=== PATIENT | female | born 1980 | race Caucasian/White ===

== ENCOUNTER 2019-07-25 23:40 | Emergency (ER) | payer MEDICAID ==
[~2019-07-25] VITALS: Ht 152.4 cm; Wt 59.9 kg
[~2019-07-25 23:40] MED LIST: AC500T PO; ACDPT; ALB0.5V; ALBU17AE3; ALBU8.5H2 IH; ALPR0.5T22; ALPR1T; ALPR1T PO; ALPR1TAB PO; AMATIZA; AMOX500C2 PO; AMT50T; ANTI15DR4 RIGHT EAR; BUDE6HFA; CODE-54 PO; CYCL-97 PO; Claritin; DICY20TA57 PO; DOXE10CA PO; DOXE25CA2 PO; DXM4T; ERYT-99; ESTR0.5T3 PO; ESTRACE; Estradiol; HYDR-2856 PO; HYDR-34 PO; HYDR-3714 PO; HYDR1TAB PO; IBP800T PO; IBUP800T26 PO; LITH150C PO; LORA0.5T34 PO; LTH150C PO; NAPR-243 PO; NITR100C3 PO; PARO20TA57; PRD50T PO; PRM25T PO; QTP25T; RISP1TAB19 PO; TRAM50TA2 PO; TRM50T PO; VILA40TA PO; Valium; ZOLP10TA5 PO; [UNRECOGNIZED DRUG - OTHER]
[2019-07-26] MEDS ORDERED: FAMOTIDINE 20MG/2ML IV (PEPCID) IVP ONE (01:00)
[2019-07-26] MEDS ORDERED: ONDANSETRON 4 MG/2 ML (SDV) Z0FRAN IVP ONE (01:00)
[2019-07-26 01:07] LABS: BASOPHILS # (AUTO) 0.1 10^3/uL (0.0-0.1); BASOPHILS % (AUTO) 1 % (0-10); EOSINOPHILS # (AUTO) 0.2 10^3/uL (0.0-0.3); EOSINOPHILS % (AUTO) 3 % (0-10); HEMATOCRIT 40 % (35-52); HEMOGLOBIN 13.5 G/DL (11.5-16.0); LYMPHOCYTES # (AUTO) 1.8 X 10^3 (1.0-4.0); LYMPHOCYTES % (AUTO) 30 % (12-44); MEAN CORPUSCULAR HEMOGLOBIN 31 PG (25-34); MEAN CORPUSCULAR HGB CONC 34 G/DL (32-36); MEAN CORPUSCULAR VOLUME 92 FL (80-99); MEAN PLATELET VOLUME 11.9 FL (7.4-10.4); MONOCYTES # (AUTO) 0.7 X 10^3 (0.0-1.0); MONOCYTES % (AUTO) 11 % (0-12); NEUTROPHILS # (AUTO) 3.3 X 10^3 (1.8-7.8); NEUTROPHILS % (AUTO) 55 % (42-75); PLATELET COUNT 171 10^3/uL (130-400); WHITE BLOOD COUNT 5.9 10^3/uL (4.3-11.0)
[2019-07-26 01:10] LABS: BILIRUBIN,URINE NEGATIVE (NEGATIVE); CLARITY,URINE SLIGHTLY CLOUDY; COLOR,URINE YELLOW; GLUCOSE, URINE (UA) NEGATIVE (NEGATIVE); KETONES,URINE NEGATIVE (NEGATIVE); LEUKOCYTE ESTERASE ,URINE NEGATIVE (NEGATIVE); NITRITE,URINE NEGATIVE (NEGATIVE); PH,URINE 6 (5-9); PROTEIN,URINE NEGATIVE (NEGATIVE); UROBILINOGEN,URINE NORMAL (NORMAL)
[2019-07-26 01:18] LABS: BACTERIA,URINE FEW /HPF; WBC,URINE RARE /HPF
[2019-07-26 01:24] LABS: ALANINE AMINOTRANSFERASE 334 U/L (0-55); ALBUMIN 4.1 GM/DL (3.2-4.5); ALKALINE PHOSPHATASE 146 U/L (40-136); BILIRUBIN,TOTAL 0.5 MG/DL (0.1-1.0); BUN/CREATININE RATIO 12; CARBON DIOXIDE 23 MMOL/L (21-32); CHLORIDE 107 MMOL/L (98-107); CREATININE SERUM 0.82 MG/DL (0.60-1.30); GFR ESTIMATED > 60; GLUCOSE 81 MG/DL (70-105); LIPASE 24 U/L (8-78); MAGNESIUM 1.5 MG/DL (1.6-2.4); POTASSIUM 3.6 MMOL/L (3.6-5.0); SODIUM 142 MMOL/L (135-145); TOTAL PROTEIN 6.6 GM/DL (6.4-8.2)
[2019-07-26] MEDS ORDERED: FAMO-119 PO (03:00)
[2019-07-26] MEDS ORDERED: ONDA4TAB11 PO (03:00)
[2019-07-26] MEDS ORDERED: ANTACID SUSP 30 ML UDC (MYLANTA) PO ONE (03:00)
[2019-07-26] MEDS ORDERED: PROMETHAZINE INJ 25 MG/ML (PHENERGAN) AMP IVP ONE (03:00)
[2019-07-26] MEDS ORDERED: LIDOCAINE 2% VISCOUS 15 ML UDC PO ONE (03:00)
--- NOTE | 2019-07-26 03:00 | ED Abdominal Pain ---
General Chief Complaint: Abdominal/GI Problems Stated Complaint: CP,VOMITING Nursing Triage Note: C/O ONGOING ABDOMINAL PAIN FOR 2 MONTHS HAS HAD COMITINF VERBALIZES COFFEE GOUND EMISIS WITHNORMAL STOOL PATTERN Sepsis Screen: No Definite Risk Source of Information: Patient Exam Limitations: No Limitations History of Present Illness Date Seen by Provider: Jul 26, 2019 Time Seen by Provider: 00:46 Initial Comments This 38-year-old woman presents to the emergency room with complaints of epigastric pain that radiates up through the left chest. She has been feeling agitated. Pain started around 11:00 yesterday. She has had associated vomiting. Pain has been present intermittently throughout the day. She has felt dizzy at times and has been bumping into julien. She feels a pressure in the lower abdomen with urination. She is nauseated at present as well. She was recently referred to Dr. Roberto for evaluation of these symptoms. She did not go due to other life circumstances. She reports an episode of "coffee-ground" emesis today. She had some diarrhea previously but that seemed to have resolved. She complains of chest discomfort with inspiration of smoke. The abdominal discomfort has been present off and on for a couple of months. She also reports some foot drop related to her neurologic issues contributed to her stability. She denies any drug or alcohol use. Allergies and Home Medications Allergies Coded Allergies: No Known Drug Allergies (Unverified , 03/20/12) Home Medications Albuterol 8.5 Gm Hfa.aer.ad, 8.5 GM IH Q6H, (Reported) 2 PUFFS Amoxicillin 500 Mg Capsule, 2 EACH PO TID Prescribed by: ANJU SANTA on 08/17/14 005 Codeine Phos/Acetaminophen 1 Tab Tablet, 2 TAB PO Q6H PRN for PAIN, (Reported) Estradiol 0.5 Mg Tablet, 0.5 MG PO DAILY, (Reported) Famotidine 20 Mg Tablet, 20 MG PO BID Prescribed by: BRANDEN LACY on 07/26/19 0300 Ibuprofen 800 Mg Tablet, 800 MG PO q8h PRN for PAIN Prescribed by: ANJU SANTA on 08/17/14 005 Lorazepam 0.5 Mg Tablet, 1 MG PO TID, (Reported) Ondansetron 4 Mg Tab.rapdis, 4 MG PO Q4H PRN for NAUSEA/VOMITING Prescribed by: BRANDEN LACY on 07/26/19 0300 Zolpidem Tartrate 10 Mg Tablet, 10 MG PO HS, (Reported) Patient Home Medication List Home Medication List Reviewed: Yes Review of Systems Review of Systems Constitutional: see HPI EENTM: No Symptoms Reported Respiratory: No Symptoms Reported Cardiovascular: No Symptoms Reported Gastrointestinal: See HPI Genitourinary: No Symptoms Reported Musculoskeletal: no symptoms reported Skin: no symptoms reported Psychiatric/Neurological: See HPI Endocrine: No Symptoms Reported Hematologic/Lymphatic: No Symptoms Reported Past Ztqokya-Ujodly-Ymbjag Hx Past Med/Social Hx: Reviewed and Corrections made Patient Social History Alcohol Use: Occasionally Uses Recreational Drug Use: No Smoking Status: Current Everyday Smoker Type Used: Cigarettes 2nd Hand Smoke Exposure: No Recent Foreign Travel: No Contact w/Someone Who Travel: No Recent Infectious Disease Expo: No Recent Hopitalizations: No Physical Abuse: No Sexual Abuse: No Mistreated: No Fear: No Immunizations Up To Date Date of Influenza Vaccine: Sep 07, 2012 Past Medical History Surgeries: Yes (MULTIPLE D&C'S, LEFT CARPAL TUNNEL AND LEFT ULNAR NERVE TRANSPOSITION, BSO) Appendectomy, Gallbladder, Hysterectomy Respiratory: Yes Asthma Cardiac: Yes (TACHYCARDIA) Neurological: Yes (Carpel tunnel syndrome bilaterally, neuropathy and neurodysplasia of LUE) Seizure Disorder : No Reproductive Disorders: Yes (OVARIAN CYSTS, HYSTERECTOMY FOR CERVICAL DYSPLASIA) 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 oz. 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, no motor/sensory deficits, alert, normal mood/affect, oriented x 3 Skin: normal color, warm/dry Progress/Results/Core Measures Results/Orders Lab Results Laboratory Tests Test 07/26/19 00:55 07/26/19 01:05 Range/Units White Blood Count 5.9 4.3-11.0 10^3/uL Red Blood Count 4.36 4.35-5.85 10^6/uL Hemoglobin 13.5 11.5-16.0 G/DL Hematocrit 40 35-52 % Mean Corpuscular Volume 92 80-99 FL Mean Corpuscular Hemoglobin 31 25-34 PG Mean Corpuscular Hemoglobin Concent 34 32-36 G/DL Red Cell Distribution Width 14.0 10.0-14.5 % Platelet Count 171 130-400 10^3/uL Mean Platelet Volume 11.9 H 7.4-10.4 FL Neutrophils (%) (Auto) 55 42-75 % Lymphocytes (%) (Auto) 30 12-44 % Monocytes (%) (Auto) 11 0-12 % Eosinophils (%) (Auto) 3 0-10 % Basophils (%) (Auto) 1 0-10 % Neutrophils # (Auto) 3.3 1.8-7.8 X 10^3 Lymphocytes # (Auto) 1.8 1.0-4.0 X 10^3 Monocytes # (Auto) 0.7 0.0-1.0 X 10^3 Eosinophils # (Auto) 0.2 0.0-0.3 10^3/uL Basophils # (Auto) 0.1 0.0-0.1 10^3/uL Prothrombin Time 13.0 12.2-14.7 SEC INR Comment 0.9 0.8-1.4 Sodium Level 142 135-145 MMOL/L Potassium Level 3.6 3.6-5.0 MMOL/L Chloride Level 107 98-107 MMOL/L Carbon Dioxide Level 23 21-32 MMOL/L Anion Gap 12 5-14 MMOL/L Blood Urea Nitrogen 10 7-18 MG/DL Creatinine 0.82 0.60-1.30 MG/DL Estimat Glomerular Filtration Rate > 60 BUN/Creatinine Ratio 12 Glucose Level 81 70-105 MG/DL Calcium Level 9.0 8.5-10.1 MG/DL Corrected Calcium 8.9 8.5-10.1 MG/DL Magnesium Level 1.5 L 1.6-2.4 MG/DL Total Bilirubin 0.5 0.1-1.0 MG/DL Aspartate Amino Transf (AST/SGOT) 428 H 5-34 U/L Alanine Aminotransferase (ALT/SGPT) 334 H 0-55 U/L Alkaline Phosphatase 146 H 40-136 U/L Troponin I < 0.028 <0.028 NG/ML Total Protein 6.6 6.4-8.2 GM/DL Albumin 4.1 3.2-4.5 GM/DL Lipase 24 8-78 U/L Urine Color YELLOW Urine Clarity SLIGHTLY CLOUDY Urine pH 6 5-9 Urine Specific Tiller 1.010 L 1.016-1.022 Urine Protein NEGATIVE NEGATIVE Urine Glucose (UA) NEGATIVE NEGATIVE Urine Ketones NEGATIVE NEGATIVE Urine Nitrite NEGATIVE NEGATIVE Urine Bilirubin NEGATIVE NEGATIVE Urine Urobilinogen NORMAL NORMAL MG/DL Urine Leukocyte Esterase NEGATIVE NEGATIVE Urine RBC (Auto) NEGATIVE NEGATIVE Urine RBC NONE /HPF Urine WBC RARE /HPF Urine Squamous Epithelial Cells 5-10 /HPF Urine Crystals NONE /LPF Urine Bacteria FEW H /HPF Urine Casts NONE /LPF Urine Mucus NEGATIVE /LPF Urine Culture Indicated YES My Orders Orders - BRANDEN KRAFT MD Cbc With Automated Diff (07/26/19 00:59) Comprehensive Metabolic Panel (07/26/19 00:59) Lipase (07/26/19 00:59) Magnesium (07/26/19 00:59) Troponin I (07/26/19 00:59) Ua Culture If Indicated (07/26/19 00:59) Ed Iv/Invasive Line Start (07/26/19 00:59) Ekg Tracing (07/26/19 00:59) Chest 1 View, Ap/Pa Only (07/26/19 00:59) Famotidine Injection (Pepcid Injection) (07/26/19 01:00) Ondansetron Injection (Zofran Injectio (07/26/19 01:00) Urine Culture (07/26/19 01:05) Promethazine Injection (Phenergan Injec (07/26/19 03:00) Lidocaine 2% Viscous 15 Ml (Xylocaine Vi (07/26/19 03:00) Antacid Suspension (Mylanta Suspension (07/26/19 03:00) Hepatitis Panel Acute (07/26/19 02:51) Protime With Inr (07/26/19 02:51) Medications Given in ED Current Medications Medications Dose Ordered Sig/Rafael Route Start Time Stop Time Status Last Admin Dose Admin Al Hydrox/Mg Hydrox/Simethicone 30 ml ONCE ONCE PO 07/26/19 03:00 07/26/19 03:01 DC 07/26/19 03:19 30 ML Famotidine 20 mg ONCE ONCE IVP 07/26/19 01:00 07/26/19 01:02 DC 07/26/19 01:18 20 MG Lidocaine HCl 15 ml ONCE ONCE PO 07/26/19 03:00 07/26/19 03:01 DC 07/26/19 03:19 15 ML Ondansetron HCl 8 mg ONCE ONCE IVP 07/26/19 01:00 07/26/19 01:02 DC 07/26/19 01:18 8 MG Promethazine HCl 12.5 mg ONCE ONCE IVP 07/26/19 03:00 07/26/19 03:01 DC 07/26/19 03:19 12.5 MG Vital Signs/I&O 07/25/19 07/26/19 23:52 03:28 Temp 98.2 Pulse 87 70 Resp 18 22 B/P (MAP) 122/93 (103) 106/77 (87) Pulse Ox 99 96 Blood Pressure Mean: 103 Progress Progress Note : Progress Note Patient was found to have elevated transaminases. Workup was otherwise unremarkable. Transaminases are elevated enough that there is concern about acute hepatitis. Patient reports being tested for hepatitis in the past. However, she did receive a tattoo on her right forearm by a nonlicensed artist since last being screened for hepatitis. Patient was initially treated with Pepcid and Zofran. Phenergan and GI cocktail was added later. Patient was encouraged to return for repeat blood work on Tuesday. She was encouraged to follow closely with her primary care team on Tuesday. Initial ECG Impression Date: Jul 26, 2019 Initial ECG Impression Time: 01:08 Initial ECG Rate: 73 Initial ECG Rhythm: Normal Sinus Initial ECG Intervals: Normal Initial ECG Impression: Normal Comment Normal sinus rhythm with no ST elevation or depression. No abnormal intervals or axis deviation. Diagnostic Imaging Diagonstic Imaging: Xray Plain Films/CT/US/NM/MRI: chest Comments Chest x-ray viewed by me. Report not yet available. No acute abnormalities appreciated. Departure Impression Primary Impression: Acute hepatitis Additional Impressions: Upper abdominal pain Nausea and vomiting Qualified Codes: R11.2 - Nausea with vomiting, unspecified Disposition: HOME, SELF-CARE Condition: Improved Departure-Patient Inst. Decision time for Depature: 02:56 Referrals: JOHANNE HERNANDES MD (PCP/Family) Primary Care Physician Patient Instructions: Acute Abdomen (Belly Pain), Adult (DC), Liver Function Test Add. Discharge Instructions: Your liver markers suggest acute hepatitis. Labs to evaluate for viral he patitis were collected in the ER. The should be available for review by early next week. Please follow-up with your primary care provider in the clinic next week. Start with a clear liquid diet and gradually advance your diet with small quantities of bland food as tolerated. Avoid food or drink that irritates your stomach. Do not drink alcohol. Avoid Tylenol. You may use Zofran (ondansetron) as prescribed for nausea and vomiting. Use Pepcid as prescribed for stomach irritation. Return to emergency room if you have worsening symptoms. Obtain lab work again on Tuesday to monitor the progression of your liver markers. All discharge instructions reviewed with patient and/or family. Voiced understanding. Scripts Famotidine (Pepcid) 20 Mg Tablet 20 MG PO BID, #60 TAB Prov: BRANDEN KRAFT MD 07/26/19 Ondansetron (Ondansetron Odt) 4 Mg Tab.rapdis 4 MG PO Q4H PRN for NAUSEA/VOMITING, #10 TAB Prov: BRANDEN KRAFT MD 07/26/19 Copy Copies To 1: JOHANNE HERNANDES MD, JOSHUA T MD Jul 26, 2019 03:00
[2019-07-26 03:07] LABS: INR 0.9 (0.8-1.4)
[2019-07-26 03:28] VITALS: BP 106/77
--- NOTE | 2019-07-26 07:30 | Diagnostic Imaging Report ---
Patient History: Chest pain. Technique: Single frontal view of the chest Comparison: 02/15/2013 FINDINGS: The lung volumes are normal. No focal consolidation is seen. No large pleural effusion or pneumothorax is seen. The cardiomediastinal silhouette is normal in size and contour. No acute osseous abnormality is seen. IMPRESSION: No acute pulmonary abnormality seen. Dictated by: Dictated on workstation # [id number]
[2019-07-27 07:54] LABS: HEPATITIS C ANTIBODY C Non-Reactive (Non-Reactive)
== END 2019-07-26 03:28 | disposition home or self-care (01) ==
LOC: ER 23:40 → EDUNIT# 23:40 → ER 07-26 03:28
DX: B17.9 Acute viral hepatitis, unspecified (principal); J45.909 Unspecified asthma, uncomplicated; G40.909 Epilepsy, unspecified, not intractable, without status epilepticus; F41.9 Anxiety disorder, unspecified; F31.9 Bipolar disorder, unspecified; G62.9 Polyneuropathy, unspecified; F17.210 Nicotine dependence, cigarettes, uncomplicated; Z90.49 Acquired absence of other specified parts of digestive tract; Z90.710 Acquired absence of both cervix and uterus; Z79.52 Long term (current) use of systemic steroids; Z90.722 Acquired absence of ovaries, bilateral; Z85.41 Personal history of malignant neoplasm of cervix uteri; Z91.5 Personal history of self-harm
CPT/HCPCS: 36415; 71045; 80053; 80074; 81000; 83690; 83735; 84484; 85025; 85610; 87088; 93005

== ENCOUNTER → 2019-07-27 | Outpatient (CLI) | payer MEDICAID ==
[~2019-07-27] MED LIST changes: +FAMO-119 PO; +ONDA4TAB11 PO
[2019-07-27 13:50] LABS: BASOPHILS # (AUTO) 0.1 10^3/uL (0.0-0.1); BASOPHILS % (AUTO) 2 % (0-10); EOSINOPHILS # (AUTO) 0.1 10^3/uL (0.0-0.3); EOSINOPHILS % (AUTO) 2 % (0-10); HEMATOCRIT 43 % (35-52); HEMOGLOBIN 14.3 G/DL (11.5-16.0); LYMPHOCYTES # (AUTO) 2.4 X 10^3 (1.0-4.0); LYMPHOCYTES % (AUTO) 42 % (12-44); MEAN CORPUSCULAR HEMOGLOBIN 31 PG (25-34); MEAN CORPUSCULAR HGB CONC 33 G/DL (32-36); MEAN CORPUSCULAR VOLUME 94 FL (80-99); MEAN PLATELET VOLUME 11.8 FL (7.4-10.4); MONOCYTES # (AUTO) 0.6 X 10^3 (0.0-1.0); MONOCYTES % (AUTO) 11 % (0-12); NEUTROPHILS # (AUTO) 2.5 X 10^3 (1.8-7.8); NEUTROPHILS % (AUTO) 44 % (42-75); PLATELET COUNT 183 10^3/uL (130-400); RED CELL DISTRIBUTION WIDTH 14.2 % (10.0-14.5); WHITE BLOOD COUNT 5.7 10^3/uL (4.3-11.0)
[2019-07-27 14:15] LABS: INR 0.9 (0.8-1.4); PROTHROMBIN TIME PATIENT 12.7 SEC (12.2-14.7)
[2019-07-27 14:19] LABS: ALANINE AMINOTRANSFERASE 174 U/L (0-55); ALBUMIN 4.6 GM/DL (3.2-4.5); ALKALINE PHOSPHATASE 127 U/L (40-136); BILIRUBIN,TOTAL 0.5 MG/DL (0.1-1.0); BUN/CREATININE RATIO 10; CALCIUM 9.9 MG/DL (8.5-10.1); CARBON DIOXIDE 24 MMOL/L (21-32); CHLORIDE 105 MMOL/L (98-107); CREATININE SERUM 1.07 MG/DL (0.60-1.30); GFR ESTIMATED 57; GLUCOSE 95 MG/DL (70-105); POTASSIUM 4.5 MMOL/L (3.6-5.0); SODIUM 141 MMOL/L (135-145); TOTAL PROTEIN 7.3 GM/DL (6.4-8.2)
== END ==
LOC: LAB 13:37
PROVIDERS: ATTEND Family Medicine
DX: B17.9 Acute viral hepatitis, unspecified (principal)
CPT/HCPCS: 36415; 80053; 85025; 85610

== ENCOUNTER 2019-12-15 16:39 | Emergency (ER) | payer MEDICAID ==
--- NOTE | 2019-12-15 16:39 | NUR ---
PATIENT HAS HX OF SEIZURE DISORDER ARRIVES TO ROOM 6 TO SEE HER SON WHO IS A PATIENT HERE. PATIENT BEGINS HAVING A SEIZURE AND FAMILY REQUEST SHE BE SEEN. THIS RN IN ROOM FOR SEIZURE ACTIVITY. THIS RN WAITS UNTIL PATIENT RECOVERS FROM SHAKING "SEIZURE ACTIVITY" TO VERIFY SHE DOES WANT TO BE SEEN BECAUSE SHE IS YELLING "I HAVE THESE ALL THE TIME, I DONT NEED TO BE SEEN" FAMILY IS ARGUING WITH PATIENT SO THIS RN STEPS IN AND ASKS PATIENT SPECIFICALLY IF SHE WANTS TO BE SEEN OR NOT. AT THIS TIME PATIENT STOPS YELLING AND AGREES TO BE SEEN.
[2019-12-15] MEDS ORDERED: LORazepam INJ 2 MG/ML (ATIVAN) VIAL ONE (16:43)
[2019-12-15] MEDS ORDERED: LORazepam INJ 2 MG/ML (ATIVAN) VIAL IVP PRN (17:00)
[2019-12-15 17:07] LABS: BASOPHILS # (AUTO) 0.1 10^3/uL (0.0-0.1); BASOPHILS % (AUTO) 1 % (0-10); EOSINOPHILS # (AUTO) 0.1 10^3/uL (0.0-0.3); EOSINOPHILS % (AUTO) 1 % (0-10); HEMATOCRIT 43 % (35-52); HEMOGLOBIN 14.4 G/DL (11.5-16.0); LYMPHOCYTES # (AUTO) 3.3 X 10^3 (1.0-4.0); LYMPHOCYTES % (AUTO) 48 % (12-44); MEAN CORPUSCULAR HEMOGLOBIN 32 PG (25-34); MEAN CORPUSCULAR HGB CONC 34 G/DL (32-36); MEAN CORPUSCULAR VOLUME 94 FL (80-99); MEAN PLATELET VOLUME 11.8 FL (7.4-10.4); MONOCYTES # (AUTO) 0.7 X 10^3 (0.0-1.0); MONOCYTES % (AUTO) 10 % (0-12); NEUTROPHILS # (AUTO) 2.8 X 10^3 (1.8-7.8); NEUTROPHILS % (AUTO) 40 % (42-75); PLATELET COUNT 237 10^3/uL (130-400); RED CELL DISTRIBUTION WIDTH 13.8 % (10.0-14.5)
--- NOTE | 2019-12-15 17:08 | ED General ---
General Chief Complaint: Neurological Problems Stated Complaint: SEIZURE Source of Information: Patient Exam Limitations: No Limitations History of Present Illness Date Seen by Provider: Dec 15, 2019 Time Seen by Provider: 16:50 Initial Comments Patient came to the emergency room to visit her son who is a minor in [facility], upon entering his room she fell onto the bed and began convulsing. She reports a long-standing history of seizures and all of the stress is worsening them. Timing/Duration: 1-2 Days Severity: Moderate Allergies and Home Medications Allergies Coded Allergies: No Known Drug Allergies (Unverified , 03/20/12) Home Medications Albuterol 8.5 Gm Hfa.aer.ad, 8.5 GM IH Q6H, (Reported) 2 PUFFS Amoxicillin 500 Mg Capsule, 2 EACH PO TID Prescribed by: ANJU SANTA on 08/17/14 005 Codeine Phos/Acetaminophen 1 Tab Tablet, 2 TAB PO Q6H PRN for PAIN, (Reported) Estradiol 0.5 Mg Tablet, 0.5 MG PO DAILY, (Reported) Famotidine 20 Mg Tablet, 20 MG PO BID Prescribed by: BRANDEN LACY on 07/26/19 030 Ibuprofen 800 Mg Tablet, 800 MG PO q8h PRN for PAIN Prescribed by: ANJU SANTA on 08/17/1453 Lorazepam 0.5 Mg Tablet, 1 MG PO TID, (Reported) Ondansetron 4 Mg Tab.rapdis, 4 MG PO Q4H PRN for NAUSEA/VOMITING Prescribed by: BRANDEN LACY on 07/26/19 0300 Zolpidem Tartrate 10 Mg Tablet, 10 MG PO HS, (Reported) Patient Home Medication List Home Medication List Reviewed: Yes Review of Systems Review of Systems Constitutional: see HPI, malaise, weakness EENTM: see HPI Respiratory: no symptoms reported Cardiovascular: no symptoms reported Genitourinary: no symptoms reported Musculoskeletal: no symptoms reported Skin: no symptoms reported Psychiatric/Neurological: No Symptoms Reported Hematologic/Lymphatic: No Symptoms Reported Immunological/Allergic: no symptoms reported Past Ivpxmtj-Mzowsf-Kelazk Hx Patient Social History Type Used: Cigarettes 2nd Hand Smoke Exposure: No Recent Hopitalizations: No Immunizations Up To Date Date of Influenza Vaccine: Sep 07, 2012 Past Medical History Surgeries: Yes (MULTIPLE D&C'S, LEFT CARPAL TUNNEL AND LEFT ULNAR NERVE TRANSPOSITION, BSO) Appendectomy, Gallbladder, Hysterectomy Respiratory: Yes Asthma Cardiac: Yes (TACHYCARDIA) Neurological: Yes (Carpel tunnel syndrome bilaterally, neuropathy and neurodysplasia of LUE) Seizure Disorder Reproductive Disorders: Yes (OVARIAN CYSTS, HYSTERECTOMY FOR CERVICAL DYSPLASIA) 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 oz. 59.945358hx; 31.10 BMI Method:Actual General Appearance: No Apparent Distress, WD/WN, Other (alert and oriented, several teeth in a poor state of health, tearful stating "I've failed as a mother") HEENT: PERRL/EOMI, TMs Normal Neck: Full Range of Motion, Normal Inspection Respiratory: Normal Breath Sounds, No Accessory Muscle Use, No Respiratory Distress Cardiovascular: Regular Rate, Rhythm, Normal Peripheral Pulses Gastrointestinal: Normal Bowel Sounds, Non Tender, Soft Extremity: Normal Capillary Refill, Normal Inspection Neurologic/Psychiatric: Alert, Oriented x3 Skin: Normal Color, Warm/Dry Progress/Results/Core Measures Suspected Sepsis SIRS Temperature: Pulse: Respiratory Rate: Laboratory Tests 12/15/19 16:44: White Blood Count 7.0 Blood Pressure / Mean: Laboratory Tests 12/15/19 16:44: Creatinine 0.99, Platelet Count 237, Total Bilirubin 0.3 Results/Orders Lab Results Laboratory Tests Test 12/15/19 16:44 Range/Units White Blood Count 7.0 4.3-11.0 10^3/uL Red Blood Count 4.54 4.35-5.85 10^6/uL Hemoglobin 14.4 11.5-16.0 G/DL Hematocrit 43 35-52 % Mean Corpuscular Volume 94 80-99 FL Mean Corpuscular Hemoglobin 32 25-34 PG Mean Corpuscular Hemoglobin Concent 34 32-36 G/DL Red Cell Distribution Width 13.8 10.0-14.5 % Platelet Count 237 130-400 10^3/uL Mean Platelet Volume 11.8 H 7.4-10.4 FL Neutrophils (%) (Auto) 40 L 42-75 % Lymphocytes (%) (Auto) 48 H 12-44 % Monocytes (%) (Auto) 10 0-12 % Eosinophils (%) (Auto) 1 0-10 % Basophils (%) (Auto) 1 0-10 % Neutrophils # (Auto) 2.8 1.8-7.8 X 10^3 Lymphocytes # (Auto) 3.3 1.0-4.0 X 10^3 Monocytes # (Auto) 0.7 0.0-1.0 X 10^3 Eosinophils # (Auto) 0.1 0.0-0.3 10^3/uL Basophils # (Auto) 0.1 0.0-0.1 10^3/uL Sodium Level 142 135-145 MMOL/L Potassium Level 3.7 3.6-5.0 MMOL/L Chloride Level 108 H 98-107 MMOL/L Carbon Dioxide Level 14 L 21-32 MMOL/L Anion Gap 20 H 5-14 MMOL/L Blood Urea Nitrogen 6 L 7-18 MG/DL Creatinine 0.99 0.60-1.30 MG/DL Estimat Glomerular Filtration Rate > 60 BUN/Creatinine Ratio 6 Glucose Level 102 70-105 MG/DL Calcium Level 9.4 8.5-10.1 MG/DL Corrected Calcium 9.1 8.5-10.1 MG/DL Total Bilirubin 0.3 0.1-1.0 MG/DL Aspartate Amino Transf (AST/SGOT) 39 H 5-34 U/L Alanine Aminotransferase (ALT/SGPT) 35 0-55 U/L Alkaline Phosphatase 103 40-136 U/L Total Protein 6.9 6.4-8.2 GM/DL Albumin 4.4 3.2-4.5 GM/DL Lipase 12 8-78 U/L My Orders Orders - YEMI BONILLA APRN Ua Culture If Indicated (12/15/19 16:47) Drug Screen Stat (Urine) (12/15/19 16:47) Cbc With Automated Diff (12/15/19 16:47) Comprehensive Metabolic Panel (12/15/19 16:47) Lipase (12/15/19 16:47) Ed Iv/Invasive Line Start (12/15/19 16:47) Lorazepam Injection (Ativan Injection) (12/15/19 17:00) Ns Iv 1000 Ml (Sodium Chloride 0.9%) (12/15/19 17:30) Ketorolac Injection (Toradol Injection) (12/15/19 17:30) Orphenadrine Injection (Norflex Injectio (12/15/19 17:30) Promethazine Injection (Phenergan Injec (12/15/19 17:45) Medications Given in ED Current Medications Medications Dose Ordered Sig/Rafael Route Start Time Stop Time Status Last Admin Dose Admin Lorazepam 1.5 mg ONCE PRN IVP 12/15/19 17:00 12/15/19 16:52 1.5 MG Vital Signs/I&O 12/15/19 16:39 Temp 36.8 Pulse 104 Resp 24 B/P (MAP) 115/85 (95) Pulse Ox 96 Capillary Refill : Departure Communication (Admissions) 1989-patient is belligerent, yelling at staff, yelling at her family in the room states she doesn't want to be here, I allowed her to sign out AGAINST MEDICAL ADVICE, she states "I don't have a ride explanation felipe". Asked her not yelling or rude to staff. Impression Primary Impression: Stress Additional Impression: Seizure-like activity Disposition: 01 HOME, SELF-CARE Condition: Stable Departure-Patient Inst. Decision time for Depature: 17:35 Referrals: SELF,JOHANNE SOTO (PCP/Family) Primary Care Physician Patient Instructions: Seizures, Stress Add. Discharge Instructions: . Return to ER for any concerns 2. Follow-up with your doctor next week 3. All discharge instructions reviewed with patient and/or family. Voiced understanding. YEMI BONILLA APRN Dec 15, 2019 17:08
--- NOTE | 2019-12-15 17:10 | NUR ---
CALLED TO ROOM BY FRIEND AND WITNESS PATIENT HAVINNG WHAT APPEARS TO BE A SEIZURE, PATIENT IS SECURE AND SAFE IN BED, SHAKING ACTIVITY LASTED 30 SECONDS. PATIENT SPEAKS TO THIS RN WHILE AT BEDSIDE WITH IN ONE MINUTE ACTIVITY CEASED. MONITORING MAINTAINED. CALL LIGHT IN REACH, FRIEND AT BEDSIDE.
[2019-12-15 17:15] LABS: ALANINE AMINOTRANSFERASE 35 U/L (0-55); ALBUMIN 4.4 GM/DL (3.2-4.5); ALKALINE PHOSPHATASE 103 U/L (40-136); BILIRUBIN,TOTAL 0.3 MG/DL (0.1-1.0); BUN/CREATININE RATIO 6; CALCIUM 9.4 MG/DL (8.5-10.1); CARBON DIOXIDE 14 MMOL/L (21-32); CHLORIDE 108 MMOL/L (98-107); CREATININE SERUM 0.99 MG/DL (0.60-1.30); GFR ESTIMATED > 60; GLUCOSE 102 MG/DL (70-105); LIPASE 12 U/L (8-78); POTASSIUM 3.7 MMOL/L (3.6-5.0); SODIUM 142 MMOL/L (135-145); TOTAL PROTEIN 6.9 GM/DL (6.4-8.2)
[2019-12-15] MEDS ORDERED: HOLD METFORMIN - RECEIVED CONTRAST 20 ML VIAL IV SCH (17:30)
[2019-12-15] MEDS ORDERED: KETOROLAC 30 MG/ML VIAL IVP ONE (17:30)
[2019-12-15] MEDS ORDERED: NS 100 ML (IVPB) BAG IV ONE (17:30)
[2019-12-15] MEDS ORDERED: CATHETER FLUSH 10 ML SYR IV PRN (17:30)
[2019-12-15] MEDS ORDERED: ORPHENADRINE 60 MG/2 ML (NORFLEX) AMP IV ONE (17:30)
[2019-12-15] MEDS ORDERED: IOHEXOL 350 MG/ML 100 ML (OMNIPAQUE 350) VIAL IV ONE (17:30)
[2019-12-15] MEDS ORDERED: NS IV 1000 ML 1,000 ML IV SCH (17:30)
--- NOTE | 2019-12-15 17:40 | NUR ---
PATIENT IS YELLING AT STAFF, YEMI IN ROOM TO ASK IF PATIENT WANTS TO LEAVE AMA OR STAY AND LET US TREAT HER WITH THE CONDITION SHE STOP BEING RUDE AND YELLING AT STAFF. PATIENT HAS SETTLED DOWN AND AGREES TO STAY AT THIS TIME. THIS RN IN ROOM TO ADMINISTER MEDICATIONS FOR PAIN NAUSEA AND IV FUIDS.
[2019-12-15] MEDS ORDERED: PROMETHAZINE INJ 25 MG/ML (PHENERGAN) AMP IVP ONE (17:45)
[2019-12-15 17:58] LABS: BILIRUBIN,URINE NEGATIVE (NEGATIVE); CLARITY,URINE CLEAR; COLOR,URINE YELLOW; GLUCOSE, URINE (UA) NEGATIVE (NEGATIVE); KETONES,URINE NEGATIVE (NEGATIVE); LEUKOCYTE ESTERASE ,URINE NEGATIVE (NEGATIVE); NITRITE,URINE NEGATIVE (NEGATIVE); PH,URINE 6.5 (5-9); PROTEIN,URINE NEGATIVE (NEGATIVE)
[2019-12-15 18:02] LABS: BACTERIA,URINE TRACE /HPF
[2019-12-15 18:08] LABS: AMPHETAMINE SCREEN, URINE NEGATIVE (NEGATIVE); BARBITURATE SCREEN URINE NEGATIVE (NEGATIVE); BENZODIAZEPINES SCREEN URINE POSITIVE (NEGATIVE); CANNABINOID SCREEN, URINE POSITIVE (NEGATIVE); COCAINE SCREEN URINE NEGATIVE (NEGATIVE); METHADONE STAT NEGATIVE (NEGATIVE); METHAMPHETAMINE SCREEN URINE S NEGATIVE (NEGATIVE); OPIATE SCREEN URINE NEGATIVE (NEGATIVE); OXYCODONE STAT NEGATIVE (NEGATIVE); PROPOXYPHENE STAT NEGATIVE (NEGATIVE); TRICYCLIC ANTIDEPRESSANTS SCRE NEGATIVE (NEGATIVE)
[2019-12-15 18:55] VITALS: BP 119/86
== END 2019-12-15 18:55 | disposition home or self-care (01) ==
LOC: EDUNIT# 16:39 → ER 16:39
DX: F43.9 Reaction to severe stress, unspecified (principal); G40.909 Epilepsy, unspecified, not intractable, without status epilepticus; J45.909 Unspecified asthma, uncomplicated; G62.9 Polyneuropathy, unspecified; F41.9 Anxiety disorder, unspecified; F31.9 Bipolar disorder, unspecified; Z79.52 Long term (current) use of systemic steroids; Z85.41 Personal history of malignant neoplasm of cervix uteri; Z90.49 Acquired absence of other specified parts of digestive tract; Z90.710 Acquired absence of both cervix and uterus; Z90.722 Acquired absence of ovaries, bilateral
CPT/HCPCS: 36415; 80053; 80306; 81000; 83690; 85025; 96374; 96375

== ENCOUNTER → 2020-04-17 | Outpatient (CLI) | payer MEDICAID ==
[~2020-04-17] MED LIST changes: +HOLD METFORMIN - RECEIVED CONTRAST 20 ML VIAL IV SCH; +IOHEXOL 350 MG/ML 100 ML (OMNIPAQUE 350) VIAL IV ONE; +NS 100 ML (IVPB) BAG IV ONE
--- NOTE | 2020-04-17 14:31 | Diagnostic Imaging Report ---
PROCEDURE: CT abdomen with contrast only. TECHNIQUE: Multiple contiguous axial images were obtained through the abdomen after the administration of intravenous contrast. Auto Exposure Controls were utilized during the CT exam to meet ALARA standards for radiation dose reduction. INDICATION: Abdominal pain and constipation. COMPARISON: Correlation is made with prior CT 02/12/2014. FINDINGS: Lung bases are clear. No discrete liver mass is detected. The gallbladder is surgically absent. No biliary ductal dilatation is seen. The pancreas and spleen are unremarkable. No adrenal mass is detected. Kidneys are unremarkable. Aorta is non-aneurysmal. The visualized abdominal small and large bowel loops are unremarkable. All of the bowel loops are not included in this study as the pelvis was not scanned. No free fluid or fluid collection is seen. No definite lymphadenopathy is detected. IMPRESSION: Unremarkable CT of the abdomen with contrast. Dictated by: Dictated on workstation # [id number]
== END ==
LOC: RAD 13:19
PROVIDERS: ATTEND Family Medicine
DX: K59.00 Constipation, unspecified (principal)
CPT/HCPCS: 74160

== ENCOUNTER → 2020-05-01 | Outpatient (CLI) | payer MEDICAID ==
[~2020-05-01] MED LIST changes: -HOLD METFORMIN - RECEIVED CONTRAST 20 ML VIAL IV SCH; -IOHEXOL 350 MG/ML 100 ML (OMNIPAQUE 350) VIAL IV ONE; -NS 100 ML (IVPB) BAG IV ONE
--- NOTE | 2020-05-01 18:30 | Diagnostic Imaging Report ---
PROCEDURE: MRI lumbar spine. TECHNIQUE: Multiplanar, multisequence MRI of the lumbar spine was performed without contrast. INDICATION: Low back pain. COMPARISON: Study interpreted in correlation with an abdominal CT that includes sagittal reconstructions of 04/17/2020. FINDINGS: Lumbar statures are stable and normal. The alignment is anatomic. The marrow signal intensity is normal. No bony destructive process, marrow replacement, or edema. The conus appeared normal and the nerves of the cauda equina revealed normal dispersal pattern. The L4-L5 disc reveals very slight circumferential generalized bulge but no focal herniation. The spinal canal, the neuroforamen, and the lateral recesses were all widely patent at each level. There is a small synovial facet joint cyst at the L4-L5 level on the left, this is oriented posteriorly into adjacent soft tissues and results in no stenosis. IMPRESSION: Very mild annular bulging of disc at L4-L5 with a small synovial facet cyst oriented outside of the spinal canal. No acute pathology. Normal alignment. No canal, foraminal, or recess stenosis. Dictated by: Dictated on workstation # [id number]
== END ==
LOC: RAD 14:35
PROVIDERS: ATTEND Family Medicine
DX: M51.26 Other intervertebral disc displacement, lumbar region (principal); M71.38 Other bursal cyst, other site
CPT/HCPCS: 72148

== ENCOUNTER → 2020-05-19 | Outpatient (CLI) | payer MEDICAID ==
--- NOTE | 2020-05-19 15:56 | Diagnostic Imaging Report ---
PROCEDURE: MR imaging cervical spine without contrast. TECHNIQUE: Multiplanar, multisequence MR imaging of the cervical spine was performed without contrast. INDICATION: Chronic neck pain. COMPARISON: No prior exam is available for comparison. FINDINGS: There is some straightening of the normal cervical lordosis. The vertebral body heights are well-maintained. The prevertebral soft tissues are within normal limits. Posterior fossa is unremarkable. Visualized portions of the spinal cord are normal signal intensity and morphology. At C2-C3, there is no spinal or neural foraminal encroachment. At C3-C4, there appears to be very mild right uncovertebral hypertrophy and mild right neural foraminal encroachment. At C4-C5, there is some broad-based annular bulging and mild bilateral uncovertebral joint hypertrophy. There is mild central spinal stenosis and mild bilateral neural foraminal encroachment. At C5-C6, there is broad-based annular bulging as well as a focal right paramedian disc protrusion. There is also at least moderate bilateral uncovertebral joint hypertrophy. There is [id number]-[id number] spinal stenosis with some definitive deformity of the right anterolateral cord. There is however no abnormal signal intensity within the cord. There is also at least moderate bilateral neural foraminal encroachment. At C6-C7, there is annular bulging and marked left uncovertebral joint hypertrophy. There is moderate spinal stenosis and rugjfbsi-by-bwufse left neural foraminal encroachment. At C7-T1, there is no spinal or neural foraminal encroachment. IMPRESSION: [id number] mid and lower cervical spondylosis as detailed above. Dictated by: Dictated on workstation # [id number]
--- NOTE | 2020-05-19 16:31 | Diagnostic Imaging Report ---
PROCEDURE: MR imaging of the brain without contrast. TECHNIQUE: Multiplanar, multisequence MR imaging of the brain was performed without contrast. INDICATION: Seizure disorder. COMPARISON: No prior examinations are available for comparison. FINDINGS: The ventricles and sulci are within normal limits. There is no hydrocephalus. There is no midline shift. There are no areas of diffusion restriction appreciated to suggest an acute CVA. There is no intracranial mass, hemorrhage, or extra-axial fluid collection. The temporal lobes are symmetric and without evidence of abnormal signal. There is no evidence of any neuronal migrational abnormalities. The frontal, ethmoid, sphenoid, and maxillary sinuses are clear. The mastoid air cells are clear. The globes and intraorbital structures are unremarkable. The central arterial and dural venous sinus flow voids are preserved. IMPRESSION: Unremarkable MRI brain. Dictated by: Dictated on workstation # [id number]
== END ==
LOC: RAD 14:25
PROVIDERS: ATTEND Family Medicine
DX: M47.892 Other spondylosis, cervical region (principal); G40.909 Epilepsy, unspecified, not intractable, without status epilepticus; W19.XXXA Unspecified fall, initial encounter
CPT/HCPCS: 70551; 72141

== ENCOUNTER 2020-07-13 11:27 | Emergency (ER) | payer MEDICAID ==
[~2020-07-13] VITALS: Ht 149.9 cm; Wt 66.4 kg
[2020-07-13] MEDS ORDERED: LACTATED RINGERS 1,000 ML IV ONE (11:39)
--- NOTE | 2020-07-13 11:48 | ED General ---
General Chief Complaint: General Problems/Pain Stated Complaint: NECK PAIN Source of Information: Patient Exam Limitations: No Limitations History of Present Illness Date Seen by Provider: Jul 13, 2020 Time Seen by Provider: 11:20 Initial Comments Patient presents ER by EMS from home with chief complaint that she was having some seizure-like activity. She has a known history of epilepsy and takes Valium 10 mg 3 times a day for many years for seizure control. She is also on gabapentin 800 mg 3 times a day. She follows with Dr. holt. Dr. Vargas did a spinal fusion on her cervical spine about 2 weeks ago. She has been using a fentanyl patch 12.5 g per hour as well as Percocet 10 mg every 6 hours. She took the fentanyl patch off today thing he might of been controlled being to her feeling poorly. She also noticed dysuria and malodorous urine. She says she ran out of her Valium 2 days ago and did not contact Dr. holt. She says her boyfriend has been giving her her medications and says she's not sure why she ran out early. Allergies and Home Medications Allergies Coded Allergies: No Known Drug Allergies (Unverified , 03/20/12) Home Medications Albuterol 8.5 Gm Hfa.aer.ad, 8.5 GM IH Q6H, (Reported) 2 PUFFS Amoxicillin 500 Mg Capsule, 2 EACH PO TID Prescribed by: ANJU SANTA on 08/17/14 0054 Codeine Phos/Acetaminophen 1 Tab Tablet, 2 TAB PO Q6H PRN for PAIN, (Reported) Diazepam 10 Mg Tablet, 10 MG PO TID Prescribed by: ANTHONY FARMER on 07/13/20 1154 Estradiol 0.5 Mg Tablet, 0.5 MG PO DAILY, (Reported) Famotidine 20 Mg Tablet, 20 MG PO BID Prescribed by: BRANDEN LACY on 07/26/19 0300 Ibuprofen 800 Mg Tablet, 800 MG PO q8h PRN for PAIN Prescribed by: ANJU SANTA on 08/17/14 0054 Lorazepam 0.5 Mg Tablet, 1 MG PO TID, (Reported) Ondansetron 4 Mg Tab.rapdis, 4 MG PO Q4H PRN for NAUSEA/VOMITING Prescribed by: BRANDEN LACY on 07/26/19 0300 Zolpidem Tartrate 10 Mg Tablet, 10 MG PO HS, (Reported) Patient Home Medication List Home Medication List Reviewed: Yes Review of Systems Review of Systems Constitutional: No chills, No diaphoresis, No fever, No malaise EENTM: No ear discharge, No ear pain Respiratory: No cough, No phlegm Cardiovascular: No chest pain, No Hx of Intervention, No palpitations Gastrointestinal: No abdominal pain, No constipation, No diarrhea Genitourinary: see HPI; No discharge; dysuria, hesitancy Musculoskeletal: see HPI, back pain, neck pain All Other Systems Reviewed Negative Unless Noted: Yes Past Embfbhe-Sgoumt-Weikaa Hx Patient Social History Alcohol Use: Denies Use Recreational Drug Use: Yes Drug of Choice: MARIJUANA Smoking Status: Current Everyday Smoker Type Used: Cigarettes 2nd Hand Smoke Exposure: No Recent Hopitalizations: No Immunizations Up To Date Date of Influenza Vaccine: Sep 07, 2012 Past Medical History Surgeries: Yes (MULTIPLE D&C'S, LEFT CARPAL TUNNEL AND LEFT ULNAR NERVE TRANSPOSITION, BSO) Appendectomy, Gallbladder, Hysterectomy Respiratory: Yes Asthma Cardiac: Yes (TACHYCARDIA) Neurological: Yes (Carpel tunnel syndrome bilaterally, neuropathy and neurodysplasia of LUE) Seizure Disorder Reproductive Disorders: Yes (OVARIAN CYSTS, HYSTERECTOMY FOR CERVICAL DYSPLASIA) [employer] History: Hysterectomy Genitourinary: No Gastrointestinal: No ("CHRONIC ABDOMINAL PAIN") Musculoskeletal: Yes (LEFT ARM "NERVE PROBLEM"--CHRONIC LEFT NECK/SHOULDER/ARM PAIN--FOLLOWED @) Endocrine: No HEENT: No Cancer: Yes Cervical Psychosocial: Yes (EXTENSIVE PSYCH ISSUES) Anxiety, Suicide Attempts, Bipolar, Depression Integumentary: No Blood Disorders: No Adverse Reaction/Blood Tranf: No Physical Exam Vital Signs Vital Signs - First Documented 07/13/20 11:30 Temp 36.9 Pulse 111 Resp 18 B/P (MAP) 122/73 (89) Pulse Ox 98 O2 Delivery Room Air Capillary Refill : Height, Weight, BMI Height: 5'0" Weight: 132lbs. oz. 59.880312fz; 31.10 BMI Method:Actual General Appearance: WD/WN, Mild Distress Eyes: Bilateral Eye Normal Inspection, Bilateral Eye PERRL, Bilateral Eye EOMI HEENT: PERRL/EOMI; No Pharynx Normal (dry oral mucosa without lesions), No Moist Mucous Membranes Neck: Full Range of Motion, Normal Inspection Respiratory: Lungs Clear, Normal Breath Sounds, No Accessory Muscle Use, No Respiratory Distress Cardiovascular: Regular Rate, Rhythm, No Edema, Normal Peripheral Pulses Gastrointestinal: Normal Bowel Sounds, Non Tender, Soft Extremity: Normal Capillary Refill, Normal Inspection Neurologic/Psychiatric: Alert, Oriented x3, No Motor/Sensory Deficits, Other (mildly anxious affect with mild tremor) Progress/Results/Core Measures Suspected Sepsis SIRS Temperature: Pulse: Respiratory Rate: Laboratory Tests 07/13/20 11:40: White Blood Count 5.4 Blood Pressure / Mean: Laboratory Tests 07/13/20 11:40: Creatinine 0.89, Platelet Count 248, Total Bilirubin 0.3 Results/Orders Lab Results Laboratory Tests Test 07/13/20 11:40 07/13/20 13:25 Range/Units White Blood Count 5.4 4.3-11.0 10^3/uL Red Blood Count 4.47 4.35-5.85 10^6/uL Hemoglobin 13.8 11.5-16.0 G/DL Hematocrit 41 35-52 % Mean Corpuscular Volume 92 80-99 FL Mean Corpuscular Hemoglobin 31 25-34 PG Mean Corpuscular Hemoglobin Concent 34 32-36 G/DL Red Cell Distribution Width 14.1 10.0-14.5 % Platelet Count 248 130-400 10^3/uL Mean Platelet Volume 11.4 H 7.4-10.4 FL Neutrophils (%) (Auto) 43 42-75 % Lymphocytes (%) (Auto) 40 12-44 % Monocytes (%) (Auto) 12 0-12 % Eosinophils (%) (Auto) 4 0-10 % Basophils (%) (Auto) 2 0-10 % Neutrophils # (Auto) 2.3 1.8-7.8 X 10^3 Lymphocytes # (Auto) 2.2 1.0-4.0 X 10^3 Monocytes # (Auto) 0.7 0.0-1.0 X 10^3 Eosinophils # (Auto) 0.2 0.0-0.3 10^3/uL Basophils # (Auto) 0.1 0.0-0.1 10^3/uL Sodium Level 138 135-145 MMOL/L Potassium Level 3.9 3.6-5.0 MMOL/L Chloride Level 104 98-107 MMOL/L Carbon Dioxide Level 22 21-32 MMOL/L Anion Gap 12 5-14 MMOL/L Blood Urea Nitrogen 10 7-18 MG/DL Creatinine 0.89 0.60-1.30 MG/DL Estimat Glomerular Filtration Rate > 60 BUN/Creatinine Ratio 11 Glucose Level 128 H 70-105 MG/DL Calcium Level 9.5 8.5-10.1 MG/DL Corrected Calcium 9.3 8.5-10.1 MG/DL Total Bilirubin 0.3 0.1-1.0 MG/DL Aspartate Amino Transf (AST/SGOT) 133 H 5-34 U/L Alanine Aminotransferase (ALT/SGPT) 195 H 0-55 U/L Alkaline Phosphatase 203 H 40-136 U/L Total Protein 7.2 6.4-8.2 GM/DL Albumin 4.2 3.2-4.5 GM/DL Urine Color YELLOW Urine Clarity CLEAR Urine pH 6.0 5-9 Urine Specific Krypton <=1.005 1.016-1.022 Urine Protein NEGATIVE NEGATIVE Urine Glucose (UA) NEGATIVE NEGATIVE Urine Ketones NEGATIVE NEGATIVE Urine Nitrite NEGATIVE NEGATIVE Urine Bilirubin NEGATIVE NEGATIVE Urine Urobilinogen 0.2 < = 1.0 MG/DL Urine Leukocyte Esterase NEGATIVE NEGATIVE Urine RBC (Auto) NEGATIVE NEGATIVE Urine RBC NONE /HPF Urine WBC NONE /HPF Urine Squamous Epithelial Cells 0-2 /HPF Urine Crystals NONE /LPF Urine Bacteria NEGATIVE /HPF Urine Casts NONE /LPF Urine Mucus NEGATIVE /LPF Urine Culture Indicated NO Urine Opiates Screen NEGATIVE NEGATIVE Urine Oxycodone Screen POSITIVE H NEGATIVE Urine Methadone Screen NEGATIVE NEGATIVE Urine Propoxyphene Screen NEGATIVE NEGATIVE Urine Barbiturates Screen NEGATIVE NEGATIVE Ur Tricyclic Antidepressants Screen NEGATIVE NEGATIVE Urine Phencyclidine Screen NEGATIVE NEGATIVE Urine Amphetamines Screen NEGATIVE NEGATIVE Urine Methamphetamines Screen NEGATIVE NEGATIVE Urine Benzodiazepines Screen POSITIVE H NEGATIVE Urine Cocaine Screen NEGATIVE NEGATIVE Urine Cannabinoids Screen NEGATIVE NEGATIVE My Orders Orders - ANTHONY FARMER Cbc With Automated Diff (07/13/20 11:39) Comprehensive Metabolic Panel (07/13/20 11:39) Ua Culture If Indicated (07/13/20 11:39) Drug Screen Stat (Urine) (07/13/20 11:39) Ed Iv/Invasive Line Start (07/13/20 11:39) Lactated Ringers (Lr 1000 Ml Iv Solution (07/13/20 11:39) Medications Given in ED Current Medications Medications Dose Ordered Sig/Rafael Route Start Time Stop Time Status Last Admin Dose Admin Lactated Ringer's 1,000 ml @ 0 mls/hr Q0M ONCE IV 07/13/20 11:39 07/13/20 11:41 DC 07/13/20 12:00 0 MLS/HR Vital Signs/I&O 07/13/20 11:30 Temp 36.9 Pulse 111 Resp 18 B/P (MAP) 122/73 (89) Pulse Ox 98 O2 Delivery Room Air Capillary Refill : Progress Note : Time: 11:45 Progress Note Review of K tracks shows that she received her last prescription of Valium 06/17 about 3 weeks ago. Suspect diversion versus taking more than what is prescribed. She is not having any seizure activity or postictal state for us or EMS. Plan to give her a liter fluids as she does clinically appear dry and check some labs including a urinalysis given her dysuria. Because of her seizure disorder and Valium dependence we would provide her with 3 or 4 days of Valium and instruct her to follow-up Tuesday morning, tomorrow with primary care. Departure Impression Primary Impression: Withdrawal from benzodiazepine Qualified Codes: F13.230 - Sedative, hypnotic or anxiolytic dependence with withdrawal, uncomplicated Disposition: 01 HOME, SELF-CARE Condition: Stable Departure-Patient Inst. Decision time for Depature: 12:59 Referrals: SELFJOHANNE MD (PCP/Family) Primary Care Physician Add. Discharge Instructions: Follow-up with your primary care doctor for Valium. All discharge instructions reviewed with patient and/or family. Voiced understanding. Scripts Diazepam (Valium) 10 Mg Tablet 10 MG PO TID for 4 Days, #12 TAB 0 Refills Prov: ANTHONY FARMER 07/13/20 ANTHONY FARMER Jul 13, 2020 11:47
[2020-07-13 11:53] LABS: BASOPHILS # (AUTO) 0.1 10^3/uL (0.0-0.1); BASOPHILS % (AUTO) 2 % (0-10); EOSINOPHILS # (AUTO) 0.2 10^3/uL (0.0-0.3); EOSINOPHILS % (AUTO) 4 % (0-10); HEMATOCRIT 41 % (35-52); HEMOGLOBIN 13.8 G/DL (11.5-16.0); LYMPHOCYTES # (AUTO) 2.2 X 10^3 (1.0-4.0); LYMPHOCYTES % (AUTO) 40 % (12-44); MEAN CORPUSCULAR HEMOGLOBIN 31 PG (25-34); MEAN CORPUSCULAR HGB CONC 34 G/DL (32-36); MEAN CORPUSCULAR VOLUME 92 FL (80-99); MEAN PLATELET VOLUME 11.4 FL (7.4-10.4); MONOCYTES # (AUTO) 0.7 X 10^3 (0.0-1.0); MONOCYTES % (AUTO) 12 % (0-12); NEUTROPHILS # (AUTO) 2.3 X 10^3 (1.8-7.8); NEUTROPHILS % (AUTO) 43 % (42-75); PLATELET COUNT 248 10^3/uL (130-400); RED CELL DISTRIBUTION WIDTH 14.1 % (10.0-14.5); WHITE BLOOD COUNT 5.4 10^3/uL (4.3-11.0)
[2020-07-13] MEDS ORDERED: DIAZ10TA PO (11:54)
[2020-07-13 11:57] LABS: ALBUMIN 4.2 GM/DL (3.2-4.5); CHLORIDE 104 MMOL/L (98-107); POTASSIUM 3.9 MMOL/L (3.6-5.0); SODIUM 138 MMOL/L (135-145)
[2020-07-13 11:59] LABS: CALCIUM 9.5 MG/DL (8.5-10.1)
[2020-07-13 12:00] LABS: GLUCOSE 128 MG/DL (70-105); TOTAL PROTEIN 7.2 GM/DL (6.4-8.2)
[2020-07-13 12:01] LABS: CARBON DIOXIDE 22 MMOL/L (21-32)
[2020-07-13 12:02] LABS: BILIRUBIN,TOTAL 0.3 MG/DL (0.1-1.0)
[2020-07-13 12:03] LABS: ALKALINE PHOSPHATASE 203 U/L (40-136); CREATININE SERUM 0.89 MG/DL (0.60-1.30); GFR ESTIMATED > 60
[2020-07-13 12:04] LABS: BUN/CREATININE RATIO 11
[2020-07-13 12:06] LABS: ALANINE AMINOTRANSFERASE 195 U/L (0-55)
--- NOTE | 2020-07-13 12:35 | NUR ---
Pt report given to DIXON Macdonald to assume pt care at this time.
--- NOTE | 2020-07-13 13:24 | NUR ---
Pt ambulates to restroom (stand by assist) with walker assist to obtain clean catch urine sample. Pt tolerates well.
[2020-07-13 13:30] LABS: BILIRUBIN,URINE NEGATIVE (NEGATIVE); CLARITY,URINE CLEAR; COLOR,URINE YELLOW; GLUCOSE, URINE (UA) NEGATIVE (NEGATIVE); KETONES,URINE NEGATIVE (NEGATIVE); LEUKOCYTE ESTERASE ,URINE NEGATIVE (NEGATIVE); NITRITE,URINE NEGATIVE (NEGATIVE); PROTEIN,URINE NEGATIVE (NEGATIVE)
[2020-07-13 13:36] LABS: BACTERIA,URINE NEGATIVE /HPF; SQUAMOUS EPITHELIAL CELL,UR 0-2 /HPF
[2020-07-13 13:43] LABS: AMPHETAMINE SCREEN, URINE NEGATIVE (NEGATIVE); BARBITURATE SCREEN URINE NEGATIVE (NEGATIVE); BENZODIAZEPINES SCREEN URINE POSITIVE (NEGATIVE); CANNABINOID SCREEN, URINE NEGATIVE (NEGATIVE); COCAINE SCREEN URINE NEGATIVE (NEGATIVE); METHADONE STAT NEGATIVE (NEGATIVE); METHAMPHETAMINE SCREEN URINE S NEGATIVE (NEGATIVE); OPIATE SCREEN URINE NEGATIVE (NEGATIVE); OXYCODONE STAT POSITIVE (NEGATIVE); PROPOXYPHENE STAT NEGATIVE (NEGATIVE); TRICYCLIC ANTIDEPRESSANTS SCRE NEGATIVE (NEGATIVE)
[2020-07-13 13:58] VITALS: BP 117/80
== END 2020-07-13 14:01 | disposition home or self-care (01) ==
LOC: EDUNIT# 11:27 → ER 11:28
DX: F13.239 Sedative, hypnotic or anxiolytic dependence with withdrawal, unspecified (principal); G40.909 Epilepsy, unspecified, not intractable, without status epilepticus; J45.909 Unspecified asthma, uncomplicated; F31.9 Bipolar disorder, unspecified; F41.9 Anxiety disorder, unspecified; F17.210 Nicotine dependence, cigarettes, uncomplicated; G89.29 Other chronic pain; M54.2 Cervicalgia; M25.512 Pain in left shoulder; M79.602 Pain in left arm; R10.9 Unspecified abdominal pain; Z85.41 Personal history of malignant neoplasm of cervix uteri; Z79.52 Long term (current) use of systemic steroids
CPT/HCPCS: 36415; 80053; 80306; 81000; 85025

== ENCOUNTER 2021-02-06 04:49 | Emergency (ER) | payer MEDICAID ==
[~2021-02-06] VITALS: Ht 149 cm; Wt 67.0 kg
[~2021-02-06 04:49] MED LIST changes: +DIAZ10TA PO
[2021-02-06] MEDS ORDERED: LACTATED RINGERS 1,000 ML IV ONE ×2 (04:50→05:00)
[2021-02-06] MEDS ORDERED: ONDANSETRON 4 MG/2 ML (SDV) Z0FRAN ONE (04:50)
[2021-02-06] MEDS ORDERED: SCOPOLAMINE 1.5 MG (TRANSDERM-SCOP) PATCH ONE (04:58)
[2021-02-06] MEDS ORDERED: ONDANSETRON 4 MG/2 ML (SDV) Z0FRAN IVP ONE (05:00)
--- NOTE | 2021-02-06 05:14 | ED GI ---
General Chief Complaint: Abdominal/GI Problems Stated Complaint: VOMITING,NAUSEA Source of Information: Patient (LIMITED HISTORIAN) (ROMEO HOLLEY DO) History of Present Illness Date Seen by Provider: Feb 06, 2021 Time Seen by Provider: 04:51 Initial Comments PT ARRIVES VIA EMS FROM HOME PT STATES SHE HAS BEEN SICK "FOR A COUPLE OF DAYS" THEN LATER STATES SHE HAS BEEN SICK SINCE Tuesday07/05/21 C/O NASAL CONGESTION AND RUNNY NOSE--STATES IT STARTED ON TUESDAY C/O NAUSEA AND VOMITING--CANNOT STATE WHEN IT BEGAN--"COUPLE OF DAYS AGO". UNABLE TO STATE HOW MANY TIMES SHE HAS VOMITED TODAY NO DIARRHEA. UNABLE TO STATE WHEN HER LAST BM WAS C/O SORE ABDOMINAL MUSCLES FROM VOMITING, BUT NOT ACTUAL ABDOMINAL PAIN HAS NOT VOIDED SINCE SOMETIME YESTERDAY HAS HAD SUBJECTIVE FEVER--DOES NOT NOW WHEN IT STARTED, AND HAS NOT CHECKED HER TEMP AT HOME NO LOSS OF TASTE OR SMELL NO COUGH NO SHORTNESS OF BREATH EMS GAVE ZOFRAN 4 MG PRIOR TO ARRIVAL PT STATES SHE HAS EPILEPSY AND TAKES DILANTIN STATES SHE HAS NEUROPATHY AND TAKES GABAPENTIN ALSO STATES SHE TAKES VALIUM STATES SHE HAS NOT BEEN ABLE TO KEEP ANY OF HER MEDICATIONS DOWN "FOR A COUPLE OF DAYS" NO REPORTED SEIZURES THIS WEEK PT ALSO HAS HISTORY OF "CHRONIC ABDOMINAL PAIN" --HAS HAD APPENDECTOMY, CHOLECYSTECTOMY, HYSTERECTOMY/BSO. USES MARIJUANA ON REGULAR BASIS PT WITH EXTENSIVE PSYCH ISSUES, AND HAS HAD BENZODIAZEPINE WITHDRAWL SYMPTOMS IN THE PAST NO KNOWN SICK CONTACTS PT LIVES ALONE AND DOES NOT WORK STATES SHE SAW DR. HERNANDES ON TUESDAY FOR ROUTINE EXAM. STATES SHE WAS NOT SICK AT THAT TIME. HAS NOT ATTEMPTED TO CONTACT HIM ALL WEEK REGARDING THESE CURRENT SYMPTOMS PCP: SANIA DEUTSCH (ROMEO HOLLEY DO) Allergies and Home Medications Allergies Coded Allergies: No Known Drug Allergies (Unverified , 03/20/12) Home Medications Albuterol 8.5 Gm Hfa.aer.ad, 8.5 GM IH Q6H, (Reported) 2 PUFFS Amoxicillin 500 Mg Capsule, 2 EACH PO TID Prescribed by: ANJU SANTA on 08/17/14 0054 Codeine Phos/Acetaminophen 1 Tab Tablet, 2 TAB PO Q6H PRN for PAIN, (Reported) Diazepam 10 Mg Tablet, 10 MG PO TID Prescribed by: ANTHONY FARMER on 07/13/20 1154 Estradiol 0.5 Mg Tablet, 0.5 MG PO DAILY, (Reported) Famotidine 20 Mg Tablet, 20 MG PO BID Prescribed by: BRANDEN LACY on 07/26/19 0300 Ibuprofen 800 Mg Tablet, 800 MG PO q8h PRN for PAIN Prescribed by: ANJU SANTA on 08/17/14 0054 Lorazepam 0.5 Mg Tablet, 1 MG PO TID, (Reported) Ondansetron 4 Mg Tab.rapdis, 4 MG PO Q4H PRN for NAUSEA/VOMITING Prescribed by: BRANDEN LACY on 07/26/19 0300 Ondansetron 4 Mg Tab.rapdis, 20 MG PO Q6H PRN for NAUSEA/VOMITING Prescribed by: CLEMENT IQBAL on 02/06/21 0712 Zolpidem Tartrate 10 Mg Tablet, 10 MG PO HS, (Reported) Patient Home Medication List Home Medication List Reviewed: Yes (CLEMENT IQBAL DO) Review of Systems Review of Systems Constitutional: see HPI, fever, malaise, weakness EENTM: See HPI, Nose Congestion Respiratory: Denies Cough, Denies Shortness of Air Cardiovascular: No Symptoms Reported Gastrointestinal: See HPI, Nausea, Poor Appetite, Poor Fluid Intake, Vomiting Genitourinary: See HPI Skin: no symptoms reported Endocrine: No Symptoms Reported (ROMEO HOLLEY DO) Past Scxehtu-Oeyhms-Dcqjle Hx Past Med/Social Hx: Reviewed and Corrections made (ROMEO HOLLEY DO) Patient Social History Drug of Choice: MARIJUANA Smoking Status: Current Everyday Smoker Type Used: Cigarettes, Electronic/Vapor 2nd Hand Smoke Exposure: No Recent Hopitalizations: No (C4-C7 Spinal fusion 06/25/20) Substance type: Methamphetamine, Opiates/Opioids, Misuse of prescript meds, Marijuana (ROMEO HOLLEY DO) Immunizations Up To Date Date of Influenza Vaccine: Sep 07, 2012 (ROMEO HOLLEY DO) Past Medical History Surgeries: Yes (MULTIPLE D&C'S, LEFT CARPAL TUNNEL AND LEFT ULNAR NERVE TRANSPOSITION, BSO,) Appendectomy, Gallbladder, Hysterectomy, Oophorectomy, Orthopedic Respiratory: Yes Asthma Cardiac: Yes (TACHYCARDIA) Neurological: Yes (Carpel tunnel syndrome bilat;neuropathy && neurodysplasia of LUE;PSUEDOSZ ?) Neuropathy, Seizure Disorder Reproductive Disorders: Yes (OVARIAN CYSTS, HYSTERECTOMY FOR CERVICAL DYSPLASIA) [place]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 Genitourinary: No Gastrointestinal: Yes ("CHRONIC ABDOMINAL PAIN" ) Musculoskeletal: Yes (LEFT ARM "NERVE PROBLEM"--CHRONIC LEFT NECK/SHOULDER/ARM PAIN--FOLLOWED @) Endocrine: No HEENT: No Cancer: Yes (CERVICAL DYSPLASIA) Cervical What Type of Treatment Did You: Surgical Intervention Psychosocial: Yes (EXTENSIVE PSYCH ISSUES; SUSPECTED PSEUDOSEIZURES) Anxiety, Suicide Attempts, Bipolar, Depression Integumentary: No Blood Disorders: No Adverse Reaction/Blood Tranf: No (ROMEO HOLLEY DO) Family Medical History SOCIAL HISTORY: -ETOH-OCCASIONAL USE -DRUGS--REGULAR MARIJUANA USE, OPIATE AND BENZODIAZEPINE USE, HAS TESTED + FOR METH ON MULTIPLE OCCASIONS -SMOKES CIGARETES PLUS VAPES PAST SURGICAL HISTORY: -APPENDECTOMY -CHOLECYSTECTOMY -HYSTERECTOMY/BILATERAL SALPINGO-OOPHORECTOMY -CERVICAL SPINE FUSION C4-C7 06/25/20 -LEFT ULNAR NERVE SURGERY/TRANSPOSITION -LEFT CARPAL TUNNEL SURGERY -MULTIPLE D&C'S -EGD/COLONOSCOPY (ROMEO HOLLEY DO) Physical Exam Vital Signs Vital Signs - First Documented 02/06/21 04:50 Temp 37.1 Pulse 82 Resp 20 B/P (MAP) 155/80 (105) Pulse Ox 98 O2 Delivery Room Air (CLEMENT IQBAL DO) Vital Signs Capillary Refill : (ROMEO HOLLEY DO) Height/Weight/BMI Height: 5'0" Weight: 132lbs. oz. 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 nml as tested, no motor/sensory deficits, alert, oriented x 3 Skin: normal color, warm/dry, tattoos/piercings (ROMEO HOLLEY DO) Focused Exam Lactate Level 02/06/21 04:55: Lactic Acid Level 2.82*H 02/06/21 06:30: Lactic Acid Level 1.31 (CLEMENT IQBAL DO) Lactic Acid Level Laboratory Tests Test 02/06/21 04:55 02/06/21 06:30 Lactic Acid Level 2.82 MMOL/L (0.50-2.00) *H 1.31 MMOL/L (0.50-2.00) (CLEMENT IQBAL DO) Progress/Results/Core Measures Results/Orders Lab Results Laboratory Tests Test 02/06/21 04:55 02/06/21 05:00 02/06/21 05:10 02/06/21 06:30 Range/Units White Blood Count 10.2 4.3-11.0 10^3/uL Red Blood Count 4.55 3.80-5.11 10^6/uL Hemoglobin 13.7 11.5-16.0 g/dL Hematocrit 40 35-52 % Mean Corpuscular Volume 87 80-99 fL Mean Corpuscular Hemoglobin 30 25-34 pg Mean Corpuscular Hemoglobin Concent 35 32-36 g/dL Red Cell Distribution Width 11.9 10.0-14.5 % Platelet Count 240 130-400 10^3/uL Mean Platelet Volume 12.8 H 9.0-12.2 fL Immature Granulocyte % (Auto) 1 % Neutrophils (%) (Auto) 80 H 42-75 % Lymphocytes (%) (Auto) 13 12-44 % Monocytes (%) (Auto) 7 0-12 % Eosinophils (%) (Auto) 0 0-10 % Basophils (%) (Auto) 0 0-10 % Neutrophils # (Auto) 8.1 H 1.8-7.8 10^3/uL Lymphocytes # (Auto) 1.3 1.0-4.0 10^3/uL Monocytes # (Auto) 0.7 0.0-1.0 10^3/uL Eosinophils # (Auto) 0.0 0.0-0.3 10^3/uL Basophils # (Auto) 0.0 0.0-0.1 10^3/uL Immature Granulocyte # (Auto) 0.1 0.0-0.1 10^3/uL Erythrocyte Sedimentation Rate 11 0-20 MM/HR Prothrombin Time 13.2 12.2-14.7 SEC INR Comment 1.0 0.8-1.4 Activated Partial Thromboplast Time 28 24-35 SEC D-Dimer <= 0.27 0.00-0.49 UG/ML Sodium Level 137 135-145 MMOL/L Potassium Level 3.0 L 3.6-5.0 MMOL/L Chloride Level 95 L 98-107 MMOL/L Carbon Dioxide Level 25 21-32 MMOL/L Anion Gap 17 H 5-14 MMOL/L Blood Urea Nitrogen 19 H 7-18 MG/DL Creatinine 1.15 0.60-1.30 MG/DL Estimat Glomerular Filtration Rate 52 BUN/Creatinine Ratio 17 Glucose Level 175 H 70-105 MG/DL Lactic Acid Level 2.82 *H 1.31 0.50-2.00 MMOL/L Calcium Level 9.5 8.5-10.1 MG/DL Corrected Calcium 8.5-10.1 MG/DL Magnesium Level 1.7 1.6-2.4 MG/DL Total Bilirubin 0.3 0.1-1.0 MG/DL Aspartate Amino Transf (AST/SGOT) 47 H 5-34 U/L Alanine Aminotransferase (ALT/SGPT) 103 H 0-55 U/L Alkaline Phosphatase 193 H 40-136 U/L Lactate Dehydrogenase 209 125-220 U/L C-Reactive Protein High Sensitivity 0.38 0.00-0.50 MG/DL Total Protein 7.6 6.4-8.2 GM/DL Albumin 4.6 H 3.2-4.5 GM/DL Amylase Level 147 H 25-125 U/L Lipase 16 8-78 U/L Procalcitonin 0.02 <0.10 NG/ML Serum Test, Qualitative NEGATIVE NEGATIVE Urine Opiates Screen POSITIVE H NEGATIVE Urine Oxycodone Screen NEGATIVE NEGATIVE Urine Methadone Screen NEGATIVE NEGATIVE Urine Propoxyphene Screen NEGATIVE NEGATIVE Urine Barbiturates Screen NEGATIVE NEGATIVE Phenytoin (Dilantin) Level <1.8 L 10.0-20.0 ug/mL Ur Tricyclic Antidepressants Screen NEGATIVE NEGATIVE Urine Phencyclidine Screen NEGATIVE NEGATIVE Urine Amphetamines Screen NEGATIVE NEGATIVE Urine Methamphetamines Screen NEGATIVE NEGATIVE Urine Benzodiazepines Screen POSITIVE H NEGATIVE Urine Cocaine Screen NEGATIVE NEGATIVE Urine Cannabinoids Screen POSITIVE H NEGATIVE Serum Alcohol < 10 <10 MG/DL Coronavirus (COVID-19)(PCR) Negative Negative Coronavirus 2019 (KATLYN) Negative Negative Urine Color YELLOW Urine Clarity SL CLOUDY Urine pH 6.0 5-[address] [place] 1.025 H 1.016-1.022 Urine Protein 1+ H NEGATIVE Urine Glucose (UA) NEGATIVE NEGATIVE Urine Ketones 3+ H NEGATIVE Urine Nitrite NEGATIVE NEGATIVE Urine Bilirubin 1+ H NEGATIVE Urine Urobilinogen 0.2 < = 1.0 MG/DL Urine Leukocyte Esterase NEGATIVE NEGATIVE Urine RBC (Auto) NEGATIVE NEGATIVE Urine RBC 0-2 /HPF Urine WBC 2-5 /HPF Urine Squamous Epithelial Cells 5-10 /HPF Urine Crystals PRESENT H /LPF Urine Amorphous Sediment LARGE JOEL URATES H /LPF Urine Bacteria LARGE H /HPF Urine Casts NONE /LPF Urine Mucus MODERATE H /LPF Urine Culture Indicated YES (CLEMENT IQBAL DO) Micro Results Microbiology 02/06/21 Blood Culture - Preliminary, Resulted No growth 02/06/21 Influenza Types A,B Antigen (JOE) - Final, Complete 02/06/21 Blood Culture - Preliminary, Resulted No growth (CLEMENT IQBAL DO) My Orders Orders - CLEMENT IQBAL DO Lactic Acid Analyzer (02/06/21 06:24) Promethazine Injection (Phenergan Injec (02/06/21 07:15) Famotidine Injection (Pepcid Injection) (02/06/21 07:15) (CLEMENT IQBAL DO) Medications Given in ED (CLEMENT IQBAL DO) Vital Signs/I&O 02/06/21 02/06/21 04:50 08:03 Temp 37.1 Pulse 82 89 Resp 20 18 B/P (MAP) 155/80 (105) 169/94 Pulse Ox 98 98 O2 Delivery Room Air Room Air (CLEMENT IQBAL DO) Progress Progress Note : Progress Note PLACED IN ISOLATION ROOM PPE WORN AT ALL TIMES COVID-19 TESTING PERFORMED GIVEN IV FLUIDS, ZOFRAN, PHENERGAN, SCOPOLAMINE PATCH (ROMEO HOLLEY DO) Progress Note : Time: 07:10 Progress Note Patient with a negative Covid test. Patient symptoms consistent with likely viral illness. She will be discharged with a prescription for Zofran. Her lactic acid improved significantly with IV fluids. Patient stable upon discharge (CLEMENT IQBAL DO) Initial ECG Impression Date: Feb 06, 2021 Initial ECG Impression Time: 05:26 Initial ECG Rate: 78 Initial ECG Rhythm: Normal Sinus (ROMEO HOLLEY DO) Departure Impression Primary Impression: Viral illness Disposition: 01 HOME, SELF-CARE Condition: Stable Departure-Patient Inst. Referrals: JOHANNE HERNANDES MD (PCP/Family) Primary Care Physician Patient Instructions: Viral Syndrome (DC) Add. Discharge Instructions: Drink plenty of fluids Follow-up with your primary care provider next week for continuation of care and recheck of today's symptoms All discharge instructions reviewed with patient and/or family. Voiced understanding. Scripts Ondansetron (Ondansetron Odt) 4 Mg Tab.rapdis 20 MG PO Q6H PRN for NAUSEA/VOMITING, #8 TAB 0 Refills Prov: CLEMENT IQBAL DO 02/06/21 ROMEO HOLLEY DO Feb 06, 2021 05:14 CLEMENT IQBAL DO Feb 06, 2021 07:12
[2021-02-06 05:27] LABS: BILIRUBIN,URINE 1+ (NEGATIVE); CLARITY,URINE SL CLOUDY; COLOR,URINE YELLOW; GLUCOSE, URINE (UA) NEGATIVE (NEGATIVE); KETONES,URINE 3+ (NEGATIVE); LEUKOCYTE ESTERASE ,URINE NEGATIVE (NEGATIVE); NITRITE,URINE NEGATIVE (NEGATIVE); PROTEIN,URINE 1+ (NEGATIVE)
[2021-02-06 05:32] LABS: BASOPHILS % (AUTO) 0 % (0-10); EOSINOPHILS % (AUTO) 0 % (0-10); HEMATOCRIT 40 % (35-52); HEMOGLOBIN 13.7 g/dL (11.5-16.0); LYMPHOCYTES # (AUTO) 1.3 10^3/uL (1.0-4.0); LYMPHOCYTES % (AUTO) 13 % (12-44); MEAN CORPUSCULAR HEMOGLOBIN 30 pg (25-34); MEAN CORPUSCULAR HGB CONC 35 g/dL (32-36); MEAN CORPUSCULAR VOLUME 87 fL (80-99); MEAN PLATELET VOLUME 12.8 fL (9.0-12.2); MONOCYTES # (AUTO) 0.7 10^3/uL (0.0-1.0); MONOCYTES % (AUTO) 7 % (0-12); NEUTROPHILS # (AUTO) 8.1 10^3/uL (1.8-7.8); NEUTROPHILS % (AUTO) 80 % (42-75); PLATELET COUNT 240 10^3/uL (130-400); WHITE BLOOD COUNT 10.2 10^3/uL (4.3-11.0)
[2021-02-06] MEDS ORDERED: PROMETHAZINE INJ 25 MG/ML (PHENERGAN) AMP ONE (05:34)
[2021-02-06 05:38] LABS: ALBUMIN 4.6 GM/DL (3.2-4.5); CHLORIDE 95 MMOL/L (98-107); SODIUM 137 MMOL/L (135-145)
[2021-02-06 05:40] LABS: AMYLASE 147 U/L (25-125); CALCIUM 9.5 MG/DL (8.5-10.1)
[2021-02-06 05:41] LABS: GLUCOSE 175 MG/DL (70-105); TOTAL PROTEIN 7.6 GM/DL (6.4-8.2)
[2021-02-06 05:42] LABS: BILIRUBIN,TOTAL 0.3 MG/DL (0.1-1.0); CARBON DIOXIDE 25 MMOL/L (21-32)
[2021-02-06 05:44] LABS: ALKALINE PHOSPHATASE 193 U/L (40-136); AMPHETAMINE SCREEN, URINE NEGATIVE (NEGATIVE); BARBITURATE SCREEN URINE NEGATIVE (NEGATIVE); BENZODIAZEPINES SCREEN URINE POSITIVE (NEGATIVE); CANNABINOID SCREEN, URINE POSITIVE (NEGATIVE); COCAINE SCREEN URINE NEGATIVE (NEGATIVE); METHADONE STAT NEGATIVE (NEGATIVE); METHAMPHETAMINE SCREEN URINE S NEGATIVE (NEGATIVE); OPIATE SCREEN URINE POSITIVE (NEGATIVE); OXYCODONE STAT NEGATIVE (NEGATIVE); PROPOXYPHENE STAT NEGATIVE (NEGATIVE); TRICYCLIC ANTIDEPRESSANTS SCRE NEGATIVE (NEGATIVE)
[2021-02-06 05:45] LABS: CREATININE SERUM 1.15 MG/DL (0.60-1.30); GFR ESTIMATED 52
[2021-02-06 05:46] LABS: BUN/CREATININE RATIO 17; FIBRIN DEGRADATION PRODUCTS <= 0.27 UG/ML (0.00-0.49); PARTIAL THROMBOPLASTIN TIME 28 SEC (24-35); PROTHROMBIN TIME PATIENT 13.2 SEC (12.2-14.7)
[2021-02-06 05:47] LABS: ALANINE AMINOTRANSFERASE 103 U/L (0-55); MAGNESIUM 1.7 MG/DL (1.6-2.4)
[2021-02-06 05:49] LABS: LIPASE 16 U/L (8-78)
[2021-02-06 05:51] LABS: RBC,URINE 0-2 /HPF
[2021-02-06 05:52] LABS: AMORPHOUS SEDIMENT,UR LARGE AMOR URATES /LPF; BACTERIA,URINE LARGE /HPF
[2021-02-06 06:41] LABS: ERYTHROCYTE SEDIMENTATION RATE 11 MM/HR (0-20)
--- NOTE | 2021-02-06 06:50 | Diagnostic Imaging Report ---
INDICATION: Fever COMPARISON: 07/26/2019 FINDINGS: Single view of the chest demonstrates clear lungs bilaterally. The heart is normal. There is no pneumothorax. The osseous structures are normal. IMPRESSION: Negative chest Dictated by: Dictated on workstation # [id number]
[2021-02-06] MEDS ORDERED: ONDA4TAB11 PO (07:12)
[2021-02-06] MEDS ORDERED: PROMETHAZINE INJ 25 MG/ML (PHENERGAN) AMP IVP STA (07:15)
[2021-02-06] MEDS ORDERED: FAMOTIDINE 20MG/2ML IV (PEPCID) IV STA (07:15)
[2021-02-06 08:03] VITALS: BP 169/94
== END 2021-02-06 08:03 | disposition home or self-care (01) ==
LOC: EDUNIT# 04:49 → ER 04:50
DX: B34.9 Viral infection, unspecified (principal); G40.909 Epilepsy, unspecified, not intractable, without status epilepticus; G62.9 Polyneuropathy, unspecified; F41.9 Anxiety disorder, unspecified; F31.9 Bipolar disorder, unspecified; J45.909 Unspecified asthma, uncomplicated; F17.210 Nicotine dependence, cigarettes, uncomplicated; F17.290 Nicotine dependence, other tobacco product, uncomplicated; Z85.41 Personal history of malignant neoplasm of cervix uteri; Z91.5 Personal history of self-harm; Z20.822 Contact with and (suspected) exposure to COVID-19; Z79.52 Long term (current) use of systemic steroids
CPT/HCPCS: 71045; 80053; 80185; 80306; 81000; 82150; 83605; 83615; 83690; 83735; 84145; 84703; 85025; 85379; 85610; 85652; 85730; 86141; 87040; 87088; 87804; 93005; 93041; 99284; G0480; U0002; 36415; 80320; 87635

== ENCOUNTER 2021-02-07 19:53 | Observation (INO) | payer MEDICAID ==
[~2021-02-07] VITALS: Ht 149 cm; Wt 75.1 kg
[2021-02-07] MEDS ORDERED: PROMETHAZINE INJ 25 MG/ML (PHENERGAN) AMP IVP ONE (20:15)
[2021-02-07] MEDS ORDERED: FAMOTIDINE 20MG/2ML IV (PEPCID) IVP ONE (20:15)
[2021-02-07 20:18] LABS: BASOPHILS # (AUTO) 0.1 10^3/uL (0.0-0.1); BASOPHILS % (AUTO) 1 % (0-10); EOSINOPHILS % (AUTO) 0 % (0-10); HEMATOCRIT 43 % (35-52); HEMOGLOBIN 14.4 g/dL (11.5-16.0); LYMPHOCYTES # (AUTO) 3.3 10^3/uL (1.0-4.0); LYMPHOCYTES % (AUTO) 38 % (12-44); MEAN CORPUSCULAR HEMOGLOBIN 30 pg (25-34); MEAN CORPUSCULAR HGB CONC 34 g/dL (32-36); MEAN CORPUSCULAR VOLUME 89 fL (80-99); MEAN PLATELET VOLUME 12.6 fL (9.0-12.2); MONOCYTES # (AUTO) 1.1 10^3/uL (0.0-1.0); MONOCYTES % (AUTO) 13 % (0-12); NEUTROPHILS # (AUTO) 4.2 10^3/uL (1.8-7.8); NEUTROPHILS % (AUTO) 48 % (42-75); PLATELET COUNT 240 10^3/uL (130-400); WHITE BLOOD COUNT 8.8 10^3/uL (4.3-11.0)
[2021-02-07 20:20] LABS: ALBUMIN 4.8 GM/DL (3.2-4.5); CHLORIDE 96 MMOL/L (98-107); POTASSIUM 2.6 MMOL/L (3.6-5.0); SODIUM 139 MMOL/L (135-145)
--- NOTE | 2021-02-07 20:20 | ED Abdominal Pain ---
General Chief Complaint: Abdominal/GI Problems Stated Complaint: NAUSEA;VOMITING Nursing Triage Note: brought in by [facility] for n/v Sepsis Screen: No Definite Risk Source of Information: Patient Exam Limitations: No Limitations (MANOLO ALEMAN,YASH STUDENT) History of Present Illness Date Seen by Provider: Feb 07, 2021 Time Seen by Provider: 20:06 Initial Comments Patient brought to ED via EMS from home with complaints of nausea and vomiting. She was seen yesterday (02/06) with similar complaints, treated with fluids, zofran phenergan, and scopolamine patch. Her symptoms were improved with fluids and medication. She was discharged to home with zofran. Patient states since discharge from ED yesterday the abdominal pain has worsened. Pain is located in LLQ and RLQ and radiates to bilateral flanks. 8/10 on pain scale. N/V not improved with zofran. Last void was this morning, she complains of decreased urine output. She admits to some chest pain that she relates to a muscle soreness from the continued vomiting. Negative flu and COVID yesterday. Denies sick contacts. She states she wears a fentatyl patch for pain control of bulging disc. She has not had patch on since initiation of symptoms. Timing/Duration: 2-3 Days Severity/Quality: Moderate Location: RLQ, LLQ Radiation: Flank Activities at Onset: None Associated Symptoms: Back Pain, Chest Pain; No Fever/Chills; Fatigue; No Headache; Nausea/Vomiting, Shortness of Air (MANOLO ALEMAN,MED STUDENT) Allergies and Home Medications Allergies Coded Allergies: No Known Drug Allergies (Unverified , 03/20/12) Home Medications Albuterol 8.5 Gm Hfa.aer.ad, 8.5 GM IH Q6H, (Reported) 2 PUFFS Amoxicillin 500 Mg Capsule, 2 EACH PO TID Prescribed by: ANJU SANTA on 08/17/14 0054 Codeine Phos/Acetaminophen 1 Tab Tablet, 2 TAB PO Q6H PRN for PAIN, (Reported) Diazepam 10 Mg Tablet, 10 MG PO TID Prescribed by: ANTHONY FARMER on 07/13/20 1154 Estradiol 0.5 Mg Tablet, 0.5 MG PO DAILY, (Reported) Famotidine 20 Mg Tablet, 20 MG PO BID Prescribed by: BRANDEN LACY on 07/26/19 0300 Ibuprofen 800 Mg Tablet, 800 MG PO q8h PRN for PAIN Prescribed by: ANJU SANTA on 08/17/14 0054 Lorazepam 0.5 Mg Tablet, 1 MG PO TID, (Reported) Ondansetron 4 Mg Tab.rapdis, 4 MG PO Q4H PRN for NAUSEA/VOMITING Prescribed by: BRANDEN LACY on 07/26/19 0300 Ondansetron 4 Mg Tab.rapdis, 20 MG PO Q6H PRN for NAUSEA/VOMITING Prescribed by: CLEMENT IQBAL on 02/06/21 0712 Zolpidem Tartrate 10 Mg Tablet, 10 MG PO HS, (Reported) Patient Home Medication List Home Medication List Reviewed: Yes (MANOLO ALEMAN MED STUDENT) Review of Systems Review of Systems Constitutional: No chills; dizziness; No fever; weakness EENTM: No Blurred Vision, No Double Vision Respiratory: Denies Cough; Shortness of Air Cardiovascular: Chest Pain (worse with palpation) Gastrointestinal: Denies Constipated, Denies Diarrhea; Nausea, Poor Appetite, Vomiting Genitourinary: Denies Burning, Denies Discharge, Denies Frequency, Denies Pain, Denies Urgency; Other (decreased output) Musculoskeletal: back pain (chronic, bulging disc) Psychiatric/Neurological: Denies Headache (MANOLO ALEMAN MED STUDENT) Past Zkizhjj-Pzoyjt-[place] Hx Patient Social History Alcohol Use: Denies Use Drug of Choice: CANNIBUS Smoking Status: Current Everyday Smoker Type Used: Cigarettes, Electronic/Vapor 2nd Hand Smoke Exposure: No Recent Infectious Disease Expo: No Recent Hopitalizations: No (MANOLO ALEMAN MED STUDENT) Immunizations Up To Date Tetanus Booster (TDap): Unknown Date of Influenza Vaccine: Sep 07, 2012 (MANOLO ALEMANSoma SYL) Seasonal Allergies Seasonal Allergies: No (MANOLO ALEMANSoma SYL) Past Medical History Surgeries: Yes (MULTIPLE D&C'S, LEFT CARPAL TUNNEL AND LEFT ULNAR NERVE SAMUELS SPOSITION, BSO,) Appendectomy, Gallbladder, Hysterectomy, Oophorectomy, Orthopedic Respiratory: Yes Asthma Cardiac: Yes (TACHYCARDIA) Neurological: Yes (Carpel tunnel syndrome bilat;neuropathy && neurodysplasia of LUE;PSUEDOSZ ?) Neuropathy, Seizure Disorder : No Reproductive Disorders: Yes (OVARIAN CYSTS, HYSTERECTOMY FOR CERVICAL DYSPLASIA) 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 Genitourinary: No Gastrointestinal: Yes ("CHRONIC ABDOMINAL PAIN" ) Musculoskeletal: Yes Chronic Back Pain Endocrine: No HEENT: No Cancer: Yes (CERVICAL DYSPLASIA) Cervical What Type of Treatment Did You: Surgical Intervention Psychosocial: Yes (EXTENSIVE PSYCH ISSUES; SUSPECTED PSEUDOSEIZURES) Anxiety, Suicide Attempts, Bipolar, Depression Integumentary: No Blood Disorders: No Adverse Reaction/Blood Tranf: No (MANOLO ALEMAN,YASH STUDENT) Family Medical History SOCIAL HISTORY: -ETOH-OCCASIONAL USE -DRUGS--REGULAR MARIJUANA USE, OPIATE AND BENZODIAZEPINE USE, HAS TESTED + FOR METH ON MULTIPLE OCCASIONS -SMOKES CIGARETES PLUS VAPES PAST SURGICAL HISTORY: -APPENDECTOMY -CHOLECYSTECTOMY -HYSTERECTOMY/BILATERAL SALPINGO-OOPHORECTOMY -CERVICAL SPINE FUSION C4-C7 06/25/20 -LEFT ULNAR NERVE SURGERY/TRANSPOSITION -LEFT CARPAL TUNNEL SURGERY -MULTIPLE D&C'S -EGD/COLONOSCOPY (MANOLO ALEMAN,YASH STUDENT) Physical Exam Vital Signs Vital Signs - First Documented 02/07/21 19:54 Temp 37.2 Pulse 77 Resp 17 B/P (MAP) 153/113 (126) Pulse Ox 98 O2 Delivery Room Air (BRANDEN KRAFT MD) Vital Signs Capillary Refill : Less Than 3 Seconds (MANOLO ALEMAN,YASH STUDENT) Height/Weight/BMI Height: 5'0" Weight: 132lbs. oz. [id number]; 30.00 BMI Method:Actual General Appearance: WD/WN, mild distress Neck: non-tender, full range of motion, supple Respiratory: lungs clear, normal breath sounds, no respiratory distress, no accessory muscle use, other (chest wall pain replicated with palpation) Cardiovascular: regular rate, rhythm, no murmur Peripheral Pulses: 2+ Radial Pulses (R), 2+ Radial Pulses (L) Gastrointestinal: normal bowel sounds, soft, no organomegaly; No guarding, No rebound; tenderness (mild generalized tenderness, moderate epigastric tenderness) Extremities: no pedal edema, no calf tenderness, other (trousseau sign on RUE) Back: CVA tenderness (L) Neurologic/Psychiatric: alert, normal mood/affect, oriented x 3 Skin: normal color, warm/dry (MANOLO ALEMAN,YASH STUDENT) Progress/Results/Core Measures Results/Orders Lab Results Laboratory Tests Test 02/07/21 20:00 02/07/21 20:43 Range/Units White Blood Count 8.8 4.3-11.0 10^3/uL Red Blood Count 4.80 3.80-5.11 10^6/uL Hemoglobin 14.4 11.5-16.0 g/dL Hematocrit 43 35-52 % Mean Corpuscular Volume 89 80-99 fL Mean Corpuscular Hemoglobin 30 25-34 pg Mean Corpuscular Hemoglobin Concent 34 32-36 g/dL Red Cell Distribution Width 12.3 10.0-14.5 % Platelet Count 240 130-400 10^3/uL Mean Platelet Volume 12.6 H 9.0-12.2 fL Immature Granulocyte % (Auto) 1 % Neutrophils (%) (Auto) 48 42-75 % Lymphocytes (%) (Auto) 38 12-44 % Monocytes (%) (Auto) 13 H 0-12 % Eosinophils (%) (Auto) 0 0-10 % Basophils (%) (Auto) 1 0-10 % Neutrophils # (Auto) 4.2 1.8-7.8 10^3/uL Lymphocytes # (Auto) 3.3 1.0-4.0 10^3/uL Monocytes # (Auto) 1.1 H 0.0-1.0 10^3/uL Eosinophils # (Auto) 0.0 0.0-0.3 10^3/uL Basophils # (Auto) 0.1 0.0-0.1 10^3/uL Immature Granulocyte # (Auto) 0.0 0.0-0.1 10^3/uL Sodium Level 139 135-145 MMOL/L Potassium Level 2.6 L 3.6-5.0 MMOL/L Chloride Level 96 L 98-107 MMOL/L Carbon Dioxide Level 28 21-32 MMOL/L Anion Gap 15 H 5-14 MMOL/L Blood Urea Nitrogen 8 7-18 MG/DL Creatinine 1.16 0.60-1.30 MG/DL Estimat Glomerular Filtration Rate 51 BUN/Creatinine Ratio 7 Glucose Level 109 H 70-105 MG/DL Calcium Level 9.6 8.5-10.1 MG/DL Corrected Calcium 8.5-10.1 MG/DL Magnesium Level 1.8 1.6-2.4 MG/DL Total Bilirubin 0.5 0.1-1.0 MG/DL Aspartate Amino Transf (AST/SGOT) 20 5-34 U/L Alanine Aminotransferase (ALT/SGPT) 54 0-55 U/L Alkaline Phosphatase 155 H 40-136 U/L C-Reactive Protein High Sensitivity 0.09 0.00-0.50 MG/DL Total Protein 7.9 6.4-8.2 GM/DL Albumin 4.8 H 3.2-4.5 GM/DL Lipase 19 8-78 U/L Urine Color YELLOW Urine Clarity OTHER Urine pH 6.5 5-9 Urine Specific [place] <=1.005 1.016-1.022 Urine Protein NEGATIVE NEGATIVE Urine Glucose (UA) NEGATIVE NEGATIVE Urine Ketones NEGATIVE NEGATIVE Urine Nitrite NEGATIVE NEGATIVE Urine Bilirubin NEGATIVE NEGATIVE Urine Urobilinogen 0.2 < = 1.0 MG/DL Urine Leukocyte Esterase NEGATIVE NEGATIVE Urine RBC (Auto) NEGATIVE NEGATIVE Urine RBC NONE /HPF Urine WBC 0-2 /HPF Urine Squamous Epithelial Cells 2-5 /HPF Urine Crystals NONE /LPF Urine Bacteria MODERATE H /HPF Urine Casts NONE /LPF Urine Mucus NEGATIVE /LPF Urine Culture Indicated YES (BRANDEN KRAFT MD) My Orders Orders - BRANDEN KRAFT MD Cbc With Automated Diff (02/07/21 20:12) Comprehensive Metabolic Panel (02/07/21 20:12) Hs C Reactive Protein (02/07/21 20:12) Lipase (02/07/21 20:12) Ua Culture If Indicated (02/07/21 20:12) Ed Iv/Invasive Line Start (02/07/21 20:12) Promethazine Injection (Phenergan Injec (02/07/21 20:15) Famotidine Injection (Pepcid Injection) (02/07/21 20:15) Potassium Cl 10meq/50ml Ivpb (Kcl 10 Meq (02/07/21 20:45) Ns Iv 1000 Ml (Sodium Chloride 0.9%) (02/07/21 20:45) Lorazepam Injection (Ativan Injection) (02/07/21 20:45) Fentanyl Injection (Sublimaze Injection (02/07/21 20:45) Phenytoin Injection (Dilantin Injection) (02/07/21 20:58) Urine Culture (02/07/21 20:43) Abdomen, Flat & Upright/Decub (02/07/21 21:04) Magnesium (02/07/21 21:08) (BRANDEN KRAFT MD) Medications Given in ED Current Medications Medications Dose Ordered Sig/Rafael Route Start Time Stop Time Status Last Admin Dose Admin Famotidine 20 mg ONCE ONCE IVP 02/07/21 20:15 02/07/21 20:16 DC 02/07/21 20:21 20 MG Fentanyl Citrate 50 mcg ONCE ONCE IVP 02/07/21 20:45 02/07/21 20:46 DC 02/07/21 20:57 50 MCG Lorazepam 1 mg ONCE ONCE IVP 02/07/21 20:45 02/07/21 20:46 DC 02/07/21 20:57 1 MG Potassium Chloride 50 ml @ 50 mls/hr ONCE ONCE IV 02/07/21 20:45 02/07/21 21:44 DC 02/07/21 20:57 50 MLS/HR Promethazine HCl 25 mg ONCE ONCE IVP 02/07/21 20:15 02/07/21 20:16 DC 02/07/21 20:21 25 MG (BRANDEN KRAFT MD) Vital Signs/I&O 02/07/21 19:54 Temp 37.2 Pulse 77 Resp 17 B/P (MAP) 153/113 (126) Pulse Ox 98 O2 Delivery Room Air 02/08/21 00:00 Intake Total 100 ml Balance 100 ml (BRANDEN KRAFT MD) Blood Pressure Mean: 126 Progress Progress Note : Progress Note Patient was seen and examined by me. She received IV fluids and Phenergan. She still had some retching even after Phenergan. She has not been able to take her seizure medications including Dilantin and Valium. Benzodiazepine withdrawal may be contributing to her symptoms. She was therefore given Ativan 1 mg IV. She also had removed her fentanyl patch when she started vomiting. She may be going through some degree of fentanyl withdrawal. For this reason fentanyl was also administered. She was found to have significant hypokalemia. Potassium replacement was started by IV route in the ER. KUB and upright x-ray was obtained and revealed no evidence of obstruction. Case was discussed with Dr. Alvarado who requested consultation with Dr. Reyes. (BRANDEN KRAFT MD) Diagnostic Imaging Diagonstic Imaging: Xray Plain Films/CT/US/NM/MRI: abdomen Comments Abdominal x-rays viewed by me and report reviewed. See report below: NAME: ALYSSA PHELPS [facility] REC#: [id number] PT STATUS: REG ER : 1980 PHYSICIAN: BRANDEN KRAFT MD ADMIT DATE: 02/07/21/ER Signed Date of Exam:02/07/21 ABDOMEN, FLAT & UPRIGHT/DECUB EXAMINATION: Abdominal radiographs, upright and supine views. DATE: February 07, 2021. CLINICAL INDICATION: 40-year-old female, abdominal pain. Nausea and vomiting. COMPARISON: CT abdomen April 17, 2020. Abdominal radiographs December 28, 2010. COMMENTS: There are right upper quadrant surgical clips. There is no identified free intraperitoneal air. There is no identified pneumatosis or portal venous gas. There are sutures in the right and left sides of the pelvis. There is a moderate volume stool in the right colon. There are gas-filled segments of predominantly large bowel which are not grossly distended. There is a right-sided pelvic calcification unchanged since 2010 most likely relating to a phlebolith. There is no identified abnormal radiodensity overlying the expected positions of the kidneys or ureters. IMPRESSION: . No identified acute abdominal radiographic abnormality. Dictated by: Dictated on workstation # [id number] Dict: 02/07/212127 Trans: 02/07/212136 CV [id number] Interpreted by: BAYRON CAMACHO MD Electronically signed by: BAYRON CAMACHO MD 02/07/212136 (BRANDEN KRAFT MD) Departure Communication (Admissions) Time/Spoke to Admitting Phy: 20:50 Dr. Alvarado Time/Spoke to Consulting Phy: 21:00 Dr. Reyes (BRANDEN KRAFT MD) Impression Primary Impression: Intractable nausea and vomiting Additional Impressions: Hypokalemia Upper abdominal pain Disposition: ADMITTED INPATIENT Condition: Improved Admissions Decision to Admit Reason: Admit from ER (General) Decision to Admit/Date: Feb 07, 2021 Time/Decision to Admit Time: 20:30 (BRANDEN KRAFT MD) Departure-Patient Inst. Referrals: JOHANNE HERNANDES MD (PCP/Family) Primary Care Physician Student attestation and attending note: This patient was interviewed and examined by me personally along with Manolo Aleman, MS 4. I have reviewed her documentation and agree with her history, physical, and assessments except where otherwise noted. Normal physical physical exam: General: Alert, oriented, mild distress HEENT: Normocephalic and atraumatic Heart: Regular rate and rhythm without murmur Lungs: Clear to auscultation bilaterally Abdomen: Soft, nondistended, normal bowel sounds, tenderness in the left upper quadrant and epigastrium Neuropsych: Alert, oriented, mood and affect appropriate Skin: Warm and dry without rashes (BRANDEN KRAFT MD) MANOLO ALEMAN,MED STUDENT Feb 07, 2021 20:20 BRANDEN KRAFT MD Feb 07, 2021 21:18
[2021-02-07 20:22] LABS: CALCIUM 9.6 MG/DL (8.5-10.1)
[2021-02-07 20:23] LABS: GLUCOSE 109 MG/DL (70-105); TOTAL PROTEIN 7.9 GM/DL (6.4-8.2)
[2021-02-07 20:24] LABS: BILIRUBIN,TOTAL 0.5 MG/DL (0.1-1.0); CARBON DIOXIDE 28 MMOL/L (21-32)
[2021-02-07 20:26] LABS: ALKALINE PHOSPHATASE 155 U/L (40-136); CREATININE SERUM 1.16 MG/DL (0.60-1.30); GFR ESTIMATED 51
[2021-02-07 20:27] LABS: BUN/CREATININE RATIO 7
[2021-02-07 20:29] LABS: ALANINE AMINOTRANSFERASE 54 U/L (0-55)
[2021-02-07 20:30] LABS: LIPASE 19 U/L (8-78)
[2021-02-07] MEDS ORDERED: fentaNYL INJ 100 MCG/2 ML AMP IVP ONE (20:45)
[2021-02-07] MEDS ORDERED: LORazepam INJ 2 MG/ML (ATIVAN) VIAL IVP ONE (20:45)
[2021-02-07] MEDS ORDERED: POTASSIUM CL 10MEQ/50ML IVPB 50 ML IV ONE (20:45)
[2021-02-07] MEDS ORDERED: NS IV 1000 ML 1,000 ML IV SCH (20:45)
[2021-02-07 20:48] LABS: BILIRUBIN,URINE NEGATIVE (NEGATIVE); CLARITY,URINE OTHER; COLOR,URINE YELLOW; GLUCOSE, URINE (UA) NEGATIVE (NEGATIVE); KETONES,URINE NEGATIVE (NEGATIVE); LEUKOCYTE ESTERASE ,URINE NEGATIVE (NEGATIVE); NITRITE,URINE NEGATIVE (NEGATIVE); PH,URINE 6.5 (5-9); PROTEIN,URINE NEGATIVE (NEGATIVE)
[2021-02-07] MEDS ORDERED: PHENYTOIN IV STA (20:58)
[2021-02-07] MEDS ORDERED: MICRON FILTER IV STA (20:58)
[2021-02-07 21:02] LABS: BACTERIA,URINE MODERATE /HPF; WBC,URINE 0-2 /HPF
[2021-02-07] MEDS ORDERED: PHENYTOIN 250 MG/5 ML INJ (DILANTIN) VIAL IV STA (21:20)
--- NOTE | 2021-02-07 21:33 | Diagnostic Imaging Report ---
EXAMINATION: Abdominal radiographs, upright and supine views. DATE: February 07, 2021. CLINICAL INDICATION: 40-year-old female, abdominal pain. Nausea and vomiting. COMPARISON: CT abdomen April 17, 2020. Abdominal radiographs December 28, 2010. COMMENTS: There are right upper quadrant surgical clips. There is no identified free intraperitoneal air. There is no identified pneumatosis or portal venous gas. There are sutures in the right and left sides of the pelvis. There is a moderate volume stool in the right colon. There are gas-filled segments of predominantly large bowel which are not grossly distended. There is a right-sided pelvic calcification unchanged since 2010 most likely relating to a phlebolith. There is no identified abnormal radiodensity overlying the expected positions of the kidneys or ureters. IMPRESSION: . No identified acute abdominal radiographic abnormality. Dictated by: Dictated on workstation # [id number]
[2021-02-07 22:34] VITALS: BP 133/75
[2021-02-07] MEDS: POTASSIUM CL 10MEQ/50ML IVPB 50 ML IV SCH (23:00)
[2021-02-07] MEDS: NS IV 1000 ML 1,000 ML IV SCH (23:00)
[2021-02-07] MEDS: ONDANSETRON 4 MG/2 ML (SDV) Z0FRAN IV PRN (23:08)
[2021-02-07] MEDS: LORazepam INJ 2 MG/ML (ATIVAN) VIAL IVP SCH (23:45)
[2021-02-08] VITALS (7 sets, daily range): BP systolic 128–173; BP diastolic 69–104
[2021-02-08] MEDS: POTASSIUM CL 10MEQ/50ML IVPB 50 ML IV SCH ×5 (00:17→05:40)
[2021-02-08] MEDS: LORazepam INJ 2 MG/ML (ATIVAN) VIAL IVP SCH ×5 (04:14→20:52)
[2021-02-08] MEDS: ONDANSETRON 4 MG/2 ML (SDV) Z0FRAN IV PRN ×3 (04:14→15:36)
[2021-02-08] MEDS: NS IV 1000 ML 1,000 ML IV SCH ×3 (05:40→18:53)
[2021-02-08 07:24] LABS: BASOPHILS # (AUTO) 0.1 10^3/uL (0.0-0.1); BASOPHILS % (AUTO) 1 % (0-10); EOSINOPHILS % (AUTO) 0 % (0-10); HEMATOCRIT 37 % (35-52); HEMOGLOBIN 12.2 g/dL (11.5-16.0); LYMPHOCYTES # (AUTO) 2.4 10^3/uL (1.0-4.0); LYMPHOCYTES % (AUTO) 29 % (12-44); MEAN CORPUSCULAR HEMOGLOBIN 30 pg (25-34); MEAN CORPUSCULAR HGB CONC 33 g/dL (32-36); MEAN CORPUSCULAR VOLUME 90 fL (80-99); MEAN PLATELET VOLUME 12.3 fL (9.0-12.2); MONOCYTES # (AUTO) 0.8 10^3/uL (0.0-1.0); MONOCYTES % (AUTO) 10 % (0-12); NEUTROPHILS # (AUTO) 4.8 10^3/uL (1.8-7.8); NEUTROPHILS % (AUTO) 59 % (42-75); PLATELET COUNT 182 10^3/uL (130-400); WHITE BLOOD COUNT 8.2 10^3/uL (4.3-11.0)
[2021-02-08 07:52] LABS: ALANINE AMINOTRANSFERASE 37 U/L (0-55); ALBUMIN 3.7 GM/DL (3.2-4.5); ALKALINE PHOSPHATASE 119 U/L (40-136); BILIRUBIN,TOTAL 0.4 MG/DL (0.1-1.0); BUN/CREATININE RATIO 5; CALCIUM 7.9 MG/DL (8.5-10.1); CARBON DIOXIDE 21 MMOL/L (21-32); CHLORIDE 108 MMOL/L (98-107); CREATININE SERUM 0.83 MG/DL (0.60-1.30); GFR ESTIMATED > 60; GLUCOSE 94 MG/DL (70-105); MAGNESIUM 1.7 MG/DL (1.6-2.4); POTASSIUM 3.7 MMOL/L (3.6-5.0); SODIUM 141 MMOL/L (135-145); TOTAL PROTEIN 6.1 GM/DL (6.4-8.2)
[2021-02-08] MEDS: NS IV SCH ×9 (08:40→20:52)
[2021-02-08] MEDS: MICRON FILTER IV SCH ×9 (08:40→20:52)
[2021-02-08] MEDS: PHENYTOIN IV SCH ×9 (08:40→20:52)
[2021-02-08] MEDS: FAMOTIDINE 20MG/2ML IV (PEPCID) IVP SCH ×2 (08:41→20:52)
[2021-02-08] MEDS ORDERED: MICRON FILTER IV SCH ×2 (09:00)
[2021-02-08] MEDS ORDERED: MICRON FILTER IV ONE (09:00)
[2021-02-08] MEDS ORDERED: PHENYTOIN 100 MG IV SCH ×2 (09:00)
[2021-02-08] MEDS ORDERED: PHENYTOIN IV ONE (09:00)
--- NOTE | 2021-02-08 09:37 | Consultation - Surgery ---
PAT SMITH MED STUDENT 02/08/21 0937: History of Present Illness History of Present Illness Patient Consulted On(susan/time) 02/08/21 09:30 Date Seen by Provider: Feb 08, 2021 Time Seen by Provider: 09:20 History of Present Illness Consult requested by medicine service for patient due to intractable nausea and vomiting. Patient states she developed a runny nose, dry itchy eyes and a non productive cough that started late Tuesday night. She developed intractable nausea, vomiting, and diffuse abdominal pain starting Tuesday, that caused her to "Fly out of bed" and vomit. She reports being seen 3-12 in the ED at [facility] where she received IV fluids and antiemetics and was sent home. She states that her symptoms have worsened with increased abdominal pain, back pain bilaterally, pains shooting down both legs to the levels of the knees, and 30-40 episodes of vomiting without blood since Tuesday. She states that she was sent home with zofran from the ED on the which did not help to relieve her symptoms at all. She has had a decreased appetite the last few days as well. Reports nothing seems to worsen her pain, she has not taken anything for the pain at home when questioned repeatedly. She denies blood in her vomit. States last BM was "some days ago". Also, is reporting chest wall pain under the left breast, she believes is related to the persistent vomiting. Also reporting fevers, chills, and some SOB. The abdominal pain she states radiated posteriorly around to both her flanks. She describes it as a sharp shooting pain. Allergies and Home Medications Allergies Coded Allergies: No Known Drug Allergies (Unverified , 03/20/12) Home Medications Albuterol 8.5 Gm Hfa.aer.ad, 8.5 GM IH Q6H, (Reported) 2 PUFFS Amoxicillin 500 Mg Capsule, 2 EACH PO TID Prescribed by: ANJU SANTA on 08/17/14 0054 Codeine Phos/Acetaminophen 1 Tab Tablet, 2 TAB PO Q6H PRN for PAIN, (Reported) Diazepam 10 Mg Tablet, 10 MG PO TID Prescribed by: ANTHONY FARMER on 07/13/20 1154 Estradiol 0.5 Mg Tablet, 0.5 MG PO DAILY, (Reported) Famotidine 20 Mg Tablet, 20 MG PO BID Prescribed by: BRANDEN LACY on 07/26/19 0300 Ibuprofen 800 Mg Tablet, 800 MG PO q8h PRN for PAIN Prescribed by: ANJU SANTA on 08/17/14 0054 Lorazepam 0.5 Mg Tablet, 1 MG PO TID, (Reported) Ondansetron 4 Mg Tab.rapdis, 4 MG PO Q4H PRN for NAUSEA/VOMITING Prescribed by: BRANDEN LACY on 07/26/19 0300 Ondansetron 4 Mg Tab.rapdis, 20 MG PO Q6H PRN for NAUSEA/VOMITING Prescribed by: CLEMENT IQBAL on 02/06/21 0712 Zolpidem Tartrate 10 Mg Tablet, 10 MG PO HS, (Reported) Past Pyqrjbs-Ruuggo-Dhxatd Hx Patient Social History Drug of Choice: CANNIBUS Smoking Status: Former Smoker Type Used: Cigarettes, Electronic/Vapor 2nd Hand Smoke Exposure: No Recent Hopitalizations: No Alcohol Use?: No Have you traveled recently?: No Immunizations Up To Date Tetanus Booster (TDap): Unknown Date of Influenza Vaccine: Sep 17, 2021 Seasonal Allergies Seasonal Allergies: No Surgeries History of Surgeries: Yes (MULTIPLE D&C'S, LEFT CARPAL TUNNEL AND LEFT ULNAR NERVE TRANSPOSITION, BSO,) Surgeries: Appendectomy, Gallbladder, Hysterectomy, Oophorectomy, Orthopedic Respiratory History of Respiratory Disorde: Yes Respiratory Disorders: Asthma Cardiovascular History of Cardiac Disorders: Yes (TACHYCARDIA) Neurological History of Neurological Disord: Yes (Carpel tunnel syndrome bilat;neuropathy && neurodysplasia of LUE;PSUEDOSZ ?) Neurological Disorders: Neuropathy, Seizure Disorder Reproductive System : No Hx Reproductive Disorders: Yes (OVARIAN CYSTS, HYSTERECTOMY FOR CERVICAL DYSPLASIA) 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 Genitourinary History of Genitourinary Disor: No Gastrointestinal History of Gastrointestinal Di: Yes ("CHRONIC ABDOMINAL PAIN" ) Musculoskeletal History of Musculoskeletal Dis: Yes Musculoskeletal Disorders: Chronic Back Pain Endocrine History of Endocrine Disorders: No HEENT History of HEENT Disorders: No Loss of Vision: Denies Hearing Impairment: Denies Cancer History of Cancer: Yes (CERVICAL DYSPLASIA) Cancer: Cervical Psychosocial History of Psychiatric Problem: Yes (EXTENSIVE PSYCH ISSUES; SUSPECTED PSEUDOSEIZURES) Behavioral Health Disorders: Anxiety, Suicide Attempts, Bipolar, Depression Integumentary History of Skin or Integumenta: No Blood Transfusions History of Blood Disorders: No Adverse Reaction to a Blood Tr: No Review of Systems-General Constitutional: chills, fever, malaise EENTM: No blurred vision, No double vision Respiratory: cough; No hemoptysis; short of breath; No stridor, No wheezing Cardiovascular: chest pain (left chest wall pain under left breast, non radiati ng); No edema, No palpitations, No syncope Gastrointestinal: see HPI, abdominal pain; No diarrhea, No hematemesis; loss of appetite; No melena; nausea, vomiting Genitourinary: no symptoms reported, decreased output; No dysuria, No frequency Musculoskeletal: back pain; No muscle stiffness, No muscle cramps Skin: no symptoms reported Psychiatric/Neurological: No Symptoms Reported; Denies Anxiety, Denies Depressed All Other Systems Reviewed Negative Unless Noted: Yes Physical Exam-General Problems Physical Exam Vital Signs Vital Signs - First Documented 02/07/21 19:54 Temp 37.2 Pulse 77 Resp 17 B/P (MAP) 153/113 (126) Pulse Ox 98 O2 Delivery Room Air Capillary Refill : Less Than 3 Seconds General Appearance: WD/WN, no apparent distress Eyes: Bilateral Eye PERRL, Bilateral Eye EOMI HEENT: PERRL/EOMI, pharynx normal Neck: non-tender, supple Respiratory: lungs clear, normal breath sounds, no accessory muscle use Cardiovascular: normal peripheral pulses, regular rate, rhythm, no murmur Peripheral Pulses: 2+ Dorsalis Pedis (R), 2+ Left Dors-Pedis (L), 2+ Radial Pulses (R), 2+ Radial Pulses (L) Gastrointestinal: normal bowel sounds, soft, tenderness (epigastric mostly) Rectal: deferred Back: normal inspection, no vertebral tenderness Extremities: normal range of motion, non-tender, no pedal edema, no calf tenderness, normal capillary refill Neurologic/Psychiatric: pattern puncher II-XII nml as tested, alert, oriented x 3 Skin: normal color, warm/dry Lymphatic: no adenopathy Data Review Labs Laboratory Tests 02/07/21 20:00: White Blood Count 8.8, Red Blood Count 4.80, Hemoglobin 14.4, Hematocrit 43, Mean Corpuscular Volume 89, Mean Corpuscular Hemoglobin 30, Mean Corpuscular Hemoglobin Concent 34, Red Cell Distribution Width 12.3, Platelet Count 240, Mean Platelet Volume 12.6H, Immature Granulocyte % (Auto) 1, Neutrophils (%) (Auto) 48, Lymphocytes (%) (Auto) 38, Monocytes (%) (Auto) 13H, Eosinophils (%) (Auto) 0, Basophils (%) (Auto) 1, Neutrophils # (Auto) 4.2, Lymphocytes # (Auto) 3.3, Monocytes # (Auto) 1.1H, Eosinophils # (Auto) 0.0, Basophils # (Auto) 0.1, Immature Granulocyte # (Auto) 0.0, Sodium Level 139, Potassium Level 2.6L, Chloride Level 96L, Carbon Dioxide Level 28, Anion Gap 15H, Blood Urea Nitrogen 8, Creatinine 1.16, Estimat Glomerular Filtration Rate 51, BUN/Creatinine Ratio 7, Glucose Level 109H, Calcium Level 9.6, Corrected Calcium , Magnesium Level 1.8, Total Bilirubin 0.5, Aspartate Amino Transf (AST/SGOT) 20, Alanine Aminotransferase (ALT/SGPT) 54, Alkaline Phosphatase 155H, C-Reactive Protein High Sensitivity 0.09, Total Protein 7.9, Albumin 4.8H, Lipase 19 02/07/21 20:43: Urine Color YELLOW, Urine Clarity OTHER, Urine pH 6.5, Urine Specific [place] <=1.005, Urine Protein NEGATIVE, Urine Glucose (UA) NEGATIVE, Urine Ketones NEGATIVE, Urine Nitrite NEGATIVE, Urine Bilirubin NEGATIVE, Urine Urobilinogen 0.2, Urine Leukocyte Esterase NEGATIVE, Urine RBC (Auto) NEGATIVE, Urine RBC NONE, Urine WBC 0-2, Urine Squamous Epithelial Cells 2-5, Urine Crystals NONE, Urine Bacteria MODERATEH, Urine Casts NONE, Urine Mucus NEGATIVE, Urine Culture Indicated YES 02/08/21 07:10: White Blood Count 8.2, Red Blood Count 4.10, Hemoglobin 12.2, Hematocrit 37, Mean Corpuscular Volume 90, Mean Corpuscular Hemoglobin 30, Mean Corpuscular Hemoglobin Concent 33, Red Cell Distribution Width 12.2, Platelet Count 182, Mean Platelet Volume 12.3H, Immature Granulocyte % (Auto) 1, Neutrophils (%) (Auto) 59, Lymphocytes (%) (Auto) 29, Monocytes (%) (Auto) 10, Eosinophils (%) (Auto) 0, Basophils (%) (Auto) 1, Neutrophils # (Auto) 4.8, Lymphocytes # (Auto) 2.4, Monocytes # (Auto) 0.8, Eosinophils # (Auto) 0.0, Basophils # (Auto) 0.1, Immature Granulocyte # (Auto) 0.1, Sodium Level 141, Potassium Level 3.7, Chloride Level 108H, Carbon Dioxide Level 21, Anion Gap 12, Blood Urea Nitrogen 4L, Creatinine 0.83, Estimat Glomerular Filtration Rate > 60, BUN/Creatinine Ratio 5, Glucose Level 94, Calcium Level 7.9L, Corrected Calcium 8.1L, Magnesium Level 1.7, Total Bilirubin 0.4, Aspartate Amino Transf (AST/SGOT) 17, Alanine Aminotransferase (ALT/SGPT) 37, Alkaline Phosphatase 119, Total Protein 6.1L, Albumin 3.7 Radiology [place], [place] NAME: ALYSSA PHELPS [facility] REC#: [id number] PT STATUS: REG ER : 1980 PHYSICIAN: BRANDEN KRAFT MD ADMIT DATE: 02/07/21/ER Signed Date of Exam:02/07/21 ABDOMEN, FLAT & UPRIGHT/DECUB EXAMINATION: Abdominal radiographs, upright and supine views. DATE: February 07, 2021. CLINICAL INDICATION: 40-year-old female, abdominal pain. Nausea and vomiting. COMPARISON: CT abdomen April 17, 2020. Abdominal radiographs December 28, 2010. COMMENTS: There are right upper quadrant surgical clips. There is no identified free intraperitoneal air. There is no identified pneumatosis or portal venous gas. There are sutures in the right and left sides of the pelvis. There is a moderate volume stool in the right colon. There are gas-filled segments of predominantly large bowel which are not grossly distended. There is a right-sided pelvic calcification unchanged since 2010 most likely relating to a phlebolith. There is no identified abnormal radiodensity overlying the expected positions of the kidneys or ureters. IMPRESSION: . No identified acute abdominal radiographic abnormality. Dictated by: Dictated on workstation # [id number] Dict: 02/07/212127 Trans: 02/07/212136 [facility] [id number] Interpreted by: BAYRON CAMACHO MD Electronically signed by: BAYRON CAMACHO MD 03/13/21 2137 Assessment/Plan Assessment/Plan Admission Diagonsis Intractable nausea and Vomiting LUQ abdominal pain Hypokalemia Seizure disorder Chronic back pain History of Anxiety/Depression History of Methamphetamine use Continue Zofran and phenergan PRN nausea/vomiting Continue NS @ 150ml/hr Continue pain meds PRN for abdominal pain/chronic back pain Abdominal x ray with no identified acute intrabdominal radiograpahic findings Continue conservative management SEGURADEBORAH DO 02/08/21 1704: History of Present Illness History of Present Illness History of Present Illness Consult requested by Dr. Alvarado for nausea and vomiting. Patient is a 40-year-old female who states that last Tuesday she began having nonproductive cough runny nose dry itchy eyes. And then Tuesday began having significant nausea and vomiting. After the nausea and vomiting started she began having left upper quadrant abdominal pain. Multiple episodes of emesis she states about 30-40 since Tuesday. Her symptoms continue to increase as she is having more left upper quadrant abdominal pain. She states that the pain would radiate up to her left arm and down her left leg. Sharp burning stabbing type pain in the left upper quadrant. Nothing really seems to worsen her pain and nothing really seems to make it better. She was found to be hypokalemic without any elevation of white blood cell count. She was seen in the emergency department on 02/06/2021. Due to worsening of her symptoms she return to the emergency department for reevaluation. Patient denies any fever sweats chills shortness of breath or chest pain. Allergies and Home Medications Allergies Coded Allergies: No Known Drug Allergies (Unverified , 03/20/12) Home Medications Albuterol 8.5 Gm Hfa.aer.ad, 8.5 GM IH Q6H, (Reported) 2 PUFFS Amoxicillin 500 Mg Capsule, 2 EACH PO TID Prescribed by: ANJU SANTA on 08/17/14 0054 Codeine Phos/Acetaminophen 1 Tab Tablet, 2 TAB PO Q6H PRN for PAIN, (Reported) Diazepam 10 Mg Tablet, 10 MG PO TID Prescribed by: ANTHONY FARMER on 07/13/20 1154 Estradiol 0.5 Mg Tablet, 0.5 MG PO DAILY, (Reported) Famotidine 20 Mg Tablet, 20 MG PO BID Prescribed by: BRANDEN LACY on 07/26/19 0300 Ibuprofen 800 Mg Tablet, 800 MG PO q8h PRN for PAIN Prescribed by: ANJU SANTA on 08/17/14 0054 Lorazepam 0.5 Mg Tablet, 1 MG PO TID, (Reported) Ondansetron 4 Mg Tab.rapdis, 4 MG PO Q4H PRN for NAUSEA/VOMITING Prescribed by: BRANDEN LACY on 07/26/19 0300 Ondansetron 4 Mg Tab.rapdis, 20 MG PO Q6H PRN for NAUSEA/VOMITING Prescribed by: CLEMENT IQBAL on 02/06/21 0712 Zolpidem Tartrate 10 Mg Tablet, 10 MG PO HS, (Reported) Patient Home Medication List Home Medication List Reviewed: Yes Past Vgybqwe-Gxwmlw-Tztosy Hx Reviewed Nursing Assessment Reviewed/Agree w Nursing PMH: Yes Family Medical History Significant Family History: No Pertinent Family Hx Review of Systems-General Constitutional: chills; No fever; malaise Respiratory: cough; No hemoptysis, No short of breath, No stridor, No wheezing Cardiovascular: chest pain (left chest wall pain under left breast, non radiating) Gastrointestinal: abdominal pain (LUQ); No diarrhea, No hematemesis; loss of appetite; No melena; nausea, vomiting Genitourinary: No decreased output, No dysuria, No frequency Musculoskeletal: back pain; No muscle stiffness, No muscle cramps Skin: No change in color, No change in hair/nails Psychiatric/Neurological: Denies Anxiety, Denies Depressed All Other Systems Reviewed Negative Unless Noted: Yes (Negative excepted noted.) Physical Exam-General Problems Physical Exam General Appearance: WD/WN, no apparent distress HEENT: PERRL/EOMI Neck: non-tender, supple Respiratory: chest non-tender, no respiratory distress, no accessory muscle use Cardiovascular: regular rate, rhythm, no JVD Gastrointestinal: tenderness (Left upper quadrant, no guarding or rebounding) Rectal: deferred Back: normal inspection, no CVA tenderness, no vertebral tenderness Extremities: normal range of motion, non-tender, no pedal edema, no calf tenderness Neurologic/Psychiatric: pattern puncher II-XII nml as tested, alert, oriented x 3 Skin: normal color, warm/dry Lymphatic: no adenopathy Assessment/Plan Assessment/Plan Admission Diagonsis Intractable nausea and Vomiting LUQ abdominal pain Hypokalemia Seizure disorder Chronic back pain History of Anxiety/Depression History of Methamphetamine use Continue Zofran and phenergan PRN nausea/vomiting Continue NS @ 150ml/hr Follow potassium and replace as needed. Continue pain meds PRN for abdominal pain/chronic back pain Abdominal x ray with no identified acute intrabdominal radiograpahic findings Continue conservative management Feel abdominal pain in the left upper quadrant may be related to muscle strain or tear due to vomiting Assessment/Plan Intractable nausea and Vomiting LUQ abdominal pain Hypokalemia Seizure disorder Chronic back pain History of Anxiety/Depression History of Methamphetamine use Continue Zofran and phenergan PRN nausea/vomiting Continue NS @ 150ml/hr Follow potassium and replace as needed. Continue pain meds PRN for abdominal pain/chronic back pain Abdominal x ray with no identified acute intrabdominal radiograpahic findings Continue conservative management Feel abdominal pain in the left upper quadrant may be related to muscle strain or tear due to vomiting Supervisory-Addendum Brief Verification & Attestation Participated in pt care: history, MDM, physical Personally performed: exam, history, MDM, supervision of care Care discussed with: Medical Student Procedures: n/a Results interpretation: Verified all documentation Verification and Attestation of Medical Student E/M Service A medical student performed and documented this service in my presence. I reviewed and verified all information documented by the medical student and made modifications to such information, when appropriate. I personally performed the physical exam and medical decision making. Deborah Segura, Feb 08, 2021,17:07 PAT SMITH MED STUDENT Feb 08, 2021 09:37 DEBORAH SEGURA DO Feb 08, 2021 17:04
[2021-02-08] MEDS: fentaNYL INJ 100 MCG/2 ML AMP IV PRN ×3 (09:44→21:49)
[2021-02-08] MEDS: PROMETHAZINE INJ 25 MG/ML (PHENERGAN) AMP IVP PRN (10:33)
--- NOTE | 2021-02-08 11:50 | History & Physical-Hospitalist ---
History of Present Illness HPI/Chief Complaint CC: Vomiting HPI: This is a 40yoWF clinic patient of [facility] who has chronic pain maintained on Fentanyl patch and seizure d/o on Valium TID scheduled who presents to the ER with vomiting. Abdominal pain prompted Dr Reyes consult. Labs reviewed. Patient will be maintained on supportive care. Source: patient Exam Limitations: no limitations Date Seen 02/08/21 Time Seen by a Provider: 11:40 Attending Physician Minal Parker DO PCP Self,Osei SOTO Referring Physician Date of Admission Feb 07, 2021 at 21:10 Home Medications & Allergies Home Medications Reviewed patient Home Medication Reconciliation performed by pharmacy medication reconciliations ct scan technician and/or nursing. Patients Allergies have been reviewed. Allergies Allergies Coded Allergies No Known Drug Allergies (Unverified03/20/12) Past Skxdtki-Sbppfp-Orutax Hx Past Med/Social Hx: Reviewed Nursing Past Med/Soc Hx, Reviewed and Corrections made Patient Social History Marrital Status: single Employed/Student: unemployed Alcohol Use: Denies Use Recreational Drug Use: Yes Drug of Choice: CANNIBUS Smoking Status: Former Smoker Type Used: Cigarettes, Electronic/Vapor 2nd Hand Smoke Exposure: No Recent Foreign Travel: No Contact w/other who traveled: No Recent Hopitalizations: No Recent Infectious Disease Expo: No Immunizations Up To Date Tetanus Booster (TDap): Unknown Date of Influenza Vaccine: Sep 17, 2021 Seasonal Allergies Seasonal Allergies: No Past Medical History Surgeries: Appendectomy, Gallbladder, Hysterectomy, Oophorectomy, Orthopedic Neurological: Neuropathy, Seizure Disorder : No Reproductive: Yes (OVARIAN CYSTS, HYSTERECTOMY FOR CERVICAL DYSPLASIA) Hysterectomy Musculoskeletal: Chronic Back Pain Loss of Vision: Denies Hearing Impairment: Denies Cancer: Cervical What Type of Treatment Did You: Surgical Intervention Psychosocial: Anxiety, Suicide Attempts, Bipolar, Depression History of Blood Disorders: No Adverse Reaction to Blood Camacho: No Family History SOCIAL HISTORY: -ETOH-OCCASIONAL USE -DRUGS--REGULAR MARIJUANA USE, OPIATE AND BENZODIAZEPINE USE, HAS TESTED + FOR METH ON MULTIPLE OCCASIONS -SMOKES CIGARETES PLUS VAPES PAST SURGICAL HISTORY: -APPENDECTOMY -CHOLECYSTECTOMY -HYSTERECTOMY/BILATERAL SALPINGO-OOPHORECTOMY -CERVICAL SPINE FUSION C4-C7 06/25/20 -LEFT ULNAR NERVE SURGERY/TRANSPOSITION -LEFT CARPAL TUNNEL SURGERY -MULTIPLE D&C'S -EGD/COLONOSCOPY Review of Systems Constitutional: see HPI, malaise, weakness Physical Exam Physical Exam Vital Signs Vital Signs - First Documented 02/07/21 19:54 Temp 37.2 Pulse 77 Resp 17 B/P (MAP) 153/113 (126) Pulse Ox 98 O2 Delivery Room Air Capillary Refill : Less Than 3 Seconds Height, Weight, BMI Height: 5'0" Weight: 132lbs. oz. 59.485849xg; 33.82 BMI Method:Actual General Appearance: No Apparent Distress, Chronically ill Eyes: Right Eye Normal Inspection, Right Eye PERRL HEENT: PERRL/EOMI, Normal ENT Inspection, Pharynx Normal, Moist Mucous Membranes Neck: Full Range of Motion, Normal Inspection, Non Tender Respiratory: Chest Non Tender, Lungs Clear, Normal Breath Sounds, No Accessory Muscle Use, No Respiratory Distress Cardiovascular: Regular Rate, Rhythm, No Edema, No Gallop, No JVD, No Murmur, Normal Peripheral Pulses Gastrointestinal: Normal Bowel Sounds, No Organomegaly, No Pulsatile Mass, Non Tender, Soft Back: Normal Inspection, No CVA Tenderness, No Vertebral Tenderness Extremity: Normal Capillary Refill, Normal Inspection, Normal Range of Motion, Non Tender, No Calf Tenderness, No Pedal Edema Neurologic/Psychiatric: Alert, Oriented x3, No Motor/Sensory Deficits, Normal Mood/Affect Skin: Normal Color, Warm/Dry Lymphatic: No Adenopathy Results Results/Procedures Labs Laboratory Tests 02/07/21 20:00 02/08/21 07:10 Patient resulted labs reviewed. Assessment/Plan Admission Diagnosis Assessment: Vomiting Abdominal pain Seizure d/o Chronic pain Plan: Monitor closely IVF Admission Status: Observation Diagnosis/Problems Diagnosis/Problems (1) Intractable nausea and vomiting Status: Acute (2) Upper abdominal pain Status: Acute (3) Hypokalemia Status: Acute MINAL PARKER DO Feb 08, 2021 11:50
[2021-02-09] VITALS (8 sets, daily range): BP systolic 122–178; BP diastolic 79–105
[2021-02-09] MEDS: LORazepam INJ 2 MG/ML (ATIVAN) VIAL IVP SCH ×7 (00:31→23:29)
[2021-02-09] MEDS: ONDANSETRON 4 MG/2 ML (SDV) Z0FRAN IV PRN ×4 (00:31→21:02)
[2021-02-09] MEDS: NS IV 1000 ML 1,000 ML IV SCH ×4 (01:03→21:49)
[2021-02-09] MEDS: PROMETHAZINE INJ 25 MG/ML (PHENERGAN) AMP IVP PRN ×3 (01:53→23:29)
[2021-02-09] MEDS: fentaNYL INJ 100 MCG/2 ML AMP IV PRN ×4 (04:56→19:34)
[2021-02-09 06:43] LABS: BASOPHILS # (AUTO) 0.1 10^3/uL (0.0-0.1); BASOPHILS % (AUTO) 1 % (0-10); EOSINOPHILS # (AUTO) 0.1 10^3/uL (0.0-0.3); EOSINOPHILS % (AUTO) 1 % (0-10); HEMATOCRIT 36 % (35-52); HEMOGLOBIN 12.1 g/dL (11.5-16.0); LYMPHOCYTES # (AUTO) 4.2 10^3/uL (1.0-4.0); LYMPHOCYTES % (AUTO) 45 % (12-44); MEAN CORPUSCULAR HEMOGLOBIN 30 pg (25-34); MEAN CORPUSCULAR HGB CONC 34 g/dL (32-36); MEAN CORPUSCULAR VOLUME 90 fL (80-99); MONOCYTES # (AUTO) 0.9 10^3/uL (0.0-1.0); MONOCYTES % (AUTO) 9 % (0-12); NEUTROPHILS # (AUTO) 4.1 10^3/uL (1.8-7.8); NEUTROPHILS % (AUTO) 44 % (42-75); PLATELET COUNT 190 10^3/uL (130-400); WHITE BLOOD COUNT 9.4 10^3/uL (4.3-11.0)
--- NOTE | 2021-02-09 06:59 | Progress Note - Surgery ---
PAT SMITH MED STUDENT 02/09/21 0659: Subjective Date Seen by a Provider: Feb 09, 2021 Time Seen by a Provider: 06:45 Subjective/Events-last exam Pt. reports decreased nausea this am. States she has not vomited overnight. States that the phenergan works better than the zofran. Still reporting LUQ abdominal pain that is described as sharp/stabbing and does not radiate, she states "this is the same pain I've had for years after my gallbladder surgery". Rates that pain at a 4/10 currently. Reports that the fentanyl has been adequately controlling her abdominal pain. Reports voiding without difficulty. Reports no BM for "days". Tolerating po intake well. Denies chest pain, SOB, headache, fevers, and chills. She reports her blood pressures normally run in the 120's at home and is inquiring as to why her BP was elevated this am. Review of Systems General: No Chills, No Night Sweats HEENT: No Head Aches, No Visual Changes Pulmonary: No Dyspnea, No Cough Cardiovascular: No: Chest Pain, Palpitations, Edema Gastrointestinal: Nausea, Abdominal Pain; No: Vomiting, Diarrhea, Constipation Genitourinary: No Dysuria, No Frequency Musculoskeletal: No: neck pain, shoulder pain Neurological: No: Weakness, Numbness Objective Exam Vital Signs Date Time Temp Pulse Resp B/P (MAP) Pulse Ox O2 Delivery O2 Flow Rate FiO2 02/09/21 04:39 37.2 79 18 168/95 (119) 96 Room Air 02/09/21 01:00 75 02/09/21 00:34 37.0 74 18 137/93 (108) 97 Room Air 02/08/21 20:50 Room Air 02/08/21 19:44 37.0 87 18 128/69 (88) 97 Room Air 02/08/21 19:00 74 02/08/21 15:49 37.4 81 17 153/86 (108) 96 Room Air 02/08/21 12:19 79 02/08/21 11:55 36.8 75 18 166/88 (114) 97 Room Air 02/08/21 09:16 81 169/91 (117) Room Air 02/08/21 09:00 Room Air 02/08/21 08:10 37.4 75 19 173/104 (127) 97 Room Air 02/08/21 07:00 78 I & O 02/09/21 06:59 Intake Total 1340 ml Output Total 2500 ml Balance -1160 ml Capillary Refill : Less Than 3 Seconds General Appearance: No Apparent Distress, Chronically ill HEENT: PERRL/EOMI, Pharynx Normal, Moist Mucous Membranes Neck: Full Range of Motion, Normal Inspection, Non Tender Respiratory: Chest Non Tender, Lungs Clear, Normal Breath Sounds, No Accessory Muscle Use; No Crackles, No Rhonci, No Wheezing Cardiovascular: Regular Rate, Rhythm, No Edema, No Murmur, Normal Peripheral Pulses Peripheral Pulses: 2+ Dorsalis Pedis (R), 2+ Left Dors-Pedis (L), 2+ Radial Pulses (R), 2+ Radial Pulses (L) Gastrointestinal: normal bowel sounds, soft, tenderness (Left upper quadrant, no guarding or rebounding) Extremity: Normal Capillary Refill, Normal Inspection, Normal Range of Motion, Non Tender, No Calf Tenderness, No Pedal Edema Neurologic/Psychiatric: Alert, Oriented x3, No Motor/Sensory Deficits, Normal Mood/Affect Skin: Normal Color, Warm/Dry Lymphatic: No Adenopathy Results Lab Laboratory Tests 02/08/21 07:10: White Blood Count 8.2, Red Blood Count 4.10, Hemoglobin 12.2, Hematocrit 37, Mean Corpuscular Volume 90, Mean Corpuscular Hemoglobin 30, Mean Corpuscular H emoglobin Concent 33, Red Cell Distribution Width 12.2, Platelet Count 182, Mean Platelet Volume 12.3H, Immature Granulocyte % (Auto) 1, Neutrophils (%) (Auto) 59, Lymphocytes (%) (Auto) 29, Monocytes (%) (Auto) 10, Eosinophils (%) (Auto) 0, Basophils (%) (Auto) 1, Neutrophils # (Auto) 4.8, Lymphocytes # (Auto) 2.4, Monocytes # (Auto) 0.8, Eosinophils # (Auto) 0.0, Basophils # (Auto) 0.1, Immature Granulocyte # (Auto) 0.1, Sodium Level 141, Potassium Level 3.7, Chloride Level 108H, Carbon Dioxide Level 21, Anion Gap 12, Blood Urea Nitrogen 4L, Creatinine 0.83, Estimat Glomerular Filtration Rate > 60, BUN/Creatinine Ratio 5, Glucose Level 94, Calcium Level 7.9L, Corrected Calcium 8.1L, Magnesium Level 1.7, Total Bilirubin 0.4, Aspartate Amino Transf (AST/SGOT) 17, Alanine Aminotransferase (ALT/SGPT) 37, Alkaline Phosphatase 119, Total Protein 6.1L, Albumin 3.7 02/09/21 06:37: White Blood Count 9.4, Red Blood Count 4.02, Hemoglobin 12.1, Hematocrit 36, Mean Corpuscular Volume 90, Mean Corpuscular Hemoglobin 30, Mean Corpuscular Hemoglobin Concent 34, Red Cell Distribution Width 12.3, Platelet Count 190, Mean Platelet Volume 12.0, Immature Granulocyte % (Auto) 1, Neutrophils (%) (Auto) 44, Lymphocytes (%) (Auto) 45H, Monocytes (%) (Auto) 9, Eosinophils (%) (Auto) 1, Basophils (%) (Auto) 1, Neutrophils # (Auto) 4.1, Lymphocytes # (Auto) 4.2H, Monocytes # (Auto) 0.9, Eosinophils # (Auto) 0.1, Basophils # (Auto) 0.1, Immature Granulocyte # (Auto) 0.1 Assessment/Plan Assessment/Plan Assessment/Plan Intractable nausea and Vomiting-Improving LUQ abdominal pain Hypokalemia Seizure disorder Chronic back pain History of Anxiety/Depression History of Methamphetamine use Continue Zofran and phenergan PRN nausea/vomiting Consider decreasing IVF, nauesa improved, no further vomiting. Advance diet as tolerated Follow potassium and replace as needed. Continue pain meds PRN for abdominal pain/chronic back pain Continue conservative management Feel abdominal pain in the left upper quadrant may be related to muscle strain or tear due to vomiting DEBORAH REYES DO 02/09/212024: Subjective Subjective/Events-last exam Patient still with nausea. Had one emesis. Still with LUQ abd pain. No significant change. No bm. Denies fever sweats chlils shortness of breath or chest pain. Objective Exam General Appearance: No Apparent Distress, Chronically ill HEENT: PERRL/EOMI, Moist Mucous Membranes Neck: Normal Inspection, Non Tender Respiratory: Chest Non Tender, No Accessory Muscle Use, No Respiratory Distress Cardiovascular: Regular Rate, Rhythm, No JVD Gastrointestinal: soft, tenderness (Left upper quadrant, no guarding or rebounding) Extremity: Non Tender, No Calf Tenderness Neurologic/Psychiatric: Alert, Oriented x3, No Motor/Sensory Deficits, Normal Mood/Affect Skin: Normal Color, Warm/Dry Lymphatic: No Adenopathy Assessment/Plan Assessment/Plan Assessment/Plan Intractable nausea and Vomiting-Improving LUQ abdominal pain Hypokalemia Seizure disorder Chronic back pain [facility] of An[facility] History of Methamphetamine use Continue Zofran and phenergan PRN nausea/vomiting possible cyclic vomiting due to marijuana Consider decreasing IVF, nauesa improved, no further vomiting. Advance diet as tolerated Follow potassium and replace as needed. Continue pain meds PRN for abdominal pain/chronic back pain Continue conservative management Feel abdominal pain in the left upper quadrant may be related to muscle strain or tear due to vomiting can do endoscopy as outpatient vs inpatient Supervisory-Addendum Brief Verification & Attestation Participated in pt care: history, MDM, physical Personally performed: exam, history, MDM, supervision of care Care discussed with: Medical Student Procedures: n/a Results interpretation: Verified all documentation Verification and Attestation of Medical Student E/M Service A medical student performed and documented this service in my presence. I reviewed and verified all information documented by the medical student and made modifications to such information, when appropriate. I personally performed the physical exam and medical decision making. Deborah Reyes, Feb 09, 2021,20:55 PAT SMITH MED STUDENT Feb 09, 2021 06:59 DEBORAH REYES DO Feb 09, 2021 20:25
[2021-02-09 07:06] LABS: ALANINE AMINOTRANSFERASE 41 U/L (0-55); ALBUMIN 3.7 GM/DL (3.2-4.5); ALKALINE PHOSPHATASE 108 U/L (40-136); BILIRUBIN,TOTAL 0.4 MG/DL (0.1-1.0); BUN/CREATININE RATIO 3; CALCIUM 8.1 MG/DL (8.5-10.1); CARBON DIOXIDE 24 MMOL/L (21-32); CHLORIDE 108 MMOL/L (98-107); CREATININE SERUM 0.88 MG/DL (0.60-1.30); GFR ESTIMATED > 60; GLUCOSE 90 MG/DL (70-105); POTASSIUM 3.3 MMOL/L (3.6-5.0); SODIUM 142 MMOL/L (135-145); TOTAL PROTEIN 5.9 GM/DL (6.4-8.2)
[2021-02-09] MEDS: FAMOTIDINE 20MG/2ML IV (PEPCID) IVP SCH ×2 (09:16→20:44)
[2021-02-09] MEDS: PHENYTOIN IV SCH ×9 (09:21→20:45)
[2021-02-09] MEDS: NS IV SCH ×9 (09:21→20:45)
[2021-02-09] MEDS: MICRON FILTER IV SCH ×9 (09:21→20:45)
[2021-02-09] MEDS ORDERED: CYAN500T8 PO (11:30)
[2021-02-09] MEDS ORDERED: TURM538C PO (11:30)
[2021-02-09] MEDS ORDERED: CALC-250 PO (11:30)
[2021-02-09] MEDS ORDERED: FURO20TA4 PO (11:30)
[2021-02-09] MEDS ORDERED: GABA800T10 PO (11:30)
[2021-02-09] MEDS ORDERED: DULO60CA59 PO (11:30)
[2021-02-09] MEDS ORDERED: BUPR150T14 PO (11:30)
[2021-02-09] MEDS ORDERED: POTA10TA36 PO (11:30)
[2021-02-09] MEDS ORDERED: ASCO500C17 PO (11:30)
[2021-02-09] MEDS ORDERED: ACHD5005 PO (11:30)
[2021-02-09] MEDS ORDERED: DIPH25CA79 PO (11:30)
[2021-02-09] MEDS ORDERED: ONDA4TAB11 PO (11:30)
[2021-02-09] MEDS ORDERED: DIAZ10TA3 PO (11:30)
[2021-02-09] MEDS ORDERED: ESTR0.5T PO (11:30)
[2021-02-09] MEDS ORDERED: TIZA4TAB4 PO (11:30)
[2021-02-09] MEDS ORDERED: OMEP40CA27 PO (11:30)
[2021-02-09] MEDS ORDERED: LUBI24CA6 PO (11:30)
[2021-02-09] MEDS ORDERED: BUPR150T24 PO (11:30)
[2021-02-09] MEDS ORDERED: FENT1PAT57 TD (11:32)
[2021-02-09] MEDS ORDERED: MULT-1136 PO (11:36)
[2021-02-09 13:44] LABS: AMPHETAMINE SCREEN, URINE NEGATIVE (NEGATIVE); BARBITURATE SCREEN URINE POSITIVE (NEGATIVE); BENZODIAZEPINES SCREEN URINE POSITIVE (NEGATIVE); CANNABINOID SCREEN, URINE POSITIVE (NEGATIVE); COCAINE SCREEN URINE NEGATIVE (NEGATIVE); METHADONE STAT NEGATIVE (NEGATIVE); METHAMPHETAMINE SCREEN URINE S NEGATIVE (NEGATIVE); OPIATE SCREEN URINE NEGATIVE (NEGATIVE); OXYCODONE STAT NEGATIVE (NEGATIVE); PROPOXYPHENE STAT NEGATIVE (NEGATIVE); TRICYCLIC ANTIDEPRESSANTS SCRE NEGATIVE (NEGATIVE)
--- NOTE | 2021-02-09 15:19 | Progress Note ---
Subjective Subjective/Events-last exam Patient states that she is having some nausea this AM. States that she had a similar presentation several years ago and never was told what was going on. Reported Dx of crohn's dz however states that she was told this after a stool sample and not bx confirmed. Has not seen a specialist in a while. 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 Reported Sz D/o on valium but does not see a neurologist. Denies any recent seizures. Review of Systems General: No Fatigue; Malaise Pulmonary: No Dyspnea, No Cough Cardiovascular: No: Chest Pain, Palpitations, Edema Gastrointestinal: Nausea, Abdominal Pain, Constipation; No: Vomiting Musculoskeletal: neck pain Neurological: No: Weakness, Numbness, Incoordination Objective Exam Last Set of Vital Signs Vital Signs Date Time Temp Pulse Resp B/P (MAP) Pulse Ox O2 Delivery O2 Flow Rate FiO2 02/09/21 12:38 80 02/09/21 12:00 36.6 18 124/85 (98) 97 Room Air Capillary Refill : Less Than 3 Seconds I&O Intake and Output 02/08/21 23:59 Intake Total 1450 ml Output Total 2220 ml Balance -770 ml Intake Oral 1450 ml Output Urine Total 2220 ml General: Alert, Oriented X3, Cooperative, No Acute Distress Lungs: Clear to Auscultation, Normal Air Movement Heart: Regular Rate, No Murmurs Abdomen: Normal Bowel Sounds, Soft, No Tenderness, No Masses Extremities: No Edema, No Tenderness/Swelling Neuro: Normal Speech, Strength at 5/5 X4 Ext, Sensation Intact, Cranial Nerves 3-12 NL Results/Procedures Lab Laboratory Tests 02/09/21 06:37: White Blood Count 9.4, Red Blood Count 4.02, Hemoglobin 12.1, Hematocrit 36, Mean Corpuscular Volume 90, Mean Corpuscular Hemoglobin 30, Mean Corpuscular Hemoglobin Concent 34, Red Cell Distribution Width 12.3, Platelet Count 190, Mean Platelet Volume 12.0, Immature Granulocyte % (Auto) 1, Neutrophils (%) (Auto) 44, Lymphocytes (%) (Auto) 45H, Monocytes (%) (Auto) 9, Eosinophils (%) (Auto) 1, Basophils (%) (Auto) 1, Neutrophils # (Auto) 4.1, Lymphocytes # (Auto) 4.2H, Monocytes # (Auto) 0.9, Eosinophils # (Auto) 0.1, Basophils # (Auto) 0.1, Immature Granulocyte # (Auto) 0.1, Sodium Level 142, Potassium Level 3.3L, Chl oride Level 108H, Carbon Dioxide Level 24, Anion Gap 10, Blood Urea Nitrogen 3L, Creatinine 0.88, Estimat Glomerular Filtration Rate > 60, BUN/Creatinine Ratio 3, Glucose Level 90, Calcium Level 8.1L, Corrected Calcium 8.3L, Total Bilirubin 0.4, Aspartate Amino Transf (AST/SGOT) 27, Alanine Aminotransferase (ALT/SGPT) 41, Alkaline Phosphatase 108, Total Protein 5.9L, Albumin 3.7 02/09/21 13:25: Urine Opiates Screen NEGATIVE, Urine Oxycodone Screen NEGATIVE, Urine Methadone Screen NEGATIVE, Urine Propoxyphene Screen NEGATIVE, Urine Barbiturates Screen POSITIVEH, Ur Tricyclic Antidepressants Screen NEGATIVE, Urine Phencyclidine Screen NEGATIVE, Urine Amphetamines Screen NEGATIVE, Urine Methamphetamines Screen NEGATIVE, Urine Benzodiazepines Screen POSITIVEH, Urine Cocaine Screen NEGATIVE, Urine Cannabinoids Screen POSITIVEH Microbiology 02/07/21 Urine Culture - Final, Complete Gram Pos Mixed Bacterial [facility] [place], [place] NAME: ALYSSA PHELPS MED REC#: [id number] PT STATUS: REG ER : 1980 PHYSICIAN: BRANDEN KRAFT MD ADMIT DATE: 02/07/21/ER Signed Date of Exam:02/07/21 ABDOMEN, FLAT & UPRIGHT/DECUB EXAMINATION: Abdominal radiographs, upright and supine views. DATE: February 07, 2021. CLINICAL INDICATION: 40-year-old female, abdominal pain. Nausea and vomiting. COMPARISON: CT abdomen April 17, 2020. Abdominal radiographs December 28, 2010. COMMENTS: There are right upper quadrant surgical clips. There is no identified free intraperitoneal air. There is no identified pneumatosis or portal venous gas. There are sutures in the right and left sides of the pelvis. There is a moderate volume stool in the right colon. There are gas-filled segments of predominantly large bowel which are not grossly distended. There is a right-sided pelvic calcification unchanged since 2010 most likely relating to a phlebolith. There is no identified abnormal radiodensity overlying the expected positions of the kidneys or ureters. IMPRESSION: . No identified acute abdominal radiographic abnormality. Dictated by: Dictated on workstation # [id number] Dict: 02/07/212127 Trans: 02/07/212136 [facility] [id number] Interpreted by: BAYRON CAMACHO MD Electronically signed by: BAYRON CAMACHO MD 02/07/212136 Assessment/Plan Assessment/Plan (1) Intractable nausea and vomiting Status: Acute Assessment & Plan: 02/09: UDS confirmed MJ use, discussed the role of regular MJ use and cyclic vomiting syndrome, recommend cessation (2) Chronic pain Status: Chronic Assessment & Plan: 02/09: Given age Fentynl patches likely not the best choice of snf pain control given h/o + illicit Meth use and MJ use (3) Upper abdominal pain Status: Acute Assessment & Plan: 02/09: ? dx of chron's, patient would benefit from GI outpatient consult (4) Seizure disorder Status: Chronic Assessment & Plan: 02/09: Valium TID is generally not recommend for Sz PPx, would recommend Neurology outpatient f.u (5) Hypokalemia Status: Acute SHARONDA CALVILLO MD Feb 09, 2021 15:19
[2021-02-09] MEDS: POTASSIUM CL 10MEQ/50ML IVPB 50 ML IV SCH ×2 (16:14→17:59)
[2021-02-09] MEDS ORDERED: BISACODYL 10 MG SUPP (DULCOLAX) PR NR (17:45)
[2021-02-09] MEDS: polyethylene glycoL POWDER 17 GM (MIRALAX) PACK ONE ×2 (19:20→19:34)
[2021-02-09] MEDS ORDERED: polyethylene glycoL POWDER 17 GM (MIRALAX) PACK PO SCH (20:00)
[2021-02-09] MEDS ORDERED: FLEET ENEMA ADULT 1 EA BTL PR PRN (20:15)
[2021-02-10 03:23] VITALS: BP 127/71
[2021-02-10] MEDS: LORazepam INJ 2 MG/ML (ATIVAN) VIAL IVP SCH ×4 (04:21→22:00)
[2021-02-10] MEDS: NS IV 1000 ML 1,000 ML IV SCH ×3 (04:21→15:36)
[2021-02-10 06:05] LABS: CHLORIDE 109 MMOL/L (98-107); POTASSIUM 3.1 MMOL/L (3.6-5.0); SODIUM 142 MMOL/L (135-145)
[2021-02-10 06:07] LABS: GLUCOSE 86 MG/DL (70-105)
[2021-02-10 06:08] LABS: CARBON DIOXIDE 24 MMOL/L (21-32)
[2021-02-10 06:11] LABS: BUN/CREATININE RATIO 3; CREATININE SERUM 0.88 MG/DL (0.60-1.30); GFR ESTIMATED > 60
[2021-02-10 06:13] LABS: MAGNESIUM 1.8 MG/DL (1.6-2.4)
--- NOTE | 2021-02-10 06:43 | Progress Note - Surgery ---
PAT SMITH MED STUDENT 02/10/21 0643: Subjective Date Seen by a Provider: Feb 10, 2021 Time Seen by a Provider: 06:15 Subjective/Events-last exam Patient reports not sleeping much over night. Reports that the nurses gave her a stool softner and a suppository late yesterday evening and was able to have one small BM before midnight without blood. States she's still mildly nauseated at this point, although seems improved from yesterday. She reports that the nursing staff placed an NGT last night but she became nauseous and had a small emesis so it was removed. Still reporting LUQ abdominal pain that is unchanged from yesterday, sharp and stabbing in quality intermittently that is not radiating. She is tolerating po clears without difficulty. No reports of difficulty voiding. She denies SOB, chest pain, fevers, chills, or headaches. She reports that the nurses told her "I'm overmedicated and I don't appreciate that". Review of Systems General: No Chills, No Night Sweats HEENT: No Head Aches, No Visual Changes Pulmonary: No Dyspnea, No Cough Cardiovascular: No: Chest Pain, Palpitations Gastrointestinal: Nausea; No: Vomiting, Abdominal Pain, Diarrhea Genitourinary: No Dysuria, No Frequency Musculoskeletal: neck pain (pain related to neck surgery in past, mild and chronic apparently), back pain (chronic back pain per patient report) Neurological: No: Weakness, Numbness Objective Exam Vital Signs Date Time Temp Pulse Resp B/P (MAP) Pulse Ox O2 Delivery O2 Flow Rate FiO2 02/10/21 03:23 36.9 66 16 127/71 (89) 97 Room Air 02/10/21 01:00 78 02/09/21 23:50 37.0 75 16 145/81 (102) 96 Room Air 02/09/21 23:30 98 Room Air 02/09/21 20:10 122/79 (93) 02/09/21 20:00 Room Air 02/09/21 19:31 37.1 80 18 169/105 (126) 98 Room Air 02/09/21 19:00 74 02/09/21 15:50 37.4 79 18 178/89 (118) 98 Room Air 02/09/21 12:38 80 02/09/21 12:00 36.6 85 18 124/85 (98) 97 Room Air 02/09/21 08:00 36.8 75 16 178/94 (122) 96 Room Air 02/09/21 08:00 Room Air I & O 02/10/21 07:00 Intake Total 1620 ml Output Total 1300 ml Balance 320 ml Capillary Refill : Less Than 3 Seconds General Appearance: No Apparent Distress, Chronically ill HEENT: PERRL/EOMI, Pharynx Normal, Moist Mucous Membranes Neck: Normal Inspection, Non Tender Respiratory: Chest Non Tender, Lungs Clear, Normal Breath Sounds, No Accessory Muscle Use, No Respiratory Distress Cardiovascular: Regular Rate, Rhythm, No Edema, Normal Peripheral Pulses Peripheral Pulses: 2+ Dorsalis Pedis (R), 2+ Left Dors-Pedis (L), 2+ Radial Pulses (R), 2+ Radial Pulses (L) Gastrointestinal: normal bowel sounds, non tender, soft, tenderness (Left upper quadrant, no guarding or rebounding) Extremity: Normal Capillary Refill, Non Tender, No Calf Tenderness, No Pedal Edema Neurologic/Psychiatric: Alert, Oriented x3, No Motor/Sensory Deficits Skin: Normal Color, Warm/Dry Lymphatic: No Adenopathy Results Lab Laboratory Tests 02/09/21 13:25: Urine Opiates Screen NEGATIVE, Urine Oxycodone Screen NEGATIVE, Urine Methadone Screen NEGATIVE, Urine Propoxyphene Screen NEGATIVE, Urine Barbiturates Screen POSITIVEH, Ur Tricyclic Antidepressants Screen NEGATIVE, Urine Phencyclidine Screen NEGATIVE, Urine Amphetamines Screen NEGATIVE, Urine Methamphetamines Screen NEGATIVE, Urine Benzodiazepines Screen POSITIVEH, Urine Cocaine Screen NEGATIVE, Urine Cannabinoids Screen POSITIVEH 02/10/21 05:21: Sodium Level 142, Potassium Level 3.1L, Chloride Level 109H, Carbon Dioxide Level 24, Anion Gap 9, Blood Urea Nitrogen 3L, Creatinine 0.88, Estimat G lomerular Filtration Rate > 60, BUN/Creatinine Ratio 3, Glucose Level 86, Calcium Level 8.0L, Magnesium Level 1.8 Microbiology 02/07/21 Urine Culture - Final, Complete Gram Pos Mixed Bacterial [facility] Assessment/Plan Assessment/Plan Assessment/Plan Intractable nausea and Vomiting-Improving LUQ abdominal pain-chronic and unchanging Hypokalemia- K 3.1 today Seizure disorder Chronic back pain History of Anxiety/Depression +[facility] History of Methamphetamine use Continue Zofran and phenergan PRN nausea/vomiting possible cyclic vomiting due to marijuana Consider decreasing IVF, nausea improved, one episode of emesis overnight Patient tolerating clears, advance diet as tolerated Follow potassium and replace as needed. Continue pain meds PRN for abdominal pain/chronic back pain Continue conservative management Feel abdominal pain in the left upper quadrant may be related to muscle strain or tear due to vomiting can do endoscopy as outpatient vs inpatient DEBORAH REYES DO 02/10/212039: Subjective Subjective/Events-last exam Patient feeling a little bit better. She still having left upper quadrant abdominal pain sharp and stabbing intermittent. Patient tolerating clear liquids. She had NG tube placed last night but removed it. Small bowel moveme nt. No blood in stool. She feels very slowly improving. Denies any nausea vomiting fever sweats chills shortness of breath or chest pain at this time. Objective Exam General Appearance: No Apparent Distress, Chronically ill HEENT: PERRL/EOMI, Normal ENT Inspection Neck: Normal Inspection, Non Tender Respiratory: Chest Non Tender, No Accessory Muscle Use, No Respiratory Distress Cardiovascular: Regular Rate, Rhythm, No JVD Gastrointestinal: non tender, soft, tenderness (Left upper quadrant, no guarding or rebounding, slightly variable pain distribution) Extremity: Normal Capillary Refill, Non Tender, No Calf Tenderness Neurologic/Psychiatric: Alert, Oriented x3, No Motor/Sensory Deficits Skin: Normal Color, Warm/Dry Lymphatic: No Adenopathy Assessment/Plan Assessment/Plan Assessment/Plan Intractable nausea and Vomiting-Improving LUQ abdominal pain-chronic and unchanging slightly improved Hypokalemia- K 3.1 today Seizure disorder Chronic back pain History of Anxiety/Depression +[facility] History of Methamphetamine use Continue Zofran and phenergan PRN nausea/vomiting possible cyclic vomiting due t o marijuana Nausea and vomiting and abdominal pain slightly improving Patient tolerating clears, advance diet as tolerated Follow potassium and replace as needed. Continue pain meds PRN for abdominal pain/chronic back pain Continue conservative management Feel abdominal pain in the left upper quadrant may be related to muscle strain or tear due to vomiting can do endoscopy as outpatient Slowly improving overall Supervisory-Addendum Brief Verification & Attestation Participated in pt care: history, MDM, physical Personally performed: exam, history, MDM, supervision of care Care discussed with: Medical Student Procedures: n/a Results interpretation: Verified all documentation Verification and Attestation of Medical Student E/M Service A medical student performed and documented this service in my presence. I reviewed and verified all information documented by the medical student and made modifications to such information, when appropriate. I personally performed the physical exam and medical decision making. Deborah Reyes, Feb 10, 2021,20:39 PAT SMITH MED STUDENT Feb 10, 2021 06:43 DEBORAH REYES DO Feb 10, 2021 20:40
[2021-02-10 08:00] VITALS: BP 184/92
[2021-02-10] MEDS: NS IV SCH ×9 (08:46→20:35)
[2021-02-10] MEDS: FAMOTIDINE 20MG/2ML IV (PEPCID) IVP SCH ×2 (08:46→20:35)
[2021-02-10] MEDS: MICRON FILTER IV SCH ×9 (08:46→20:35)
[2021-02-10] MEDS: PHENYTOIN IV SCH ×9 (08:46→20:35)
[2021-02-10] MEDS: ONDANSETRON 4 MG/2 ML (SDV) Z0FRAN IV PRN ×2 (09:09→18:46)
[2021-02-10 09:10] VITALS: BP 152/92
[2021-02-10 12:00] VITALS: BP 126/76
[2021-02-10 16:00] VITALS: BP 154/75
[2021-02-10 20:00] VITALS: BP 141/69
--- NOTE | 2021-02-10 21:19 | Progress Note ---
Subjective Subjective/Events-last exam States that she has still been vomiting and sharp pain is still present. Review of Systems Pulmonary: No Dyspnea, No Cough Cardiovascular: No: Chest Pain, Palpitations, Edema Gastrointestinal: Nausea, Vomiting, Abdominal Pain, Constipation Neurological: No: Weakness, Incoordination Objective Exam Last Set of Vital Signs Vital Signs Date Time Temp Pulse Resp B/P (MAP) Pulse Ox O2 Delivery O2 Flow Rate FiO2 02/10/21 19:00 82 02/10/21 16:00 37.6 17 154/75 (101) 96 Room Air Capillary Refill : Less Than 3 Seconds I&O Intake and Output 02/10/21 00:00 Intake Total 1750 ml Output Total 1800 ml Balance -50 ml Intake Oral 1750 ml Output Urine Total 1800 ml # Voids 4 # Bowel Movements 5 General: Alert, Oriented X3, Cooperative, No Acute Distress HEENT: Mucous Memb Moist/[place] Lungs: Clear to Auscultation, Normal Air Movement Heart: Regular Rate, No Murmurs Abdomen: Soft, Other (LUQ abd pain ttp, normal bowel sounds) Extremities: No Edema, No Tenderness/Swelling Skin: No Rashes, No Breakdown Neuro: Normal Speech, Sensation Intact, Cranial Nerves 3-12 NL Results/Procedures Lab Laboratory Tests 02/10/21 05:21: Sodium Level 142, Potassium Level 3.1L, Chloride Level 109H, Carbon Dioxide Level 24, Anion Gap 9, Blood Urea Nitrogen 3L, Creatinine 0.88, Estimat Glomerular Filtration Rate > 60, BUN/Creatinine Ratio 3, Glucose Level 86, Calcium Level 8.0L, Magnesium Level 1.8 Microbiology 02/07/21 Urine Culture - Final, Complete Gram Pos Mixed Bacterial [facility] [place], [place] NAME: ALYSSA PHELPS [facility] REC#: [id number] PT STATUS: REG ER : 1980 PHYSICIAN: BRANDEN KRAFT MD ADMIT DATE: 02/07/21/ER Signed Date of Exam:02/07/21 ABDOMEN, FLAT & UPRIGHT/DECUB EXAMINATION: Abdominal radiographs, upright and supine views. DATE: February 07, 2021. CLINICAL INDICATION: 40-year-old female, abdominal pain. Nausea and vomiting. COMPARISON: CT abdomen April 17, 2020. Abdominal radiographs December 28, 2010. COMMENTS: There are right upper quadrant surgical clips. There is no identified free intraperitoneal air. There is no identified pneumatosis or portal venous gas. There are sutures in the right and left sides of the pelvis. There is a moderate volume stool in the right colon. There are gas-filled segments of predominantly large bowel which are not grossly distended. There is a right-sided pelvic calcification unchanged since 2010 most likely relating to a phlebolith. There is no identified abnormal radiodensity overlying the expected positions of the kidneys or ureters. IMPRESSION: . No identified acute abdominal radiographic abnormality. Dictated by: Dictated on workstation # [id number] Dict: 02/07/212127 Trans: 02/07/212136 [id number] [id number] Interpreted by: BAYRON CAMACHO MD Electronically signed by: BAYRON CAMACHO MD 02/07/212136 Assessment/Plan Assessment/Plan (1) Intractable nausea and vomiting Status: Acute Assessment & Plan: 02/09: UDS confirmed MJ use, discussed the role of regular MJ use and cyclic vomiting syndrome, recommend cessation 02/10: Phenergen stopped due to confusion ON, will decrease IVFs and plan for d/c tomorrow with f.u with [place] outpatient for scope (2) Chronic pain Status: Chronic Assessment & Plan: 02/09: Given age Fentynl patches likely not the best choice of halfway pain control given h/o + illicit Meth use and MJ use 02/10: Decreased Fentynl dosing available due to constipation (3) Upper abdominal pain Status: Acute Assessment & Plan: 02/09: ? dx of chron's, patient would benefit from GI outpatient consult (4) Seizure disorder Status: Chronic Assessment & Plan: 02/09: Valium TID is generally not recommend for Sz PPx, woul d recommend Neurology outpatient f.u (5) Hypokalemia Status: Acute SHARONDA CALVILLO MD Feb 10, 2021 21:19
[2021-02-11] VITALS: BP 134/90
[2021-02-11] MEDS: NS IV 1000 ML 1,000 ML IV SCH ×2 (01:38→14:25)
[2021-02-11 03:44] VITALS: BP 113/68
[2021-02-11] MEDS: LORazepam INJ 2 MG/ML (ATIVAN) VIAL IVP SCH ×3 (05:44→21:46)
[2021-02-11 06:07] LABS: BASOPHILS # (AUTO) 0.1 10^3/uL (0.0-0.1); BASOPHILS % (AUTO) 1 % (0-10); EOSINOPHILS # (AUTO) 0.2 10^3/uL (0.0-0.3); EOSINOPHILS % (AUTO) 3 % (0-10); HEMATOCRIT 35 % (35-52); HEMOGLOBIN 11.8 g/dL (11.5-16.0); LYMPHOCYTES # (AUTO) 4.1 10^3/uL (1.0-4.0); LYMPHOCYTES % (AUTO) 53 % (12-44); MEAN CORPUSCULAR HEMOGLOBIN 30 pg (25-34); MEAN CORPUSCULAR HGB CONC 33 g/dL (32-36); MEAN CORPUSCULAR VOLUME 90 fL (80-99); MEAN PLATELET VOLUME 12.2 fL (9.0-12.2); MONOCYTES # (AUTO) 0.7 10^3/uL (0.0-1.0); MONOCYTES % (AUTO) 9 % (0-12); NEUTROPHILS # (AUTO) 2.6 10^3/uL (1.8-7.8); NEUTROPHILS % (AUTO) 34 % (42-75); PLATELET COUNT 178 10^3/uL (130-400); WHITE BLOOD COUNT 7.6 10^3/uL (4.3-11.0)
[2021-02-11 06:30] LABS: BUN/CREATININE RATIO 4; CALCIUM 7.9 MG/DL (8.5-10.1); CARBON DIOXIDE 23 MMOL/L (21-32); CHLORIDE 108 MMOL/L (98-107); CREATININE SERUM 0.78 MG/DL (0.60-1.30); GFR ESTIMATED > 60; POTASSIUM 3.1 MMOL/L (3.6-5.0); SODIUM 141 MMOL/L (135-145)
--- NOTE | 2021-02-11 06:33 | Progress Note - Surgery ---
PAT SMITH MED STUDENT 02/11/21 0633: Subjective Date Seen by a Provider: Feb 11, 2021 Time Seen by a Provider: 06:10 Subjective/Events-last exam She reports sleeping most of the night. Passing gas and having BM's. Voiding without difficulty. Denies nausea and vomiting over night. Reports only tolerating po clears minimally. States she had a cup of coffee and some powerade to drink yesterday. She is still having the same LUQ abdominal pain which is unchanged from prior assessments and is chronic. She feels as though she may be ready to go home today. She denies fevers, chills, CP, SOB, and headaches. Review of Systems General: No Chills HEENT: No Head Aches, No Visual Changes Pulmonary: No Dyspnea, No Cough Cardiovascular: No: Chest Pain, Palpitations Gastrointestinal: No: Nausea, Vomiting, Abdominal Pain Genitourinary: No Dysuria, No Frequency Musculoskeletal: No: neck pain, back pain Neurological: No: Weakness, Numbness Objective Exam Vital Signs Date Time Temp Pulse Resp B/P (MAP) Pulse Ox O2 Delivery O2 Flow Rate FiO2 02/11/21 03:44 36.2 69 16 113/68 (83) 96 Room Air 02/11/21 01:00 70 02/11/21 00:00 36.9 65 18 134/90 (105) 94 Room Air 02/10/21 21:40 96 Room Air 02/10/21 20:35 Room Air 02/10/21 20:00 37.2 71 18 141/69 (93) 97 Room Air 02/10/21 19:00 82 02/10/21 16:00 37.6 73 17 154/75 (101) 96 Room Air 02/10/21 12:50 81 02/10/21 12:00 37.0 72 18 126/76 (93) 97 Room Air 02/10/21 09:10 152/92 (112) 68 02/10/21 08:00 97 Room Air 02/10/21 08:00 37.0 69 16 184/92 (122) 99 Room Air l I & O 02/11/21 07:00 Intake Total 2602 ml Output Total 1600 ml Balance 1002 ml Capillary Refill : Less Than 3 Seconds General Appearance: No Apparent Distress, Chronically ill HEENT: PERRL/EOMI, Pharynx Normal Neck: Normal Inspection, Non Tender Respiratory: Chest Non Tender, Lungs Clear, Normal Breath Sounds, No Accessory Muscle Use, No Respiratory Distress Cardiovascular: Regular Rate, Rhythm, No Edema, Normal Peripheral Pulses Peripheral Pulses: 2+ Dorsalis Pedis (R), 2+ Left Dors-Pedis (L), 2+ Radial Pulses (R), 2+ Radial Pulses (L) Gastrointestinal: normal bowel sounds, soft, tenderness (Left upper quadrant, no guarding or rebounding, slightly variable pain distribution) Extremity: Normal Capillary Refill, Non Tender, No Calf Tenderness, No Pedal Edema Neurologic/Psychiatric: Alert, Oriented x3, No Motor/Sensory Deficits Skin: Normal Color, Warm/Dry Lymphatic: No Adenopathy Results Lab Laboratory Tests 02/11/21 05:38: White Blood Count 7.6, Red Blood Count 3.92, Hemoglobin 11.8, Hematocrit 35, Mean Corpuscular Volume 90, Mean Corpuscular Hemoglobin 30, Mean Corpuscular Hemoglobin Concent 33, Red Cell Distribution Width 12.4, Platelet Count 178, Mean Platelet Volume 12.2, Immature Granulocyte % (Auto) 0, Neutrophils (%) (Auto) 34L, Lymphocytes (%) (Auto) 53H, Monocytes (%) (Auto) 9, Eosinophils (%) (Auto) 3, Basophils (%) (Auto) 1, Neutrophils # (Auto) 2.6, Lymphocytes # (Auto) 4.1H, Monocytes # (Auto) 0.7, Eosinophils # (Auto) 0.2, Basophils # (Auto) 0.1, Immature Granulocyte # (Auto) 0.0 Microbiology 02/07/21 Urine Culture - Final, Complete Gram Pos Mixed Bacterial Kalina Assessment/Plan Assessment/Plan Assessment/Plan Intractable nausea and Vomiting-Improved LUQ abdominal pain-chronic and unchanging slightly improved Hypokalemia- potassium 3.1 this am Seizure disorder Chronic back pain History of Anxiety/Depression +[facility] History of Methamphetamine use Continue Zofran PRN nausea/vomiting possible cyclic vomiting due to marijuana Nausea and vomiting improved, abdominal pain unchanged Patient tolerating clears, advance diet as tolerated Follow potassium and replace as needed. Continue pain meds PRN for abdominal pain/chronic back pain Continue conservative management Feel abdominal pain in the left upper quadrant may be related to muscle strain or tear due to vomiting can do endoscopy as outpatient Slowly improving overall May be able to discharge to home today DEBORAH REYES DO 02/11/21 0907: Subjective Subjective/Events-last exam Having more nausea and emesis. Pain in LUQ. Tired of feeling ill. Denies fever sweats chills shortness of breath or chest pain. Objective Exam General Appearance: Anxious, Chronically ill HEENT: PERRL/EOMI, Normal ENT Inspection Neck: Normal Inspection, Non Tender Respiratory: Chest Non Tender, No Accessory Muscle Use, No Respiratory Distress Cardiovascular: Regular Rate, Rhythm, No JVD Gastrointestinal: soft, tenderness (Left upper quadrant, no guarding or rebounding, slightly variable pain distribution) Extremity: Normal Capillary Refill, Non Tender, No Calf Tenderness Neurologic/Psychiatric: Alert, Oriented x3, No Motor/Sensory Deficits Skin: Normal Color, Warm/Dry Lymphatic: No Adenopathy Assessment/Plan Assessment/Plan Assessment/Plan Intractable nausea and Vomiting-Improved LUQ abdominal pain-chronic and unchanging slightly improved Hypokalemia- potassium 3.1 this am Seizure disorder Chronic back pain History of Anxiety/Depression +[facility] History of Methamphetamine use Continue Zofran PRN nausea/vomiting possible cyclic vomiting due to marijuana Nausea and vomiting abdominal pain unchanged Patient tolerating clears, advance diet as tolerated Follow potassium and replace as needed. Continue pain meds PRN for abdominal pain/chronic back pain Continue conservative management Feel abdominal pain in the left upper quadrant may be related to muscle strain or tear due to vomiting will get ct abd/pelvis with iv/oral contrast Supervisory-Addendum Brief Verification & Attestation Participated in pt care: history, MDM, physical Personally performed: exam, history, MDM, supervision of care Care discussed with: Medical Student Procedures: n/a Results interpretation: Verified all documentation Verification and Attestation of Medical Student E/M Service A medical student performed and documented this service in my presence. I reviewed and verified all information documented by the medical student and made modifications to such information, when appropriate. I personally performed the physical exam and medical decision making. Deborah Reyes, Feb 11, 2021,09:07 PAT SMITH MED STUDENT Feb 11, 2021 06:33 DEBORAH REYES DO Feb 11, 2021 09:07
[2021-02-11 06:43] LABS: GLUCOSE 85 MG/DL (70-105)
[2021-02-11 08:00] VITALS: BP 144/82
[2021-02-11] MEDS: FAMOTIDINE 20MG/2ML IV (PEPCID) IVP SCH ×2 (08:08→21:46)
[2021-02-11] MEDS: MICRON FILTER IV SCH ×9 (08:08→21:46)
[2021-02-11] MEDS: PHENYTOIN IV SCH ×9 (08:08→21:46)
[2021-02-11] MEDS: NS IV SCH ×9 (08:08→21:46)
[2021-02-11] MEDS: ONDANSETRON 4 MG/2 ML (SDV) Z0FRAN IV PRN ×2 (08:09→20:42)
[2021-02-11] MEDS ORDERED: CATHETER FLUSH 10 ML SYR IV PRN (09:30)
[2021-02-11] MEDS ORDERED: IOHEXOL 350 MG/ML 100 ML (OMNIPAQUE 350) VIAL IV ONE (09:30)
[2021-02-11] MEDS ORDERED: DIATRIZOATE MEGLUM/SODIUM 37% 120 ML (GASTROGRAFIN) PO ONE (09:30)
[2021-02-11] MEDS ORDERED: HOLD METFORMIN - RECEIVED CONTRAST 20 ML VIAL IV SCH (09:30)
[2021-02-11] MEDS ORDERED: NS 100 ML (IVPB) BAG IV ONE (09:30)
[2021-02-11 12:00] VITALS: BP 142/93
--- NOTE | 2021-02-11 15:00 | Diagnostic Imaging Report ---
PROCEDURE: CT abdomen and pelvis with contrast. TECHNIQUE: Multiple contiguous axial images were obtained through the abdomen and pelvis after administration of intravenous contrast. Auto Exposure Controls were utilized during the CT exam to meet ALARA standards for radiation dose reduction. All CT scans use one or more of the following dose optimizing techniques: automated exposure control, MA and/or KvP adjustment based on patient size and exam type or iterative reconstruction. INDICATION: One weeks history of vomiting inframammary left chest pain. COMPARISON: CT abdomen from 04/17/2020. FINDINGS: The anterior abdominal wall and visualized lower chest wall appear intact. Diaphragm intact. The lung bases are clear. Previous cholecystectomy present with no pathological bile duct dilatation. The spleen and adrenals are negative. The pancreas is unremarkable. Kidneys unobstructed. There is no ileus or bowel obstruction. No perienteric or pericolonic edema. There is no adnexal lesion. The urinary bladder appears unremarkable. There is no aneurysm, adenopathy or mass. No ascites, abscess, hematoma or fluid collection. No pneumatosis or free air. No focal inflammatory process. IMPRESSION: No acute appearing abnormality. No finding to explain the presenting complaints. Dictated by: Dictated on workstation # [id number]
[2021-02-11 16:15] VITALS: BP 130/70
[2021-02-11] MEDS: fentaNYL INJ 100 MCG/2 ML AMP IV PRN (16:38)
[2021-02-11] MEDS: POTASSIUM CL 10MEQ/50ML IVPB 50 ML IV SCH ×5 (16:44→20:42)
--- NOTE | 2021-02-11 19:02 | Progress Note ---
Subjective Subjective/Events-last exam More N/V this AM. Still having sharp pain. Review of Systems General: No Fatigue, No Malaise Pulmonary: No Dyspnea, No Cough Cardiovascular: No: Chest Pain, Palpitations Gastrointestinal: Nausea, Vomiting, Abdominal Pain Objective Exam Last Set of Vital Signs Vital Signs Date Time Temp Pulse Resp B/P (MAP) Pulse Ox O2 Delivery O2 Flow Rate FiO2 02/11/21 16:15 36.8 65 18 130/70 (90) 96 Room Air Capillary Refill : Less Than 3 Seconds I&O Intake and Output 02/11/21 00:00 Intake Total 1522 ml Output Total 1400 ml Balance 122 ml Intake Oral 1170 ml IV Total 352 ml Output Urine Total 1300 ml Emesis 100 ml # Voids 6 # Bowel Movements 2 General: Alert, Oriented X3, Cooperative, No Acute Distress Lungs: Clear to Auscultation, Normal Air Movement Heart: Regular Rate, No Murmurs Abdomen: Normal Bowel Sounds, Soft, Other (diffuse ttp) Results/Procedures Lab Laboratory Tests 02/11/21 05:38: White Blood Count 7.6, Red Blood Count 3.92, Hemoglobin 11.8, Hematocrit 35, Estrella n Corpuscular Volume 90, Mean Corpuscular Hemoglobin 30, Mean Corpuscular Hemoglobin Concent 33, Red Cell Distribution Width 12.4, Platelet Count 178, Mean Platelet Volume 12.2, Immature Granulocyte % (Auto) 0, Neutrophils (%) (Auto) 34L, Lymphocytes (%) (Auto) 53H, Monocytes (%) (Auto) 9, Eosinophils (%) (Auto) 3, Basophils (%) (Auto) 1, Neutrophils # (Auto) 2.6, Lymphocytes # (Auto) 4.1H, Monocytes # (Auto) 0.7, Eosinophils # (Auto) 0.2, Basophils # (Auto) 0.1, Immature Granulocyte # (Auto) 0.0, Sodium Level 141, Potassium Level 3.1L, Ch loride Level 108H, Carbon Dioxide Level 23, Anion Gap 10, Blood Urea Nitrogen 3L , Creatinine 0.78, Estimat Glomerular Filtration Rate > 60, BUN/Creatinine Ratio 4, Glucose Level 85, Calcium Level 7.9L Microbiology 02/07/21 Urine Culture - Final, Complete Gram Pos Mixed Bacterial [facility] [place] NAME: ALYSSA PHELPS Nona [facility] REC#: [id number] PT STATUS: REG ER : 1980 PHYSICIAN: BRANDEN KRAFT MD ADMIT DATE: 02/07/21/ER Signed Date of Exam:02/07/21 ABDOMEN, FLAT & UPRIGHT/DECUB EXAMINATION: Abdominal radiographs, upright and supine views. DATE: February 07, 2021. CLINICAL INDICATION: 40-year-old female, abdominal pain. Nausea and vomiting. COMPARISON: CT abdomen April 17, 2020. Abdominal radiographs December 28, 2010. COMMENTS: There are right upper quadrant surgical clips. There is no identified free intraperitoneal air. There is no identified pneumatosis or portal venous gas. There are sutures in the right and left sides of the pelvis. There is a moderate volume stool in the right colon. There are gas-filled segments of predominantly large bowel which are not grossly distended. There is a right-sided pelvic calcification unchanged since 2010 most likely relating to a phlebolith. There is no identified abnormal radiodensity overlying the expected positions of the kidneys or ureters. IMPRESSION: . No identified acute abdominal radiographic abnormality. Dictated by: Dictated on workstation # [id number] Dict: 02/07/212127 Trans: 02/07/212136 CV [id number] Interpreted by: BAYRON CAMACHO MD Electronically signed by: BAYRON CAMACHO MD 02/07/212136 Assessment/Plan Assessment/Plan (1) Intractable nausea and vomiting Status: Acute Assessment & Plan: 02/09: UDS confirmed MJ use, discussed the role of regular MJ use and cyclic vomiting syndrome, recommend cessation 02/10: Phenergen stopped due to confusion ON, will decrease IVFs and plan for d/c tomorrow with f.u with [place] outpatient for scope 02/11: CT per surgery, reviewed normal results (2) Chronic pain Status: Chronic Assessment & Plan: 02/09: Given age 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 dx of chron's, patient would benefit from GI outpatient consult 02/11: Plan to scope as outpatient (4) Seizure disorder Status: Chronic Assessment & Plan: 02/09: Valium TID is generally not recommend for Sz PPx, would recommend Neurology outpatient f.u (5) Hypokalemia Status: Acute Assessment & Plan: 02/11: Replaced and will repeat in AM SHARONDA CALVILLO MD Feb 11, 2021 19:02
[2021-02-11 19:40] VITALS: BP 126/83
[2021-02-12 00:01] VITALS: BP 126/81
[2021-02-12 04:05] VITALS: BP 122/83
[2021-02-12] MEDS: NS IV 1000 ML 1,000 ML IV SCH (04:45)
[2021-02-12 05:00] LABS: BASOPHILS # (AUTO) 0.1 10^3/uL (0.0-0.1); BASOPHILS % (AUTO) 1 % (0-10); EOSINOPHILS # (AUTO) 0.4 10^3/uL (0.0-0.3); EOSINOPHILS % (AUTO) 5 % (0-10); HEMATOCRIT 34 % (35-52); HEMOGLOBIN 11.3 g/dL (11.5-16.0); LYMPHOCYTES # (AUTO) 2.7 10^3/uL (1.0-4.0); LYMPHOCYTES % (AUTO) 40 % (12-44); MEAN CORPUSCULAR HEMOGLOBIN 30 pg (25-34); MEAN CORPUSCULAR HGB CONC 33 g/dL (32-36); MEAN CORPUSCULAR VOLUME 91 fL (80-99); MONOCYTES # (AUTO) 0.7 10^3/uL (0.0-1.0); MONOCYTES % (AUTO) 10 % (0-12); NEUTROPHILS % (AUTO) 44 % (42-75); PLATELET COUNT 180 10^3/uL (130-400); WHITE BLOOD COUNT 6.8 10^3/uL (4.3-11.0)
[2021-02-12 05:46] LABS: ALANINE AMINOTRANSFERASE 28 U/L (0-55); ALBUMIN 3.4 GM/DL (3.2-4.5); ALKALINE PHOSPHATASE 93 U/L (40-136); BILIRUBIN,TOTAL 0.4 MG/DL (0.1-1.0); BUN/CREATININE RATIO 4; CALCIUM 7.9 MG/DL (8.5-10.1); CARBON DIOXIDE 24 MMOL/L (21-32); CHLORIDE 109 MMOL/L (98-107); GFR ESTIMATED > 60; GLUCOSE 88 MG/DL (70-105); POTASSIUM 3.4 MMOL/L (3.6-5.0); SODIUM 141 MMOL/L (135-145); TOTAL PROTEIN 5.4 GM/DL (6.4-8.2)
[2021-02-12] MEDS: LORazepam INJ 2 MG/ML (ATIVAN) VIAL IVP SCH ×2 (06:13→13:54)
--- NOTE | 2021-02-12 06:56 | Progress Note - Surgery ---
PAT SMITH MED STUDENT 02/12/21 0656: Subjective Date Seen by a Provider: Feb 12, 2021 Time Seen by a Provider: 06:47 Subjective/Events-last exam Patient reports sleeping most of night. Yesterday evening had another episode of nausea and emesis x 1. Denies bloody emesis or coffee ground appearance. LUQ abdominal pain remains unchanged. Reports that overall her nausea is improving. She is having BM's. Tolerating minimal po clears intake at this point. States she had a bottle and a half of blue powerade yesterday. No other intake reported. She also reports some mild bruising to her right arm just superior to her PICC that was placed yesterday due to difficult venous access. Denies chest pain, SOB, fevers, and chills. Reports minimal nausea and LUQ abdominal pain currently. Reports the pain to be tolerable at present. CT abdomen/pelvis negative for any findings to explain her symptoms. Review of Systems General: No Chills, No Night Sweats HEENT: No Head Aches, No Visual Changes Pulmonary: No Dyspnea, No Cough Cardiovascular: No: Chest Pain, Palpitations Gastrointestinal: Nausea, Abdominal Pain (LUQ); No: Diarrhea, Constipation Genitourinary: No Dysuria, No Frequency Musculoskeletal: back pain (chronic); No: neck pain Neurological: No: Weakness, Numbness Objective Exam Vital Signs Date Time Temp Pulse Resp B/P (MAP) Pulse Ox O2 Delivery O2 Flow Rate FiO2 02/12/21 04:05 36.9 80 20 122/83 (96) 98 Room Air 02/12/21 01:00 71 02/12/21 00:01 36.9 72 16 126/81 (96) 97 Room Air 02/11/21 22:58 96 Room Air 02/11/21 19:40 36.4 63 18 126/83 (97) 97 Room Air 02/11/21 19:30 Room Air 02/11/21 19:00 80 02/11/21 16:15 36.8 65 18 130/70 (90) 96 Room Air 02/11/21 12:29 75 02/11/21 12:00 35.7 66 18 142/93 (109) 98 Room Air 02/11/21 08:00 36.9 73 18 144/82 (102) 97 Room Air 02/11/21 08:00 Room Air I & O 02/12/21 07:00 Intake Total 2052 ml Output Total 1200 ml Balance 852 ml Capillary Refill : Less Than 3 Seconds General Appearance: No Apparent Distress, Chronically ill HEENT: PERRL/EOMI, Pharynx Normal Neck: Normal Inspection, Non Tender Respiratory: Chest Non Tender, Lungs Clear, Normal Breath Sounds, No Accessory Muscle Use, No Respiratory Distress Cardiovascular: Regular Rate, Rhythm, No Edema, Normal Peripheral Pulses Peripheral Pulses: 2+ Dorsalis Pedis (R), 2+ Left Dors-Pedis (L), 2+ Radial Pulses (R), 2+ Radial Pulses (L) Gastrointestinal: normal bowel sounds, soft, tenderness (Left upper quadrant, no guarding or rebounding, slightly variable pain distribution) Extremity: Normal Capillary Refill, Non Tender, No Calf Tenderness, No Pedal Edema Neurologic/Psychiatric: Alert, Oriented x3, No Motor/Sensory Deficits Skin: Warm/Dry, Ecchymosis (superior to Right arm PICC) Lymphatic: No Adenopathy Results Lab Laboratory Tests 02/12/21 04:49: White Blood Count 6.8, Red Blood Count 3.74L, Hemoglobin 11.3L, Hematocrit 34L, Mean Corpuscular Volume 91, Mean Corpuscular Hemoglobin 30, Mean Corpuscular Hemoglobin Concent 33, Red Cell Distribution Width 12.7, Platelet Count 180, Mean Platelet Volume 12.0, Immature Granulocyte % (Auto) 0, Neutrophils (%) (Auto) 44, Lymphocytes (%) (Auto) 40, Monocytes (%) (Auto) 10, Eosinophils (%) (Auto) 5, Basophils (%) (Auto) 1, Neutrophils # (Auto) 3.0, Lymphocytes # (Auto) 2.7, Monocytes # (Auto) 0.7, Eosinophils # (Auto) 0.4H, Basophils # (Auto) 0.1, Immature Granulocyte # (Auto) 0.0, Sodium Level 141, Potassium Level 3.4L, Chloride Level 109H, Carbon Dioxide Level 24, Anion Gap 8, Blood Urea Nitrogen 3L, Creatinine 0.80, Estimat Glomerular Filtration Rate > 60, BUN/Creatinine Ratio 4, Glucose Level 88, Calcium Level 7.9L, Corrected Calcium 8.4L, Total Bilirubin 0.4, Aspartate Amino Transf (AST/SGOT) 16, Alanine Aminotransferase (ALT/SGPT) 28, Alkaline Phosphatase 93, Total Protein 5.4L, Albumin 3.4 Microbiology 02/07/21 Urine Culture - Final, Complete Gram Pos Mixed Bacterial Kalina Assessment/Plan Assessment/Plan Assessment/Plan Intractable nausea and Vomiting-Improved LUQ abdominal pain-chronic and unchanging slightly improved Hypokalemia- potassium 3.4 this am Seizure disorder Chronic back pain History of Anxiety/[facility]ression [facility] History of Methamphetamine use Continue Zofran PRN nausea/vomiting possible cyclic vomiting due to marijuana Nausea and vomiting abdominal pain unchanged Patient tolerating clears minimally, advance diet as tolerated slowly Follow potassium and replace as needed. Potassium 3.4 this am Continue pain meds PRN for abdominal pain/chronic back pain Continue conservative management Feel abdominal pain in the left upper quadrant may be related to muscle strain or tear due to vomiting ct abd/pelvis with iv/oral contrast negative for any findings to explain current symptoms DEBORAH REYES DO 02/12/21 1503: Subjective Subjective/Events-last exam Patient feeling better today. She states she still having some left upper quadrant but improved. Nausea improved. She is going to try and eat more regular food today. She has no other complaints. Denies any nausea vomiting fever sweats chills shortness of breath or chest pain at this time. CT scan results reviewed with her with no acute findings. Objective Exam General Appearance: No Apparent Distress HEENT: PERRL/EOMI, Normal ENT Inspection Neck: Normal Inspection, Non Tender Respiratory: Chest Non Tender, No Accessory Muscle Use, No Respiratory Distress Cardiovascular: Regular Rate, Rhythm, No JVD Gastrointestinal: normal bowel sounds, non tender, soft; No tenderness (Left upper quadrant, no guarding or rebounding, slightly variable pain distribution) Extremity: Normal Capillary Refill, Non Tender, No Calf Tenderness Neurologic/Psychiatric: Alert, Oriented x3, No Motor/Sensory Deficits Skin: Normal Color, Warm/Dry, Ecchymosis (superior to Right arm PICC) Lymphatic: No Adenopathy Assessment/Plan Assessment/Plan Assessment/Plan Intractable nausea and Vomiting-Improved LUQ abdominal pain-chronic and unchanging slightly improved Hypokalemia- potassium 3.4 this am Seizure disorder Chronic back pain History of Anxiety/Depression +[facility] History of Methamphetamine use Continue Zofran PRN nausea/vomiting possible cyclic vomiting due to marijuana Nausea and vomiting abdominal pain improved Patient tolerating clears minimally, advance diet as tolerated slowly Follow potassium and replace as needed. Potassium 3.4 this am Continue pain meds PRN for abdominal pain/chronic back pain Continue conservative management Feel abdominal pain in the left upper quadrant may be related to muscle strain or tear due to vomiting ct abd/pelvis with iv/oral contrast negative for any findings to explain current symptoms No surgical intervention. Will have follow-up and if still having symptoms later would recommend endoscopy. Supervisory-Addendum Brief Verification & Attestation Participated in pt care: history, MDM, physical Personally performed: exam, history, MDM, supervision of care Care discussed with: Medical Student Procedures: n/a Results interpretation: Verified all documentation Verification and Attestation of Medical Student E/M Service A medical student performed and documented this service in my presence. I reviewed and verified all information documented by the medical student and made modifications to such information, when appropriate. I personally performed the physical exam and medical decision making. Deborah Reyes Feb 12, 2021,15:03 PAT SMITH MED STUDENT Feb 12, 2021 06:56 DEBORAH REYES DO Feb 12, 2021 15:03
[2021-02-12] MEDS: fentaNYL INJ 100 MCG/2 ML AMP IV PRN ×2 (07:51→13:53)
[2021-02-12 07:56] VITALS: BP 139/73
[2021-02-12] MEDS: NS IV SCH ×6 (09:24→13:33)
[2021-02-12] MEDS: PHENYTOIN IV SCH ×6 (09:24→13:33)
[2021-02-12] MEDS: MICRON FILTER IV SCH ×6 (09:24→13:33)
[2021-02-12] MEDS: FAMOTIDINE 20MG/2ML IV (PEPCID) IVP SCH (09:25)
[2021-02-12 12:00] VITALS: BP 127/84
[2021-02-12] MEDS ORDERED: LORazepam INJ 2 MG/ML (ATIVAN) VIAL IVP PRN (12:15)
--- NOTE | 2021-02-12 12:56 | Discharge Summary ---
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 dx of chron's, patient would benefit from GI outpatient consult 02/11: Plan to scope as outpatient Status: Acute (4) Seizure disorder Assessment & Plan: 02/09: Valium TID is generally not recommend for Sz PPx, would recommend Neurology outpatient f.u Status: Chronic (5) Hypokalemia Assessment & Plan: 02/11: Replaced and will repeat in AM Status: Acute Discharge Summary-Simple/Stand Consultations Discharge Physical Examination Allergies: Coded Allergies: No Known Drug Allergies (Unverified , 03/20/12) Vitals & I&Os Vital Sign - Last 12Hours Date Time Temp Pulse Resp B/P (MAP) Pulse Ox O2 Delivery O2 Flow Rate FiO2 02/12/21 12:15 87 02/12/21 12:00 36.6 20 127/84 (98) 97 Room Air Intake and Output 02/12/21 00:00 Intake Total 852 ml Output Total 500 ml Balance 352 ml Hospital Course See final discharge diagnosis. Radiology Reviewed [place], [place] NAME: ALYSSA PHELPS MED REC#: [id number] PT STATUS: REG ER : 1980 PHYSICIAN: BRANDEN KRAFT MD ADMIT DATE: 02/07/21/ER Signed Date of Exam:02/07/21 ABDOMEN, FLAT & UPRIGHT/DECUB EXAMINATION: Abdominal radiographs, upright and supine views. DATE: February 07, 2021. CLINICAL INDICATION: 40-year-old female, abdominal pain. Nausea and vomiting. COMPARISON: CT abdomen April 17, 2020. Abdominal radiographs December 28, 2010. COMMENTS: There are right upper quadrant surgical clips. There is no identified free intraperitoneal air. There is no identified pneumatosis or portal venous gas. There are sutures in the right and left sides of the pelvis. There is a moderate volume stool in the right colon. There are gas-filled segments of predominantly large bowel which are not grossly distended. There is a right-sided pelvic calcification unchanged since 2010 most likely relating to a phlebolith. There is no identified abnormal radiodensity overlying the expected positions of the kidneys or ureters. IMPRESSION: . No identified acute abdominal radiographic abnormality. Dictated by: Dictated on workstation # [id number] Dict: 02/07/212127 Trans: 02/07/212136 CV [id number] Interpreted by: BAYRON CAMACHO MD Electronically signed by: BAYRON CAMACHO MD 02/07/212136 Discharge Instructions to patient/family Please see electronic discharge instructions given to patient. Discharge Medications Reviewed and agree with Discharge Medication list on patient's Discharge Instruction sheet SHARONDA CALVILLO MD Feb 12, 2021 12:56
--- NOTE | 2021-02-12 12:59 | Discharge Summary ---
Discharge [facility] Reconcile Patient Problems Problems Reviewed?: Yes Discharge Medications New, Converted or Re-Newed RX: Transmitted to Pharmacy Continued Medications: Ascorbic Acid (Vitamin C) 500 Mg Capsule 500 MG PO DAILY, CAP Bupropion HCl (Bupropion Xl) 150 Mg Tab.er.24h 150 MG PO BID, TAB Cholecalciferol (Vitamin D3) (Vitamin D3) 125 Mcg Tablet 125 MCG PO DAILY, TAB Cyanocobalamin (Vitamin B-12) (Vitamin B-12) 500 Mcg Tablet 500 MCG PO DAILY, TAB Diazepam (Diazepam) 10 Mg Tablet 10 MG PO TID, TAB Diphenhydramine HCl (Benadryl) 25 Mg Capsule 25 MG PO DAILY PRN for ALLERGIES, CAP Duloxetine HCl (Duloxetine HCl) 60 Mg Capsule.dr 60 MG PO DAILY, CAP Estradiol (Estradiol Tablet) 0.5 Mg Tablet 0.5 MG PO DAILY, TAB Fentanyl (Duragesic Patch 25MCG) 1 Each Patch.td72 25 MCG TD Q72H, #3 PATCH LAST FILLED 12/22/2020 #5 17 DAY SUPPLY Gabapentin (Gabapentin) 800 Mg Tablet 800 MG PO TID, TAB LAST FILLED 11/24/2020 #90 30 DAY SUPPLY Lubiprostone (Amitiza) 24 Mcg Capsule 24 MCG PO DAILY, CAP Multivitamin (Multivitamin) 1 Each Tablet 1 EACH PO DAILY, TAB Omeprazole (Omeprazole) 40 Mg Capsule.dr 40 MG PO DAILY, CAP Ondansetron (Ondansetron Odt) 4 Mg Tab.rapdis 4 MG PO Q4H PRN for NAUSEA/VOMITING-1ST LINE, TAB Tizanidine HCl (Tizanidine HCl) 4 Mg Tablet 8 MG PO Q6H, TAB TAKES 2 (4MG) TABLETS Turmeric Root Extract (Turmeric) 538 Mg Capsule 538 MG PO DAILY, CAP Discontinued Medications: Furosemide (Furosemide) 20 Mg Tablet 20 MG PO DAILY, TAB Hydrocodone/Acetaminophen (Hydrocodone-Acetamin 5-325 mg) 1 Each Tablet 1 EACH PO Q6H PRN for PAIN-MILD (1-4), TAB Potassium Chloride (Potassium Chloride) 10 Meq Tab.er.prt 10 MEQ PO DAILY, TAB Patient Instructions Goal/Follow Up Appt: You have a f.u with Dr Matamoros on February 20 @ 0945 AM Activity & Diet Discharge Diet: Soft Diet, Low Residue Activity as Tolerated: Yes Copy Copies To 1: SELF,SHARONDA HARRIS MD, MD Feb 12, 2021 12:59
[2021-02-12 14:59] VITALS: BP 127/84
== END 2021-02-12 12:57 | disposition home or self-care (01) ==
LOC: EDUNIT# 19:53 → ER 19:55 → UNDOADMOB 21:10 → 4TH 21:10 → UNDODISOB 02-12 14:55
PROVIDERS: ADMIT Internal Medicine; ATTEND Family Medicine
DX: R11.2 Nausea with vomiting, unspecified (principal); G89.29 Other chronic pain; R56.9 Unspecified convulsions; E87.6 Hypokalemia; F41.9 Anxiety disorder, unspecified; F32.9 Major depressive disorder, single episode, unspecified; R10.12 Left upper quadrant pain; Z79.51 Long term (current) use of inhaled steroids; Z79.899 Other long term (current) drug therapy; Z87.891 Personal history of nicotine dependence; Z90.710 Acquired absence of both cervix and uterus
CPT/HCPCS: 36569; 74019; 74177; 76937; 80048 ×2; 80053 ×4; 80306; 81000; 83690; 83735 ×3; 85025 ×5; 86141; 87088; 94760 ×3; 96361; 96374; 96375; 99284; C1751; G0378; 36415

== ENCOUNTER 2021-06-11 19:15 | Emergency (ER) | payer MEDICAID ==
[~2021-06-11] VITALS: Ht 149.8 cm; Wt 75.1 kg
[~2021-06-11 19:15] MED LIST changes: +ACHD5005 PO; +ASCO500C17 PO; +BUPR150T14 PO; +BUPR150T24 PO; +CALC-250 PO; +CYAN500T8 PO; +DIAZ10TA3 PO; +DIPH25CA79 PO; +DULO60CA59 PO; +ESTR0.5T PO; +FENT1PAT57 TD; +FURO20TA4 PO; +GABA800T10 PO; +LUBI24CA6 PO; +MULT-1136 PO; +OMEP40CA6 PO; +POTA10TA36 PO; +TIZA4TAB4 PO; +TURM538C PO
--- NOTE | 2021-06-11 19:28 | ED General ---
General Stated Complaint: SEIZURES Source of Information: Patient Exam Limitations: No Limitations History of Present Illness Date Seen by Provider: Jun 11, 2021 Time Seen by Provider: 19:25 Initial Comments To ER by EMS with reports that they were called for chest pain shortness of breath. Upon their arrival the patient seemed to be seizing. She takes Valium 10 mg 3 times a day for seizures but has been unable to take that or her Dilaudid or morphine for the past 2 days because of nausea and vomiting. Unvaccinated against Covid. Timing/Duration: 3-4 Days Severity: Moderate Associated Systoms: Nausea/Vomiting Allergies and Home Medications Allergies Coded Allergies: No Known Drug Allergies (Unverified , 03/20/12) Home Medications Ascorbic Acid 500 Mg Capsule, 500 MG PO DAILY, (Reported) Bupropion HCl 150 Mg Tab.er.24h, 150 MG PO BID, (Reported) Cholecalciferol (Vitamin D3) 125 Mcg Tablet, 125 MCG PO DAILY, (Reported) Cyanocobalamin (Vitamin B-12) 500 Mcg Tablet, 500 MCG PO DAILY, (Reported) Diazepam 10 Mg Tablet, 10 MG PO TID, (Reported) Diphenhydramine HCl 25 Mg Capsule, 25 MG PO DAILY PRN for ALLERGIES, (Reported) Duloxetine HCl 60 Mg Capsule.dr, 60 MG PO DAILY, (Reported) Estradiol 0.5 Mg Tablet, 0.5 MG PO DAILY, (Reported) Fentanyl 1 Each Patch.td72, 25 MCG TD Q72H, (Reported) LAST FILLED 12/22/2020 #5 17 DAY SUPPLY Gabapentin 800 Mg Tablet, 800 MG PO TID, (Reported) LAST FILLED 11/24/2020 #90 30 DAY SUPPLY Lubiprostone 24 Mcg Capsule, 24 MCG PO DAILY, (Reported) Multivitamin 1 Each Tablet, 1 EACH PO DAILY, (Reported) Omeprazole 40 Mg Capsule.dr, 40 MG PO DAILY, (Reported) Ondansetron 4 Mg Tab.rapdis, 4 MG PO Q4H PRN for NAUSEA/VOMITING-1ST LINE, (Reported) Tizanidine HCl 4 Mg Tablet, 8 MG PO Q6H, (Reported) TAKES 2 (4MG) TABLETS Turmeric Root Extract 538 Mg Capsule, 538 MG PO DAILY, (Reported) Patient Home Medication List Home Medication List Reviewed: Yes Review of Systems Review of Systems Constitutional: see HPI EENTM: see HPI Respiratory: no symptoms reported Cardiovascular: no symptoms reported Genitourinary: no symptoms reported Musculoskeletal: no symptoms reported Skin: no symptoms reported Psychiatric/Neurological: No Symptoms Reported Hematologic/Lymphatic: No Symptoms Reported Past Fofmcgr-Evzmiy-Gpsiwx Hx Immunizations Up To Date Tetanus Booster (TDap): Unknown Seasonal Allergies Seasonal Allergies: No Past Medical History Surgeries: Yes (MULTIPLE D&C'S, LEFT CARPAL TUNNEL AND LEFT ULNAR NERVE TRANSPOSITION, BSO,) Appendectomy, Gallbladder, Hysterectomy, Oophorectomy, Orthopedic Respiratory: Yes Asthma Cardiac: Yes (TACHYCARDIA) Neurological: Yes (Carpel tunnel syndrome bilat;neuropathy && neurodysplasia of LUE;PSUEDOSZ ?) Neuropathy, Seizure Disorder Reproductive Disorders: Yes (OVARIAN CYSTS, HYSTERECTOMY FOR CERVICAL DYSPLASIA) NEONATAL DOCTOR History: Hysterectomy Genitourinary: No Gastrointestinal: Yes ("CHRONIC ABDOMINAL PAIN" ) Musculoskeletal: Yes Chronic Back Pain Endocrine: No HEENT: No Loss of Vision: Denies Hearing Impairment: Denies Cancer: Yes (CERVICAL DYSPLASIA) Cervical What Type of Treatment Did You: Surgical Intervention Psychosocial: Yes (EXTENSIVE PSYCH ISSUES; SUSPECTED PSEUDOSEIZURES) Anxiety, Suicide Attempts, Bipolar, Depression Integumentary: No Blood Disorders: No Adverse Reaction/Blood Tranf: No Family Medical History No Pertinent Family Hx SOCIAL HISTORY: -ETOH-OCCASIONAL USE -DRUGS--REGULAR MARIJUANA USE, OPIATE AND BENZODIAZEPINE USE, HAS TESTED + FOR METH ON MULTIPLE OCCASIONS -SMOKES CIGARETES PLUS VAPES PAST SURGICAL HISTORY: -APPENDECTOMY -CHOLECYSTECTOMY -HYSTERECTOMY/BILATERAL SALPINGO-OOPHORECTOMY -CERVICAL SPINE FUSION C4-C7 06/25/20 -LEFT ULNAR NERVE SURGERY/TRANSPOSITION -LEFT CARPAL TUNNEL SURGERY -MULTIPLE D&C'S -EGD/COLONOSCOPY Physical Exam Vital Signs Capillary Refill : Height, Weight, BMI Height: 5'0" Weight: 132lbs. oz. 59.501065xo; 33.82 BMI Method:Actual General Appearance: No Apparent Distress, WD/WN, Other (seizure like activity upon arrival here, tho no post ictal state) Eyes: Bilateral Eye Normal Inspection, Bilateral Eye PERRL, Bilateral Eye EOMI Neck: Full Range of Motion, Normal Inspection Respiratory: No Accessory Muscle Use, No Respiratory Distress Cardiovascular: Normal Peripheral Pulses, Tachycardia Gastrointestinal: Normal Bowel Sounds, Non Tender, Soft Extremity: Normal Capillary Refill, Normal Inspection Neurologic/Psychiatric: Alert, Oriented x3 Skin: Normal Color, Warm/Dry Progress/Results/Core Measures Suspected Sepsis SIRS Temperature: Pulse: Respiratory Rate: Laboratory Tests 06/11/21 19:20: White Blood Count 8.6 Blood Pressure / Mean: Laboratory Tests 06/11/21 19:20: Creatinine 1.19, Platelet Count 257, Total Bilirubin 0.4 Results/Orders Lab Results Laboratory Tests Test 06/11/21 19:20 06/11/21 19:25 06/11/21 19:45 Range/Units White Blood Count 8.6 4.3-11.0 10^3/uL Red Blood Count 5.24 H 3.80-5.11 10^6/uL Hemoglobin 15.7 11.5-16.0 g/dL Hematocrit 48 35-52 % Mean Corpuscular Volume 92 80-99 fL Mean Corpuscular Hemoglobin 30 25-34 pg Mean Corpuscular Hemoglobin Concent 33 32-36 g/dL Red Cell Distribution Width 13.0 10.0-14.5 % Platelet Count 257 130-400 10^3/uL Mean Platelet Volume 12.1 9.0-12.2 fL Immature Granulocyte % (Auto) 0 % Neutrophils (%) (Auto) 51 42-75 % Lymphocytes (%) (Auto) 39 12-44 % Monocytes (%) (Auto) 8 0-12 % Eosinophils (%) (Auto) 1 0-10 % Basophils (%) (Auto) 1 0-10 % Neutrophils # (Auto) 4.4 1.8-7.8 10^3/uL Lymphocytes # (Auto) 3.3 1.0-4.0 10^3/uL Monocytes # (Auto) 0.7 0.0-1.0 10^3/uL Eosinophils # (Auto) 0.1 0.0-0.3 10^3/uL Basophils # (Auto) 0.1 0.0-0.1 10^3/uL Immature Granulocyte # (Auto) 0.0 0.0-0.1 10^3/uL Sodium Level 143 135-145 MMOL/L Potassium Level 3.8 3.6-5.0 MMOL/L Chloride Level 105 98-107 MMOL/L Carbon Dioxide Level 19 L 21-32 MMOL/L Anion Gap 19 H 5-14 MMOL/L Blood Urea Nitrogen 13 7-18 MG/DL Creatinine 1.19 0.60-1.30 MG/DL Estimat Glomerular Filtration Rate 50 BUN/Creatinine Ratio 11 Glucose Level 118 H 70-105 MG/DL Calcium Level 10.6 H 8.5-10.1 MG/DL Corrected Calcium 8.5-10.1 MG/DL Total Bilirubin 0.4 0.1-1.0 MG/DL Aspartate Amino Transf (AST/SGOT) 30 5-34 U/L Alanine Aminotransferase (ALT/SGPT) 30 0-55 U/L Alkaline Phosphatase 121 40-136 U/L Total Protein 8.1 6.4-8.2 GM/DL Albumin 4.9 H 3.2-4.5 GM/DL Serum Test, Qualitative NEGATIVE NEGATIVE SARS-CoV-2 RNA (RT-PCR) Not Detected Not Detecte Urine Color YELLOW Urine Clarity CLEAR Urine pH 5.5 5-9 Urine Specific [place] >=1.030 1.016-1.022 Urine Protein TRACE H NEGATIVE Urine Glucose (UA) NEGATIVE NEGATIVE Urine Ketones TRACE H NEGATIVE Urine Nitrite NEGATIVE NEGATIVE Urine Bilirubin NEGATIVE NEGATIVE Urine Urobilinogen 1.0 < = 1.0 MG/DL Urine Leukocyte Esterase NEGATIVE NEGATIVE Urine RBC (Auto) NEGATIVE NEGATIVE Urine RBC NONE /HPF Urine WBC 0-2 /HPF Urine Crystals PRESENT H /LPF Urine Amorphous Sediment LARGE JOEL URATES H /LPF Urine Bacteria TRACE /HPF Urine Casts PRESENT /LPF Urine Hyaline Casts 10-25 H /LPF Urine Mucus NEGATIVE /LPF Urine Culture Indicated NO Urine Opiates Screen POSITIVE H NEGATIVE Urine Oxycodone Screen NEGATIVE NEGATIVE Urine Methadone Screen NEGATIVE NEGATIVE Urine Propoxyphene Screen NEGATIVE NEGATIVE Urine Barbiturates Screen NEGATIVE NEGATIVE Ur Tricyclic Antidepressants Screen NEGATIVE NEGATIVE Urine Phencyclidine Screen NEGATIVE NEGATIVE Urine Amphetamines Screen NEGATIVE NEGATIVE Urine Methamphetamines Screen NEGATIVE NEGATIVE Urine Benzodiazepines Screen POSITIVE H NEGATIVE Urine Cocaine Screen NEGATIVE NEGATIVE Urine Cannabinoids Screen POSITIVE H NEGATIVE My Orders Orders - YEMI BONILLA [employer] Cbc With Automated Diff (06/11/21 19:18) Comprehensive Metabolic Panel (06/11/21 19:18) Ua Culture If Indicated (06/11/21 19:18) Hcg,Qualitative Serum (06/11/21 19:18) Ed Iv/Invasive Line Start (06/11/21 19:18) Covid 19 Inhouse Test (06/11/21 19:18) Promethazine Injection (Phenergan Injec (06/11/21 19:30) Diazepam Tablet (Valium Tablet) (06/11/21 19:30) Drug Screen Stat (Urine) (06/11/21 19:39) Straight Cath (Urinary) (06/11/21 19:39) Lactated Ringers (Lr 1000 Ml Iv Solution (06/11/21 20:30) Rx-Promethazine Hcl (Rx-Phenergan Supp) (06/11/21 21:33) Rx-Ondansetron Po (Rx-Zofran Po) (06/11/21 21:33) Medications Given in ED Current Medications Medications Dose Ordered Sig/Rafael Route Start Time Stop Time Status Last Admin Dose Admin Diazepam 10 mg ONCE ONCE PO 06/11/21 19:30 06/11/21 19:31 DC 06/11/21 19:34 10 MG Promethazine HCl 25 mg ONCE ONCE IVP 06/11/21 19:30 06/11/21 19:31 DC 06/11/21 19:34 25 MG Vital Signs/I&O Capillary Refill : Departure Communication (Admissions) 2052-After the Phenergan which was given on arrival and the Valium which was given orally she has had no vomiting or seizure activity since. Pending sodium potassium anion gap however the rest of her labs are back and unremarkable. Plan to discharge home Impression Primary Impression: Nausea & vomiting Disposition: 01 HOME, SELF-CARE Condition: Improved Departure-Patient Inst. Decision time for Depature: 20:54 Referrals: SELF,JOHANNE SOTO (PCP/Family) Primary Care Physician Patient Instructions: Nausea and Vomiting, Adult ED YEMI BONILLA APRN Jun 11, 2021 19:28
[2021-06-11] MEDS ORDERED: PROMETHAZINE INJ 25 MG/ML (PHENERGAN) AMP IVP ONE (19:30)
[2021-06-11] MEDS ORDERED: DIAZEPAM 5 MG (VALIUM) TABLET PO ONE (19:30)
[2021-06-11 19:51] LABS: BILIRUBIN,URINE NEGATIVE (NEGATIVE); CLARITY,URINE CLEAR; COLOR,URINE YELLOW; GLUCOSE, URINE (UA) NEGATIVE (NEGATIVE); KETONES,URINE TRACE (NEGATIVE); LEUKOCYTE ESTERASE ,URINE NEGATIVE (NEGATIVE); NITRITE,URINE NEGATIVE (NEGATIVE); PH,URINE 5.5 (5-9); PROTEIN,URINE TRACE (NEGATIVE)
[2021-06-11 20:01] LABS: BASOPHILS # (AUTO) 0.1 10^3/uL (0.0-0.1); BASOPHILS % (AUTO) 1 % (0-10); EOSINOPHILS # (AUTO) 0.1 10^3/uL (0.0-0.3); EOSINOPHILS % (AUTO) 1 % (0-10); HEMATOCRIT 48 % (35-52); HEMOGLOBIN 15.7 g/dL (11.5-16.0); LYMPHOCYTES # (AUTO) 3.3 10^3/uL (1.0-4.0); LYMPHOCYTES % (AUTO) 39 % (12-44); MEAN CORPUSCULAR HEMOGLOBIN 30 pg (25-34); MEAN CORPUSCULAR HGB CONC 33 g/dL (32-36); MEAN CORPUSCULAR VOLUME 92 fL (80-99); MEAN PLATELET VOLUME 12.1 fL (9.0-12.2); MONOCYTES # (AUTO) 0.7 10^3/uL (0.0-1.0); MONOCYTES % (AUTO) 8 % (0-12); NEUTROPHILS # (AUTO) 4.4 10^3/uL (1.8-7.8); NEUTROPHILS % (AUTO) 51 % (42-75); PLATELET COUNT 257 10^3/uL (130-400); WHITE BLOOD COUNT 8.6 10^3/uL (4.3-11.0)
[2021-06-11 20:04] LABS: ALBUMIN 4.9 GM/DL (3.2-4.5)
[2021-06-11 20:05] LABS: AMORPHOUS SEDIMENT,UR LARGE AMOR URATES /LPF; BACTERIA,URINE TRACE /HPF; WBC,URINE 0-2 /HPF
[2021-06-11 20:06] LABS: CALCIUM 10.6 MG/DL (8.5-10.1)
[2021-06-11 20:07] LABS: GLUCOSE 118 MG/DL (70-105); TOTAL PROTEIN 8.1 GM/DL (6.4-8.2)
[2021-06-11 20:08] LABS: CARBON DIOXIDE 19 MMOL/L (21-32)
[2021-06-11 20:09] LABS: BILIRUBIN,TOTAL 0.4 MG/DL (0.1-1.0)
[2021-06-11 20:10] LABS: ALKALINE PHOSPHATASE 121 U/L (40-136)
[2021-06-11 20:11] LABS: CREATININE SERUM 1.19 MG/DL (0.60-1.30); GFR ESTIMATED 50
[2021-06-11 20:12] LABS: BUN/CREATININE RATIO 11
[2021-06-11 20:13] LABS: ALANINE AMINOTRANSFERASE 30 U/L (0-55)
[2021-06-11] MEDS ORDERED: LACTATED RINGERS 1,000 ML IV SCH (20:30)
[2021-06-11 20:41] LABS: AMPHETAMINE SCREEN, URINE NEGATIVE (NEGATIVE); BARBITURATE SCREEN URINE NEGATIVE (NEGATIVE); BENZODIAZEPINES SCREEN URINE POSITIVE (NEGATIVE); CANNABINOID SCREEN, URINE POSITIVE (NEGATIVE); COCAINE SCREEN URINE NEGATIVE (NEGATIVE); METHADONE STAT NEGATIVE (NEGATIVE); METHAMPHETAMINE SCREEN URINE S NEGATIVE (NEGATIVE); OPIATE SCREEN URINE POSITIVE (NEGATIVE); OXYCODONE STAT NEGATIVE (NEGATIVE); PROPOXYPHENE STAT NEGATIVE (NEGATIVE); TRICYCLIC ANTIDEPRESSANTS SCRE NEGATIVE (NEGATIVE)
[2021-06-11 21:01] LABS: CHLORIDE 105 MMOL/L (98-107); POTASSIUM 3.8 MMOL/L (3.6-5.0); SODIUM 143 MMOL/L (135-145)
[2021-06-11] MEDS ORDERED: RX-ONDANSETRON 4 MG ODT (ZOFRAN) PPK #4 PO STA (21:33)
[2021-06-11] MEDS ORDERED: RX-PHENERGAN 25 MG SUPP PPK#3 PR STA (21:33)
[2021-06-11 21:45] VITALS: BP 124/77
== END 2021-06-11 21:45 | disposition home or self-care (01) ==
LOC: EDUNIT# 19:15 → ER 19:18
DX: R11.2 Nausea with vomiting, unspecified (principal); J45.909 Unspecified asthma, uncomplicated; F41.9 Anxiety disorder, unspecified; F31.9 Bipolar disorder, unspecified; G62.9 Polyneuropathy, unspecified; G40.909 Epilepsy, unspecified, not intractable, without status epilepticus; Z79.899 Other long term (current) drug therapy; Z20.822 Contact with and (suspected) exposure to COVID-19
CPT/HCPCS: 36415; 80053; 80306; 81000; 84703; 85025; 87636

== ENCOUNTER 2021-06-26 11:07 | Emergency (ER) | payer MEDICAID ==
[~2021-06-26] VITALS: Ht 148 cm; Wt 73.5 kg
[2021-06-26 11:23] VITALS: BP 117/81
[2021-06-26 11:28] LABS: BASOPHILS # (AUTO) 0.1 10^3/uL (0.0-0.1); BASOPHILS % (AUTO) 1 % (0-10); EOSINOPHILS # (AUTO) 0.1 10^3/uL (0.0-0.3); EOSINOPHILS % (AUTO) 1 % (0-10); HEMATOCRIT 46 % (35-52); HEMOGLOBIN 15.7 g/dL (11.5-16.0); LYMPHOCYTES # (AUTO) 2.1 10^3/uL (1.0-4.0); LYMPHOCYTES % (AUTO) 20 % (12-44); MEAN CORPUSCULAR HEMOGLOBIN 30 pg (25-34); MEAN CORPUSCULAR HGB CONC 34 g/dL (32-36); MEAN CORPUSCULAR VOLUME 88 fL (80-99); MEAN PLATELET VOLUME 12.4 fL (9.0-12.2); MONOCYTES # (AUTO) 0.7 10^3/uL (0.0-1.0); MONOCYTES % (AUTO) 7 % (0-12); NEUTROPHILS # (AUTO) 7.4 10^3/uL (1.8-7.8); NEUTROPHILS % (AUTO) 71 % (42-75); PLATELET COUNT 341 10^3/uL (130-400); WHITE BLOOD COUNT 10.4 10^3/uL (4.3-11.0)
[2021-06-26 11:38] LABS: ALBUMIN 4.9 GM/DL (3.2-4.5); CHLORIDE 103 MMOL/L (98-107); POTASSIUM 2.9 MMOL/L (3.6-5.0); SODIUM 142 MMOL/L (135-145)
[2021-06-26 11:39] LABS: CALCIUM 10.5 MG/DL (8.5-10.1)
[2021-06-26 11:40] LABS: GLUCOSE 143 MG/DL (70-105); TOTAL PROTEIN 8.3 GM/DL (6.4-8.2)
[2021-06-26 11:42] LABS: BILIRUBIN,TOTAL 0.5 MG/DL (0.1-1.0); CARBON DIOXIDE 18 MMOL/L (21-32)
[2021-06-26 11:44] LABS: ALKALINE PHOSPHATASE 155 U/L (40-136); CREATININE SERUM 1.39 MG/DL (0.60-1.30); GFR ESTIMATED 42
[2021-06-26 11:45] LABS: BUN/CREATININE RATIO 8
[2021-06-26 11:47] LABS: ALANINE AMINOTRANSFERASE 13 U/L (0-55)
[2021-06-26] MEDS ORDERED: POTASSIUM CL 10MEQ/50ML IVPB 50 ML IV ONE (12:15)
[2021-06-26] MEDS ORDERED: NS IV 500 ML 500 ML IV ONE (12:15)
[2021-06-26] MEDS ORDERED: fentaNYL INJ 100 MCG/2 ML AMP IVP ONE ×3 (12:30→17:30)
[2021-06-26 12:45] LABS: MAGNESIUM 1.8 MG/DL (1.6-2.4)
[2021-06-26] MEDS ORDERED: PROMETHAZINE INJ 25 MG/ML (PHENERGAN) AMP IVP ONE (12:45)
[2021-06-26] MEDS ORDERED: NS (IVPB) 250 ML ONE (13:43)
[2021-06-26] MEDS ORDERED: SCOPOLAMINE 1.5 MG (TRANSDERM-SCOP) PATCH TD ONE (15:30)
[2021-06-26] MEDS ORDERED: ONDANSETRON 4 MG/2 ML (SDV) Z0FRAN IVP ONE (15:30)
[2021-06-26] MEDS: LACTATED RINGERS 1,000 ML IV ONE ×2 (15:46→16:37)
[2021-06-26] MEDS ORDERED: KCL 10 MEQ TAB (MICRO K) PO ONE (16:15)
[2021-06-26] MEDS ORDERED: HYDROcodone/APAP 5 MG/325 MG (LORTAB) TAB PO ONE (16:30)
[2021-06-26] MEDS ORDERED: fentaNYL PATCH 50 MCG (DURAGESIC) TD ONE (17:30)
[2021-06-26] MEDS ORDERED: POTASSIUM CHLORIDE INJ 40 MEQ in D5 NS 1000 ML IV SOLUTION 1,000 ML IV ONE (17:30)
[2021-06-26] MEDS ORDERED: FAMOTIDINE 20MG/2ML IV (PEPCID) IVP ONE (17:30)
--- NOTE | 2021-06-26 18:11 | Diagnostic Imaging Report ---
TECHNIQUE: Multiple contiguous axial images were obtained through the abdomen and pelvis without the use of intravenous contrast. Auto Exposure Controls were utilized during the CT exam to meet ALARA standards for radiation dose reduction. INDICATION: Not feeling well. Vomiting. Seizure earlier today. Pain. Daughter recently had Covid. EXAMINATION: CT abdomen and pelvis without contrast, 06/26/2021. COMPARISON: 02/11/2021. FINDINGS: The visualized lung bases are unremarkable. The nonopacified abdominal viscera is limited due to the lack of contrast. Tiny hypodensities in the liver, too small for characterization. No acute abnormality appreciated. There is evidence of previous cholecystectomy. The spleen is unremarkable. Pancreas and adrenal glands are grossly unremarkable. Hyperdensity in the stomach is likely recently swallowed medication. Kidneys are unremarkable. There is mild wall thickening of the terminal ileum and distal small bowel with adjacent free fluid in the pelvis. Findings could be due to early terminal ileitis or enteritis. Correlate with symptoms. No free air appreciated. No obstructive process appreciated. The colon is decompressed. No abscess formation. There is no acute osseous abnormality. IMPRESSION: Questioned wall thickening of the distal small bowel extending through the level of the terminal ileum suggestive of an enteritis or terminal ileitis. Adjacent free fluid is seen. Correlate with patient's symptoms. Other findings as above. Dictated by: Dictated on workstation # [id number]
--- NOTE | 2021-06-26 19:00 | ED Abdominal Pain ---
General Chief Complaint: Neurological Problems Stated Complaint: SEIZURE Nursing Triage Note: TO ED PER EMS FROM HOME HAS NOT FELT WELL VOMITED TODAY WITH SEIZURE. AND CHRONIC PAIN. PATIENT REPORTS HER DAUGHTER DID HAVE COVID BUT IS OUT OF ILOLATION AND DOES NOT LIVE WITH H ER. VERSERD 2.5 MG ZOFRAN 8MG AND PHENGRAN 12.5 MG Source of Information: Patient Exam Limitations: No Limitations History of Present Illness Date Seen by Provider: Jun 26, 2021 Time Seen by Provider: 11:16 Initial Comments This 40-year-old woman presents to the emergency room with complaints of nausea, vomiting, diarrhea, and abdominal pain. She has a history of seizure disorder and has not been able to take her Dilantin because of vomiting. She believes her vomiting is due to, at least in part, opioid withdrawal. She had previously been using fentanyl patches but then had a problem with insurance coverage. She was switched to morphine which she could not tolerate due to adverse reaction of vomiting. She has chronic musculoskeletal pain that led to the opioid prescriptions. She had a seizure today while with EMS and was given Versed 2.5 mg. She also had significant nausea and vomiting and was given Zofran 8 mg and Phenergan 12.5 mg. She was seen for a similar presentation on June 12 and was discharged from the ER. Her primary care provider and prescriber of chronic pain medications as Dr. Matamoros. Allergies and Home Medications Allergies Coded Allergies: No Known Drug Allergies (Unverified , 03/20/12) Home Medications Ascorbic Acid 500 Mg Capsule, 500 MG PO DAILY, (Reported) Bupropion HCl 150 Mg Tab.er.24h, 150 MG PO BID, (Reported) Cholecalciferol (Vitamin D3) 125 Mcg Tablet, 125 MCG PO DAILY, (Reported) Cyanocobalamin (Vitamin B-12) 500 Mcg Tablet, 500 MCG PO DAILY, (Reported) Diazepam 10 Mg Tablet, 10 MG PO TID, (Reported) Diphenhydramine HCl 25 Mg Capsule, 25 MG PO DAILY PRN for ALLERGIES, (Reported) Duloxetine HCl 60 Mg Capsule.dr, 60 MG PO DAILY, (Reported) Estradiol 0.5 Mg Tablet, 0.5 MG PO DAILY, (Reported) Fentanyl 1 Each Patch.td72, 25 MCG TD Q72H, (Reported) LAST FILLED 12/22/2020 #5 17 DAY SUPPLY Gabapentin 800 Mg Tablet, 800 MG PO TID, (Reported) LAST FILLED 11/24/2020 #90 30 DAY SUPPLY Lubiprostone 24 Mcg Capsule, 24 MCG PO DAILY, (Reported) Multivitamin 1 Each Tablet, 1 EACH PO DAILY, (Reported) Omeprazole 40 Mg Capsule.dr, 40 MG PO DAILY, (Reported) Ondansetron 4 Mg Tab.rapdis, 4 MG PO Q4H PRN for NAUSEA/VOMITING-1ST LINE, (Reported) Tizanidine HCl 4 Mg Tablet, 8 MG PO Q6H, (Reported) TAKES 2 (4MG) TABLETS Turmeric Root Extract 538 Mg Capsule, 538 MG PO DAILY, (Reported) Patient Home Medication List Home Medication List Reviewed: Yes Review of Systems Review of Systems Constitutional: no symptoms reported EENTM: No Symptoms Reported Respiratory: No Symptoms Reported Cardiovascular: No Symptoms Reported Gastrointestinal: See HPI Genitourinary: No Symptoms Reported Musculoskeletal: no symptoms reported Skin: no symptoms reported Psychiatric/Neurological: See HPI Endocrine: No Symptoms Reported Hematologic/Lymphatic: No Symptoms Reported Past Htkicwf-Lhsipp-Vnjhyu Hx Patient Social History Tobacco Use?: Yes Substance use?: Yes Substance type: Marijuana Pt feels they are or have been: No Immunizations Up To Date Tetanus Booster (TDap): Unknown Seasonal Allergies Seasonal Allergies: No Past Medical History Surgeries: Yes (MULTIPLE D&C'S, LEFT CARPAL TUNNEL AND LEFT ULNAR NERVE SAMUELS SPOSITION, BSO,) Appendectomy, Gallbladder, Hysterectomy, Oophorectomy, Orthopedic Respiratory: Yes Asthma Cardiac: Yes (TACHYCARDIA) Neurological: Yes (Carpel tunnel syndrome bilat;neuropathy && neurodysplasia of LUE;PSUEDOSZ ?) Neuropathy, Seizure Disorder Reproductive Disorders: Yes (OVARIAN CYSTS, HYSTERECTOMY FOR CERVICAL DYSPLASIA) 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 Genitourinary: No Gastrointestinal: Yes ("CHRONIC ABDOMINAL PAIN" ) Musculoskeletal: Yes Chronic Back Pain Endocrine: No HEENT: No Loss of Vision: Denies Hearing Impairment: Denies Cancer: Yes (CERVICAL DYSPLASIA) Cervical What Type of Treatment Did You: Surgical Intervention Psychosocial: Yes (EXTENSIVE PSYCH ISSUES; SUSPECTED PSEUDOSEIZURES) Anxiety, Suicide Attempts, Bipolar, Depression Integumentary: No Blood Disorders: No Adverse Reaction/Blood Tranf: No Family Medical History No Pertinent Family Hx SOCIAL HISTORY: -ETOH-OCCASIONAL USE -DRUGS--REGULAR MARIJUANA USE, OPIATE AND BENZODIAZEPINE USE, HAS TESTED + FOR METH ON MULTIPLE OCCASIONS -SMOKES CIGARETES PLUS VAPES PAST SURGICAL HISTORY: -APPENDECTOMY -CHOLECYSTECTOMY -HYSTERECTOMY/BILATERAL SALPINGO-OOPHORECTOMY -CERVICAL SPINE FUSION C4-C7 06/25/20 -LEFT ULNAR NERVE SURGERY/TRANSPOSITION -LEFT CARPAL TUNNEL SURGERY -MULTIPLE D&C'S -EGD/COLONOSCOPY Physical Exam Vital Signs Vital Signs - First Documented 06/26/21 11:23 Resp 80 B/P (MAP) 117/81 (93) Pulse Ox 99 O2 Delivery Room Air Capillary Refill : Less Than 3 Seconds Height/Weight/BMI Height: 5'0" Weight: 132lbs. oz. 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, no motor/sensory deficits, alert, normal mood/affect, oriented x 3 Skin: normal color, warm/dry Progress/Results/Core Measures Results/Orders Lab Results Laboratory Tests Test 06/26/21 11:14 06/26/21 11:20 Range/Units White Blood Count 10.4 4.3-11.0 10^3/uL Red Blood Count 5.27 H 3.80-5.11 10^6/uL Hemoglobin 15.7 11.5-16.0 g/dL Hematocrit 46 35-52 % Mean Corpuscular Volume 88 80-99 fL Mean Corpuscular Hemoglobin 30 25-34 pg Mean Corpuscular Hemoglobin Concent 34 32-36 g/dL Red Cell Distribution Width 12.9 10.0-14.5 % Platelet Count 341 130-400 10^3/uL Mean Platelet Volume 12.4 H 9.0-12.2 fL Immature Granulocyte % (Auto) 1 % Neutrophils (%) (Auto) 71 42-75 % Lymphocytes (%) (Auto) 20 12-44 % Monocytes (%) (Auto) 7 0-12 % Eosinophils (%) (Auto) 1 0-10 % Basophils (%) (Auto) 1 0-10 % Neutrophils # (Auto) 7.4 1.8-7.8 10^3/uL Lymphocytes # (Auto) 2.1 1.0-4.0 10^3/uL Monocytes # (Auto) 0.7 0.0-1.0 10^3/uL Eosinophils # (Auto) 0.1 0.0-0.3 10^3/uL Basophils # (Auto) 0.1 0.0-0.1 10^3/uL Immature Granulocyte # (Auto) 0.1 0.0-0.1 10^3/uL Sodium Level 142 135-145 MMOL/L Potassium Level 2.9 L 3.6-5.0 MMOL/L Chloride Level 103 98-107 MMOL/L Carbon Dioxide Level 18 L 21-32 MMOL/L Anion Gap 21 H 5-14 MMOL/L Blood Urea Nitrogen 11 7-18 MG/DL Creatinine 1.39 H 0.60-1.30 MG/DL Estimat Glomerular Filtration Rate 42 BUN/Creatinine Ratio 8 Glucose Level 143 H 70-105 MG/DL Calcium Level 10.5 H 8.5-10.1 MG/DL Corrected Calcium 8.5-10.1 MG/DL Magnesium Level 1.8 1.6-2.4 MG/DL Total Bilirubin 0.5 0.1-1.0 MG/DL Aspartate Amino Transf (AST/SGOT) 14 5-34 U/L Alanine Aminotransferase (ALT/SGPT) 13 0-55 U/L Alkaline Phosphatase 155 H 40-136 U/L C-Reactive Protein High Sensitivity 0.15 0.00-0.50 MG/DL Total Protein 8.3 H 6.4-8.2 GM/DL Albumin 4.9 H 3.2-4.5 GM/DL Lipase 32 8-78 U/L Influenza Type A (RT-PCR) Not Detected Not Detecte Influenza Type B (RT-PCR) Not Detected Not Detecte SARS-CoV-2 RNA (RT-PCR) Not Detected Not Detecte My Orders Orders - BRANDEN KRAFT MD Cbc With Automated Diff (06/26/21 11:17) Comprehensive Metabolic Panel (06/26/21 11:17) Hs C Reactive Protein (06/26/21 11:17) Covid 19 Inhouse Test (06/26/21 11:17) Influenza A And B By Pcr (06/26/21 11:17) Ed Iv/Invasive Line Start (06/26/21 11:17) Lactated Ringers (Lr 1000 Ml Iv Solution (06/26/21 11:30) Potassium Cl 10meq/50ml Ivpb (Kcl 10 Meq (06/26/21 12:15) Ns Iv 500 Ml (Sodium Chloride 0.9%) (06/26/21 12:15) Fentanyl Inj (Sublimaze Injection) (06/26/21 12:30) Lipase (06/26/21 12:28) Magnesium (06/26/21 12:28) Phenytoin Injection (Dilantin Injection) (06/27/21 09:00) Promethazine Injection (Phenergan Injec (06/26/21 12:45) Venous Access Request Order (06/26/21 13:26) Fentanyl Inj (Sublimaze Injection) (06/26/21 13:45) Ns (Ivpb) (Sodium Chloride 0.9%) (06/26/21 13:43) Drug Screen Stat (Urine) (06/26/21 13:57) Ua Culture If Indicated (06/26/21 13:57) Ondansetron Injection (Zofran Injectio (06/26/21 15:30) Scopolamine Patch (Transderm-Scop Patch) (06/26/21 15:30) Potassium Chloride (Tablet) (Klor Con Ta (06/26/21 16:15) D5 Ns 1000 Ml Iv So... W/Potassium Chlor (06/26/21 17:30) Fentanyl Inj (Sublimaze Injection) (06/26/21 17:30) Fentanyl Patch (Duragesic Patch) (06/26/21 17:30) Famotidine Injection (Pepcid Injection) (06/26/21 17:30) Ct Abdomen/Pelvis Wo (06/26/21 17:31) Medications Given in ED Current Medications Medications Dose Ordered Sig/Rafael Route Start Time Stop Time Status Last Admin Dose Admin Famotidine 20 mg ONCE ONCE IVP 06/26/21 17:30 06/26/21 17:32 DC 06/26/21 18:06 20 MG Fentanyl 50 mcg Q72H ONCE TD 06/26/21 17:30 06/26/21 17:32 DC 06/26/21 18:13 50 MCG Fentanyl Citrate 0.75 mcg ONCE ONCE IVP 06/26/21 12:30 06/26/21 12:31 DC 06/26/21 13:03 0.75 MCG Fentanyl Citrate 50 mcg ONCE ONCE IVP 06/26/21 13:45 06/26/21 13:46 DC 06/26/21 14:22 50 MCG Fentanyl Citrate 50 mcg ONCE ONCE IVP 06/26/21 17:30 06/26/21 17:32 DC 06/26/21 18:06 50 MCG Lactated Ringer's 1,000 ml @ 0 mls/hr Q0M ONCE IV 06/26/21 11:30 06/26/21 11:31 DC 06/26/21 16:37 1,000 MLS/HR Ondansetron HCl 4 mg ONCE ONCE IVP 06/26/21 15:30 06/26/21 15:31 DC 06/26/21 15:41 4 MG Phenytoin Sodium 100 mg/IV Miscellaneous Supplies 2 ml @ 60 mls/hr DAILY ONCE IV 06/27/21 09:00 06/27/21 09:01 06/26/21 13:51 60 MLS/HR Potassium Chloride 40 meq/ Dextrose/Sodium Chloride 1,020 ml @ 250 mls/hr Q4H5M ONCE IV 06/26/21 17:30 06/26/21 21:34 06/26/21 18:06 250 MLS/HR Potassium Chloride 40 meq ONCE ONCE PO 06/26/21 16:15 06/26/21 16:16 DC 06/26/21 16:38 40 MEQ Potassium Chloride 50 ml @ 50 mls/hr ONCE ONCE IV 06/26/21 12:15 06/26/21 13:14 DC 06/26/21 14:27 50 MLS/HR Promethazine HCl 12.5 mg ONCE ONCE IVP 06/26/21 12:45 06/26/21 12:46 DC 06/26/21 12:59 12.5 MG Scopolamine 1.5 mg ONCE ONCE TD 06/26/21 15:30 06/26/21 15:31 DC 06/26/21 15:43 1.5 MG Sodium Chloride 250 ml @ STK-MED ONCE .ROUTE 06/26/21 13:43 06/26/21 13:47 DC 06/26/21 13:52 250 MLS/HR Sodium Chloride 500 ml @ 0 mls/hr Q0M ONCE IV 06/26/21 12:15 06/26/21 12:16 DC 06/26/21 14:25 500 MLS/HR Vital Signs/I&O 06/26/21 11:23 Resp 80 B/P (MAP) 117/81 (93) Pulse Ox 99 O2 Delivery Room Air Blood Pressure Mean: 93 Progress Progress Note #1: Time: 19:01 Progress Note Patient had refractory nausea. In addition to meds given by EMS she has now been given an additional Phenergan 12.5 mg, Zofran 4 mg, and scopolamine patch. She lost her IV and another line was started in the left EJ. She was receiving potassium replacement through this line but asked the nurse to stop because it burned too much despite running with normal saline. We then tried oral potassium replacement but she promptly vomited. She is now receiving D5 half- normal saline with 40 mEq of potassium running at 250 mL/h. Abdominal pain was evaluated with CT scan which just showed a general enteritis with no other specific abnormalities. Scan was done without contrast as her line is in the EJ and she otherwise has poor vascular access. Plan is to hopefully discharge home if her nausea is controlled after the fluids run. She did receive Dilantin 100 mg IV. Fentanyl was used to control pain and a fentanyl patch was placed to help her get through the weekend. Progress Note #2: Time: 19:49 Progress Note Patient elected to leave [facility] before fluids and potassium replacement were completed and before oral challenge was performed. Diagnostic Imaging Diagonstic Imaging: CT Plain Films/CT/US/NM/MRI: abdomen, pelvis Comments NAME: ALYSSA PHELPS MED REC#: [id number] PT STATUS: REG ER : 1980 PHYSICIAN: BRANDEN KRAFT MD ADMIT DATE: 06/26/21/ER Draft Date of Exam:06/26/21 CT ABDOMEN/PELVIS WO TECHNIQUE: Multiple contiguous axial images were obtained through the abdomen and pelvis without the use of intravenous contrast. Auto Exposure Controls were utilized during the CT exam to meet ALARA standards for radiation dose reduction. INDICATION: Not feeling well. Vomiting. Seizure earlier today. Pain. Daughter recently had Covid. EXAMINATION: CT abdomen and pelvis without contrast, 06/26/2021. COMPARISON: 02/11/2021. FINDINGS: The visualized lung bases are unremarkable. The nonopacified abdominal viscera is limited due to the lack of contrast. Tiny hypodensities in the liver, too small for characterization. No acute abnormality appreciated. There is evidence of previous cholecystectomy. The spleen is unremarkable. Pancreas and adrenal glands are grossly unremarkable. Hyperdensity in the stomach is likely recently swallowed medication. Kidneys are unremarkable. There is mild wall thickening of the terminal ileum and distal small bowel with adjacent free fluid in the pelvis. Findings could be due to early terminal ileitis or enteritis. Correlate with symptoms. No free air appreciated. No obstructive process appreciated. The colon is decompressed. No abscess formation. There is no acute osseous abnormality. IMPRESSION: Questioned wall thickening of the distal small bowel extending through the level of the terminal ileum suggestive of an enteritis or terminal ileitis. Adjacent free fluid is seen. Correlate with patient's symptoms. Other findings as above. Dictated on workstation # [id number] Dict: 06/26/21 1757 Trans: 06/26/21 1809 [facility] [id number] Interpreted by: SANDEEP RAY MD Reviewed: Reviewed by Me Departure Impression Primary Impression: Hypokalemia Additional Impressions: Nausea & vomiting Qualified Codes: R11.2 - Nausea with vomiting, unspecified Generalized abdominal pain Enteritis Chronic pain Qualified Codes: G89.29 - Other chronic pain Renal insufficiency Disposition: HOME, SELF-CARE Condition: Improved Departure-Patient Inst. Referrals: JOHANNE MATAMOROS MD (PCP/Family) Primary Care Physician Copy Copies To 1: JOHANNE MATAMOROS MD, JOSHUA T MD Jun 26, 2021 19:00
[2021-06-27] MEDS ORDERED: MICRON FILTER IV ONE (09:00)
[2021-06-27] MEDS ORDERED: PHENYTOIN IV ONE (09:00)
== END 2021-06-26 20:24 | disposition left against medical advice (07) ==
LOC: EDUNIT# 11:07 → ER 11:09
DX: E87.6 Hypokalemia (principal); K52.9 Noninfective gastroenteritis and colitis, unspecified; G89.29 Other chronic pain; N28.9 Disorder of kidney and ureter, unspecified; J45.909 Unspecified asthma, uncomplicated; G40.909 Epilepsy, unspecified, not intractable, without status epilepticus; F41.9 Anxiety disorder, unspecified; F32.9 Major depressive disorder, single episode, unspecified; Z20.822 Contact with and (suspected) exposure to COVID-19; Z79.899 Other long term (current) drug therapy
CPT/HCPCS: 36415; 74176; 80053; 83690; 83735; 85025; 86141; 87636

== ENCOUNTER 2021-09-13 16:29 | Emergency (ER) | payer MEDICAID ==
[~2021-09-13] VITALS: Ht 147 cm; Wt 65.0 kg
[2021-09-13] MEDS ORDERED: PROMETHAZINE INJ 25 MG/ML (PHENERGAN) AMP IVP STA (16:46)
--- NOTE | 2021-09-13 16:46 | ED General ---
General Stated Complaint: SEIZURE History of Present Illness Date Seen by Provider: Sep 13, 2021 Time Seen by Provider: 16:23 Initial Comments 41-year-old female brought by EMS after a seizure at home. Patient reports feeling nauseous and concerned that she may have a seizure when EMS was called. When they arrived to the house she was having tonic-clonic movements. She was given Versed 5 mg IV and Zofran 4 mg IV. EMS reports the "shaking" stopped immediately, upon IV being started and she began talking and answering questions and did not appear post ictal. She was not incontinent. She reports last seizure was 3 months ago. She is taking Dilantin for seizures and reports taking it, as prescribed. She last saw her PCP 1 month ago and believes a dilantin level was checked. She has a fentanyl patch on, for chronic neck pain and prescribed by her PCP, Dr. Matamoros. Her sister told EMS she was having withdrawal shaking/seizure from alcohol, however the patient reports no alcohol for 12 months. Timing/Duration: 1 Hour Associated Systoms: Nausea/Vomiting, Seizure (FRANTZ ERVIN) Allergies and Home Medications Allergies Coded Allergies: No Known Drug Allergies (Unverified , 03/20/12) Patient Home Medication List Home Medication List Reviewed: Yes (FRANTZ ERVIN) Ascorbic Acid (Vitamin C) 500 Mg Capsule, 500 MG PO DAILY, (Reported) Entered as Reported by: SURESH BYRD on 02/09/211129 Bupropion HCl (Bupropion Xl) 150 Mg Tab.er.24h, 150 MG PO BID, (Reported) Entered as Reported by: SURESH BYRD on 02/09/211129 Cholecalciferol (Vitamin D3) (Vitamin D3) 125 Mcg Tablet, 125 MCG PO DAILY, (Reported) Entered as Reported by: SURESH BYRD on 02/09/211129 Cyanocobalamin (Vitamin B-12) (Vitamin B-12) 500 Mcg Tablet, 500 MCG PO DAILY, (Reported) Entered as Reported by: SURESH BYRD on 02/09/211129 Diazepam (Diazepam) 10 Mg Tablet, 10 MG PO TID, (Reported) Entered as Reported by: SURESH BYRD on 02/09/211129 Diphenhydramine HCl (Benadryl) 25 Mg Capsule, 25 MG PO DAILY PRN for ALLERGIES, (Reported) Entered as Reported by: SURESH BYRD on 02/09/21 113 Duloxetine HCl (Duloxetine HCl) 60 Mg Capsule.dr, 60 MG PO DAILY, (Reported) Entered as Reported by: SURESH BYRD on 02/09/21 113 Estradiol (Estradiol Tablet) 0.5 Mg Tablet, 0.5 MG PO DAILY, (Reported) Entered as Reported by: SURESH BYRD on 02/09/21 113 Fentanyl (Duragesic Patch 25MCG) 1 Each Patch.td72, 25 MCG TD Q72H, (Reported) Entered as Reported by: SURESH BYRD on 02/09/21 113 Gabapentin (Gabapentin) 800 Mg Tablet, 800 MG PO TID, (Reported) Entered as Reported by: SURESH BYRD on 02/09/21 113 Lubiprostone (Amitiza) 24 Mcg Capsule, 24 MCG PO DAILY, (Reported) Entered as Reported by: SURESH BYRD on 02/09/21 113 Multivitamin (Multivitamin) 1 Each Tablet, 1 EACH PO DAILY, (Reported) Entered as Reported by: SURESH BYRD on 02/09/21 113 Omeprazole (Omeprazole) 40 Mg Capsule.dr, 40 MG PO DAILY, (Reported) Entered as Reported by: SURESH BYRD on 02/09/21 113 Ondansetron (Ondansetron Odt) 4 Mg Tab.rapdis, 4 MG PO Q4H PRN for NAUSEA/VOMITI NG-1ST LINE, (Reported) Entered as Reported by: SURESH BYRD on 02/09/21 113 Potassium Chloride (K-Tab ER) 10 Meq Tablet.er, 10 MEQ PO DAILY Prescribed by: FRANTZ ERVIN on 09/13/21 184 Prochlorperazine Maleate (Compazine) 10 Mg Tablet, 10 MG PO PRN PRN for NAUSEA- 1ST LINE Prescribed by: FRANTZ ERVIN on 09/13/21 193 Tizanidine HCl (Tizanidine HCl) 4 Mg Tablet, 8 MG PO Q6H, (Reported) Entered as Reported by: SURESH BYRD on 02/09/21 113 Turmeric Root Extract (Turmeric) 538 Mg Capsule, 538 MG PO DAILY, (Reported) Entered as Reported by: SURESH BYRD on 02/09/21 5690 Review of Systems Review of Systems Constitutional: no symptoms reported, see HPI Musculoskeletal: see HPI, neck pain (chronic, no change in symptoms today) Psychiatric/Neurological: See HPI, Seizure (FRANTZ ERVIN) All Other Systems Reviewed Negative Unless Noted: Yes (FRANTZ ERVIN) Past Rxgvnnb-Lygxnl-Bnuequ Hx Patient Social History Tobacco Use?: Yes (vaping) Use of E-Cig and/or Vaping dev: Yes E-Cig or Vaping type used: Nicotine Use of E-Cig and/or Vaping Ramez: Current Everyday User Substance use?: No Alcohol Use?: No (for 12 months) (FRANTZ ERVIN) Immunizations Up To Date Tetanus Booster (TDap): Unknown (FRANTZ ERVIN) Seasonal Allergies Seasonal Allergies: No (FRANTZ ERVIN) Past Medical History Surgeries: Yes (MULTIPLE D&C'S, LEFT CARPAL TUNNEL AND LEFT ULNAR NERVE TRANSPOSITION, BSO,) Appendectomy, Gallbladder, Hysterectomy, Oophorectomy, Orthopedic Respiratory: Yes Asthma Cardiac: Yes (TACHYCARDIA) Neurological: Yes (Carpel tunnel syndrome bilat;neuropathy && neurodysplasia of LUE;PSUEDOSZ ?) Neuropathy, Seizure Disorder Reproductive Disorders: Yes (OVARIAN CYSTS, HYSTERECTOMY FOR CERVICAL DYSPLASIA) PIGMENT PUSHER History: Hysterectomy Genitourinary: No Gastrointestinal: Yes ("CHRONIC ABDOMINAL PAIN" ) Musculoskeletal: Yes Chronic Back Pain Endocrine: No HEENT: No Loss of Vision: Denies Hearing Impairment: Denies Cancer: Yes (CERVICAL DYSPLASIA) Cervical What Type of Treatment Did You: Surgical Intervention Psychosocial: Yes (EXTENSIVE PSYCH ISSUES; SUSPECTED PSEUDOSEIZURES) Anxiety, Suicide Attempts, Bipolar, Depression Integumentary: No Blood Disorders: No Adverse Reaction/Blood Tranf: No (FRANTZ ERVIN) Family Medical History Reviewed and Corrections made (FRANTZ ERVIN) No Pertinent Family Hx SOCIAL HISTORY: -ETOH-OCCASIONAL USE -DRUGS--REGULAR MARIJUANA USE, OPIATE AND BENZODIAZEPINE USE, HAS TESTED + FOR METH ON MULTIPLE OCCASIONS -SMOKES CIGARETES PLUS VAPES PAST SURGICAL HISTORY: -APPENDECTOMY -CHOLECYSTECTOMY -HYSTERECTOMY/BILATERAL SALPINGO-OOPHORECTOMY -CERVICAL SPINE FUSION C4-C7 06/25/20 -LEFT ULNAR NERVE SURGERY/TRANSPOSITION -LEFT CARPAL TUNNEL SURGERY -MULTIPLE D&C'S -EGD/COLONOSCOPY (AZIZAFRANTZ PURCELL) Physical Exam Vital Signs Vital Signs - First Documented 09/13/21 16:29 Temp 36.1 Pulse 94 Resp 20 B/P (MAP) 126/95 (105) Pulse Ox 97 O2 Delivery Room Air (BRANDEN KRAFT MD) Vital Signs Capillary Refill : (FRANTZ ERVIN BINH) Height, Weight, BMI Height: 5'0" Weight: 132lbs. oz. 59.753725km; 33.00 BMI Method:Actual General Appearance: No Apparent Distress Eyes: Bilateral Eye Normal Inspection, Bilateral Eye PERRL, Bilateral Eye EOMI HEENT: PERRL/EOMI, TMs Normal, Normal ENT Inspection, Pharynx Normal, Other (no injuries to her tongue or gingiva from biting during seizure) Neck: Full Range of Motion, Normal Inspection, Supple, Tender Lateral (bilat, chronic), Other Respiratory: Chest Non Tender, Lungs Clear, Normal Breath Sounds Cardiovascular: Regular Rate, Rhythm, No Edema, No Murmur, Normal Peripheral Pulses Gastrointestinal: Normal Bowel Sounds, Non Tender, Soft Neurologic/Psychiatric: Alert, Oriented x3, No Motor/Sensory Deficits, Normal Mood/Affect, wolf hunter II-XII Norm as Tested Skin: Normal Color, Warm/Dry (AZIZAFRANTZ PURCELL) Progress/Results/Core Measures Suspected Sepsis SIRS Temperature: Pulse: Respiratory Rate: Laboratory Tests 09/13/21 16:32: White Blood Count 7.9 Blood Pressure / Mean: Laboratory Tests 09/13/21 16:32: Creatinine 1.31H, Platelet Count 228, Total Bilirubin 0.8 (AZIZAFRANTZ) Results/Orders Lab Results Laboratory Tests Test 09/13/21 16:32 09/13/21 17:57 Range/Units White Blood Count 7.9 4.3-11.0 10^3/uL Red Blood Count 5.15 H 3.80-5.11 10^6/uL Hemoglobin 15.4 11.5-16.0 g/dL Hematocrit 46 35-52 % Mean Corpuscular Volume 90 80-99 fL Mean Corpuscular Hemoglobin 30 25-34 pg Mean Corpuscular Hemoglobin Concent 33 32-36 g/dL Red Cell Distribution Width 12.2 10.0-14.5 % Platelet Count 228 130-400 10^3/uL Mean Platelet Volume 12.5 H 9.0-12.2 fL Immature Granulocyte % (Auto) 0 % Neutrophils (%) (Auto) 39 L 42-75 % Lymphocytes (%) (Auto) 46 H 12-44 % Monocytes (%) (Auto) 9 0-12 % Eosinophils (%) (Auto) 4 0-10 % Basophils (%) (Auto) 1 0-10 % Neutrophils # (Auto) 3.1 1.8-7.8 10^3/uL Lymphocytes # (Auto) 3.6 1.0-4.0 10^3/uL Monocytes # (Auto) 0.7 0.0-1.0 10^3/uL Eosinophils # (Auto) 0.3 0.0-0.3 10^3/uL Basophils # (Auto) 0.1 0.0-0.1 10^3/uL Immature Granulocyte # (Auto) 0.0 0.0-0.1 10^3/uL Sodium Level 137 135-145 MMOL/L Potassium Level 2.8 L 3.6-5.0 MMOL/L Chloride Level 95 L 98-107 MMOL/L Carbon Dioxide Level 18 L 21-32 MMOL/L Anion Gap 24 H 5-14 MMOL/L Blood Urea Nitrogen 13 7-18 MG/DL Creatinine 1.31 H 0.60-1.30 MG/DL Estimat Glomerular Filtration Rate 45 BUN/Creatinine Ratio 10 Glucose Level 210 H 70-105 MG/DL Calcium Level 10.4 H 8.5-10.1 MG/DL Corrected Calcium 8.5-10.1 MG/DL Total Bilirubin 0.8 0.1-1.0 MG/DL Aspartate Amino Transf (AST/SGOT) 17 5-34 U/L Alanine Aminotransferase (ALT/SGPT) 15 0-55 U/L Alkaline Phosphatase 102 40-136 U/L Total Protein 8.0 6.4-8.2 GM/DL Albumin 4.9 H 3.2-4.5 GM/DL Prolactin 35.8 ng/mL Phenytoin (Dilantin) Level <1.8 L 10.0-20.0 ug/mL Serum Alcohol < 10 <10 MG/DL Urine Color YELLOW Urine Clarity CLOUDY Urine pH 6.0 5-9 Urine Specific [place] >=1.030 1.016-1.022 Urine Protein TRACE H NEGATIVE Urine Glucose (UA) NEGATIVE NEGATIVE Urine Ketones 3+ H NEGATIVE Urine Nitrite NEGATIVE NEGATIVE Urine Bilirubin 2+ H NEGATIVE Urine Urobilinogen 1.0 < = 1.0 MG/DL Urine Leukocyte Esterase NEGATIVE NEGATIVE Urine RBC (Auto) NEGATIVE NEGATIVE Urine RBC NONE /HPF Urine WBC NONE /HPF Urine Squamous Epithelial Cells 0-2 /HPF Urine Crystals NONE /LPF Urine Bacteria NEGATIVE /HPF Urine Casts PRESENT /LPF Urine Hyaline Casts RARE /LPF Urine Mucus SMALL H /LPF Urine Culture Indicated NO Urine Opiates Screen NEGATIVE NEGATIVE Urine Oxycodone Screen NEGATIVE NEGATIVE Urine Methadone Screen NEGATIVE NEGATIVE Urine Propoxyphene Screen NEGATIVE NEGATIVE Urine Barbiturates Screen NEGATIVE NEGATIVE Ur Tricyclic Antidepressants Screen NEGATIVE NEGATIVE Urine Phencyclidine Screen NEGATIVE NEGATIVE Urine Amphetamines Screen NEGATIVE NEGATIVE Urine Methamphetamines Screen NEGATIVE NEGATIVE Urine Benzodiazepines Screen POSITIVE H NEGATIVE Urine Cocaine Screen NEGATIVE NEGATIVE Urine Cannabinoids Screen POSITIVE H NEGATIVE (BRANDEN KRAFT MD) Medications Given in ED (BRANDEN KRAFT MD) Vital Signs/I&O 09/13/21 09/13/21 16:29 19:45 Temp 36.1 Pulse 94 77 Resp 20 20 B/P (MAP) 126/95 (105) 145/107 Pulse Ox 97 97 O2 Delivery Room Air Room Air (BRANDEN KRAFT MD) Vital Signs/I&O Capillary Refill : (FRANTZ ERVIN) Progress Note : Time: 16:23 Progress Note Patient seen and evaluated, will complete labs, EKG and monitor patient. 1635 patient reports increased nausea, retching noted. Will give LR 1 L per IV and Phenergan 12.5 mg IV. 1720 no seizure activity, K+ 2.8, will give IV K+ 20 mEq. 1800 Patient complains of continued nausea, she is wretching but min bilious emesis. Will give Zofran 8 mg IV. 1900 patient taking ice chips. No seizure activities since admission. Reviewed K-tracs, she is getting Valium 10 mg and Fentanyl 50 mcg patches filled routinely. Discharge instructions and return precautions reviewed. (FRANTZ ERVIN) ECG Initial ECG Impression Date: Sep 13, 2021 Initial ECG Impression Time: 16:33 Initial ECG Rate: 85 Initial ECG Rhythm: Normal Sinus Initial ECG Intervals: Normal Initial ECG Intervals ID 155, QRSD 82, QT 392, QTc 467. Bureau P 78, QRS 65, T 55. Initial ECG Impression: Normal Initial ECG Comparisson: Unchanged (FRANTZ ERVIN) Departure Impression Primary Impression: Seizure disorder Additional Impressions: Nausea & vomiting Qualified Codes: R11.14 - Bilious vomiting Hypokalemia Disposition: HOME, SELF-CARE Condition: Stable Departure-Patient Inst. Decision time for Depature: 18:50 (FRANTZ ERVIN) Referrals: JOHANNE MATAMOROS MD (PCP/Family) Primary Care Physician Patient Instructions: Hypokalemia (DC), Seizures, Adult (DC) Add. Discharge Instructions: Take potassium as prescribed, follow-up with Dr. Matamoros in approximately 5 to 10 days for repeat labs. You may try the Phenergan or Compazine to help with the nausea and vomiting. Continue to take your seizure medication as prescribed. Clear liquid diet for the next 6 to 8 hours then bland diet as tolerated. Return to the emergency department for new, urgent healthcare needs. Scripts Prochlorperazine Maleate (Compazine) 10 Mg Tablet 10 MG PO PRN PRN for NAUSEA-1ST LINE, #12 TAB 0 Refills Prov: FRANTZ ERVIN 09/13/21 Potassium Chloride (K-Tab ER) 10 Meq Tablet.er 10 MEQ PO DAILY, #30 TAB 0 Refills Prov: FRANTZ ERVIN 09/13/21 ATTENDING PHYSICIAN NOTE: I was physically present as attending physician in the emergency department during the care of this patient, but I was not directly involved in the decision making or delivery of care for this patient. (BRANDEN KRAFT MD) FRANTZ ERVIN Sep 13, 2021 16:46 BRANDEN KRAFT MD Sep 13, 2021 17:54
[2021-09-13 16:47] LABS: BASOPHILS # (AUTO) 0.1 10^3/uL (0.0-0.1); BASOPHILS % (AUTO) 1 % (0-10); EOSINOPHILS # (AUTO) 0.3 10^3/uL (0.0-0.3); EOSINOPHILS % (AUTO) 4 % (0-10); HEMATOCRIT 46 % (35-52); HEMOGLOBIN 15.4 g/dL (11.5-16.0); LYMPHOCYTES # (AUTO) 3.6 10^3/uL (1.0-4.0); LYMPHOCYTES % (AUTO) 46 % (12-44); MEAN CORPUSCULAR HEMOGLOBIN 30 pg (25-34); MEAN CORPUSCULAR HGB CONC 33 g/dL (32-36); MEAN CORPUSCULAR VOLUME 90 fL (80-99); MEAN PLATELET VOLUME 12.5 fL (9.0-12.2); MONOCYTES # (AUTO) 0.7 10^3/uL (0.0-1.0); MONOCYTES % (AUTO) 9 % (0-12); NEUTROPHILS # (AUTO) 3.1 10^3/uL (1.8-7.8); NEUTROPHILS % (AUTO) 39 % (42-75); PLATELET COUNT 228 10^3/uL (130-400); WHITE BLOOD COUNT 7.9 10^3/uL (4.3-11.0)
[2021-09-13 16:52] LABS: ALBUMIN 4.9 GM/DL (3.2-4.5); CHLORIDE 95 MMOL/L (98-107); POTASSIUM 2.8 MMOL/L (3.6-5.0); SODIUM 137 MMOL/L (135-145)
[2021-09-13 16:53] LABS: CALCIUM 10.4 MG/DL (8.5-10.1)
[2021-09-13 16:54] LABS: GLUCOSE 210 MG/DL (70-105)
[2021-09-13 16:55] LABS: CARBON DIOXIDE 18 MMOL/L (21-32)
[2021-09-13 16:56] LABS: BILIRUBIN,TOTAL 0.8 MG/DL (0.1-1.0)
[2021-09-13 16:58] LABS: ALKALINE PHOSPHATASE 102 U/L (40-136); CREATININE SERUM 1.31 MG/DL (0.60-1.30); GFR ESTIMATED 45
[2021-09-13 16:59] LABS: BUN/CREATININE RATIO 10
[2021-09-13] MEDS ORDERED: LACTATED RINGERS 1,000 ML IV ONE (17:00)
[2021-09-13 17:01] LABS: ALANINE AMINOTRANSFERASE 15 U/L (0-55)
[2021-09-13] MEDS ORDERED: POTASSIUM CL 10MEQ/50ML IVPB 50 ML IV STA (17:09)
[2021-09-13] MEDS ORDERED: SCOPOLAMINE 1.5 MG (TRANSDERM-SCOP) PATCH TD STA (17:11)
[2021-09-13 18:07] LABS: CLARITY,URINE CLOUDY; COLOR,URINE YELLOW; GLUCOSE, URINE (UA) NEGATIVE (NEGATIVE); KETONES,URINE 3+ (NEGATIVE); LEUKOCYTE ESTERASE ,URINE NEGATIVE (NEGATIVE); NITRITE,URINE NEGATIVE (NEGATIVE); PROTEIN,URINE TRACE (NEGATIVE)
[2021-09-13 18:19] LABS: BACTERIA,URINE NEGATIVE /HPF; BILIRUBIN,URINE 2+ (NEGATIVE); SQUAMOUS EPITHELIAL CELL,UR 0-2 /HPF
[2021-09-13 18:20] LABS: AMPHETAMINE SCREEN, URINE NEGATIVE (NEGATIVE); BARBITURATE SCREEN URINE NEGATIVE (NEGATIVE); BENZODIAZEPINES SCREEN URINE POSITIVE (NEGATIVE); CANNABINOID SCREEN, URINE POSITIVE (NEGATIVE); COCAINE SCREEN URINE NEGATIVE (NEGATIVE); HYALINE CASTS, URINE RARE /LPF; METHADONE STAT NEGATIVE (NEGATIVE); METHAMPHETAMINE SCREEN URINE S NEGATIVE (NEGATIVE); OPIATE SCREEN URINE NEGATIVE (NEGATIVE); OXYCODONE STAT NEGATIVE (NEGATIVE); PROPOXYPHENE STAT NEGATIVE (NEGATIVE); TRICYCLIC ANTIDEPRESSANTS SCRE NEGATIVE (NEGATIVE)
[2021-09-13] MEDS ORDERED: ONDANSETRON 4 MG/2 ML (SDV) Z0FRAN IVP ONE (18:30)
[2021-09-13] MEDS ORDERED: POTA10TA PO (18:44)
[2021-09-13] MEDS ORDERED: RX-PHENERGAN 25 MG SUPP PPK#3 PR STA (19:24)
[2021-09-13] MEDS ORDERED: PROC-1 PO (19:32)
[2021-09-13 19:45] VITALS: BP 145/107
== END 2021-09-13 19:45 | disposition home or self-care (01) ==
LOC: EDUNIT# 16:29 → ER 16:30
DX: G40.909 Epilepsy, unspecified, not intractable, without status epilepticus (principal); R11.2 Nausea with vomiting, unspecified; E87.6 Hypokalemia; J45.909 Unspecified asthma, uncomplicated; F41.9 Anxiety disorder, unspecified; F32.9 Major depressive disorder, single episode, unspecified; F17.200 Nicotine dependence, unspecified, uncomplicated; Z79.899 Other long term (current) drug therapy
CPT/HCPCS: 80053; 80185; 80306; 81000; 84146; 85025; 93005; 99284; G0480; 36415; 80320

== ENCOUNTER 2021-09-15 11:03 | Emergency (ER) | payer MEDICAID ==
[~2021-09-15] VITALS: Ht 145 cm; Wt 62.0 kg
[~2021-09-15 11:03] MED LIST changes: +POTA10TA PO; +PROC-1 PO
[2021-09-15] MEDS ORDERED: PROMETHAZINE INJ 25 MG/ML (PHENERGAN) AMP IVP STA (11:13)
[2021-09-15] MEDS ORDERED: PANTOPRAZOLE 40 MG (PROTONIX) VIAL IV STA (11:13)
[2021-09-15] MEDS ORDERED: LACTATED RINGERS 1,000 ML IV ONE ×2 (11:15→12:15)
[2021-09-15 11:23] LABS: BASOPHILS % (AUTO) 0 % (0-10); EOSINOPHILS % (AUTO) 0 % (0-10); HEMATOCRIT 41 % (35-52); HEMOGLOBIN 14.1 g/dL (11.5-16.0); LYMPHOCYTES # (AUTO) 2.3 10^3/uL (1.0-4.0); LYMPHOCYTES % (AUTO) 22 % (12-44); MEAN CORPUSCULAR HEMOGLOBIN 30 pg (25-34); MEAN CORPUSCULAR HGB CONC 34 g/dL (32-36); MEAN CORPUSCULAR VOLUME 87 fL (80-99); MEAN PLATELET VOLUME 12.6 fL (9.0-12.2); MONOCYTES # (AUTO) 0.9 10^3/uL (0.0-1.0); MONOCYTES % (AUTO) 9 % (0-12); NEUTROPHILS # (AUTO) 6.8 10^3/uL (1.8-7.8); NEUTROPHILS % (AUTO) 68 % (42-75); PLATELET COUNT 182 10^3/uL (130-400); WHITE BLOOD COUNT 10.1 10^3/uL (4.3-11.0)
[2021-09-15 11:34] LABS: ALBUMIN 4.5 GM/DL (3.2-4.5)
--- NOTE | 2021-09-15 11:35 | ED Abdominal Pain ---
General Chief Complaint: Neurological Problems Stated Complaint: SEIZURE Nursing Triage Note: PT ARRIVED PER EMS, PT CO OF SEIZURES, PT AWAKE AND ALERT STATES SHE HAS BEEN HAVING N/V FOR 3 DAYS, WAS SEEN ON TUESDAY FOR SAME C/O. PT WAS GIVEN 5MG IM VERSED BY EMS @ 1047 FOR SEIZURE ACTIVITY. PT HAS SL IN L WRIST #20 BY EMS (FRANTZ ERVIN) History of Present Illness Date Seen by Provider: Sep 15, 2021 Time Seen by Provider: 11:02 Initial Comments 41-year-old female presents via EMS after a seizure at home. She has a known seizure disorder and takes Dilantin and Valium. She was evaluated at this ED on 09/13/21 and reports nausea and vomiting since then. She has not been able to take any of her medications today. Upon checking her Dilantin level from the previous ED visit, she is subtherapeutic. She reports taking Zofran p.o. at 0600 but persists to have nausea and vomiting. She reports no solid food today, she has tried liquids but persisted to vomit them within 5 to 10 minutes. She has had a previous cholecystectomy, hysterectomy oophorectomy, and appendectomy. EMS was called to her home for dizziness and when they arrived she was having a tonic-clonic seizure but able to follow simple commands. She was given Versed 5 mg IM and the seizure stopped. Glucose was 99. Timing/Duration: 3-4 Days Severity/Quality: Moderate Location: Epigastric Radiation: No Radiation Associated Symptoms: Back Pain (chronic from deg disk disease), Heartburn, Nausea/Vomiting, Other (seizure) (FRANTZ ERVIN) Allergies and Home Medications Allergies Coded Allergies: No Known Drug Allergies (Unverified , 03/20/12) Patient Home Medication List Home Medication List Reviewed: Yes (FRANTZ ERVIN) Ascorbic Acid (Vitamin C) 500 Mg Capsule, 500 MG PO DAILY, (Reported) Entered as Reported by: SURESH BYRD on 02/09/21 1130 Bupropion HCl (Bupropion Xl) 150 Mg Tab.er.24h, 150 MG PO BID, (Reported) Entered as Reported by: SURESH BYRD on 02/09/21 1130 Cholecalciferol (Vitamin D3) (Vitamin D3) 125 Mcg Tablet, 125 MCG PO DAILY, (Reported) Entered as Reported by: SURESH BYRD on 02/09/21 113 Cyanocobalamin (Vitamin B-12) (Vitamin B-12) 500 Mcg Tablet, 500 MCG PO DAILY, (Reported) Entered as Reported by: SURESH BYRD on 02/09/21 113 Diazepam (Diazepam) 10 Mg Tablet, 10 MG PO TID, (Reported) Entered as Reported by: SURESH BYRD on 02/09/21 113 Diphenhydramine HCl (Benadryl) 25 Mg Capsule, 25 MG PO DAILY PRN for ALLERGIES, (Reported) Entered as Reported by: SURESH BYRD on 02/09/21 113 Duloxetine HCl (Duloxetine HCl) 60 Mg Capsule.dr, 60 MG PO DAILY, (Reported) Entered as Reported by: SURESH BYRD on 02/09/21 113 Estradiol (Estradiol Tablet) 0.5 Mg Tablet, 0.5 MG PO DAILY, (Reported) Entered as Reported by: SURESH BYRD on 02/09/21 113 Fentanyl (Duragesic Patch 25MCG) 1 Each Patch.td72, 25 MCG TD Q72H, (Reported) Entered as Reported by: SURESH BYRD on 02/09/21 113 Gabapentin (Gabapentin) 800 Mg Tablet, 800 MG PO TID, (Reported) Entered as Reported by: SURESH BYRD on 02/09/21 113 Lubiprostone (Amitiza) 24 Mcg Capsule, 24 MCG PO DAILY, (Reported) Entered as Reported by: SURESH BYRD on 02/09/21 113 Multivitamin (Multivitamin) 1 Each Tablet, 1 EACH PO DAILY, (Reported) Entered as Reported by: SURESH BYRD on 02/09/21 113 Omeprazole (Omeprazole) 40 Mg Capsule.dr, 40 MG PO DAILY, (Reported) Entered as Reported by: SURESH BYRD on 02/09/21 113 Ondansetron (Ondansetron Odt) 4 Mg Tab.rapdis, 4 MG PO Q4H PRN for NAUSEA/VOMITING-1ST LINE, (Reported) Entered as Reported by: SURESH BYRD on 02/09/21 113 Potassium Chloride (K-Tab ER) 10 Meq Tablet.er, 10 MEQ PO DAILY Prescribed by: FRANTZ ERVIN on 09/13/21 184 Prochlorperazine Maleate (Compazine) 10 Mg Tablet, 10 MG PO PRN PRN for NAUSEA- 1ST LINE Prescribed by: FRANTZ ERVIN on 09/13/21 193 Tizanidine HCl (Tizanidine HCl) 4 Mg Tablet, 8 MG PO Q6H, (Reported) Entered as Reported by: SURESH BYRD on 02/09/21 1130 Turmeric Root Extract (Turmeric) 538 Mg Capsule, 538 MG PO DAILY, (Reported) Entered as Reported by: SURESH BYRD on 02/09/21 1130 Review of Systems Review of Systems Constitutional: no symptoms reported, see HPI Respiratory: No Symptoms Reported, See HPI; Denies Cough, Denies Shortness of Air Cardiovascular: No Symptoms Reported, See HPI; Denies Chest Pain Gastrointestinal: See HPI, Abdominal Pain; Denies Diarrhea; Nausea, Poor Appetite, Poor Fluid Intake, Vomiting Genitourinary: No Symptoms Reported, See HPI (FRANTZ ERVIN) All Other Systems Reviewed Negative Unless Noted: Yes (FRANTZ ERVIN) Past Vbvtgex-Thisba-Ajrpsn Hx Immunizations Up To Date Tetanus Booster (TDap): Unknown (FRANTZ ERVIN) Seasonal Allergies Seasonal Allergies: No (FRANTZ ERVIN) Past Medical History Surgery/Hospitalization HX: APPENDECTOMY, GB, HYSTERECTOMY, CERVICAL FUSION Surgeries: Yes (MULTIPLE D&C'S, LEFT CARPAL TUNNEL AND LEFT ULNAR NERVE TRANSPOSITION, BSO,) Appendectomy, Gallbladder, Hysterectomy, Oophorectomy, Orthopedic Respiratory: Yes Asthma Cardiac: Yes (TACHYCARDIA) Neurological: Yes (Carpel tunnel syndrome bilat;neuropathy && neurodysplasia of LUE;PSUEDOSZ ?) Neuropathy, Seizure Disorder Reproductive Disorders: Yes (OVARIAN CYSTS, HYSTERECTOMY FOR CERVICAL DYSPLASIA) RIVER RAT History: Hysterectomy Genitourinary: No Gastrointestinal: Yes ("CHRONIC ABDOMINAL PAIN" ) Musculoskeletal: Yes Chronic Back Pain Endocrine: No HEENT: No Loss of Vision: Denies Hearing Impairment: Denies Cancer: Yes (CERVICAL DYSPLASIA) Cervical What Type of Treatment Did You: Surgical Intervention Psychosocial: Yes (EXTENSIVE PSYCH ISSUES; SUSPECTED PSEUDOSEIZURES) Anxiety, Suicide Attempts, Bipolar, Depression Integumentary: No Blood Disorders: No Adverse Reaction/Blood Tranf: No (FRANTZ ERVIN) Family Medical History Reviewed Nursing Family Hx (FRANTZ ERVIN) No Pertinent Family Hx SOCIAL HISTORY: -ETOH-OCCASIONAL USE -DRUGS--REGULAR MARIJUANA USE, OPIATE AND BENZODIAZEPINE USE, HAS TESTED + FOR METH ON MULTIPLE OCCASIONS -SMOKES CIGARETES PLUS VAPES PAST SURGICAL HISTORY: -APPENDECTOMY -CHOLECYSTECTOMY -HYSTERECTOMY/BILATERAL SALPINGO-OOPHORECTOMY -CERVICAL SPINE FUSION C4-C7 06/25/20 -LEFT ULNAR NERVE SURGERY/TRANSPOSITION -LEFT CARPAL TUNNEL SURGERY -MULTIPLE D&C'S -EGD/COLONOSCOPY (FRANTZ ERVIN) Physical Exam Vital Signs Vital Signs - First Documented 09/15/21 11:10 Temp 37.1 Pulse 85 Resp 20 B/P (MAP) 146/98 (114) Pulse Ox 98 (BRANDEN KRAFT MD) Vital Signs Capillary Refill : Less Than 3 Seconds (FRANTZ ERVIN) Height/Weight/BMI Height: 5'0" Weight: 132lbs. oz. 59.640992sd; 29.00 BMI Method:Actual General Appearance: WD/WN, mild distress (secondary to nausea) HEENT: PERRL/EOMI, normal ENT inspection, TMs normal, pharynx normal, other (oral mucosa pink and moist) Neck: non-tender, full range of motion, supple, normal inspection Respiratory: chest non-tender, lungs clear, normal breath sounds Cardiovascular: normal peripheral pulses, regular rate, rhythm Gastrointestinal: normal bowel sounds, soft; No distended, No guarding, No rebound; tenderness (epigastric); No mass Back: normal inspection, no CVA tenderness, no vertebral tenderness Neurologic/Psychiatric: no motor/sensory deficits, alert, normal mood/affect, oriented x 3 Skin: normal color, warm/dry (FRANTZ ERVIN) Progress/Results/Core Measures Results/Orders Lab Results Laboratory Tests Test 09/15/21 11:15 09/15/21 13:17 Range/Units White Blood Count 10.1 4.3-11.0 10^3/uL Red Blood Count 4.70 3.80-5.11 10^6/uL Hemoglobin 14.1 11.5-16.0 g/dL Hematocrit 41 35-52 % Mean Corpuscular Volume 87 80-99 fL Mean Corpuscular Hemoglobin 30 25-34 pg Mean Corpuscular Hemoglobin Concent 34 32-36 g/dL Red Cell Distribution Width 12.3 10.0-14.5 % Platelet Count 182 130-400 10^3/uL Mean Platelet Volume 12.6 H 9.0-12.2 fL Immature Granulocyte % (Auto) 0 % Neutrophils (%) (Auto) 68 42-75 % Lymphocytes (%) (Auto) 22 12-44 % Monocytes (%) (Auto) 9 0-12 % Eosinophils (%) (Auto) 0 0-10 % Basophils (%) (Auto) 0 0-10 % Neutrophils # (Auto) 6.8 1.8-7.8 10^3/uL Lymphocytes # (Auto) 2.3 1.0-4.0 10^3/uL Monocytes # (Auto) 0.9 0.0-1.0 10^3/uL Eosinophils # (Auto) 0.0 0.0-0.3 10^3/uL Basophils # (Auto) 0.0 0.0-0.1 10^3/uL Immature Granulocyte # (Auto) 0.0 0.0-0.1 10^3/uL Sodium Level 135 135-145 MMOL/L Potassium Level 3.0 L 3.6-5.0 MMOL/L Chloride Level 94 L 98-107 MMOL/L Carbon Dioxide Level 24 21-32 MMOL/L Anion Gap 17 H 5-14 MMOL/L Blood Urea Nitrogen 10 7-18 MG/DL Creatinine 0.99 0.60-1.30 MG/DL Estimat Glomerular Filtration Rate 62 BUN/Creatinine Ratio 10 Glucose Level 112 H 70-105 MG/DL Calcium Level 10.0 8.5-10.1 MG/DL Corrected Calcium 9.6 8.5-10.1 MG/DL Total Bilirubin 0.6 0.1-1.0 MG/DL Aspartate Amino Transf (AST/SGOT) 28 5-34 U/L Alanine Aminotransferase (ALT/SGPT) 15 0-55 U/L Alkaline Phosphatase 88 40-136 U/L C-Reactive Protein High Sensitivity 0.06 0.00-0.50 MG/DL Total Protein 7.2 6.4-8.2 GM/DL Albumin 4.5 3.2-4.5 GM/DL Urine Color YELLOW Urine Clarity CLEAR Urine pH 5.5 5-9 Urine Specific [place] <=1.005 1.016-1.022 Urine Protein NEGATIVE NEGATIVE Urine Glucose (UA) NEGATIVE NEGATIVE Urine Ketones 2+ H NEGATIVE Urine Nitrite NEGATIVE NEGATIVE Urine Bilirubin NEGATIVE NEGATIVE Urine Urobilinogen 0.2 < = 1.0 MG/DL Urine Leukocyte Esterase NEGATIVE NEGATIVE Urine RBC (Auto) NEGATIVE NEGATIVE Urine RBC NONE /HPF Urine WBC RARE /HPF Urine Squamous Epithelial Cells 2-5 /HPF Urine Crystals NONE /LPF Urine Bacteria TRACE /HPF Urine Casts NONE /LPF Urine Mucus SMALL H /LPF Urine Culture Indicated NO Urine Opiates Screen NEGATIVE NEGATIVE Urine Oxycodone Screen NEGATIVE NEGATIVE Urine Methadone Screen NEGATIVE NEGATIVE Urine Propoxyphene Screen NEGATIVE NEGATIVE Urine Barbiturates Screen NEGATIVE NEGATIVE Ur Tricyclic Antidepressants Screen NEGATIVE NEGATIVE Urine Phencyclidine Screen NEGATIVE NEGATIVE Urine Amphetamines Screen NEGATIVE NEGATIVE Urine Methamphetamines Screen NEGATIVE NEGATIVE Urine Benzodiazepines Screen POSITIVE H NEGATIVE Urine Cocaine Screen NEGATIVE NEGATIVE Urine Cannabinoids Screen POSITIVE H NEGATIVE (BRANDEN KRAFT MD) Medications Given in ED Current Medications Medications Dose Ordered Sig/Rafael Route Start Time Stop Time Status Last Admin Dose Admin Iohexol 75 ml ONCE ONCE IV 09/15/21 11:45 09/15/21 11:46 DC 09/15/21 11:42 75 ML Lactated Ringer's 1,000 ml @ 0 mls/hr Q0M ONCE IV 09/15/21 11:15 09/15/21 11:16 DC 09/15/21 11:29 1,000 MLS/HR Lactated Ringer's 1,000 ml @ 0 mls/hr Q0M ONCE IV 09/15/21 12:15 09/15/21 12:17 DC 09/15/21 12:34 1,000 MLS/HR Sodium Chloride 10 ml NEEDED PRN IV 09/15/21 11:45 09/15/21 14:45 DC 09/15/21 11:43 10 ML Sodium Chloride 100 ml ONCE ONCE IV 09/15/21 11:45 09/15/21 11:46 DC 09/15/21 11:42 80 ML (BRANDEN KRAFT MD) Vital Signs/I&O 09/15/21 09/15/21 11:10 14:45 Temp 37.1 37.1 Pulse 85 85 Resp 20 20 B/P (MAP) 146/98 (114) 146/98 Pulse Ox 98 98 (BRANDEN KRAFT MD) Blood Pressure Mean: 114 Progress Progress Note : Time: 11:02 Progress Note Patient seen and evaluated, will give LR 1 L per IV, Phenergan 25 mg IV, labs, CT abdomen and pelvis. 1200 continues to have Nausea and bilious vomiting, will give LR 2nd liter IV. Patient requesting ice chips, will hold for now, since nauseated. Will give Dilantin IV. CT Abdomen negative. 1300 Patient has urinated 2 times, persistent nausea, will try Haldol 5 mg IV, to see if this helps with her symptoms and if cannabinoid hyperemesis. 1405 patient reports improvement in her symptoms, explained that her problem is related to smoking marijuana and stopping will help her symptoms. She continues to deny using marijuana, although she had 2 positive drug screens this week and multiple in the past. Discharge instructions and return precautions reviewed with her. stressed importance of taking her dilantin for seizures. (FRANTZ ERVIN) Diagnostic Imaging Diagonstic Imaging: CT Plain Films/CT/US/NM/MRI: abdomen, pelvis Comments NAME: ALYSSA PHELPS MED REC#: [id number] PT STATUS: REG ER : 1980 PHYSICIAN: FRANTZ ERVIN ADMIT DATE: 09/15/21/ER Draft Date of Exam:09/15/21 CT ABDOMEN/PELVIS W PROCEDURE: CT abdomen and pelvis with contrast. TECHNIQUE: Multiple contiguous axial images were obtained through the abdomen and pelvis after administration of intravenous contrast. Auto Exposure Controls were utilized during the CT exam to meet ALARA standards for radiation dose reduction. All CT scans use one or more of the following dose optimizing techniques: automated exposure control, MA and/or KvP adjustment based on patient size and exam type or iterative reconstruction. INDICATION: Nausea. COMPARISON: 06/26/2021 FINDINGS: Included portions of the lung bases are clear. CT ABDOMEN: Normal appendix cannot be adequately identified, but this may be surgically absent. Small bowel loops are nondistended. The kidneys, adrenal glands, spleen, and pancreas have a normal CT appearance. There is small subcentimeter spherical area of hypoenhancement within segment 4B of the liver that measures 5 mm. This could be on the basis of a small cyst, but is too small adequately characterize based on this exam. There is also focal fatty infiltrate adjacent to the falciform ligament. No loculated fluid collection, free fluid or free air was identified within the abdomen. No abnormal mesenteric or retroperitoneal adenopathy is seen. Osseous structures show no acute abnormalities. CT pelvis: Urinary bladder is unopacified. No calculi are seen within urinary bladder. There is however small amount of intraluminal gas within the non-gravity dependent portion of the urinary bladder. There is no loculated fluid collection, free fluid, nor free air. No abnormal lymph nodes are seen. Osseous structures show no acute abnormalities. IMPRESSION:. Small amount of intraluminal gas within the lumen of the urinary bladder. Correlation with recent instrumentation is recommended. Alternately, findings can be seen with gas forming cystitis. 2. No other acute abnormalities are seen within the abdomen or pelvis. Dictated on workstation # [id number] Dict: 09/15/21 1154 Trans: 09/15/21 1200 CVB [id number] Interpreted by: SOFÍA GARNER MD Electronically signed by: Reviewed: Reviewed by Me (FRANTZ ERVIN) Departure Impression Primary Impression: Seizure disorder Additional Impressions: Subtherapeutic serum dilantin level Cannabinoid hyperemesis syndrome Disposition: HOME, SELF-CARE Condition: Improved Departure-Patient Inst. Decision time for Depature: 14:05 (FRANTZ ERVIN) Referrals: JOHANNE MATAMOROS MD (PCP/Family) Primary Care Physician Patient Instructions: Cannabis Hyperemesis Syndrome, Drug Abuse and Drug Addiction (DC), Seizures, Adult (DC) Add. Discharge Instructions: Stop using Marijuana, your vomiting is a result of using this (even just a little bit). Take your seizure medications and Potassium. Follow up with Dr. Matamoros, if symptoms are not improving or worsen. Use the Zofran or Compazine for Nausea and Vomiting, however these medications do not help for hyperemesis from marijuana. Return to the Emergency Dept for new, urgent health care needs. All discharge instructions reviewed with patient and/or family. Voiced understanding. ATTENDING PHYSICIAN NOTE: I was physically present as attending physician in the emergency department during the care of this patient, but I was not directly involved in the decision making or delivery of care for this patient. (BRANDEN KARFT MD) Copy Copies To 1: JOHANNE MATAMOROS MD, AMY ARNP Sep 15, 2021 11:35 BRANDEN KRAFT MD Sep 15, 2021 15:05
[2021-09-15 11:36] LABS: TOTAL PROTEIN 7.2 GM/DL (6.4-8.2)
[2021-09-15 11:38] LABS: BILIRUBIN,TOTAL 0.6 MG/DL (0.1-1.0)
[2021-09-15 11:40] LABS: CREATININE SERUM 0.99 MG/DL (0.60-1.30)
[2021-09-15] MEDS ORDERED: HOLD METFORMIN - RECEIVED CONTRAST 20 ML VIAL IV SCH (11:45)
[2021-09-15] MEDS ORDERED: NS 100 ML (IVPB) BAG IV ONE (11:45)
[2021-09-15] MEDS ORDERED: CATHETER FLUSH 10 ML SYR IV PRN (11:45)
[2021-09-15] MEDS ORDERED: IOHEXOL 350 MG/ML 100 ML (OMNIPAQUE 350) VIAL IV ONE (11:45)
--- NOTE | 2021-09-15 12:01 | Diagnostic Imaging Report ---
PROCEDURE: CT abdomen and pelvis with contrast. TECHNIQUE: Multiple contiguous axial images were obtained through the abdomen and pelvis after administration of intravenous contrast. Auto Exposure Controls were utilized during the CT exam to meet ALARA standards for radiation dose reduction. All CT scans use one or more of the following dose optimizing techniques: automated exposure control, MA and/or KvP adjustment based on patient size and exam type or iterative reconstruction. INDICATION: Nausea. COMPARISON: 06/26/2021 FINDINGS: Included portions of the lung bases are clear. CT ABDOMEN: Normal appendix cannot be adequately identified, but this may be surgically absent. Small bowel loops are nondistended. The kidneys, adrenal glands, spleen, and pancreas have a normal CT appearance. There is small subcentimeter spherical area of hypoenhancement within segment 4B of the liver that measures 5 mm. This could be on the basis of a small cyst, but is too small adequately characterize based on this exam. There is also focal fatty infiltrate adjacent to the falciform ligament. No loculated fluid collection, free fluid or free air was identified within the abdomen. No abnormal mesenteric or retroperitoneal adenopathy is seen. Osseous structures show no acute abnormalities. CT pelvis: Urinary bladder is unopacified. No calculi are seen within urinary bladder. There is however small amount of intraluminal gas within the non-gravity dependent portion of the urinary bladder. There is no loculated fluid collection, free fluid, nor free air. No abnormal lymph nodes are seen. Osseous structures show no acute abnormalities. IMPRESSION:. Small amount of intraluminal gas within the lumen of the urinary bladder. Correlation with recent instrumentation is recommended. Alternately, findings can be seen with gas forming cystitis. 2. No other acute abnormalities are seen within the abdomen or pelvis. Dictated by: Dictated on workstation # [id number]
[2021-09-15] MEDS ORDERED: POTASSIUM CL 10MEQ/50ML IVPB 50 ML IV STA (12:15)
[2021-09-15] MEDS ORDERED: NS IV STA ×3 (12:33)
[2021-09-15] MEDS ORDERED: PHENYTOIN IV STA ×3 (12:33)
[2021-09-15] MEDS ORDERED: MICRON FILTER IV STA ×3 (12:33)
[2021-09-15] MEDS ORDERED: HALOPERIDOL 5 MG/ML (HALDOL) VIAL IM STA (13:17)
[2021-09-15 13:26] LABS: BILIRUBIN,URINE NEGATIVE (NEGATIVE); CLARITY,URINE CLEAR; COLOR,URINE YELLOW; GLUCOSE, URINE (UA) NEGATIVE (NEGATIVE); KETONES,URINE 2+ (NEGATIVE); LEUKOCYTE ESTERASE ,URINE NEGATIVE (NEGATIVE); NITRITE,URINE NEGATIVE (NEGATIVE); PH,URINE 5.5 (5-9); PROTEIN,URINE NEGATIVE (NEGATIVE)
[2021-09-15 13:38] LABS: AMPHETAMINE SCREEN, URINE NEGATIVE (NEGATIVE); BARBITURATE SCREEN URINE NEGATIVE (NEGATIVE); BENZODIAZEPINES SCREEN URINE POSITIVE (NEGATIVE); CANNABINOID SCREEN, URINE POSITIVE (NEGATIVE); COCAINE SCREEN URINE NEGATIVE (NEGATIVE); METHADONE STAT NEGATIVE (NEGATIVE); METHAMPHETAMINE SCREEN URINE S NEGATIVE (NEGATIVE); OPIATE SCREEN URINE NEGATIVE (NEGATIVE); OXYCODONE STAT NEGATIVE (NEGATIVE); PROPOXYPHENE STAT NEGATIVE (NEGATIVE); TRICYCLIC ANTIDEPRESSANTS SCRE NEGATIVE (NEGATIVE)
[2021-09-15 13:40] LABS: BACTERIA,URINE TRACE /HPF; WBC,URINE RARE /HPF
[2021-09-15 14:45] VITALS: BP 146/98
[2021-09-16] MEDS ORDERED: PHEN100C11 PO (15:08)
[2021-09-16] MEDS ORDERED: QUET25TA35 PO (15:08)
[2021-09-16] MEDS ORDERED: BUPR300T98 PO (15:08)
[2021-09-16] MEDS ORDERED: FENT1PAT9 TD (15:08)
[2021-09-16] MEDS ORDERED: ONDA-105 PO (15:08)
== END 2021-09-15 14:45 | disposition home or self-care (01) ==
LOC: ER 11:04
DX: G40.909 Epilepsy, unspecified, not intractable, without status epilepticus (principal); R89.2 Abnormal level of other drugs, medicaments and biological substances in specimens from other organs, systems and tissues; R11.2 Nausea with vomiting, unspecified; J45.909 Unspecified asthma, uncomplicated; F41.9 Anxiety disorder, unspecified; F32.9 Major depressive disorder, single episode, unspecified; Z79.899 Other long term (current) drug therapy
CPT/HCPCS: 36415; 74177; 80053; 80306; 81000; 85025; 86141

== ENCOUNTER 2021-09-16 10:58 | Day surgery (SDC) | payer MEDICAID ==
[~2021-09-16] VITALS: Ht 172 cm; Wt 68.1 kg
--- NOTE | 2021-09-16 11:11 | ED Abdominal Pain ---
General Stated Complaint: ABD PAIN Source of Information: Patient, EMS Exam Limitations: No Limitations (YEMI BONILLA APRN) History of Present Illness Date Seen by Provider: Sep 16, 2021 Time Seen by Provider: 11:06 Initial Comments To ER by EMS from home with reports of nausea, cramping, diffuse abdominal pain. Was seen here yesterday and told her potassium was low at 3. She was unable to afford the potassium prescription as it cost $8. She takes diazepam 10 mg 3 time s a day and has a fentanyl patch 50 mcg/h on but these are not adequately controlling her symptoms she states. Timing/Duration: 1-2 Days Severity/Quality: Moderate Radiation: No Radiation Activities at Onset: None Associated Symptoms: Nausea/Vomiting (YEMI BONILLA APRN) Allergies and Home Medications Allergies Coded Allergies: No Known Drug Allergies (Unverified , 03/20/12) Patient Home Medication List Home Medication List Reviewed: Yes (YEMI BONILLA APRN) Bupropion HCl (Bupropion Xl) 300 Mg Tab.er.24h, 300 MG PO HS, (Reported) Entered as Reported by: SYED GIRALDO on 09/16/211507 Last Action: Reviewed Diazepam (Diazepam) 10 Mg Tablet, 10 MG PO TID PRN for ANXIETY, (Reported) Entered as Reported by: SURESH BYRD on 02/09/211129 Last Action: Reviewed Duloxetine HCl (Duloxetine HCl) 60 Mg Capsule.dr, 120 MG PO HS, (Reported) Entered as Reported by: SURESH BYRD on 02/09/211129 Last Action: Reviewed Estradiol (Estradiol Tablet) 0.5 Mg Tablet, 0.5 MG PO DAILY, (Reported) Entered as Reported by: SURESH BYRD on 02/09/211129 Last Action: Reviewed Fentanyl (Fentanyl Patch 50 MCG) 1 Each Patch.td72, 50 MCG TD Q72H, (Reported) Entered as Reported by: SYED GIRALDO on 09/16/211507 Last Action: Reviewed Gabapentin (Gabapentin) 800 Mg Tablet, 800 MG PO TID PRN for NEUROPATHIC PAIN, (Reported) Entered as Reported by: SURESH BYRD on 02/09/211129 Last Action: Reviewed Ondansetron HCl (Ondansetron HCl) 4 Mg Tablet, 4 MG PO Q4H PRN for NAUSEA/VOMITING-1ST LINE, (Reported) Entered as Reported by: SYED GIRALDO on 09/16/211507 Last Action: Reviewed Phenytoin Sodium Extended (Phenytoin Sodium Extended) 100 Mg Capsule, 100 MG PO BID, (Reported) Entered as Reported by: SYED GIRALDO on 09/16/211507 Last Action: Reviewed Quetiapine Fumarate (Quetiapine Fumarate) 25 Mg Tablet, 12.5 MG PO HS, (Reported) Entered as Reported by: SYED GIRALDO on 09/16/211507 Last Action: Reviewed Tizanidine HCl (Tizanidine HCl) 4 Mg Tablet, 8 MG PO Q6H PRN for MUSCLE SPASMS, (Reported) Entered as Reported by: SURESH BYRD on 02/09/211129 Last Action: Reviewed Discontinued Medications Ascorbic Acid (Vitamin C) 500 Mg Capsule, 500 MG PO DAILY, (Reported) Discontinued Reason: No Longer Taking Entered as Reported by: SURESH BYRD on 02/09/211129 Last Action: Discontinued Bupropion HCl (Bupropion Xl) 150 Mg Tab.er.24h, 150 MG PO BID, (Reported) Discontinued Reason: No Longer Taking Entered as Reported by: SURESH BYRD on 02/09/211129 Last Action: Discontinued Cholecalciferol (Vitamin D3) (Vitamin D3) 125 Mcg Tablet, 125 MCG PO DAILY, (Reported) Discontinued Reason: No Longer Taking Entered as Reported by: SURESH BYRD on 02/09/211129 Last Action: Discontinued Cyanocobalamin (Vitamin B-12) (Vitamin B-12) 500 Mcg Tablet, 500 MCG PO DAILY, (Reported) Discontinued Reason: No Longer Taking Entered as Reported by: SURESH BYRD on 02/09/211129 Last Action: Discontinued Diphenhydramine HCl (Benadryl) 25 Mg Capsule, 25 MG PO DAILY PRN for ALLERGIES, (Reported) Discontinued Reason: No Longer Taking Entered as Reported by: SURESH BYRD on 02/09/211129 Last Action: Discontinued Fentanyl (Duragesic Patch 25MCG) 1 Each Patch.td72, 25 MCG TD Q72H, (Reported) Discontinued Reason: No Longer Taking Entered as Reported by: SURESH BYRD on 02/09/211131 Last Action: Discontinued Lubiprostone (Amitiza) 24 Mcg Capsule, 24 MCG PO DAILY, (Reported) Discontinued Reason: No Longer Taking Entered as Reported by: SURESH BYRD on 02/09/211129 Last Action: Discontinued Multivitamin (Multivitamin) 1 Each Tablet, 1 EACH PO DAILY, (Reported) Discontinued Reason: No Longer Taking Entered as Reported by: SURESH BYRD on 02/09/211135 Last Action: Discontinued Omeprazole (Omeprazole) 40 Mg Capsule.dr, 40 MG PO DAILY, (Reported) Discontinued Reason: No Longer Taking Entered as Reported by: SURESH BYRD on 02/09/211129 Last Action: Discontinued Ondansetron (Ondansetron Odt) 4 Mg Tab.rapdis, 4 MG PO Q4H PRN for NAUSEA/VOMITING-1ST LINE, (Reported) Discontinued Reason: No Longer Taking Entered as Reported by: SURESH BYRD on 02/09/211129 Last Action: Discontinued Potassium Chloride (K-Tab ER) 10 Meq Tablet.er, 10 MEQ PO DAILY Discontinued Reason: No Longer Taking Prescribed by: FRANTZ ERVIN on 09/13/21 1844 Last Action: Discontinued Prochlorperazine Maleate (Compazine) 10 Mg Tablet, 10 MG PO PRN PRN for NAUSEA- 1ST LINE Discontinued Reason: No Longer Taking Prescribed by: FRANTZ ERVIN on 09/13/21 193 Last Action: Discontinued Turmeric Root Extract (Turmeric) 538 Mg Capsule, 538 MG PO DAILY, (Reported) Discontinued Reason: No Longer Taking Entered as Reported by: SURESH BYRD on 02/09/211129 Last Action: Discontinued Review of Systems Review of Systems Constitutional: see HPI EENTM: No Symptoms Reported Respiratory: No Symptoms Reported Cardiovascular: No Symptoms Reported Gastrointestinal: See HPI, Abdominal Pain, Nausea Genitourinary: No Symptoms Reported Musculoskeletal: no symptoms reported Skin: no symptoms reported Psychiatric/Neurological: No Symptoms Reported Endocrine: No Symptoms Reported Hematologic/Lymphatic: No Symptoms Reported (YEMI BONILLA APRN) Past Whaphbz-Xmexer-Hjepnv Hx Immunizations Up To Date Tetanus Booster (TDap): Unknown (YEMI BONILLA APRN) Seasonal Allergies Seasonal Allergies: No (YEMI BONILLA APRN) Past Medical History Surgery/Hospitalization HX: APPENDECTOMY, GB, HYSTERECTOMY, CERVICAL FUSION Surgeries: Yes (MULTIPLE D&C'S, LEFT CARPAL TUNNEL AND LEFT ULNAR NERVE TRANSPOSITION, BSO,) Appendectomy, Gallbladder, Hysterectomy, Oophorectomy, Orthopedic Respiratory: Yes Asthma Cardiac: Yes (TACHYCARDIA) Neurological: Yes (Carpel tunnel syndrome bilat;neuropathy && neurodysplasia of LUE;PSUEDOSZ ?) Neuropathy, Seizure Disorder Reproductive Disorders: Yes (OVARIAN CYSTS, HYSTERECTOMY FOR CERVICAL DYSPLASIA) 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 Genitourinary: No Gastrointestinal: Yes ("CHRONIC ABDOMINAL PAIN" ) Musculoskeletal: Yes Chronic Back Pain Endocrine: No HEENT: No Loss of Vision: Denies Hearing Impairment: Denies Cancer: Yes (CERVICAL DYSPLASIA) Cervical What Type of Treatment Did You: Surgical Intervention Psychosocial: Yes (EXTENSIVE PSYCH ISSUES; SUSPECTED PSEUDOSEIZURES) Anxiety, Suicide Attempts, Bipolar, Depression Integumentary: No Blood Disorders: No Adverse Reaction/Blood Tranf: No (YEMI BONILLA APRN) Family Medical History No Pertinent Family Hx SOCIAL HISTORY: -ETOH-OCCASIONAL USE -DRUGS--REGULAR MARIJUANA USE, OPIATE AND BENZODIAZEPINE USE, HAS TESTED + FOR METH ON MULTIPLE OCCASIONS -SMOKES CIGARETES PLUS VAPES PAST SURGICAL HISTORY: -APPENDECTOMY -CHOLECYSTECTOMY -HYSTERECTOMY/BILATERAL SALPINGO-OOPHORECTOMY -CERVICAL SPINE FUSION C4-C7 06/25/20 -LEFT ULNAR NERVE SURGERY/TRANSPOSITION -LEFT CARPAL TUNNEL SURGERY -MULTIPLE D&C'S -EGD/COLONOSCOPY (YEMI BONILLA APRN) Physical Exam Vital Signs Vital Signs - First Documented 09/16/21 11:00 Temp 36.0 Pulse 93 Resp 18 B/P (MAP) 134/107 (116) Pulse Ox 100 O2 Delivery Room Air (BRANDEN KRAFT MD) Vital Signs Capillary Refill : (YEMI BONILLA APRN) Height/Weight/BMI Height: 5'0" Weight: 132lbs. oz. 59.384607di; 29.00 BMI Method:Actual General Appearance: WD/WN, no apparent distress HEENT: PERRL/EOMI, normal ENT inspection Respiratory: no respiratory distress, no accessory muscle use Cardiovascular: regular rate, rhythm, no murmur Gastrointestinal: normal bowel sounds, non tender, soft Extremities: normal range of motion, non-tender Neurologic/Psychiatric: alert, normal mood/affect, oriented x 3 Skin: normal color, warm/dry (YEMI BONILLA APRN) Progress/Results/Core Measures Results/Orders Lab Results Laboratory Tests Test 09/16/21 11:00 09/16/21 11:48 09/16/21 11:50 Range/Units White Blood Count 10.1 4.3-11.0 10^3/uL Red Blood Count 4.65 3.80-5.11 10^6/uL Hemoglobin 13.8 11.5-16.0 g/dL Hematocrit 41 35-52 % Mean Corpuscular Volume 87 80-99 fL Mean Corpuscular Hemoglobin 30 25-34 pg Mean Corpuscular Hemoglobin Concent 34 32-36 g/dL Red Cell Distribution Width 12.3 10.0-14.5 % Platelet Count 193 130-400 10^3/uL Mean Platelet Volume 12.9 H 9.0-12.2 fL Immature Granulocyte % (Auto) 1 % Neutrophils (%) (Auto) 61 42-75 % Lymphocytes (%) (Auto) 27 12-44 % Monocytes (%) (Auto) 10 0-12 % Eosinophils (%) (Auto) 1 0-10 % Basophils (%) (Auto) 1 0-10 % Neutrophils # (Auto) 6.1 1.8-7.8 10^3/uL Lymphocytes # (Auto) 2.7 1.0-4.0 10^3/uL Monocytes # (Auto) 1.0 0.0-1.0 10^3/uL Eosinophils # (Auto) 0.1 0.0-0.3 10^3/uL Basophils # (Auto) 0.1 0.0-0.1 10^3/uL Immature Granulocyte # (Auto) 0.1 0.0-0.1 10^3/uL Sodium Level 137 135-145 MMOL/L Potassium Level 2.7 L 3.6-5.0 MMOL/L Chloride Level 94 L 98-107 MMOL/L Carbon Dioxide Level 25 21-32 MMOL/L Anion Gap 18 H 5-14 MMOL/L Blood Urea Nitrogen 7 7-18 MG/DL Creatinine 1.04 0.60-1.30 MG/DL Estimat Glomerular Filtration Rate 58 BUN/Creatinine Ratio 7 Glucose Level 104 70-105 MG/DL Calcium Level 10.0 8.5-10.1 MG/DL Corrected Calcium 9.7 8.5-10.1 MG/DL Magnesium Level 1.7 1.6-2.4 MG/DL Total Bilirubin 0.7 0.1-1.0 MG/DL Aspartate Amino Transf (AST/SGOT) 38 H 5-34 U/L Alanine Aminotransferase (ALT/SGPT) 19 0-55 U/L Alkaline Phosphatase 86 40-136 U/L Total Protein 7.1 6.4-8.2 GM/DL Albumin 4.4 3.2-4.5 GM/DL Lipase 31 8-78 U/L Serum Test, Qualitative NEGATIVE NEGATIVE Serum Alcohol < 10 <10 MG/DL SARS-CoV-2 RNA (RT-PCR) Not Detected Not Detecte Urine Color YELLOW Urine Clarity SL CLOUDY Urine pH 6.5 5-9 Urine Specific [place] 1.010 L 1.016-1.022 Urine Protein NEGATIVE NEGATIVE Urine Glucose (UA) NEGATIVE NEGATIVE Urine Ketones 2+ H NEGATIVE Urine Nitrite NEGATIVE NEGATIVE Urine Bilirubin NEGATIVE NEGATIVE Urine Urobilinogen 0.2 < = 1.0 MG/DL Urine Leukocyte Esterase NEGATIVE NEGATIVE Urine RBC (Auto) NEGATIVE NEGATIVE Urine RBC NONE /HPF Urine WBC RARE /HPF Urine Squamous Epithelial Cells 2-5 /HPF Urine Crystals NONE /LPF Urine Bacteria TRACE /HPF Urine Casts NONE /LPF Urine Mucus NEGATIVE /LPF Urine Culture Indicated NO Urine Opiates Screen NEGATIVE NEGATIVE Urine Oxycodone Screen NEGATIVE NEGATIVE Urine Methadone Screen NEGATIVE NEGATIVE Urine Propoxyphene Screen NEGATIVE NEGATIVE Urine Barbiturates Screen POSITIVE H NEGATIVE Ur Tricyclic Antidepressants Screen NEGATIVE NEGATIVE Urine Phencyclidine Screen NEGATIVE NEGATIVE Urine Amphetamines Screen NEGATIVE NEGATIVE Urine Methamphetamines Screen NEGATIVE NEGATIVE Urine Benzodiazepines Screen POSITIVE H NEGATIVE Urine Cocaine Screen NEGATIVE NEGATIVE Urine Cannabinoids Screen POSITIVE H NEGATIVE (BRANDEN KRAFT MD) Vital Signs/I&O 09/16/21 11:00 Temp 36.0 Pulse 93 Resp 18 B/P (MAP) 134/107 (116) Pulse Ox 100 O2 Delivery Room Air (BRANDEN KRAFT MD) Departure Communication (Admissions) 113-did check a CBC prior to anticipated administration of haloperidol or droperidol for the patient's abdominal pain and nausea believed to be secondary to hyperemesis cannabinoid syndrome. This showed a markedly prolonged QTc at 600 ms. As such those medications were not given, we will not give Zofran either. We will give Phenergan for nausea control and optimize magnesium and potassium status. She will need admission for these reasons and telemetry monitoring until QTC is improved. (YEMI BONILLA APRN) Impression Primary Impression: Hypokalemia Additional Impressions: Chronic abdominal pain Chronic nausea Prolonged QT interval Disposition: ADMITTED INPATIENT Condition: Stable Admissions Decision to Admit Reason: Admit from ER (General) Decision to Admit/Date: Sep 16, 2021 Time/Decision to Admit Time: 11:37 (YEMI BONILLA APRN) Departure-Patient Inst. Referrals: JOHANNE HERNANDES MD (PCP/Family) Primary Care Physician ATTENDING PHYSICIAN NOTE: I was physically present as attending physician in the emergency department during the care of this patient, but I was not directly involved in the decision making or delivery of care for this patient. (BRANDEN KRAFT MD) YEMI BONILLA APRN Sep 16, 2021 11:11 BRANDEN KRAFT MD Sep 17, 2021 06:12
[2021-09-16 11:15] LABS: BASOPHILS # (AUTO) 0.1 10^3/uL (0.0-0.1); BASOPHILS % (AUTO) 1 % (0-10); EOSINOPHILS # (AUTO) 0.1 10^3/uL (0.0-0.3); EOSINOPHILS % (AUTO) 1 % (0-10); HEMATOCRIT 41 % (35-52); HEMOGLOBIN 13.8 g/dL (11.5-16.0); LYMPHOCYTES # (AUTO) 2.7 10^3/uL (1.0-4.0); LYMPHOCYTES % (AUTO) 27 % (12-44); MEAN CORPUSCULAR HEMOGLOBIN 30 pg (25-34); MEAN CORPUSCULAR HGB CONC 34 g/dL (32-36); MEAN CORPUSCULAR VOLUME 87 fL (80-99); MEAN PLATELET VOLUME 12.9 fL (9.0-12.2); MONOCYTES % (AUTO) 10 % (0-12); NEUTROPHILS # (AUTO) 6.1 10^3/uL (1.8-7.8); NEUTROPHILS % (AUTO) 61 % (42-75); PLATELET COUNT 193 10^3/uL (130-400); WHITE BLOOD COUNT 10.1 10^3/uL (4.3-11.0)
[2021-09-16] MEDS ORDERED: PROMETHAZINE INJ 25 MG/ML (PHENERGAN) AMP IVP ONE (11:15)
[2021-09-16] MEDS ORDERED: POTASSIUM CL 10MEQ/50ML IVPB 50 ML IV ONE (11:15)
[2021-09-16 11:27] LABS: ALBUMIN 4.4 GM/DL (3.2-4.5); CHLORIDE 94 MMOL/L (98-107); POTASSIUM 2.7 MMOL/L (3.6-5.0); SODIUM 137 MMOL/L (135-145)
[2021-09-16 11:29] LABS: GLUCOSE 104 MG/DL (70-105)
[2021-09-16] MEDS ORDERED: PROMETHAZINE INJ 25 MG/ML (PHENERGAN) AMP ONE (11:29)
[2021-09-16 11:30] LABS: CARBON DIOXIDE 25 MMOL/L (21-32); TOTAL PROTEIN 7.1 GM/DL (6.4-8.2)
[2021-09-16 11:31] LABS: BILIRUBIN,TOTAL 0.7 MG/DL (0.1-1.0)
[2021-09-16 11:33] LABS: ALKALINE PHOSPHATASE 86 U/L (40-136); CREATININE SERUM 1.04 MG/DL (0.60-1.30); GFR ESTIMATED 58
[2021-09-16] MEDS: MAGNESIUM 1 GM/100 ML IVPB 100 ML IV SCH ×2 (11:33→12:26)
[2021-09-16 11:34] LABS: BUN/CREATININE RATIO 7
[2021-09-16 11:36] LABS: ALANINE AMINOTRANSFERASE 19 U/L (0-55); MAGNESIUM 1.7 MG/DL (1.6-2.4)
[2021-09-16 11:37] LABS: LIPASE 31 U/L (8-78)
[2021-09-16 12:01] LABS: BILIRUBIN,URINE NEGATIVE (NEGATIVE); CLARITY,URINE SL CLOUDY; COLOR,URINE YELLOW; GLUCOSE, URINE (UA) NEGATIVE (NEGATIVE); KETONES,URINE 2+ (NEGATIVE); LEUKOCYTE ESTERASE ,URINE NEGATIVE (NEGATIVE); NITRITE,URINE NEGATIVE (NEGATIVE); PH,URINE 6.5 (5-9); PROTEIN,URINE NEGATIVE (NEGATIVE)
[2021-09-16 12:10] LABS: BACTERIA,URINE TRACE /HPF; WBC,URINE RARE /HPF
[2021-09-16 12:12] LABS: AMPHETAMINE SCREEN, URINE NEGATIVE (NEGATIVE); BARBITURATE SCREEN URINE POSITIVE (NEGATIVE); BENZODIAZEPINES SCREEN URINE POSITIVE (NEGATIVE); CANNABINOID SCREEN, URINE POSITIVE (NEGATIVE); COCAINE SCREEN URINE NEGATIVE (NEGATIVE); METHADONE STAT NEGATIVE (NEGATIVE); METHAMPHETAMINE SCREEN URINE S NEGATIVE (NEGATIVE); OPIATE SCREEN URINE NEGATIVE (NEGATIVE); OXYCODONE STAT NEGATIVE (NEGATIVE); PROPOXYPHENE STAT NEGATIVE (NEGATIVE); TRICYCLIC ANTIDEPRESSANTS SCRE NEGATIVE (NEGATIVE)
[2021-09-16 13:20] VITALS: BP 173/111
[2021-09-16] MEDS ORDERED: FLU QUADRIvalent (3YOA+) 60 mcg/0.5 ml 2021-22(AFLURIA) IM ONE (14:00)
[2021-09-16] MEDS ORDERED: fentaNYL PATCH 50 MCG (DURAGESIC) TOP SCH (14:00)
[2021-09-16] MEDS ORDERED: PROMETHAZINE INJ 25 MG/ML (PHENERGAN) AMP IV PRN (14:15)
[2021-09-16] MEDS: POTASSIUM CL 10 MEQ/50 ML IVPB (PRE-MIX) IV SCH ×4 (14:16→19:48)
[2021-09-16] MEDS: NS IV 1000 ML 1,000 ML IV SCH ×2 (14:16→22:18)
[2021-09-16] MEDS: MAGNESIUM 1 GM/D5W 100 ML IVPB IV SCH ×2 (14:16→16:22)
--- NOTE | 2021-09-16 15:03 | Consultation-Cardiology ---
HPI-Cardiology Cardiology Consultation Date of Consultation 09/16/21 Date of Admission Time Seen by Provider: 14:30 Indication: prolonged QTc HPI Patient is a 41 y/o female with history of epilepsy, anxiety, marajuana use. Presented to the ER with complaints of severe N/V for the past 48 hours. Patient reports she had had intermittent N/V for the past year and has been to the ER several time with same symptoms. Has hx of hypokalemia, was unable to afford her medications and has not taken her prescription K+ for quite some time. Found to be severely hypokalemic with prolonged QT. Denies any chest pain or dyspnea. Voices frustration over the symptoms she has had over the past years. States last time she smoked marajuana was approx 2-3 weeks ago. Home Medications & Allergies Allergies: Coded Allergies: No Known Drug Allergies (Unverified , 03/20/12) Home Medication List Reviewed: Yes QFC-Tadokl-Xhzqgc Hx Patient Social History Drug of Choice: CANNIBUS Smoking Status: Current Someday Smoker Type Used: Cigarettes, Electronic/Vapor 2nd Hand Smoke Exposure: No Recent Hopitalizations: No Have you traveled recently?: No Alcohol Use?: No Substance type: Barbiturates, Marijuana Immunizations Up To Date Tetanus Booster (TDap): Unknown Date of Influenza Vaccine: Sep 17, 2021 Family Medical History Significant Family History: No Pertinent Family Hx Review of Systems-General Review of Systems Constitutional: see HPI, chills, diaphoresis, malaise, weakness EENTM: see HPI, no symptoms reported Respiratory: see HPI, dyspnea on exertion; No hemoptysis; orthopnea Cardiovascular: see HPI; No chest pain; edema Gastrointestinal: abdominal pain, loss of appetite, nausea, vomiting Musculoskeletal: no symptoms reported Skin: no symptoms reported Psychiatric/Neurological: No Symptoms Reported Reviewed Test Results Reviewed Test Results Lab Laboratory Tests 09/16/21 11:00: White Blood Count 10.1, Red Blood Count 4.65, Hemoglobin 13.8, Hematocrit 41, Mean Corpuscular Volume 87, Mean Corpuscular Hemoglobin 30, Mean Corpuscular Hemoglobin Concent 34, Red Cell Distribution Width 12.3, Platelet Count 193, Mean Platelet Volume 12.9H, Immature Granulocyte % (Auto) 1, Neutrophils (%) (Auto) 61, Lymphocytes (%) (Auto) 27, Monocytes (%) (Auto) 10, Eosinophils (%) (Auto) 1, Basophils (%) (Auto) 1, Neutrophils # (Auto) 6.1, Lymphocytes # (Auto) 2.7, Monocytes # (Auto) 1.0, Eosinophils # (Auto) 0.1, Basophils # (Auto) 0.1, Immature Granulocyte # (Auto) 0.1, Sodium Level 137, Potassium Level 2.7L, Chloride Level 94L, Carbon Dioxide Level 25, Anion Gap 18H, Blood Urea Nitrogen 7, Creatinine 1.04, Estimat Glomerular Filtration Rate 58, BUN/Creatinine Ratio 7, Glucose Level 104, Calcium Level 10.0, Corrected Calcium 9.7, Magnesium Level 1.7, Total Bilirubin 0.7, Aspartate Amino Transf (AST/SGOT) 38H, Alanine Aminotransferase (ALT/SGPT) 19, Alkaline Phosphatase 86, Total Protein 7.1, Albumin 4.4, Lipase 31, Serum Test, Qualitative NEGATIVE, Serum Alcohol < 10 09/16/21 11:48: SARS-CoV-2 RNA (RT-PCR) Not Detected 09/16/21 11:50: Urine Color YELLOW, Urine Clarity SL CLOUDY, Urine pH 6.5, Urine Specific [place] 1.010L, Urine Protein NEGATIVE, Urine Glucose (UA) NEGATIVE, Urine Ketones 2+H, Urine Nitrite NEGATIVE, Urine Bilirubin NEGATIVE, Urine Urobilinogen 0.2, Urine Leukocyte Esterase NEGATIVE, Urine RBC (Auto) NEGATIVE, Urine RBC NONE, Urine WBC RARE, Urine Squamous Epithelial Cells 2-5, Urine Crystals NONE, Urine Bacteria TRACE, Urine Casts NONE, Urine Mucus NEGATIVE, Urine Culture Indicated NO, Urine Opiates Screen NEGATIVE, Urine Oxycodone Screen NEGATIVE, Urine Methadone Screen NEGATIVE, Urine Propoxyphene Screen NEGATIVE, Urine Barbiturates Screen POSITIVEH, Ur Tricyclic Antidepressants Screen NEGATIVE, Urine Phencyclidine Screen NEGATIVE, Urine Amphetamines Screen NEGATIVE, Urine Methamphetamines Screen NEGATIVE, Urine Benzodiazepines Screen POSITIVEH, Urine Cocaine Screen NEGATIVE, Urine Cannabinoids Screen POSITIVEH Physical Exam Physical Exam Vital Signs Vital Signs - First Documented 09/16/21 11:00 Temp 36.0 Pulse 93 Resp 18 B/P (MAP) 134/107 (116) Pulse Ox 100 O2 Delivery Room Air Capillary Refill : Less Than 3 Seconds Height, Weight, BMI Height: 5'0" Weight: 132lbs. oz. 59.903030ru; 23.00 BMI Method:Actual General Appearance: Anxious, Chronically ill HEENT: PERRL/EOMI, TMs Normal Neck: Non Tender, Supple Respiratory: Chest Non Tender, Lungs Clear Cardiovascular: Regular Rate, Rhythm, No Edema Gastrointestinal: Soft, Tenderness Back: No CVA Tenderness A/P-Cardiology Admission Diagnosis Prolonged QT N/V Hypokalemia Assessment/Plan Prolonged QTc- QTc 600ms, replace K+ and continue to monitor closely Hypokalemia, replace and continue to monitor. Chronic, intermittent N/V, thought to be hyperemesis cannabinoid syndrome in the past. Has had multiple visits to ER over the past year. Will consult Dr. Ross for further evaluation Epilepsy Anxiety Hx illicit drug use Thank you for allowing us to participate in the mangagement of Ms. Carrasco. This is Meg Clements PA-C, as a scribe for Dr. Roberto. Patient was seen and evaluated with Meg, interviewed and examined the patient Patient is having significant abdominal pain, waxing and waning, in the upper epigastric and right upper quadrant area, had extensive work-up and multiple emergency room visits recently with multiple CAT scans, currently laying down in bed, receiving potassium which will be replaced Twelve-lead EKG was reviewed, no previous cardiac history but she has been having some shortness of breath and occasional pedal edema I recommend monitoring potassium and magnesium closely, continue with replacement Recommend EGD, discussed the management plan with Dr. Jenny HURLEY,MEG QUINTERO Sep 16, 2021 15:03 SHAGGY ROBERTO MD Sep 16, 2021 16:14
[2021-09-16] MEDS ORDERED: BUPR300T98 PO (15:08)
[2021-09-16] MEDS ORDERED: ONDA-105 PO (15:08)
[2021-09-16] MEDS ORDERED: QUET25TA35 PO (15:08)
[2021-09-16] MEDS ORDERED: FENT1PAT9 TD (15:08)
[2021-09-16] MEDS ORDERED: PHEN100C11 PO (15:08)
--- NOTE | 2021-09-16 15:22 | History & Physical-Hospitalist ---
KATINA TRAN 09/16/21 1522: History of Present Illness HPI/Chief Complaint CC: Abdominal pain, N/V HPI: 41 y/o F with hx of epilepsy, anxiety, IBS, and marijuana use presented to the ER by EMS with complaints of abdominal pain and severe N/V for the past two days. Patient has had intermittent N/V for the past year and has been to the ER several times w/ the same sx. Pt went to the ER the day prior for a seizure and was noted to have hypokalemia, but was unable to afford supplements. CT of the abd/pelvis yesterday showed a small amount of intraluminal gas in her urinary bladder. After admission today, K+ was found to be 2.7 and ECG showed prolonged QT (QTc 600ms). Tox screen was positive for barbiturates, benzodiazepines and cannabinoids. Pt was wearing a fentanyl patch for pain that was removed. Pt mentioned her daughter has COVID but her serology was negative. 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 Patients Allergies have been reviewed. Allergies Allergies Coded Allergies No Known Drug Allergies (Unverified03/20/12) Pt mentioned Lizra allergery on 09/16/2021 Past Wgydajn-Sbgnly-Fheklk Hx Patient Social History Living Status: Lives alone Tobacco Use?: Yes Tobacco type used: Cigarettes Smoking Status: Current Someday Smoker Use of E-Cig and/or Vaping dev: Yes E-Cig or Vaping type used: Nicotine Use of E-Cig and/or Vaping Ramez: Current Everyday User Substance use?: Yes Substance type: Barbiturates, Marijuana Substance frequency: Couple times a week Alcohol Use?: No Pt feels they are or have been: No Immunizations Up To Date Date of Influenza Vaccine: Sep 17, 2021 Tetanus Booster (TDap): Unknown Seasonal Allergies Seasonal Allergies: No Current Status Advance Directives: No Communicates: Verbally Primary Language: Slovenian Preferred Spoken Language: Slovenian Is interpretation needed?: No Sensory deficits: Vision impairment Implanted or Applied Medical D: None Past Medical History Surgeries: Appendectomy, Gallbladder, Hysterectomy, Oophorectomy, Orthopedic Asthma Neuropathy, Seizure Disorder 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 Irritable Bowel Chronic Back Pain Loss of Vision: Denies Hearing Impairment: Denies Cervical What Type of Treatment Did You: Surgical Intervention Anxiety, Suicide Attempts, Bipolar, Depression Blood Disorders: No Adverse Reaction/Blood Tranf: No Family Medical History No Pertinent Family Hx, Cancer (mother of breast cancer recently) SOCIAL HISTORY: -ETOH-OCCASIONAL USE -DRUGS--REGULAR MARIJUANA USE, OPIATE AND BENZODIAZEPINE USE, HAS TESTED + FOR METH ON MULTIPLE OCCASIONS -SMOKES CIGARETES PLUS VAPES PAST SURGICAL HISTORY: -APPENDECTOMY -CHOLECYSTECTOMY -HYSTERECTOMY/BILATERAL SALPINGO-OOPHORECTOMY -CERVICAL SPINE FUSION C4-C7 06/25/20 -LEFT ULNAR NERVE SURGERY/TRANSPOSITION -LEFT CARPAL TUNNEL SURGERY -MULTIPLE D&C'S -EGD/COLONOSCOPY Review of Systems Constitutional: malaise, weakness Respiratory: short of breath Cardiovascular: chest pain, palpitations Gastrointestinal: abdominal pain, nausea, vomiting Genitourinary: other (says she doesn't urinate regularly; after admission was first time in "awhile") Psychiatric/Neurological: Seizure Physical Exam Physical Exam Vital Signs Vital Signs - First Documented 09/16/21 11:00 Temp 36.0 Pulse 93 Resp 18 B/P (MAP) 134/107 (116) Pulse Ox 100 O2 Delivery Room Air Capillary Refill : Less Than 3 Seconds Height, Weight, BMI Height: 5'0" Weight: 132lbs. oz. [id number]; 23.00 BMI Method:Actual General Appearance: Moderate Distress Respiratory: Lungs Clear, Normal Breath Sounds Cardiovascular: Regular Rate, Rhythm, No Edema Gastrointestinal: Soft, Guarding, Tenderness (Pt said "ow stop" upon palpation) Neurologic/Psychiatric: Alert, Oriented x3 Skin: Normal Color Results Results/Procedures Labs Laboratory Tests 09/16/21 11:00 Patient resulted labs reviewed. Assessment/Plan Assessment and Plan Assessment: Prolonged QT Interval (QTc 600ms) Hypokalemia (2.7) Possible hyperemesis cannabinoid syndrome Epilepsy IBS Illicit drug use Plan: Replace electrolytes; monitor K+ closely Start telemetry Avoid QTC prolonging drugs Get a surgery consult for abd pain Continue Valium Appreciate cardiology's consult MINAL PARKER DO 09/17/21 0550: History of Present Illness HPI/Chief Complaint Chief complaint: Abdominal pain with nausea and vomiting History present illness: This is a 41-year-old white female history of seizure disorder who presented to the ER with abdominal pain. Nausea and vomiting also reported. Hypokalemia noted with increased QT interval. Cardiology consulted along with Dr. Reyes. Past Gfefcnz-Hrjcvg-Spkhyg Hx Patient Social History Marrital Status: single Smoking Status: Current Everyday Smoker Past Medical History Seizure Disorder Review of Systems Constitutional: see HPI, malaise, weakness EENTM: no symptoms reported Respiratory: no symptoms reported Cardiovascular: no symptoms reported Gastrointestinal: abdominal pain, nausea, vomiting Physical Exam Physical Exam General Appearance: WD/WN, Anxious, Chronically ill, Mild Distress Eyes: Right Eye Normal Inspection, Right Eye PERRL HEENT: PERRL/EOMI, Normal ENT Inspection, Pharynx Normal, Moist Mucous Membran es Neck: Full Range of Motion, Normal Inspection, Non Tender Respiratory: Chest Non Tender, Lungs Clear, Normal Breath Sounds, No Accessory Muscle Use, No Respiratory Distress Cardiovascular: Regular Rate, Rhythm, No Edema, No Gallop, No JVD, No Murmur, Normal Peripheral Pulses Gastrointestinal: Normal Bowel Sounds, No Organomegaly, No Pulsatile Mass, Non Tender, Soft Back: Normal Inspection, No CVA Tenderness, No Vertebral Tenderness Extremity: Normal Capillary Refill, Normal Inspection, Normal Range of Motion, Non Tender, No Calf Tenderness, No Pedal Edema Neurologic/Psychiatric: Alert, Oriented x3, No Motor/Sensory Deficits, Normal Mood/Affect Skin: Normal Color, Warm/Dry Lymphatic: No Adenopathy Assessment/Plan Admission Diagnosis Assessment: Hypokalemia Abdominal pain History of drug use Increase QT interval Plan: Replace potassium Dr. Reyes consultation Dr. Roberto consultation Admission Status: Inpatient Order (span 2 midnights) Reason for Inpatient Admission: Hypokalemia with QT interval prolongation Supervisory-Addendum Brief Verification & Attestation Participated in pt care: history, MDM, physical Personally performed: exam, history, MDM, supervision of care Care discussed with: Medical Student Procedures: n/a Results interpretation: Verified all documentation Verification and Attestation of Medical Student E/M Service A medical student performed and documented this service in my presence. I reviewed and verified all information documented by the medical student and made modifications to such information, when appropriate. I personally performed the physical exam and medical decision making. Minal Parker Sep 17, 2021,05:50 KATINA TRAN Sep 16, 2021 15:22 MINAL PARKER DO Sep 17, 2021 05:50
[2021-09-16 15:42] VITALS: BP 151/99
[2021-09-16] MEDS: DIAZEPAM 5 MG (VALIUM) TABLET PO SCH ×2 (15:52→21:10)
[2021-09-16] MEDS ORDERED: PANTOPRAZOLE 40 MG (PROTONIX) VIAL IV ONE (17:00)
[2021-09-16] MEDS ORDERED: CALCIUM CARBONATE 500 MG (TUMS) TAB.CHEW PO PRN (17:00)
[2021-09-16 20:00] VITALS: BP 116/85
[2021-09-16] MEDS: SUCRALFATE 1 GM (CARAFATE) TAB PO SCH (21:10)
[2021-09-17 00:30] VITALS: BP 106/79
[2021-09-17 04:16] VITALS: BP 111/88
[2021-09-17 04:42] LABS: BASOPHILS # (AUTO) 0.1 10^3/uL (0.0-0.1); BASOPHILS % (AUTO) 1 % (0-10); EOSINOPHILS # (AUTO) 0.3 10^3/uL (0.0-0.3); EOSINOPHILS % (AUTO) 3 % (0-10); HEMATOCRIT 35 % (35-52); HEMOGLOBIN 11.6 g/dL (11.5-16.0); LYMPHOCYTES # (AUTO) 5.5 10^3/uL (1.0-4.0); LYMPHOCYTES % (AUTO) 59 % (12-44); MEAN CORPUSCULAR HEMOGLOBIN 30 pg (25-34); MEAN CORPUSCULAR HGB CONC 33 g/dL (32-36); MEAN CORPUSCULAR VOLUME 90 fL (80-99); MEAN PLATELET VOLUME 12.5 fL (9.0-12.2); MONOCYTES # (AUTO) 0.7 10^3/uL (0.0-1.0); MONOCYTES % (AUTO) 7 % (0-12); NEUTROPHILS # (AUTO) 2.7 10^3/uL (1.8-7.8); NEUTROPHILS % (AUTO) 29 % (42-75); PLATELET COUNT 144 10^3/uL (130-400); WHITE BLOOD COUNT 9.2 10^3/uL (4.3-11.0)
[2021-09-17 05:02] LABS: POTASSIUM 3.3 MMOL/L (3.6-5.0)
[2021-09-17 05:04] LABS: CALCIUM 8.1 MG/DL (8.5-10.1)
[2021-09-17 05:08] LABS: CREATININE SERUM 0.71 MG/DL (0.60-1.30)
[2021-09-17] MEDS: SUCRALFATE 1 GM (CARAFATE) TAB PO SCH ×4 (06:03→21:07)
[2021-09-17] MEDS: NS IV 1000 ML 1,000 ML IV SCH ×3 (06:03→16:38)
[2021-09-17] MEDS: POTASSIUM CL 10MEQ/50ML IVPB 50 ML IV SCH ×4 (06:47→10:31)
[2021-09-17] MEDS: DIAZEPAM 5 MG (VALIUM) TABLET PO SCH ×3 (08:02→21:10)
--- NOTE | 2021-09-17 08:21 | Consultation - Surgery ---
DAVID ROCK 09/17/21 0821: History of Present Illness History of Present Illness Patient Consulted On(susan/time) 09/17/21 08:09 Time Seen by Provider: 08:00 Reason for Visit: prolonged QTc History of Present Illness Consulted by Dr. Alvarado for N/V and abdominal pain. A 41yo F presented to the ED with Severe N/V for three days and abdominal pain, today is her the fourth day of these symptoms. She has had several hospitalizations for this same reason. Her vomiting and nausea started after her Gall bladder was removal a couple of years ago by Dr. García in [place], her symptoms are not constant, and her symptoms completely goes away for short periods that could last anywhere from a few weeks to a few months. Solid and liquid foods do not stay down, zofran also doesn't seem to help but causes a Headache. She reports vomiting old coffee grounds and burning of the throat, she says she can feel the acid which leads to more vomiting. Haldol helped for a short while but later the next day her symptoms returned. Last time she had vomited was last night around 9pm. Two or three weeks stopped using weed but still vapes, smokes, and has used meth on several occasions. Her abdominal pain is knife like that causes her to sweat and makes her N/V worse, her abdominal pain started about a year ago after her N/V. The abdominal pain comes and goes with the N/V, and she points to the pain in her epigastric region. Her CT of the abdomen and pelvis show a small amount of intraluminal gas within the lumen of the urinary bladder. Correlation with recent instrumentation is recommended. Alternately, findings can be seen with gas forming cystitis. She has a family history of GERD in her mother, grandmother, and possibly her uncle. Her PSH includes: appendectomy, cholecystectomy, hysterectomy/BL salpingo- oophorectomy, left ulnar nerve, left carpal tunnel, C4-C7 fusion of spine May 27 of last [address] by Dr[address] Joe Vargas at [facility] in [facility]. Allergies and Home Medications Allergies Coded Allergies: No Known Drug Allergies (Unverified , 03/20/12) Patient Home Medication List Bupropion HCl (Bupropion Xl) 300 Mg Tab.er.24h, 300 MG PO HS, (Reported) Entered as Reported by: SYED GIRALDO on 09/16/211507 Last Action: Converted Diazepam (Diazepam) 10 Mg Tablet, 10 MG PO TID PRN for ANXIETY, (Reported) Entered as Reported by: SURESH BYRD on 02/09/211129 Last Action: Converted Duloxetine HCl (Duloxetine HCl) 60 Mg Capsule.dr, 120 MG PO HS, (Reported) Entered as Reported by: SURESH BYRD on 02/09/211129 Last Action: Converted Estradiol (Estradiol Tablet) 0.5 Mg Tablet, 0.5 MG PO DAILY, (Reported) Entered as Reported by: SURESH BYRD on 02/09/211129 Last Action: Converted Fentanyl (Fentanyl Patch 50 MCG) 1 Each Patch.td72, 50 MCG TD Q72H, (Reported) Entered as Reported by: SYED GIRALDO on 09/16/211507 Last Action: Continued Gabapentin (Gabapentin) 800 Mg Tablet, 800 MG PO TID PRN for NEUROPATHIC PAIN, (Reported) Entered as Reported by: SURESH BYRD on 02/09/211129 Last Action: Converted Ondansetron HCl (Ondansetron HCl) 4 Mg Tablet, 4 MG PO Q4H PRN for NAUSEA/VOMITING-1ST LINE, (Reported) Entered as Reported by: SYED GIRALDO on 09/16/211507 Last Action: Converted Phenytoin Sodium Extended (Phenytoin Sodium Extended) 100 Mg Capsule, 100 MG PO BID, (Reported) Entered as Reported by: SYED GIRALDO on 09/16/211507 Last Action: Continued Quetiapine Fumarate (Quetiapine Fumarate) 25 Mg Tablet, 12.5 MG PO HS, (Reported) Entered as Reported by: SYED GIRALDO on 09/16/211507 Last Action: Continued Tizanidine HCl (Tizanidine HCl) 4 Mg Tablet, 8 MG PO Q6H PRN for MUSCLE SPASMS, (Reported) Entered as Reported by: SURESH BYRD on 02/09/211129 Last Action: Continued Discontinued Medications Ascorbic Acid (Vitamin C) 500 Mg Capsule, 500 MG PO DAILY, (Reported) Discontinued Reason: No Longer Taking Entered as Reported by: SURESH BYRD on 02/09/211129 Last Action: Discontinued Bupropion HCl (Bupropion Xl) 150 Mg Tab.er.24h, 150 MG PO BID, (Reported) Discontinued Reason: No Longer Taking Entered as Reported by: SURESH BYRD on 02/09/211129 Last Action: Discontinued Cholecalciferol (Vitamin D3) (Vitamin D3) 125 Mcg Tablet, 125 MCG PO DAILY, (Reported) Discontinued Reason: No Longer Taking Entered as Reported by: SURESH BYRD on 02/09/211129 Last Action: Discontinued Cyanocobalamin (Vitamin B-12) (Vitamin B-12) 500 Mcg Tablet, 500 MCG PO DAILY, (Reported) Discontinued Reason: No Longer Taking Entered as Reported by: SURESH BYRD on 02/09/211129 Last Action: Discontinued Diphenhydramine HCl (Benadryl) 25 Mg Capsule, 25 MG PO DAILY PRN for ALLERGIES, (Reported) Discontinued Reason: No Longer Taking Entered as Reported by: SURESH BYRD on 02/09/211129 Last Action: Discontinued Fentanyl (Duragesic Patch 25MCG) 1 Each Patch.td72, 25 MCG TD Q72H, (Reported) Discontinued Reason: No Longer Taking Entered as Reported by: SURESH BYRD on 02/09/211131 Last Action: Discontinued Lubiprostone (Amitiza) 24 Mcg Capsule, 24 MCG PO DAILY, (Reported) Discontinued Reason: No Longer Taking Entered as Reported by: SURESH BYRD on 02/09/211129 Last Action: Discontinued Multivitamin (Multivitamin) 1 Each Tablet, 1 EACH PO DAILY, (Reported) Discontinued Reason: No Longer Taking Entered as Reported by: SURESH BYRD on 02/09/211135 Last Action: Discontinued Omeprazole (Omeprazole) 40 Mg Capsule.dr, 40 MG PO DAILY, (Reported) Discontinued Reason: No Longer Taking Entered as Reported by: SURESH BYRD on 02/09/211129 Last Action: Discontinued Ondansetron (Ondansetron Odt) 4 Mg Tab.rapdis, 4 MG PO Q4H PRN for NAUSEA/VOMITING-1ST LINE, (Reported) Discontinued Reason: No Longer Taking Entered as Reported by: SURESH BYRD on 02/09/211129 Last Action: Discontinued Potassium Chloride (K-Tab ER) 10 Meq Tablet.er, 10 MEQ PO DAILY Discontinued Reason: No Longer Taking Prescribed by: FRANTZ ERVIN on 09/13/21 184 Last Action: Discontinued Prochlorperazine Maleate (Compazine) 10 Mg Tablet, 10 MG PO PRN PRN for NAUSEA- 1ST LINE Discontinued Reason: No Longer Taking Prescribed by: FRANTZ ERVIN on 09/13/21 193 Last Action: Discontinued Turmeric Root Extract (Turmeric) 538 Mg Capsule, 538 MG PO DAILY, (Reported) Discontinued Reason: No Longer Taking Entered as Reported by: SURESH BYRD on 02/09/21 1130 Last Action: Discontinued Past Ldhicet-Wkiupn-Hunzuy Hx Patient Social History Drug of Choice: CANNIBUS Smoking Status: Current Everyday Smoker Type Used: Cigarettes, Electronic/Vapor 2nd Hand Smoke Exposure: No Recent Hopitalizations: No Alcohol Use?: No Substance type: Barbiturates, Marijuana Have you traveled recently?: No Immunizations Up To Date Tetanus Booster (TDap): Unknown Date of Influenza Vaccine: Sep 17, 2021 Seasonal Allergies Seasonal Allergies: No Surgeries History of Surgeries: Yes (MULTIPLE D&C'S, LEFT CARPAL TUNNEL AND LEFT ULNAR NERVE TRANSPOSITION, BSO,) Surgeries: Appendectomy, Gallbladder, Hysterectomy, Oophorectomy, Orthopedic Respiratory History of Respiratory Disorde: Yes Respiratory Disorders: Asthma Cardiovascular History of Cardiac Disorders: Yes (TACHYCARDIA) Neurological History of Neurological Disord: Yes (Carpel tunnel syndrome bilat;neuropathy && neurodysplasia of LUE;PSUEDOSZ ?) Neurological Disorders: Seizure Disorder Reproductive System Hx Reproductive Disorders: Yes (OVARIAN CYSTS, HYSTERECTOMY FOR CERVICAL DYSPLASIA) 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 Genitourinary History of Genitourinary Disor: No Gastrointestinal History of Gastrointestinal Di: Yes ("CHRONIC ABDOMINAL PAIN" ) Gastrointestinal Disorders: Irritable Bowel Musculoskeletal History of Musculoskeletal Dis: Yes Musculoskeletal Disorders: Chronic Back Pain Endocrine History of Endocrine Disorders: No HEENT History of HEENT Disorders: No Loss of Vision: Denies Hearing Impairment: Denies Cancer History of Cancer: Yes (CERVICAL DYSPLASIA) Cancer: Cervical Psychosocial History of Psychiatric Problem: Yes (EXTENSIVE PSYCH ISSUES; 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) Behavioral Health Disorders: Anxiety, Suicide Attempts, Bipolar, Depression Integumentary History of Skin or Integumenta: No Blood Transfusions History of Blood Disorders: No Adverse Reaction to a Blood Tr: No Family Medical History Significant Family History: No Pertinent Family Hx, Cancer (mother of breast cancer recently, most of aunts on mother side has had different cancer, uncle prostate cancer) Review of Systems-General Constitutional: No chills, No fever EENTM: hearing loss (right ear feels full), vision loss (depleted greatly over the past several months); No ear discharge, No ear pain Respiratory: No hemoptysis Cardiovascular: chest pain, palpitations Gastrointestinal: abdominal pain, heartburn, loss of appetite, nausea, vomiting Psychiatric/Neurological: Anxiety, Depressed Physical Exam-General Problems Physical Exam Vital Signs Vital Signs - First Documented 09/16/21 11:00 Temp 36.0 Pulse 93 Resp 18 B/P (MAP) 134/107 (116) Pulse Ox 100 O2 Delivery Room Air Capillary Refill : Less Than 3 Seconds General Appearance: no apparent distress, other (anxious ) HEENT: No photophobia Respiratory: chest non-tender, normal breath sounds, no respiratory distress, no accessory muscle use; No crackles Cardiovascular: regular rate, rhythm, no edema, no gallop, no JVD, no murmur Gastrointestinal: normal bowel sounds, tenderness (RUQ, and LUQ is the most tender to light palpation and some tenderness to palpation in LLQ) Extremities: normal range of motion, non-tender, normal inspection Neurologic/Psychiatric: alert, oriented x 3 Data Review Labs Laboratory Tests 09/16/21 11:00: White Blood Count 10.1, Red Blood Count 4.65, Hemoglobin 13.8, Hematocrit 41, Mean Corpuscular Volume 87, Mean Corpuscular Hemoglobin 30, Mean Corpuscular Hemoglobin Concent 34, Red Cell Distribution Width 12.3, Platelet Count 193, Mean Platelet Volume 12.9H, Immature Granulocyte % (Auto) 1, Neutrophils (%) (Auto) 61, Lymphocytes (%) (Auto) 27, Monocytes (%) (Auto) 10, Eosinophils (%) (Auto) 1, Basophils (%) (Auto) 1, Neutrophils # (Auto) 6.1, Lymphocytes # (Auto) 2.7, Monocytes # (Auto) 1.0, Eosinophils # (Auto) 0.1, Basophils # (Auto) 0.1, Immature Granulocyte # (Auto) 0.1, Sodium Level 137, Potassium Level 2.7L, Chloride Level 94L, Carbon Dioxide Level 25, Anion Gap 18H, Blood Urea Nitrogen 7, Creatinine 1.04, Estimat Glomerular Filtration Rate 58, BUN/Creatinine Ratio 7, Glucose Level 104, Calcium Level 10.0, Corrected Calcium 9.7, Magnesium Level 1.7, Total Bilirubin 0.7, Aspartate Amino Transf (AST/SGOT) 38H, Alanine Aminotransferase (ALT/SGPT) 19, Alkaline Phosphatase 86, Total Protein 7.1, Albumin 4.4, Lipase 31, Serum Test, Qualitative NEGATIVE, Serum Alcohol < 10 09/16/21 11:48: SARS-CoV-2 RNA (RT-PCR) Not Detected 09/16/21 11:50: Urine Color YELLOW, Urine Clarity SL CLOUDY, Urine pH 6.5, Urine Specific [place] 1.010L, Urine Protein NEGATIVE, Urine Glucose (UA) NEGATIVE, Urine Ketones 2+H, Urine Nitrite NEGATIVE, Urine Bilirubin NEGATIVE, Urine Urobilinogen 0.2, Urine Leukocyte Esterase NEGATIVE, Urine RBC (Auto) NEGATIVE, Urine RBC NONE, Urine WBC RARE, Urine Squamous Epithelial Cells 2-5, Urine Crystals NONE, Urine Bacteria TRACE, Urine Casts NONE, Urine Mucus NEGATIVE, Urine Culture Indicated NO, Urine Opiates Screen NEGATIVE, Urine Oxycodone Screen NEGATIVE, Urine Methadone Screen NEGATIVE, Urine Propoxyphene Screen NEGATIVE, Urine Barbiturates Screen POSITIVEH, Ur Tricyclic Antidepressants Screen NEGATIVE, Urine Phencyclidine Screen NEGATIVE, Urine Amphetamines Screen NEGATIVE, Urine Methamphetamines Screen NEGATIVE, Urine Benzodiazepines Screen POSITIVEH, Urine Cocaine Screen NEGATIVE, Urine Cannabinoids Screen POSITIVEH 09/16/21 18:27: Potassium Level 3.2L 09/17/21 04:27: White Blood Count 9.2, Red Blood Count 3.88, Hemoglobin 11.6, Hematocrit 35, Mean Corpuscular Volume 90, Mean Corpuscular Hemoglobin 30, Mean Corpuscular Hemoglobin Concent 33, Red Cell Distribution Width 12.7, Platelet Count 144, Mean Platelet Volume 12.5H, Immature Granulocyte % (Auto) 0, Neutrophils (%) (Auto) 29L, Lymphocytes (%) (Auto) 59H, Monocytes (%) (Auto) 7, Eosinophils (%) (Auto) 3, Basophils (%) (Auto) 1, Neutrophils # (Auto) 2.7, Lymphocytes # (Auto) 5.5H, Monocytes # (Auto) 0.7, Eosinophils # (Auto) 0.3, Basophils # (Auto) 0.1, Immature Granulocyte # (Auto) 0.0, Sodium Level 142, Potassium Level 3.3L, Chloride Level 108H, Carbon Dioxide Level 24, Anion Gap 10, Blood Urea Nitrogen 3L, Creatinine 0.71, Estimat Glomerular Filtration Rate 90, BUN/Creatinine Ratio 4, Glucose Level 83, Calcium Level 8.1L Assessment/Plan Assessment/Plan Assessment/Plan Assessment: Abdominal pain Postcannoib hyperemesis syndrome Possible GI bleed History of drug use Hypokalemia Advise her to quit smoking, vaping, and not to use cannabis. She recently stopped using cannabis two or three weeks ago, her symptoms may improve with time if she refrains from cannabis use. I will do an EGD tomorrow on her because of her persistent symptoms of burning epigastric pain and drop of hemoglobin from 13.8 to most recently 11.6. Replace potassium, her current level is 3.3 which is up from 2.7. Cardiology is on board. DEBORAH SEGURA DO 09/17/211925: History of Present Illness History of Present Illness Date Seen by Provider: Sep 17, 2021 History of Present Illness Patient 41-year-old female with nausea and vomiting and left upper quadrant abdominal pain. Patient states he is been going on for at least 4 days. She has had previous hospitalizations for same complaints. Patient was supposed to follow-up outpatient after her last admission in January for EGD but she states was unable to do so due to family . Patient states that she has nausea and vomiting that she is unable to controlled. Patient was able to keep any liquids or solids down. She was found to be hypokalemic. Patient states that she also had a seizure because of this. Patient states that she quit smoking marijuana 2 weeks ago. Patient is left upper quadrant abdominal pain feels like a knife stabbing. Does not really move anywhere. She states it comes and goes. Nothing seems make better or worse except for vomiting making it worse. Denies any fever sweats chills shortness of breath or chest pain. Allergies and Home Medications Allergies Coded Allergies: No Known Drug Allergies (Unverified , 03/20/12) Patient Home Medication List Home Medication List Reviewed: Yes Bupropion HCl (Bupropion Xl) 300 Mg Tab.er.24h, 300 MG PO HS, (Reported) Entered as Reported by: SYED GIRALDO on 101507 Last Action: Converted Diazepam (Diazepam) 10 Mg Tablet, 10 MG PO TID PRN for ANXIETY, (Reported) Entered as Reported by: SURESH BYRD on 02/09/211129 Last Action: Converted Duloxetine HCl (Duloxetine HCl) 60 Mg Capsule.dr, 120 MG PO HS, (Reported) Entered as Reported by: SURESH BYRD on 02/09/211129 Last Action: Converted Estradiol (Estradiol Tablet) 0.5 Mg Tablet, 0.5 MG PO DAILY, (Reported) Entered as Reported by: SURESH BYRD on 02/09/211129 Last Action: Converted Fentanyl (Fentanyl Patch 50 MCG) 1 Each Patch.td72, 50 MCG TD Q72H, (Reported) Entered as Reported by: SYED GIRALDO on 09/16/211507 Last Action: Continued Gabapentin (Gabapentin) 800 Mg Tablet, 800 MG PO TID PRN for NEUROPATHIC PAIN, (Reported) Entered as Reported by: SURESH BYRD on 02/09/211129 Last Action: Converted Ondansetron HCl (Ondansetron HCl) 4 Mg Tablet, 4 MG PO Q4H PRN for NAUSEA/VOMITING-1ST LINE, (Reported) Entered as Reported by: SYED GIRALDO on 09/16/211507 Last Action: Converted Phenytoin Sodium Extended (Phenytoin Sodium Extended) 100 Mg Capsule, 100 MG PO BID, (Reported) Entered as Reported by: SYED GIRALDO on 09/16/211507 Last Action: Continued Quetiapine Fumarate (Quetiapine Fumarate) 25 Mg Tablet, 12.5 MG PO HS, (Reported) Entered as Reported by: SYED GIRALDO on 09/16/211507 Last Action: Continued Tizanidine HCl (Tizanidine HCl) 4 Mg Tablet, 8 MG PO Q6H PRN for MUSCLE SPASMS, (Reported) Entered as Reported by: SURESH BYRD on 02/09/211129 Last Action: Continued Discontinued Medications Ascorbic Acid (Vitamin C) 500 Mg Capsule, 500 MG PO DAILY, (Reported) Discontinued Reason: No Longer Taking Entered as Reported by: SURESH BYRD on 02/09/211129 Last Action: Discontinued Bupropion HCl (Bupropion Xl) 150 Mg Tab.er.24h, 150 MG PO BID, (Reported) Discontinued Reason: No Longer Taking Entered as Reported by: SURESH BYRD on 02/09/211129 Last Action: Discontinued Cholecalciferol (Vitamin D3) (Vitamin D3) 125 Mcg Tablet, 125 MCG PO DAILY, (Reported) Discontinued Reason: No Longer Taking Entered as Reported by: SURESH BYRD on 02/09/211129 Last Action: Discontinued Cyanocobalamin (Vitamin B-12) (Vitamin B-12) 500 Mcg Tablet, 500 MCG PO DAILY, (Reported) Discontinued Reason: No Longer Taking Entered as Reported by: SURESH BYRD on 02/09/211129 Last Action: Discontinued Diphenhydramine HCl (Benadryl) 25 Mg Capsule, 25 MG PO DAILY PRN for ALLERGIES, (Reported) Discontinued Reason: No Longer Taking Entered as Reported by: SURESH BYRD on 02/09/211129 Last Action: Discontinued Fentanyl (Duragesic Patch 25MCG) 1 Each Patch.td72, 25 MCG TD Q72H, (Reported) Discontinued Reason: No Longer Taking Entered as Reported by: SURESH BYRD on 02/09/211131 Last Action: Discontinued Lubiprostone (Amitiza) 24 Mcg Capsule, 24 MCG PO DAILY, (Reported) Discontinued Reason: No Longer Taking Entered as Reported by: SURESH BYRD on 02/09/211129 Last Action: Discontinued Multivitamin (Multivitamin) 1 Each Tablet, 1 EACH PO DAILY, (Reported) Discontinued Reason: No Longer Taking Entered as Reported by: SURESH BYRD on 02/09/211135 Last Action: Discontinued Omeprazole (Omeprazole) 40 Mg Capsule.dr, 40 MG PO DAILY, (Reported) Discontinued Reason: No Longer Taking Entered as Reported by: SURESH BYRD on 02/09/211129 Last Action: Discontinued Ondansetron (Ondansetron Odt) 4 Mg Tab.rapdis, 4 MG PO Q4H PRN for NAUSEA/VOMITING-1ST LINE, (Reported) Discontinued Reason: No Longer Taking Entered as Reported by: SURESH BYRD on 02/09/211129 Last Action: Discontinued Potassium Chloride (K-Tab ER) 10 Meq Tablet.er, 10 MEQ PO DAILY Discontinued Reason: No Longer Taking Prescribed by: FRANTZ ERVIN on 09/13/21 9972 Last Action: Discontinued Prochlorperazine Maleate (Compazine) 10 Mg Tablet, 10 MG PO PRN PRN for NAUSEA- 1ST LINE Discontinued Reason: No Longer Taking Prescribed by: FRANTZ ERVIN on 09/13/21 1932 Last Action: Discontinued Turmeric Root Extract (Turmeric) 538 Mg Capsule, 538 MG PO DAILY, (Reported) Discontinued Reason: No Longer Taking Entered as Reported by: SURESH BYRD on 02/09/21 1130 Last Action: Discontinued Past Mhjcarg-Prxcqf-Kcwtam Hx Reviewed Nursing Assessment Reviewed/Agree w Nursing PMH: Yes Family Medical History Significant Family History: Cancer (mother of breast cancer recently, most of aunts on mother side has had different cancer, uncle prostate cancer) Review of Systems-General Constitutional: No chills, No fever EENTM: No ear discharge, No mouth pain Respiratory: No cough, No hemoptysis Cardiovascular: chest pain, palpitations Gastrointestinal: abdominal pain (LUQ), heartburn, loss of appetite, nausea, vomiting Genitourinary: No decreased output, No discharge Musculoskeletal: No back pain, No joint pain Skin: No change in color, No change in hair/nails Psychiatric/Neurological: Anxiety, Depressed All Other Systems Reviewed Negative Unless Noted: Yes (Negative excepted noted.) Physical Exam-General Problems Physical Exam General Appearance: no apparent distress, other (anxious ) HEENT: PERRL/EOMI; No photophobia Respiratory: chest non-tender, no respiratory distress, no accessory muscle use Cardiovascular: regular rate, rhythm, no JVD Gastrointestinal: tenderness (LUQ, seems to have variable tenderness at different times on exam no palpable masses no other abnormalities palpated.) Rectal: deferred Back: no CVA tenderness, no vertebral tenderness Extremities: normal range of motion, non-tender, normal inspection Neurologic/Psychiatric: captain assistant II-XII nml as tested, alert, oriented x 3 Skin: normal color, warm/dry Lymphatic: no adenopathy Assessment/Plan Assessment/Plan Assessment/Plan Abdominal pain-luq intractable nausea and vomiting Postcannoib hyperemesis syndrome History of drug use Hypokalemia Advise her to quit smoking, vaping, and not to use cannabis. She recently stopped using cannabis two or three weeks ago, drug screen is positive. Her symptoms may improve with time if she refrains from cannabis use. I will do an EGD tomorrow on her because of her persistent symptoms of n/v and luq abdominal pain. She understands risks and benefits. NPO after midnight Consent. Replace potassium, her current level is 3.3 which is up from 2.7. Cardiology is on board. Supervisory-Addendum Brief Verification & Attestation Participated in pt care: history, MDM, physical Personally performed: exam, history, MDM, supervision of care Care discussed with: Medical Student Procedures: n/a Results interpretation: Verified all documentation Verification and Attestation of Medical Student E/M Service A medical student performed and documented this service in my presence. I reviewed and verified all information documented by the medical student and made modifications to such information, when appropriate. I personally performed the physical exam and medical decision making. Deborah Segura, Sep 17, 2021,19:32 DAVID ROCK Sep 17, 2021 08:21 DEBORAH SEGURA DO Sep 17, 2021 19:26
--- NOTE | 2021-09-17 08:34 | Cardiology Progress Note ---
Subjective Date Seen by Provider: Sep 17, 2021 Time Seen by Provider: 08:33 Subjective/Events-last exam Patient is laying down in bed, feeling better, less nausea, potassium is better Review of Systems General: No Chills, No Night Sweats, No Fatigue, No Malaise, No Appetite, No Other HEENT: No Head Aches, No Visual Changes, No Eye Pain, No Ear Pain, No Dysphasia, No Sinus Congestion, No Post Nasal Drip, No Sore Throat, No Other Pulmonary: No Dyspnea, No Cough, No Pleuritic Chest Pain, No Other Cardiovascular: No: Chest Pain, Palpitations, Orthopnea, Paroxysmal Noc. Dyspnea, Edema, Lt Headedness, Other Objective-Cardiology Exam Last Set of Vital Signs Vital Signs 09/17/21 09/17/21 04:16 07:00 Temp 36.6 Pulse 66 Resp 16 B/P (MAP) 111/88 (96) Pulse Ox 99 O2 Delivery Room Air I&O Intake and Output 09/17/21 00:00 Intake Total 3050 ml Balance 3050 ml Intake Oral 350 ml IV Total 2700 ml # Voids 7 Daily Weight Change Yes, 24-33 lbs General: Alert, Oriented X3, Cooperative HEENT: Atraumatic, PERRLA Neck: Supple, No JVD, No Thyromegaly Lungs: Clear to Auscultation, Normal Air Movement Heart: Regular Rate, Normal S1, Normal S2, No Murmurs Abdomen: Normal Bowel Sounds, Soft, No Tenderness, No Hepatosplenomegaly, No Masses Extremities: No Clubbing, No Cyanosis, No Edema, Normal Pulses, No Tenderne ss/Swelling Skin: No Rashes, No Breakdown, No Significant Lesion Neuro: Normal Gait, Normal Speech, Strength at 5/5 X4 Ext, Normal Tone, Sensation Intact Psych/Mental Status: Mental Status NL, Mood NL Results Lab Laboratory Tests 09/16/21 11:00 09/16/21 18:27 09/17/21 04:27 A/P-Cardiology Admission Diagnosis Prolonged QT N/V Hypokalemia Assessment/Plan Prolonged QTc, secondary to hypokalemia, better today, QTC is 460, potassium is 3.2, I will give additional 40 mEq IV. Continue to monitor Hypokalemia, still having mild hypokalemia, continue to replace Chronic, intermittent N/V, thought to be hyperemesis cannabinoid syndrome in the past. Has had multiple visits to ER over the past year. Dr. Reyes was consulted Epilepsy Anxiety Hx illicit drug use SHAGGY BENITES MD Sep 17, 2021 08:34
[2021-09-17 09:00] VITALS: BP 115/94
[2021-09-17] MEDS ORDERED: PANTOPRAZOLE 40 MG (PROTONIX) VIAL IV SCH (09:00)
[2021-09-17] MEDS ORDERED: fentaNYL PATCH 50 MCG (DURAGESIC) TD SCH (11:30)
[2021-09-17] MEDS ORDERED: NON-FORMULARY MEDICATION 1 EA EA (Diazepam 10 MG) PO PRN (11:30)
[2021-09-17 12:00] VITALS: BP 106/73
--- NOTE | 2021-09-17 12:20 | Progress Note - Hospitalist ---
KATINA TRAN 09/17/21 1220: Subjective HPI/CC On Admission Date Seen by Provider: Sep 17, 2021 Time Seen by Provider: 09:00 Chief complaint: Abdominal pain with nausea and vomiting History present illness: This is a 41-year-old white female history of seizure disorder who presented to the ER with abdominal pain. Nausea and vomiting also reported. Hypokalemia noted with increased QT interval. Cardiology consulted along with Dr. Reyes. Subjective/Events-last exam Pt "feeling better" Pain improved to 5/10, worse when lying on back Reports stomach still very tender to palpation Vomited overnight, but not this morning Didn't sleep well, not much appetite Remembered our conversation last night, said "memory is improving" Review of Systems General: Fatigue, Malaise Gastrointestinal: Nausea, Vomiting, Abdominal Pain Focused Exam Respiratory: Lungs Clear, Normal Breath Sounds Cardiovascular: Regular Rate, Rhythm Skin: normal color Objective Exam Vital Signs Vital Signs Date Time Temp Pulse Resp B/P (MAP) Pulse Ox O2 Delivery O2 Flow Rate FiO2 09/17/21 09:00 115/94 (101) 09/17/21 08:53 36.3 09/17/21 08:00 Room Air 09/17/21 08:00 79 16 100 Capillary Refill : Less Than 3 Seconds General Appearance: Moderate Distress Respiratory: Lungs Clear, Normal Breath Sounds Cardiovascular: Regular Rate, Rhythm Extremity: No Pedal Edema Neurologic/Psychiatric: Alert, Oriented x3 Results/Procedures Lab Laboratory Tests 09/16/21 18:27 09/17/21 04:27 Patient resulted labs reviewed. Assessment/Plan Assessment and Plan Assess & Plan/Chief Complaint Assessment: Prolonged QT Interval (improved- QTc 465ms on 2nd EKG) Hypokalemia (3.3) Possible hyperemesis cannabinoid syndrome Epilepsy IBS Illicit drug use Plan: Move to 4th floor today Continue to replace K+ Surgery to perform EGD due to reflux and dec Hgb (13.8-->11.6) Continue Valium Avoid QTC prolonging drugs Appreciate cardiology's consult MINAL PARKER DO 09/17/212025: Subjective Subjective/Events-last exam Patient doing much better Supplementing potassium EGD today? Blood pressure improved Review of Systems General: Fatigue, Malaise Gastrointestinal: Nausea, Vomiting, Abdominal Pain Objective Exam General Appearance: No Apparent Distress, WD/WN, Anxious, Chronically ill Respiratory: Lungs Clear, Normal Breath Sounds Cardiovascular: Regular Rate, Rhythm Neurologic/Psychiatric: Alert, Oriented x3, No Motor/Sensory Deficits, Normal Mood/Affect Assessment/Plan Assessment and Plan Assess & Plan/Chief Complaint Appreciate cardiology Appreciate general surgery Replace potassium Supervisory-Addendum Brief Verification & Attestation Participated in pt care: history, MDM, physical Personally performed: exam, history, MDM, supervision of care Care discussed with: Medical Student Procedures: n/a Results interpretation: Verified all documentation Verification and Attestation of Medical Student E/M Service A medical student performed and documented this service in my presence. I reviewed and verified all information documented by the medical student and made modifications to such information, when appropriate. I personally performed the physical exam and medical decision making. Minal Parker, Sep 17, 2021,20:25 KATINA TRAN Sep 17, 2021 12:20 MINAL PARKER DO Sep 17, 2021 20:26
[2021-09-17] MEDS ORDERED: GABAPENTIN 400 MG (NEURONTIN) CAP PO PRN (14:30)
[2021-09-17] MEDS ORDERED: ONDANSETRON 4 MG (ZOFRAN) ORAL DISSOLVE TAB PO PRN (14:30)
[2021-09-17 16:00] VITALS: BP 97/76
[2021-09-17 19:28] VITALS: BP 122/95
[2021-09-17] MEDS ORDERED: buPROPion SR 150 MG (WELLBUTRIN SR) TAB PO SCH (21:00)
[2021-09-17] MEDS ORDERED: DULoxetine 30 MG (CYMBALTA) CAP PO SCH (21:00)
[2021-09-17] MEDS ORDERED: QUEtiapine 25 MG (SEROquel) TAB IMMEDIATE RELEASE PO SCH (21:00)
[2021-09-17] MEDS: PHENYTOIN 100 MG (DILANTIN) CAP PO SCH (21:13)
[2021-09-18] VITALS (8 sets, daily range): BP systolic 110–127; BP diastolic 58–94
[2021-09-18] MEDS: NS IV 1000 ML 1,000 ML IV SCH (03:00)
[2021-09-18 04:38] LABS: MEAN PLATELET VOLUME 13.2 fL (9.0-12.2)
[2021-09-18 04:40] LABS: BASOPHILS # (AUTO) 0.1 10^3/uL (0.0-0.1); BASOPHILS % (AUTO) 2 % (0-10); EOSINOPHILS # (AUTO) 0.7 10^3/uL (0.0-0.3); EOSINOPHILS % (AUTO) 9 % (0-10); HEMATOCRIT 35 % (35-52); HEMOGLOBIN 11.5 g/dL (11.5-16.0); LYMPHOCYTES # (AUTO) 3.4 10^3/uL (1.0-4.0); LYMPHOCYTES % (AUTO) 46 % (12-44); MEAN CORPUSCULAR HEMOGLOBIN 30 pg (25-34); MEAN CORPUSCULAR HGB CONC 33 g/dL (32-36); MEAN CORPUSCULAR VOLUME 92 fL (80-99); MONOCYTES # (AUTO) 0.6 10^3/uL (0.0-1.0); MONOCYTES % (AUTO) 9 % (0-12); NEUTROPHILS # (AUTO) 2.6 10^3/uL (1.8-7.8); NEUTROPHILS % (AUTO) 35 % (42-75); PLATELET COUNT 135 10^3/uL (130-400); WHITE BLOOD COUNT 7.5 10^3/uL (4.3-11.0)
[2021-09-18 04:50] LABS: ALBUMIN 3.2 GM/DL (3.2-4.5)
[2021-09-18 04:51] LABS: CHLORIDE 108 MMOL/L (98-107); POTASSIUM 3.7 MMOL/L (3.6-5.0); SODIUM 140 MMOL/L (135-145)
[2021-09-18 04:52] LABS: CALCIUM 8.2 MG/DL (8.5-10.1)
[2021-09-18 04:53] LABS: GLUCOSE 82 MG/DL (70-105); TOTAL PROTEIN 5.1 GM/DL (6.4-8.2)
[2021-09-18 04:54] LABS: CARBON DIOXIDE 24 MMOL/L (21-32)
[2021-09-18 04:55] LABS: BILIRUBIN,TOTAL 0.3 MG/DL (0.1-1.0)
[2021-09-18 04:56] LABS: ALKALINE PHOSPHATASE 65 U/L (40-136)
[2021-09-18 04:57] LABS: CREATININE SERUM 0.73 MG/DL (0.60-1.30); GFR ESTIMATED 87
[2021-09-18 04:58] LABS: BUN/CREATININE RATIO 3
[2021-09-18 05:00] LABS: ALANINE AMINOTRANSFERASE 28 U/L (0-55)
[2021-09-18] MEDS: SUCRALFATE 1 GM (CARAFATE) TAB PO SCH ×2 (06:00→17:26)
--- NOTE | 2021-09-18 07:19 | Progress Note - Surgery ---
DAVID ROCK 09/18/21 0719: Subjective Time Seen by a Provider: 07:00 Subjective/Events-last exam Pt is doing better today. She has not had any N/V and her abdominal pain is only present when she strains like having a bowel movement that she had yesterday. She denies fever, chills, SOB, CP, and heart palpations. Objective Exam Vital Signs Date Time Temp Pulse Resp B/P (MAP) Pulse Ox O2 Delivery O2 Flow Rate FiO2 09/18/21 04:00 36.4 77 16 122/84 (97) 97 Room Air 09/18/21 01:00 70 09/18/21 00:45 36.6 66 16 121/75 (90) 98 Room Air 09/17/21 20:00 Room Air 09/17/21 19:28 36.4 67 18 122/95 (104) 99 Room Air 09/17/21 19:00 57 09/17/21 16:00 36.4 59 12 97/76 (83) 100 Room Air 09/17/21 13:00 68 09/17/21 12:00 36.1 64 14 106/73 (84) 100 Room Air 09/17/21 09:00 115/94 (101) 09/17/21 08:53 36.3 09/17/21 08:00 Room Air 09/17/21 08:00 79 16 100 Room Air I & O 09/18/21 07:00 Intake Total 1900 ml Output Total 700 ml Balance 1200 ml Capillary Refill : Less Than 3 Seconds General Appearance: No Apparent Distress, WD/WN, Anxious, Chronically ill HEENT: PERRL/EOMI Neck: Full Range of Motion, Normal Inspection, Non Tender Respiratory: Lungs Clear, Normal Breath Sounds Cardiovascular: Regular Rate, Rhythm Gastrointestinal: tenderness (LUQ and RUQ are very tender to palpation ) Neurologic/Psychiatric: Alert, Oriented x3, No Motor/Sensory Deficits, Normal Mood/Affect Skin: Normal Color, Warm/Dry Lymphatic: No Adenopathy Results Lab Laboratory Tests 09/18/21 04:28: White Blood Count 7.5, Red Blood Count 3.83, Hemoglobin 11.5, Hematocrit 35, Mean Corpuscular Volume 92, Mean Corpuscular Hemoglobin 30, Mean Corpuscular Hemoglobin Concent 33, Red Cell Distribution Width 12.7, Platelet Count 135, Mean Platelet Volume 13.2H, Immature Granulocyte % (Auto) 0, Neutrophils (%) (Auto) 35L, Lymphocytes (%) (Auto) 46H, Monocytes (%) (Auto) 9, Eosinophils (%) (Auto) 9, Basophils (%) (Auto) 2, Neutrophils # (Auto) 2.6, Lymphocytes # (Auto) 3.4, Monocytes # (Auto) 0.6, Eosinophils # (Auto) 0.7H, Basophils # (Auto) 0.1, Immature Granulocyte # (Auto) 0.0, Percent Immature Platelet Fraction 14.7H, Sodium Level 140, Potassium Level 3.7, Chloride Level 108H, Carbon Dioxide Level 24, Anion Gap 8, Blood Urea Nitrogen < 2L, Creatinine 0.73, Estimat Glomerular Filtration Rate 87, BUN/Creatinine Ratio 3, Glucose Level 82, Calcium Level 8.2L , Corrected Calcium 8.8, Total Bilirubin 0.3, Aspartate Amino Transf (AST/SGOT) 30, Alanine Aminotransferase (ALT/SGPT) 28, Alkaline Phosphatase 65, Total Protein 5.1L, Albumin 3.2 Assessment/Plan Assessment/Plan Assessment/Plan Abdominal pain-luq intractable nausea and vomiting Postcannoib hyperemesis syndrome History of drug use Hypokalemia Advise her to quit smoking, vaping, and not to use cannabis. She recently stopped using cannabis two or three weeks ago, drug screen is positive. Her symptoms may improve with time if she refrains from cannabis use. A EGD is scheduled for today on her because of her persistent symptoms of n/v and luq abdominal pain. She understands risks and benefits. NPO after midnight Consent. Replace potassium, her current level is normal at 3.7 which is up from 3.3 yesterday. Cardiology is on board. Dr. Alvarado will discharge the patient after her EGD if everything goes well. EUGENE REYES DO 09/19/21 0763: Subjective Subjective/Events-last exam Patient currently n.p.o. Patient states she has not had any nausea vomiting today. She still having some abdominal pain in the left upper quadrant but this is improved. She is wanting something to drink. She denies any nausea vomiting fever sweats chills shortness of breath or chest pain at this time. Patient for EGD today. Objective Exam General Appearance: No Apparent Distress, Anxious HEENT: PERRL/EOMI, Normal ENT Inspection Neck: Non Tender, Supple Respiratory: Chest Non Tender, No Accessory Muscle Use, No Respiratory Distress Cardiovascular: Regular Rate, Rhythm, No JVD Gastrointestinal: soft, tenderness (LUQ ) Neurologic/Psychiatric: Alert, Oriented x3, No Motor/Sensory Deficits Skin: Normal Color, Warm/Dry Lymphatic: No Adenopathy Assessment/Plan Assessment/Plan Assessment/Plan Abdominal pain-luq intractable nausea and vomiting Postcannoib hyperemesis syndrome History of drug use Hypokalemia Patient feeling little bit better today. Patient is n.p.o. We will plan EGD as we discussed patient understands risk and benefits of having EGD performed. Patient with no other complaints. Patient for EGD today. Continue on Protonix and Carafate. Supervisory-Addendum Brief Verification & Attestation Participated in pt care: history, MDM, physical Personally performed: exam, history, MDM, supervision of care Care discussed with: Medical Student Procedures: n/a Results interpretation: Verified all documentation Verification and Attestation of Medical Student E/M Service A medical student performed and documented this service in my presence. I reviewed and verified all information documented by the medical student and made modifications to such information, when appropriate. I personally performed the physical exam and medical decision making. Eugene Reyes, Sep 18, 2021,13:02 DAVID ROCK Sep 18, 2021 07:19 EUGENE REYES DO Sep 19, 2021 13:53
[2021-09-18] MEDS ORDERED: PANTOPRAZOLE 40 MG (PROTONIX) TAB PO SCH (09:00)
[2021-09-18] MEDS ORDERED: ESTRADIOL 1 MG TAB (ESTRACE) PO SCH (09:00)
--- NOTE | 2021-09-18 09:51 | Progress Note ---
KATINA TRAN 09/18/21 0951: Progress Note 41 y/o F with hx of epilepsy, anxiety, IBS, and marijuana use presented to the ER by EMS with complaints of abdominal pain and severe N/V for two days. Patient had intermittent N/V for the past year and had been to the ER several times w/ the same sx. Pt went to the ER the day prior for a seizure and was noted to have hypokalemia, but was unable to afford supplements. CT of the abd/pelvis showed a small amount of intraluminal gas in her urinary bladder. After admission, K+ was found to be 2.7 and ECG showed prolonged QT (QTc 600ms). Tox screen was positive for barbiturates, benzodiazepines and cannabinoids; she had a fentanyl patch. Potassium replacement was started, cardiology and surgery were consulted, and the pt was admitted. Her prolonged QT secondary to hypokalemia slowly improved with potassium replacement, with a QTc of 465 and K+ of 3.7 at discharge. Surgery performed an EGD on 09/18 to investigate the pt's report of reflux and a decrease in her Hgb (13.8 to 11.6). Pt is encouraged to stop cannabinoid use as her emesis is suspected to be due to hyperemesis cannabinoid syndrome. MINAL PARKER DO 09/18/216: Supervisory-Addendum Brief Verification & Attestation Participated in pt care: history, MDM, physical Personally performed: exam, history, MDM, supervision of care Care discussed with: Medical Student Procedures: n/a Results interpretation: Verified all documentation Verification and Attestation of Medical Student E/M Service A medical student performed and documented this service in my presence. I review ed and verified all information documented by the medical student and made modifications to such information, when appropriate. I personally performed the physical exam and medical decision making. Minal Parker Sep 18, 2021,21:16 KATINA TRAN Sep 18, 2021 09:51 MINAL PARKER DO Sep 18, 2021 21:16
[2021-09-18] MEDS: DIAZEPAM 5 MG (VALIUM) TABLET PO SCH ×2 (10:02→17:27)
[2021-09-18] MEDS ORDERED: LACTATED RINGERS 1,000 ML IV ONE ×2 (13:59→14:00)
[2021-09-18] MEDS ORDERED: HURRICAINE EXT TUBE (BENZOCAINE) XX PRN (14:00)
[2021-09-18] MEDS ORDERED: MIDAZOLAM 2 MG/2 ML (VERSED) VIAL ONE (14:24)
[2021-09-18] MEDS ORDERED: proPOfol 200 MG/20 ML (DIPRIVAN) VIAL IV ONE (14:24)
--- NOTE | 2021-09-18 14:58 | Anesthesia-General Post-Op ---
MAC Patient Condition Mental Status/LOC: Same as Preop Cardiovascular: Satisfactory Nausea/Vomiting: Absent Respiratory: Satisfactory Pain: Controlled Complications: Absent Post Op Complications Complications None Follow Up Care/Instructions Patient Instructions None needed. Anesthesiology Discharge Order Discharge Order Patient is doing well, no complaints, stable vital signs, no apparent adverse anesthesia problems. REMY SMALL DO Sep 18, 2021 14:58
--- NOTE | 2021-09-18 15:43 | Progress Note-Post Operative ---
Post-Operative Progess Note Surgeon (s)/Interior Design Professional (s) Surgeon DEBORAH SEGURA DO Interior Design Professional: na Pre-Operative Diagnosis nausea vomiting, luq abdominal pain Post-Operative Diagnosis gastritis with possible healing antral ulcer Procedure & Operative Findings Date of Procedure 09/18/21 Procedure Performed/Findings egd c biospies Anesthesia Type per mda Estimated Blood Loss Estimated blood loss (mL): none Specimens/Packing Specimens Removed antrum, ge DEBORAH SEGURA DO Sep 18, 2021 15:43
[2021-09-18] MEDS ORDERED: SUCR1TAB PO (16:43)
[2021-09-18] MEDS ORDERED: PANT40TA52 PO (16:43)
[2021-09-18] MEDS: PHENYTOIN 100 MG (DILANTIN) CAP PO SCH (17:26)
--- NOTE | 2021-09-18 21:28 | OPERATIVE REPORT ---
DATE OF SERVICE: 09/18/2021 PREOPERATIVE DIAGNOSES: Nausea, vomiting, left upper quadrant abdominal pain. POSTOPERATIVE DIAGNOSES: Gastritis, questionable healing ulcer in the antrum. PROCEDURE: EGD with biopsies. SURGEON: Deborah Reyes DO ANESTHESIA: Per MDA. ESTIMATED BLOOD LOSS: None. COMPLICATIONS: None. INDICATIONS: The patient is a 41-year-old female with nausea and vomiting, left upper quadrant abdominal pain. She understands risks and benefits of procedure and wished to proceed with procedure. Consent was signed in the chart. DESCRIPTION OF PROCEDURE: The patient was taken to the endoscopy suite, placed in left lateral recumbent position. Timeout was performed. Scope was inserted in mouth, down the esophagus, stomach and into the duodenum without difficulty. There were no polyps, masses or ulcerations within the duodenum. Scope was slowly retracted back into the stomach where it was further insufflated. Minimal gastritis present. Questionable healing ulcer of the antrum. Biopsy of the antrum at the questionable ulcer area was obtained. Scope was retroflexed noting no other pathology. Scope was returned to its normal position, slowly withdrawn to distal esophagus. Scope was then slowly retracted back. Her biopsy of GE junction was obtained. Scope was then slowly retracted back until completely removed. The patient tolerated procedure well without any complications, taken to recovery room in stable condition. RECOMMENDATIONS: The patient will continue on current medications and follow up on pathology. Job ID: [id number] DocumentID: [id number] Dictated Date: 09/18/2021 16:29:10 Construction Safety Manager Date: 09/18/2021 21:27:35 Dictated By: DEBORAH REYES DO
[2021-09-19] MEDS ORDERED: FENTANYL PATCH REMOVAL TP SCH (13:59)
--- NOTE | 2021-09-21 14:35 | Physician Query Clarification ---
PQ-Further Specificity Admission/Discharge Admission Date: Sep 16, 2021 at 11:56 Discharge Date: Sep 18, 2021 at 17:40 Dr. Alvarado, The medical record reflects the following clinical scenario: History/Risk Factors: cannibus use, epilepsy, intermittent N/V past year Clinical Findings: N/V, diffuse abdominal pain, potassium 2.7, Gastritis, questionable healing ulcer in the antrum.per EGD Treatment: IV PHenergan, IVF, IV Protonix Question: Can you further specify the etiology of the diffuse abdominal pain per the clinical indicators above? Please document a response in the Progress Notes or Discharge Summary. 1. Gastritis 2. hyperemesis cannabinoid syndrome 3. QT interval prolongation 4. Antral ulcer 5. Other, with explanation of the clinical findings. 6. Clinically undetermined, no explanation for the clinical findings. PHYSICIAN RESPONSE Can you specify per above: 1 Please remember a lack of response to the above will prompt a phone page by [facility]/Coding staff. In responding to this query, please exercise your independent professional judgment. The purpose of this communication is to more accurately reflect the complexity of your patients condition. The fact that a question is asked does not imply that any particular answer is desired or expected. Thank you for your timely response to this clarification. Requestors name: Nathan THIS PHYSICIAN QUERY FORM IS A PERMANENT PART OF THE MEDICAL RECORD NATHAN ABEBE Sep 21, 2021 14:35 SERG ALVARADO DO Sep 21, 2021 21:25
== END 2021-09-18 17:40 | disposition home or self-care (01) ==
LOC: EDUNIT# 10:58 → ER 10:59 → UNDOADMIN 11:56 → CSD 11:56 → SDC 13:33 → CSD 09-18 15:53 → SDC 09-18 17:40 → UNDODISIN 09-18 17:40
PROVIDERS: ATTEND Internal Medicine
DX: K29.50 Unspecified chronic gastritis without bleeding (principal); K21.00 Gastro-esophageal reflux disease with esophagitis, without bleeding; E87.6 Hypokalemia; I45.81 Long QT syndrome; G40.909 Epilepsy, unspecified, not intractable, without status epilepticus; F12.90 Cannabis use, unspecified, uncomplicated; G62.9 Polyneuropathy, unspecified; K58.9 Irritable bowel syndrome, unspecified; J45.909 Unspecified asthma, uncomplicated; Z20.822 Contact with and (suspected) exposure to COVID-19; F41.9 Anxiety disorder, unspecified; F31.9 Bipolar disorder, unspecified; H54.7 Unspecified visual loss; F17.210 Nicotine dependence, cigarettes, uncomplicated; F17.290 Nicotine dependence, other tobacco product, uncomplicated; Z91.51 Personal history of suicidal behavior; Z98.1 Arthrodesis status; Z79.899 Other long term (current) drug therapy; Z88.8 Allergy status to other drugs, medicaments and biological substances; Z11.2 Encounter for screening for other bacterial diseases
CPT/HCPCS: 43239; 80048; 80053 ×2; 80306; 81000; 83690; 83735; 84132; 84703; 85025 ×3; 87081; 87636; 93005 ×2; 96361; 96365; 96375; 99283; G0378; G0480; 36415; 74177; 80185; 80320; 84146; 86141; 96374

== ENCOUNTER 2021-11-06 00:14 | Observation (INO) | payer MEDICAID ==
[~2021-11-06] VITALS: Ht 149.9 cm; Wt 62.8 kg
[~2021-11-06 00:14] MED LIST changes: +BUPR300T98 PO; +FENT1PAT9 TD; +ONDA-105 PO; +PANT40TA52 PO; +PHEN100C11 PO; -POTA10TA36 PO; +POTA10TA37 PO; +QUET25TA35 PO; +SUCR1TAB PO; +TIZA-186 PO; -TIZA4TAB4 PO
[2021-11-06] MEDS ORDERED: LORazepam INJ 2 MG/ML (ATIVAN) VIAL ONE (00:23)
[2021-11-06] MEDS ORDERED: NS (IVPB) 100 ML ONE (00:27)
[2021-11-06] MEDS ORDERED: LACTATED RINGERS 1,000 ML IV STA ×2 (00:28→01:33)
[2021-11-06] MEDS ORDERED: LORazepam INJ 2 MG/ML (ATIVAN) VIAL IVP ONE ×2 (00:30→01:15)
[2021-11-06] MEDS ORDERED: ONDANSETRON 4 MG/2 ML (SDV) Z0FRAN IVP ONE (00:30)
--- NOTE | 2021-11-06 00:38 | ED General ---
General Stated Complaint: SEIZURE,N/V,COVID EXPOSURE Source of Information: Patient Exam Limitations: Physical Impairments (Seizure disorder) History of Present Illness Date Seen by Provider: Nov 06, 2021 Time Seen by Provider: 00:15 Initial Comments Here by EMS with report of seizures, fever, chills, nausea and vomiting. Apparently has some sort of seizure disorder and takes Dilantin reportedly. She is also on diazepam 10 mg 3 times daily. She has not been prescribed Dilantin f or medical record review since June. She does follow with [facility] for her medical care. She has been seen for intractable nausea and vomiting previously as well as seizures. Apparently she had contact with grandchild who was Covid positive and lives with her in the home. She is not vaccinated for Covid. Does report significant nausea and vomiting and has not been able to take her medicines tonight. She reported seizures to EMS. Shortly after arrival, patient had seizure-like activity and this limited history from the patient. Timing/Duration: 24 Hours Severity: Moderate Associated Systoms: No Cough; Fever/Chills, Nausea/Vomiting, Seizure; No Shortness of Air; Weakness Allergies and Home Medications Allergies Coded Allergies: No Known Drug Allergies (Unverified , 03/20/12) Patient Home Medication List Home Medication List Reviewed: Yes Bupropion HCl (Bupropion Xl) 300 Mg Tab.er.24h, 300 MG PO HS, (Reported) Entered as Reported by: SYED GIRALDO on 09/16/21 1508 Diazepam (Diazepam) 10 Mg Tablet, 10 MG PO TID PRN for ANXIETY, (Reported) Entered as Reported by: SURESH BYRD on 02/09/21 1130 Duloxetine HCl (Duloxetine HCl) 60 Mg Capsule.dr, 120 MG PO HS, (Reported) Entered as Reported by: SURESH BYRD on 02/09/21 1130 Estradiol (Estradiol Tablet) 0.5 Mg Tablet, 0.5 MG PO DAILY, (Reported) Entered as Reported by: SURESH BYRD on 02/09/21 1130 Fentanyl (Fentanyl Patch 50 MCG) 1 Each Patch.td72, 50 MCG TD Q72H, (Reported) Entered as Reported by: SYED GIRALDO on 09/16/21 1508 Gabapentin (Gabapentin) 800 Mg Tablet, 800 MG PO TID PRN for NEUROPATHIC PAIN, (Reported) Entered as Reported by: SURESH BYRD on 02/09/21 1130 Ondansetron HCl (Ondansetron HCl) 4 Mg Tablet, 4 MG PO Q4H PRN for NAUSEA/VOMITING-1ST LINE, (Reported) Entered as Reported by: SYED GIRALDO on 09/16/21 1508 Pantoprazole Sodium (Pantoprazole Sodium) 40 Mg Tablet.dr, 40 MG PO DAILY Prescribed by: LÓPEZ CABRERA on 09/18/21 164 Phenytoin Sodium Extended (Phenytoin Sodium Extended) 100 Mg Capsule, 100 MG PO BID, (Reported) Entered as Reported by: SYED GIRALDO on 09/16/21 1508 Quetiapine Fumarate (Quetiapine Fumarate) 25 Mg Tablet, 12.5 MG PO HS, (Reported) Entered as Reported by: SYED GIRALDO on 09/16/21 1508 Sucralfate (Sucralfate) 1 Gm Tablet, 1 GM PO ACHS Prescribed by: LÓPEZ CABRERA on 09/18/21 164 Tizanidine HCl (Tizanidine HCl) 4 Mg Tablet, 8 MG PO Q6H PRN for MUSCLE SPASMS, (Reported) Entered as Reported by: SURESH BYRD on 02/09/21 1130 Review of Systems Review of Systems Constitutional: see HPI, chills, fever, weakness Respiratory: No cough, No short of breath Gastrointestinal: nausea, vomiting Musculoskeletal: muscle pain Psychiatric/Neurological: Seizure, Tremors Review of systems limited by seizure-like activity. Past Zpzcacf-[id number]-[id number] Hx Patient Social History Tobacco Use?: Yes Tobacco type used: Cigarettes Use of E-Cig and/or Vaping dev: Yes E-Cig or Vaping type used: Nicotine Substance use?: Yes Substance type: Marijuana Immunizations Up To Date Tetanus Booster (TDap): Unknown Seasonal Allergies Seasonal Allergies: No Past Medical History Surgery/Hospitalization HX: APPENDECTOMY, GB, HYSTERECTOMY, CERVICAL FUSION Surgeries: Yes (MULTIPLE D&C'S, LEFT CARPAL TUNNEL AND LEFT ULNAR NERVE TRANSPOSITION, BSO,) Appendectomy, Gallbladder, Hysterectomy, Oophorectomy, Orthopedic Respiratory: Yes Asthma Cardiac: Yes (TACHYCARDIA) Neurological: Yes (Carpel tunnel syndrome bilat;neuropathy && neurodysplasia of LUE;PSUEDOSZ ?) Seizure Disorder Reproductive Disorders: Yes (OVARIAN CYSTS, HYSTERECTOMY FOR CERVICAL DYSPLASIA) BASEBALL SEWER HAND History: Hysterectomy Genitourinary: No Gastrointestinal: Yes ("CHRONIC ABDOMINAL PAIN" ) Irritable Bowel Musculoskeletal: Yes Chronic Back Pain Endocrine: No HEENT: No Loss of Vision: Denies Hearing Impairment: Denies Cancer: Yes (CERVICAL DYSPLASIA) Cervical What Type of Treatment Did You: Surgical Intervention Psychosocial: Yes (EXTENSIVE PSYCH ISSUES; SUSPECTED PSEUDOSEIZURES) Anxiety, Suicide Attempts, Bipolar, Depression Integumentary: No Blood Disorders: No Adverse Reaction/Blood Tranf: No Family Medical History Cancer Physical Exam-Suspected Sepsis Physical Exam Vital Signs Vital Signs - First Documented Capillary Refill : Height, Weight, BMI Height: 5'0" Weight: 132lbs. oz. [id number]; 23.00 BMI Method:Actual General Appearance: WD/WN, Mild Distress, Moderate Distress HEENT: PERRL/EOMI, Pharyngeal Erythema Neck: Non Tender, Supple Respiratory: Lungs Clear, Normal Breath Sounds Cardiovascular: Regular Rate, Rhythm, No Murmur Gastrointestinal: Non Tender, Soft Extremity: Normal Range of Motion, Non Tender Neurologic/Psychiatric: Other (Tremors on arrival. Seizure-like activity shortly after arrival. This included shaking and not twitching and unresponsiveness. O2 saturation remained 98 to 100% and heart rate remained sixties to seventies during activity.) Skin: warm/dry; No diaphoresis Focused Exam Lactate Level 11/06/21 00:25: Lactic Acid Level 2.51*H 11/06/21 03:55: Lactic Acid Level 1.35 Lactic Acid Level Laboratory Tests Test 11/06/21 03:55 Lactic Acid Level 1.35 MMOL/L (0.50-2.00) Progress/Results/Core Measures Suspected Sepsis SIRS Temperature: Pulse: Respiratory Rate: Laboratory Tests 11/06/21 00:25: White Blood Count 9.5 Blood Pressure / Mean: 11/06/21 00:25: Lactic Acid Level 2.51*H 11/06/21 03:55: Lactic Acid Level 1.35 Laboratory Tests 11/06/21 00:25: Creatinine 1.03, INR Comment 0.9, Platelet Count 225, Total Bilirubin 0.5 Results/Orders Lab Results Laboratory Tests Test 11/06/21 00:25 11/06/21 03:55 Range/Units White Blood Count 9.5 4.3-11.0 10^3/uL Red Blood Count 4.76 3.80-5.11 10^6/uL Hemoglobin 14.2 11.5-16.0 g/dL Hematocrit 42 35-52 % Mean Corpuscular Volume 88 80-99 fL Mean Corpuscular Hemoglobin 30 25-34 pg Mean Corpuscular Hemoglobin Concent 34 32-36 g/dL Red Cell Distribution Width 12.5 10.0-14.5 % Platelet Count 225 130-400 10^3/uL Mean Platelet Volume 12.5 H 9.0-12.2 fL Immature Granulocyte % (Auto) 0 % Neutrophils (%) (Auto) 66 42-75 % Lymphocytes (%) (Auto) 24 12-44 % Monocytes (%) (Auto) 7 0-12 % Eosinophils (%) (Auto) 2 0-10 % Basophils (%) (Auto) 1 0-10 % Neutrophils # (Auto) 6.3 1.8-7.8 10^3/uL Lymphocytes # (Auto) 2.3 1.0-4.0 10^3/uL Monocytes # (Auto) 0.7 0.0-1.0 10^3/uL Eosinophils # (Auto) 0.2 0.0-0.3 10^3/uL Basophils # (Auto) 0.1 0.0-0.1 10^3/uL Immature Granulocyte # (Auto) 0.0 0.0-0.1 10^3/uL Prothrombin Time 12.7 12.2-14.7 SEC INR Comment 0.9 0.8-1.4 Activated Partial Thromboplast Time 27 24-35 SEC D-Dimer < 0.27 0.00-0.49 UG/ML Sodium Level 142 135-145 MMOL/L Potassium Level 3.3 L 3.6-5.0 MMOL/L Chloride Level 104 98-107 MMOL/L Carbon Dioxide Level 20 L 21-32 MMOL/L Anion Gap 18 H 5-14 MMOL/L Blood Urea Nitrogen 10 7-18 MG/DL Creatinine 1.03 0.60-1.30 MG/DL Estimat Glomerular Filtration Rate 59 BUN/Creatinine Ratio 10 Glucose Level 138 H 70-105 MG/DL Lactic Acid Level 2.51 *H 1.35 0.50-2.00 MMOL/L Calcium Level 9.8 8.5-10.1 MG/DL Corrected Calcium 9.5 8.5-10.1 MG/DL Total Bilirubin 0.5 0.1-1.0 MG/DL Aspartate Amino Transf (AST/SGOT) 20 5-34 U/L Alanine Aminotransferase (ALT/SGPT) 17 0-55 U/L Alkaline Phosphatase 88 40-136 U/L C-Reactive Protein High Sensitivity 0.16 0.00-0.50 MG/DL Total Protein 7.3 6.4-8.2 GM/DL Albumin 4.4 3.2-4.5 GM/DL Serum Test, Qualitative NEGATIVE NEGATIVE Influenza Type A (RT-PCR) Not Detected Not Detecte Influenza Type B (RT-PCR) Not Detected Not Detecte SARS-CoV-2 RNA (RT-PCR) Not Detected Not Detecte My Orders Orders - ANJU SANTA MD Lorazepam Injection (Ativan Injection) (11/06/21 00:30) Lorazepam Injection (Ativan Injection) (11/06/21 00:23) Fibrin Degradation Products (11/06/21) Hs C Reactive Protein (11/06/21) Covid 19 Inhouse Test (11/06/21) Cbc With Automated Diff (11/06/21) Comprehensive Metabolic Panel (11/06/21) Blood Culture (11/06/21) Sputum Culture (11/06/21) Urinalysis (11/06/21) Urine Culture (11/06/21) Protime With Inr (11/06/21) Partial Thromboplastin Time (11/06/21) Chest 1 View, Ap/Pa Only (11/06/21) Ed Iv/Invasive Line Start (11/06/21) Vital Signs Adult Sepsis Patie Q15M (11/06/21:) O2 (11/06/21:) Remove Rings In Anticipation O (11/06/21) Lactic Acid Analyzer (11/06/21) Influenza A And B By Pcr (11/06/21) Ondansetron Injection (Zofran Injectio (11/06/21:) Lactated Ringers (Lr 1000 Ml Iv Solution (12/10/21 00:28) Hcg,Qualitative Serum (11/06/21 00:28) Levetiracetam Injection (Keppra Injectio (11/06/21 00:27) Ns (Ivpb) (Sodium Chloride 0.9% Ivpb Bag (11/06/21 00:27) Dilantin (Phenytoin) (11/06/21 00:31) Levetiracetam Injection (Keppra Injectio (11/06/21 01:08) Lorazepam Injection (Ativan Injection) (11/06/21 01:15) Lactated Ringers (Lr 1000 Ml Iv Solution (11/06/21 01:33) Ketorolac Injection (Toradol Injection) (11/06/21 02:14) Promethazine Injection (Phenergan Injec (11/06/21 02:14) Ketorolac Injection (Toradol Injection) (11/06/21 02:21) Ekg Tracing (11/06/21 04:05) Droperidol Inj (Ed Only) (Inapsine Inj ( (11/06/21 04:15) Medications Given in ED Current Medications Medications Dose Ordered Sig/Rafael Route Start Time Stop Time Status Last Admin Dose Admin Droperidol 1.25 mg ONCE ONCE IV 11/06/21 04:15 11/06/21 04:17 DC 11/06/21 04:26 1.25 MG Lorazepam 1 mg ONCE ONCE IVP 11/06/21 00:30 11/06/21 00:31 DC 11/06/21 00:31 1 MG Lorazepam 2 mg ONCE ONCE IVP 11/06/21 01:15 11/06/21 01:16 DC 11/06/21 01:22 2 MG Ondansetron HCl 4 mg ONCE ONCE IVP 11/06/21 00:30 11/06/21 00:31 DC 11/06/21 00:31 4 MG Vital Signs/I&O 11/06/21 12 00:15 00:15 Temp 36.8 Pulse 76 Resp 18 B/P (MAP) 121/98 (106) Pulse Ox 98 98 O2 Delivery Nasal Cannula Nasal Cannula O2 Flow Rate 2.00 2.00 Capillary Refill : Progress Note : Progress Note Seen and evaluated on arrival by EMS. IV by EMS. LR 1 L bolus and Zofran 4 mg IV ordered on arrival. We will initiate sepsis protocol plus Covid screen and influenza screen. Seizure-like activity with body shaking and not twitching noted shortly after arrival. Ativan 1 mg IV and Keppra 500 mg IV ordered. Tyler rds review for med reconciliation reveals patient is on diazepam 10 mg p.o. 3 times daily. It does not look like she has had Dilantin prescription since June and I am unsure if she is still on that. Patient stated she was. She is seen at [facility] and may be getting samples for that. We will check level. Monitor patient. 0417: Patient has received repeat dose of Ativan 2 mg IV as well as Phenergan 25 mg IV and a second liter of fluids with LR. She is still having nausea and vomiting. Further discussion with her reveals that she has in the past smoked marijuana quite heavily but says that she has not smoked for a few weeks now, although she states it may still be in her system. We will give droperidol 1.25 mg IV as this is beneficial and cannabis associated hyperemesis syndrome. EKG was done and showed QT interval 443. If this fails then we will pursue admission. Monitor patient. 0455: Still with intractable nausea and vomiting. I did discuss the case with Dr. Mistry and she accepts patient for admission, observation status. Patient agrees with the plan. ECG Initial ECG Impression Date: Nov 06, 2021 Initial ECG Impression Time: 04:10 Initial ECG Rate: 69 Initial ECG Rhythm: Normal Sinus Comment Sinus rhythm with normal axis. No evidence of ST elevation ID. Normal QT interval. Interpreted by me. Similar to previous of 09/17/2021. Departure Communication (Admissions) Time/Spoke to Admitting Phy: 04:55 Impression Primary Impression: Nausea & vomiting Qualified Codes: R11.2 - Nausea with vomiting, unspecified Additional Impression: Seizure disorder Disposition: ADMITTED INPATIENT Condition: Stable Admissions Decision to Admit Reason: Admit from ER (General) Decision to Admit/Date: Nov 06, 2021 Time/Decision to Admit Time: 04:55 Departure-Patient Inst. Referrals: SELFJOHANNE MD (PCP/Family) Primary Care Physician ANJU SANTA MD Nov 06, 2021 00:38
[2021-11-06 00:41] LABS: BASOPHILS # (AUTO) 0.1 10^3/uL (0.0-0.1); BASOPHILS % (AUTO) 1 % (0-10); EOSINOPHILS # (AUTO) 0.2 10^3/uL (0.0-0.3); EOSINOPHILS % (AUTO) 2 % (0-10); HEMATOCRIT 42 % (35-52); HEMOGLOBIN 14.2 g/dL (11.5-16.0); LYMPHOCYTES # (AUTO) 2.3 10^3/uL (1.0-4.0); LYMPHOCYTES % (AUTO) 24 % (12-44); MEAN CORPUSCULAR HEMOGLOBIN 30 pg (25-34); MEAN CORPUSCULAR HGB CONC 34 g/dL (32-36); MEAN CORPUSCULAR VOLUME 88 fL (80-99); MEAN PLATELET VOLUME 12.5 fL (9.0-12.2); MONOCYTES # (AUTO) 0.7 10^3/uL (0.0-1.0); MONOCYTES % (AUTO) 7 % (0-12); NEUTROPHILS # (AUTO) 6.3 10^3/uL (1.8-7.8); NEUTROPHILS % (AUTO) 66 % (42-75); PLATELET COUNT 225 10^3/uL (130-400); WHITE BLOOD COUNT 9.5 10^3/uL (4.3-11.0)
[2021-11-06 00:59] LABS: ALBUMIN 4.4 GM/DL (3.2-4.5); BILIRUBIN,TOTAL 0.5 MG/DL (0.1-1.0); CALCIUM 9.8 MG/DL (8.5-10.1); CREATININE SERUM 1.03 MG/DL (0.60-1.30); POTASSIUM 3.3 MMOL/L (3.6-5.0); TOTAL PROTEIN 7.3 GM/DL (6.4-8.2)
[2021-11-06 01:07] LABS: FIBRIN DEGRADATION PRODUCTS < 0.27 UG/ML (0.00-0.49); INR 0.9 (0.8-1.4); PARTIAL THROMBOPLASTIN TIME 27 SEC (24-35); PROTHROMBIN TIME PATIENT 12.7 SEC (12.2-14.7)
[2021-11-06] MEDS ORDERED: PROMETHAZINE INJ 25 MG/ML (PHENERGAN) AMP IVP STA (02:14)
[2021-11-06] MEDS ORDERED: KETOROLAC 30 MG/ML VIAL IVP STA (02:14)
[2021-11-06] MEDS ORDERED: KETOROLAC 30 MG/ML VIAL ONE (02:21)
[2021-11-06] MEDS ORDERED: DROPERIDOL 5 MG/2 ML (INAPSINE) ED ONLY! IV ONE (04:15)
[2021-11-06] MEDS ORDERED: LACTATED RINGERS 1,000 ML IV ONE (05:51)
[2021-11-06 05:54] VITALS: BP 151/92
[2021-11-06] MEDS ORDERED: LORazepam INJ 2 MG/ML (ATIVAN) VIAL IV PRN (06:00)
[2021-11-06] MEDS: LACTATED RINGERS 1,000 ML IV SCH ×3 (06:08→14:57)
[2021-11-06] MEDS: ONDANSETRON 4 MG/2 ML (SDV) Z0FRAN IV PRN ×4 (06:12→22:09)
--- NOTE | 2021-11-06 06:17 | Diagnostic Imaging Report ---
EXAMINATION: Chest 1 view HISTORY: Fever and chills COMPARISON: 02/06/2021 FINDINGS: The lungs are clear without edema or pneumonia. No pleural effusion or pneumothorax. Heart size is normal. IMPRESSION: 1. Clear lungs. Dictated by: Dictated on workstation # [id number]
[2021-11-06] MEDS: PROMETHAZINE INJ 25 MG/ML (PHENERGAN) AMP IVP PRN ×2 (08:18→14:55)
[2021-11-06] MEDS: PANTOPRAZOLE 40 MG (PROTONIX) VIAL IV SCH (08:18)
[2021-11-06 08:23] VITALS: BP 178/87
[2021-11-06] MEDS: POTASSIUM CL 10MEQ/50ML IVPB 50 ML IV SCH ×2 (10:49→11:53)
[2021-11-06] MEDS ORDERED: OMEP40CA6 PO (10:50)
[2021-11-06] MEDS ORDERED: ACET-2267 PO (10:51)
[2021-11-06] MEDS ORDERED: DOCU-26 PO (10:52)
[2021-11-06] MEDS ORDERED: ASCO500C17 PO (10:53)
[2021-11-06] MEDS ORDERED: MULT-974 PO (10:53)
[2021-11-06 12:06] VITALS: BP 159/87
[2021-11-06 17:00] VITALS: BP 152/85
--- NOTE | 2021-11-06 18:28 | History & Physical ---
HPI History of Present Illness: 41 yo F with seizure d/o that presented to ER with N/V and fever. Patient states that she started to feel bad yesterday morning. She states that she has taken her seizure medication but on review she has not filled dilatin since June. Denies any recent sick contacts. Denies any pain other then her baseline pain Source: patient Exam Limitations: no limitations Date seen by provider: Nov 06, 2021 Time Seen by Provider: 10:00 Attending Physician Sharonda iMstry MD PCP SelfOsei MD Consult Date of Admission Nov 06, 2021 at 05:20 Home Medications Home Medications Reviewed patient Home Medication Reconciliation performed by pharmacy medication reconciliations electrical assembly technician and/or nursing. Patients Allergies have been reviewed. Allergies Coded Allergies: No Known Drug Allergies (Unverified , 03/20/12) PWV-Apleod-Senxtg Hx Patient Social History Drug of Choice: CANNIBUS Smoking Status: Former Smoker 2nd Hand Smoke Exposure: No Recent Hopitalizations: No Alcohol Use?: No Substance type: Marijuana Tobacco type used: Cigarettes Have you traveled recently?: No Immunizations Up To Date Tetanus Booster (TDap): Unknown Influenza Vaccine Up-to-Date: No; Not Current Past Medical History Seizure D/o Family Medical History Significant Family History: Cancer Review of Systems ([facility]) Constitutional: chills, fever, malaise, weakness EENTM: no symptoms reported; No mouth pain, No nose congestion, No nose pain Respiratory: no symptoms reported; No cough, No dyspnea on exertion, No short of breath Cardiovascular: no symptoms reported; No chest pain, No edema, No palpitations Gastrointestinal: No abdominal pain, No constipation, No diarrhea; nausea, vomiting Genitourinary: no symptoms reported; No dysuria, No frequency, No hematuria : No Musculoskeletal: back pain; No joint pain, No muscle pain Skin: no symptoms reported; No lesions, No rash Reviewed Test Results Reviewed Test Results Lab Laboratory Tests Test 11/06/21 00:25 11/06/21 03:55 Range/Units White Blood Count 9.5 4.3-11.0 10^3/uL Red Blood Count 4.76 3.80-5.11 10^6/uL Hemoglobin 14.2 11.5-16.0 g/dL Hematocrit 42 35-52 % Mean Corpuscular Volume 88 80-99 fL Mean Corpuscular Hemoglobin 30 25-34 pg Mean Corpuscular Hemoglobin Concent 34 32-36 g/dL Red Cell Distribution Width 12.5 10.0-14.5 % Platelet Count 225 130-400 10^3/uL Mean Platelet Volume 12.5 H 9.0-12.2 fL Immature Granulocyte % (Auto) 0 % Neutrophils (%) (Auto) 66 42-75 % Lymphocytes (%) (Auto) 24 12-44 % Monocytes (%) (Auto) 7 0-12 % Eosinophils (%) (Auto) 2 0-10 % Basophils (%) (Auto) 1 0-10 % Neutrophils # (Auto) 6.3 1.8-7.8 10^3/uL Lymphocytes # (Auto) 2.3 1.0-4.0 10^3/uL Monocytes # (Auto) 0.7 0.0-1.0 10^3/uL Eosinophils # (Auto) 0.2 0.0-0.3 10^3/uL Basophils # (Auto) 0.1 0.0-0.1 10^3/uL Immature Granulocyte # (Auto) 0.0 0.0-0.1 10^3/uL Prothrombin Time 12.7 12.2-14.7 SEC INR Comment 0.9 0.8-1.4 Activated Partial Thromboplast Time 27 24-35 SEC D-Dimer < 0.27 0.00-0.49 UG/ML Sodium Level 142 135-145 MMOL/L Potassium Level 3.3 L 3.6-5.0 MMOL/L Chloride Level 104 98-107 MMOL/L Carbon Dioxide Level 20 L 21-32 MMOL/L Anion Gap 18 H 5-14 MMOL/L Blood Urea Nitrogen 10 7-18 MG/DL Creatinine 1.03 0.60-1.30 MG/DL Estimat Glomerular Filtration Rate 59 BUN/Creatinine Ratio 10 Glucose Level 138 H 70-105 MG/DL Lactic Acid Level 2.51 *H 1.35 0.50-2.00 MMOL/L Calcium Level 9.8 8.5-10.1 MG/DL Corrected Calcium 9.5 8.5-10.1 MG/DL Total Bilirubin 0.5 0.1-1.0 MG/DL Aspartate Amino Transf (AST/SGOT) 20 5-34 U/L Alanine Aminotransferase (ALT/SGPT) 17 0-55 U/L Alkaline Phosphatase 88 40-136 U/L C-Reactive Protein High Sensitivity 0.16 0.00-0.50 MG/DL Total Protein 7.3 6.4-8.2 GM/DL Albumin 4.4 3.2-4.5 GM/DL Serum Test, Qualitative NEGATIVE NEGATIVE Influenza Type A (RT-PCR) Not Detected Not Detecte Influenza Type B (RT-PCR) Not Detected Not Detecte SARS-CoV-2 RNA (RT-PCR) Not Detected Not Detecte Physical Exam-([facility]) Physical Exam Vital Signs VS - Last 72 Hours, by Label 11/06/21 11/06/21 11/06/21 11/06/21 00:15 00:15 05:50 05:54 Temp 36.8 36.7 Pulse 76 96 Resp 18 20 B/P (MAP) 121/98 (106) 151/92 (111) Pulse Ox 98 98 98 98 O2 Delivery Nasal Cannula Nasal Cannula Room Air Room Air O2 Flow Rate 2.00 2.00 11/06/21 11/06/21 11/06/21 11/06/21 08:23 08:24 12:06 17:00 Temp 36.8 37.7 38.0 Pulse 63 80 86 Resp 18 18 19 B/P (MAP) 178/87 (117) 159/87 (111) 152/85 (107) Pulse Ox 96 98 98 O2 Delivery Room Air Room Air Room Air Room Air Capillary Refill : Less Than 3 Seconds General Appearance: WD/WN, mild distress HEENT: PERRL/EOMI Neck: non-tender, full range of motion Respiratory: chest non-tender, lungs clear, normal breath sounds, no respiratory distress, no accessory muscle use Cardiovascular: normal peripheral pulses, regular rate, rhythm, no edema, no murmur Gastrointestinal: normal bowel sounds, soft; No distended, No guarding, No rebound; tenderness Back: no CVA tenderness, no vertebral tenderness Extremities: normal range of motion, non-tender, normal inspection, no pedal edema, no calf tenderness, normal capillary refill Neurologic/Psychiatric: net maker II-XII nml as tested, no motor/sensory deficits, alert, normal mood/affect, oriented x 3 Skin: normal color, warm/dry Lymphatic: no adenopathy Assessment/Plan Assessment/Plan Admission Status: Observation (1) Intractable nausea and vomiting Status: Acute Assessment & Plan: - IVFs, antiemetics, advance diet as tolerated (2) Seizure disorder Status: Chronic Assessment & Plan: - Continue seizure meds SHARONDA MISTRY MD Nov 06, 2021 18:28
[2021-11-06] MEDS ORDERED: fentaNYL PATCH 50 MCG (DURAGESIC) TD SCH (20:00)
[2021-11-06] MEDS: ACETAMINOPHEN 500 MG TAB (TYLENOL) PO PRN (20:39)
[2021-11-06] MEDS: QUEtiapine 25 MG (SEROquel) TAB IMMEDIATE RELEASE PO SCH (20:39)
[2021-11-06] MEDS: PHENYTOIN 100 MG (DILANTIN) CAP PO SCH (20:39)
[2021-11-06 21:00] VITALS: BP 159/100
[2021-11-06 23:12] VITALS: BP 158/105
[2021-11-07] VITALS (7 sets, daily range): BP systolic 108–169; BP diastolic 58–106
[2021-11-07] MEDS: PROMETHAZINE INJ 25 MG/ML (PHENERGAN) AMP IVP PRN ×2 (00:13→07:32)
[2021-11-07] MEDS: ONDANSETRON 4 MG/2 ML (SDV) Z0FRAN IV PRN (04:35)
[2021-11-07 06:23] LABS: BASOPHILS % (AUTO) 0 % (0-10); EOSINOPHILS % (AUTO) 0 % (0-10); HEMATOCRIT 35 % (35-52); HEMOGLOBIN 11.6 g/dL (11.5-16.0); LYMPHOCYTES # (AUTO) 2.4 10^3/uL (1.0-4.0); LYMPHOCYTES % (AUTO) 31 % (12-44); MEAN CORPUSCULAR HEMOGLOBIN 29 pg (25-34); MEAN CORPUSCULAR HGB CONC 33 g/dL (32-36); MEAN CORPUSCULAR VOLUME 89 fL (80-99); MEAN PLATELET VOLUME 12.9 fL (9.0-12.2); MONOCYTES # (AUTO) 0.8 10^3/uL (0.0-1.0); MONOCYTES % (AUTO) 10 % (0-12); NEUTROPHILS # (AUTO) 4.4 10^3/uL (1.8-7.8); NEUTROPHILS % (AUTO) 58 % (42-75); PLATELET COUNT 193 10^3/uL (130-400); WHITE BLOOD COUNT 7.6 10^3/uL (4.3-11.0)
[2021-11-07 06:30] LABS: ALBUMIN 3.5 GM/DL (3.2-4.5)
[2021-11-07 06:31] LABS: POTASSIUM 3.4 MMOL/L (3.6-5.0)
[2021-11-07 06:32] LABS: CALCIUM 8.4 MG/DL (8.5-10.1)
[2021-11-07 06:33] LABS: TOTAL PROTEIN 5.5 GM/DL (6.4-8.2)
[2021-11-07 06:35] LABS: BILIRUBIN,TOTAL 0.4 MG/DL (0.1-1.0)
[2021-11-07 06:37] LABS: CREATININE SERUM 0.84 MG/DL (0.60-1.30)
[2021-11-07] MEDS: LACTATED RINGERS 1,000 ML IV SCH ×2 (07:21→09:32)
[2021-11-07] MEDS: ACETAMINOPHEN 500 MG TAB (TYLENOL) PO PRN (07:32)
[2021-11-07] MEDS: PHENYTOIN 100 MG (DILANTIN) CAP PO SCH ×3 (09:32→21:18)
[2021-11-07] MEDS: PANTOPRAZOLE 40 MG (PROTONIX) VIAL IV SCH (09:32)
--- NOTE | 2021-11-07 11:35 | Progress Note - Hospitalist ---
Subjective HPI/CC On Admission Date Seen by Provider: Nov 07, 2021 Time Seen by Provider: 10:50 Subjective/Events-last exam There is been more time before vomiting with some decrease in nausea but patient has not been able to keep much of anything down by mouth. She reportedly has been able to keep the Dilantin down. Her temperature is down she denies headache abdominal pain dysuria or shortness of breath. Focused Exam Lactate Level 11/06/21 00:25: Lactic Acid Level 2.51*H 11/06/21 03:55: Lactic Acid Level 1.35 Objective Exam Vital Signs Vital Signs Date Time Temp Pulse Resp B/P (MAP) Pulse Ox O2 Delivery O2 Flow Rate FiO2 11/07/21 09:20 132/98 (109) 11/07/21 08:13 37.2 85 16 97 Room Air 11/06/21 00:15 2.00 Capillary Refill : Less Than 3 Seconds General Appearance: Mild Distress Respiratory: Chest Non Tender, Lungs Clear, Normal Breath Sounds, No Accessory Muscle Use, No Respiratory Distress Cardiovascular: Regular Rate, Rhythm, No Edema, No Gallop, No JVD, No Murmur, Normal Peripheral Pulses Gastrointestinal: Normal Bowel Sounds, No Organomegaly, No Pulsatile Mass, Soft, Tenderness (Mild generalized no rebound or guarding) Extremity: Normal Capillary Refill, Normal Inspection, Normal Range of Motion, Non Tender, No Calf Tenderness, No Pedal Edema Results/Procedures Lab Laboratory Tests 11/07/21 05:30 Patient resulted labs reviewed. Assessment/Plan Assessment and Plan Assess & Plan/Chief Complaint (1) Intractable nausea and vomiting Status: Acute Assessment & Plan: - IVFs, antiemetics, Suspect this is been chronic a component of gastroparesis will initiate Reglan 10 mg IVevery 6. Patient normally takes Valium is requesting this as withdrawal would only aggravate na usea and vomiting will resume IV and monitor for now. (2) Seizure disorder Status: Chronic Assessment & Plan: - Continue seizure meds NICOLASA ECHAVARRIA MD Nov 07, 2021 11:35
[2021-11-07] MEDS ORDERED: DIAZEPAM INJ 10 MG/2 ML (VALIUM) SYR IVP PRN (11:45)
[2021-11-07] MEDS: METOCLOPRAMIDE INJ 10 MG/2 ML (REGLAN) IVP SCH ×2 (12:27→17:42)
[2021-11-07] MEDS: DIAZEPAM INJ 10 MG/2 ML (VALIUM) SYR IVP PRN (17:42)
[2021-11-07] MEDS: QUEtiapine 25 MG (SEROquel) TAB IMMEDIATE RELEASE PO SCH (21:18)
[2021-11-08] MEDS: METOCLOPRAMIDE INJ 10 MG/2 ML (REGLAN) IVP SCH ×2 (00:20→06:23)
[2021-11-08] MEDS: LACTATED RINGERS 1,000 ML IV SCH ×3 (00:21→08:13)
[2021-11-08] MEDS: DIAZEPAM INJ 10 MG/2 ML (VALIUM) SYR IVP PRN ×2 (00:35→08:08)
[2021-11-08 07:17] VITALS: BP 118/75
[2021-11-08] MEDS: PANTOPRAZOLE 40 MG (PROTONIX) VIAL IV SCH (08:08)
[2021-11-08] MEDS: PHENYTOIN 100 MG (DILANTIN) CAP PO SCH (08:08)
[2021-11-08] MEDS ORDERED: FLU QUADRIvalent (3YOA+) 60 mcg/0.5 ml 2021-22(AFLURIA) IM ONE (09:45)
[2021-11-08] MEDS ORDERED: METO5VIA3 PO (09:58)
--- NOTE | 2021-11-08 10:03 | Discharge Summary ---
Diagnosis/Chief Complaint Date of Admission Nov 06, 2021 at 05:20 Date of Discharge Discharge Date: Nov 08, 2021 Primary Care SelfOsei MD Discharge Summary Discharge Physical Exam Allergies: Coded Allergies: No Known Drug Allergies (Unverified , 03/20/12) Vitals & I&Os Vital Signs Date Time Temp Pulse Resp B/P (MAP) Pulse Ox O2 Delivery O2 Flow Rate FiO2 11/08/21 08:16 Room Air 11/08/21 07:17 36.1 73 16 118/75 (89) 95 11/06/21 00:15 2.00 General Appearance: No Apparent Distress Respiratory: Chest Non Tender, Lungs Clear, Normal Breath Sounds, No Accessory Muscle Use, No Respiratory Distress Cardiovascular: Regular Rate, Rhythm, No Edema, No Gallop, No JVD, No Murmur, Normal Peripheral Pulses Gastrointestinal: Normal Bowel Sounds, No Organomegaly, No Pulsatile Mass, Non Tender, Soft Hospital Course Was the Problem List Reviewed?: Yes Patient was admitted with intractable nausea and vomiting with low-grade fever around 38 C. She was Covid negative begin PCR testing no evidence for pneumonia urinary tract infection any other obvious signs or sources of infection noted. There was only minimal benefit with initial Phenergan and Zofran IV. We did initiate metoclopramide which did lead to significant benefits highly suggesting underlying gastroparesis. The patient has had multiple admissions this year with onset of symptoms around November of early satiety. We did discuss gastroparesis diet issues and she will continue metoclopramide 10 mg half an hour before meals and at bedtime and the rest of her home medications unchanged. She was advised to follow-up with Dr. Samaniego in the next week or 2. She had no subsequent fever voicing no complaints with no nausea or abdominal pain on discharge. Labs (last 24 hrs) Microbiology 11/06/21 Blood Culture - Preliminary, Resulted No growth Patient resulted labs reviewed. Discussion & Recommendations Discharge Planning: >30 minutes discharge planning Discharge Home Medications: Active Scripts Active Metoclopramide HCl 5 Mg/1 Ml Vial 10 Mg PO ACHS 30 Days take 30 minutes before meals and at bedtime Reported Multi-Vitamin Daily (Multivitamin) 1 Each Tablet 1 Each PO DAILY Vitamin C (Ascorbic Acid) 500 Mg Capsule 500 Mg PO DAILY Stool Softener (Docusate Sodium) 100 Mg Capsule 100 Mg PO DAILY PRN Tylenol Extra Strength (Acetaminophen) 500 Mg Tablet 1,000 Mg PO Q8H PRN TAKES 2 (500MG) TABLETS Omeprazole 40 Mg Capsule.dr 40 Mg PO DAILY Fentanyl Patch 50 MCG (Fentanyl) 1 Each Patch.td72 50 Mcg TD Q72H Ondansetron HCl 4 Mg Tablet 4 Mg PO Q4H PRN Phenytoin Sodium Extended 100 Mg Capsule 100 Mg PO TID Bupropion Xl (Bupropion HCl) 300 Mg Tab.er.24h 300 Mg PO HS Quetiapine Fumarate 25 Mg Tablet 12.5 Mg PO HS TAKES OF A 25MG TAB Tizanidine HCl 4 Mg Tablet 8 Mg PO Q6H PRN TAKES 2 (4MG) TABLETS Diazepam 10 Mg Tablet 10 Mg PO TID PRN Estradiol Tablet (Estradiol) 0.5 Mg Tablet 0.5 Mg PO DAILY Gabapentin 800 Mg Tablet 800 Mg PO TID Instructions to patient/family Please see electronic discharge instructions given to patient. Copy Copies To 2: SELF,NICOLASA CARPENTER MD, MD Nov 08, 2021 10:03
[2021-11-09] MEDS ORDERED: PATCH REMOVAL TP SCH (20:00)
== END 2021-11-08 11:22 | disposition home or self-care (01) ==
LOC: EDUNIT# 00:14 → ER 00:15 → 4TH 05:20
PROVIDERS: ADMIT Family Medicine; ATTEND Internal Medicine
DX: R11.2 Nausea with vomiting, unspecified (principal); R56.9 Unspecified convulsions; R50.9 Fever, unspecified; F41.9 Anxiety disorder, unspecified; J45.909 Unspecified asthma, uncomplicated; I25.2 Old myocardial infarction; F32.A Depression, unspecified; Z79.899 Other long term (current) drug therapy; Z87.891 Personal history of nicotine dependence; Z90.89 Acquired absence of other organs
CPT/HCPCS: 36415; 71045; 80053; 80185; 83605; 83735; 84703; 85025; 85379; 85610; 85730; 86141; 87040; 87636; 93005; 96374; 96375; 96376; G0378

== ENCOUNTER → 2021-11-24 | Outpatient (CLI) | payer MEDICAID ==
[~2021-11-24] MED LIST changes: +ACET-2267 PO; +DOCU-26 PO; +METO5VIA3 PO; +MULT-974 PO
--- NOTE | 2021-11-24 17:14 | Diagnostic Imaging Report ---
PROCEDURE: MRI lumbar spine. TECHNIQUE: Multiplanar, multisequence MRI of the lumbar spine was performed without contrast. INDICATION: Left leg weakness with back pain. It is compared with lumbar MRI 05/01/2020. Lumbar stature is stable and normal. The alignment anatomic. The pedicles and pars were intact. Left-sided L4-L5 6 facet synovial cyst again is directed posteriorly and does not extend into the spinal canal; this is chronic. No acute fluid collection. The lumbar spinal canal, the neural foramen and the lateral recesses are widely patent at each vertebral body and disc space level. There is very slight circumferential annular bulging of the L4-L5 disc without compression of the exiting or descending nerves; this is unchanged. No focal disc herniation. The remaining discs well-hydrated and nondisplaced. No endplate Modic changes. No marrow edema. No acute or suspect finding. IMPRESSION: 1. Unchanged from prior, very slight circumferential diffuse bulging of the L4-L5 disc without focal herniation or resultant stenosis. Left-sided facet arthrosis and a left-sided extra canalicular left L4-L5 synovial facet cyst chronic. 2. No change, stenosis or acute appearing abnormalities. Dictated by: Dictated on workstation # [id number]
== END ==
LOC: RAD 13:15
DX: M51.16 Intervertebral disc disorders with radiculopathy, lumbar region (principal); M48.061 Spinal stenosis, lumbar region without neurogenic claudication; M47.26 Other spondylosis with radiculopathy, lumbar region
CPT/HCPCS: 72148

== ENCOUNTER 2021-11-30 03:45 | Emergency (ER) | payer MEDICAID ==
[~2021-11-30] VITALS: Ht 149.9 cm; Wt 60.8 kg
[2021-11-30] MEDS ORDERED: PROMETHAZINE INJ 25 MG/ML (PHENERGAN) AMP IVP STA (03:48)
[2021-11-30] MEDS ORDERED: ONDANSETRON 4 MG/2 ML (SDV) Z0FRAN IV PRN (04:00)
[2021-11-30] MEDS ORDERED: diphenhydrAMINE 50 MG/ML INJ (BENADRYL) IVP ONE (04:00)
[2021-11-30] MEDS ORDERED: PANTOPRAZOLE 40 MG (PROTONIX) VIAL IV ONE (04:00)
[2021-11-30] MEDS ORDERED: ONDANSETRON 4 MG/2 ML (SDV) Z0FRAN IVP ONE (04:00)
[2021-11-30] MEDS ORDERED: ACETAMINOPHEN 500 MG TAB (TYLENOL) PO PRN (04:00)
[2021-11-30] MEDS ORDERED: LACTATED RINGERS 1,000 ML IV ONE (04:00)
--- NOTE | 2021-11-30 04:08 | ED GI ---
General Chief Complaint: Abdominal/GI Problems Stated Complaint: N/V Source of Information: Patient, EMS, Old Records (ROMEO YAN DO) History of Present Illness Date Seen by Provider: Nov 30, 2021 Time Seen by Provider: 03:47 Initial Comments PT ARRIVES VIA EMS FROM HOME C/O NAUSEA AND VOMITING/DRY HEAVES--THIS IS A CHRONIC COMPLAINT FOR PATIENT AND HAS BEEN DX WITH CYCLIC VOMITING DUE TO CHRONIC MARIJUANA USE PT HAS HAD MULTIPLE VISITS FOR THIS SAME PT STATES SHE TOOK A LAXATIVE YESTERDAY AND NOW HAS DIARRHEA ADDITIONALLY, PT HAS LONGSTANDING HISTORY OF SEIZURES / PSEUDOSEIZURES, AND HAS BEEN PRESCRIBED DILANTIN, BUT DOES NOT TAKE IT DOES NOT SEE NEUROLOGIST PT WITH VERY EXTENSIVE PSYCH HISTORY EMS NOTED THAT PT HAD TEMP OF 102.1 AT THE SCENE PT HAS NOT HAD COVID-19 VACCINE PT HAS HAD KNOWN SICK CONTACTS WITH COVID PT WAS HOSPITALIZED 11/06/21 WITH INTRACTABLE NAUSEA/VOMITING AND EXPOSURE TO COVID AT THAT TIME WELL. (ROMEO YAN DO) Allergies and Home Medications Allergies Coded Allergies: No Known Drug Allergies (Unverified , 03/20/12) Patient Home Medication List Home Medication List Reviewed: Yes (CHING STYLES MD) Acetaminophen (Tylenol Extra Strength) 500 Mg Tablet, 1,000 MG PO Q8H PRN for PAIN-MILD (1-4), (Reported) Entered as Reported by: ALEXANDRE YOU on 11/06/21 1051 Ascorbic Acid (Vitamin C) 500 Mg Capsule, 500 MG PO DAILY, (Reported) Entered as Reported by: ALEXANDRE YOU on 11/06/21 1053 Bupropion HCl (Bupropion Xl) 300 Mg Tab.er.24h, 300 MG PO HS, (Reported) Entered as Reported by: SYED GIRALDO on 09/16/21 1508 Cefdinir (Cefdinir) 300 Mg Capsule, 300 MG PO BID Prescribed by: ROMEO YAN on 11/30/21 0613 Diazepam (Diazepam) 10 Mg Tablet, 10 MG PO TID PRN for ANXIETY, (Reported) Entered as Reported by: SUERSH BYRD on 02/09/21 1130 Docusate Sodium (Stool Softener) 100 Mg Capsule, 100 MG PO DAILY PRN for CONSTIPATION-1ST LINE, (Reported) Entered as Reported by: ALEXANDRE YOU on 11/06/21 1052 Estradiol (Estradiol Tablet) 0.5 Mg Tablet, 0.5 MG PO DAILY, (Reported) Entered as Reported by: SURESH BYRD on 02/09/21 1130 Fentanyl (Fentanyl Patch 50 MCG) 1 Each Patch.td72, 50 MCG TD Q72H, (Reported) Entered as Reported by: SYED GIRALDO on 09/16/21 1508 Gabapentin (Gabapentin) 800 Mg Tablet, 800 MG PO TID, (Reported) Entered as Reported by: SURESH BYRD on 02/09/21 1130 Metoclopramide HCl (Metoclopramide HCl) 5 Mg/1 Ml Vial, 10 MG PO ACHS Prescribed by: NICOLASA ECHAVARRIA on 11/08/21 0958 Metoclopramide HCl (Reglan) 10 Mg Tablet, 10 MG PO QID Prescribed by: ROMEO YAN on 11/30/21612 Multivitamin (Multi-Vitamin Daily) 1 Each Tablet, 1 EACH PO DAILY, (Reported) Entered as Reported by: ALEXANDRE YOU on 11/06/21 1053 Omeprazole (Omeprazole) 40 Mg Capsule.dr, 40 MG PO DAILY, (Reported) Entered as Reported by: ALEXANDRE YOU on 11/06/21 1050 Ondansetron (Ondansetron Odt) 8 Mg Tab.rapdis, 8 MG PO Q6H Prescribed by: ROMEO YAN on 11/30/21612 Ondansetron HCl (Ondansetron HCl) 4 Mg Tablet, 4 MG PO Q4H PRN for NAUSEA/VOMITING-1ST LINE, (Reported) Entered as Reported by: SYED GIRALDO on 09/16/21 1508 Pantoprazole Sodium (Protonix) 40 Mg Tablet.dr, 40 MG PO DAILY Prescribed by: ROMEO YAN on 11/30/21612 Phenytoin Sodium Extended (Phenytoin Sodium Extended) 100 Mg Capsule, 100 MG PO TID, (Reported) Entered as Reported by: SYED GIRALDO on 09/16/21 1508 Promethazine HCl (Promethazine Suppository) 25 Mg Supp.rect, 25 MG RC Q6 Prescribed by: ROMEO YAN on 11/30/21612 Quetiapine Fumarate (Quetiapine Fumarate) 25 Mg Tablet, 12.5 MG PO HS, (Reported) Entered as Reported by: SYED GIRALDO on 09/16/21 1508 Tizanidine HCl (Tizanidine HCl) 4 Mg Tablet, 8 MG PO Q6H PRN for MUSCLE SPASMS, (Reported) Entered as Reported by: SURESH BYRD on 02/09/21 1130 Review of Systems Review of Systems Constitutional: see HPI, fever Gastrointestinal: See HPI, Nausea, Vomiting (ROMEO YAN DO) Past Vxjjmkz-Tyeojb-Hkwafi Hx Patient Social History Substance use?: Yes Substance type: Marijuana (ROMEO YAN DO) Immunizations Up To Date Tetanus Booster (TDap): Unknown (ROMEO YAN DO) Seasonal Allergies Seasonal Allergies: No (ROMEO YAN DO) Past Medical History Surgery/Hospitalization HX: APPENDECTOMY, GB, HYSTERECTOMY, CERVICAL FUSION Surgeries: Yes (MULTIPLE D&C'S, LEFT CARPAL TUNNEL AND LEFT ULNAR NERVE TRANSPOSITION, BSO,) Appendectomy, Gallbladder, Hysterectomy, Oophorectomy, Orthopedic Respiratory: Yes Asthma Cardiac: Yes (TACHYCARDIA) Neurological: Yes (Carpel tunnel syndrome bilat;neuropathy && neurodysplasia of LUE;PSUEDOSZ ?) Seizure Disorder Reproductive Disorders: Yes (OVARIAN CYSTS, HYSTERECTOMY FOR CERVICAL DYSPLASIA) 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 Genitourinary: No Gastrointestinal: Yes ("CHRONIC ABDOMINAL PAIN" "CYCLIC VOMITING" / CHRONIC THC USE ) Gall Bladder Disease, Irritable Bowel Musculoskeletal: Yes Chronic Back Pain Endocrine: No HEENT: No Loss of Vision: Denies Hearing Impairment: Denies Cancer: Yes (CERVICAL DYSPLASIA) Cervical What Type of Treatment Did You: Surgical Intervention Psychosocial: Yes (EXTENSIVE PSYCH ISSUES; SUSPECTED PSEUDOSEIZURES) Anxiety, Suicide Attempts, Bipolar, Depression Integumentary: No Blood Disorders: No Adverse Reaction/Blood Tranf: No (ROMEO YAN DO) Family Medical History Cancer SOCIAL HISTORY: -SMOKING -ETOH- -DRUGS-REGULAR THC USE PAST SURGICAL HISTORY: -CHOLECYSTECTOMY -APPENDECTOMY -HYSTERECTOMY/BILATERAL SALPINGO-OOPHORECTOMY -CARPAL TUNNEL (ROMEO YAN DO) Physical Exam Vital Signs (CHING STYLES MD) Vital Signs Capillary Refill : (ROMEO YAN DO) Height/Weight/BMI Height: 5'0" Weight: 132lbs. oz. [id number]; 27.94 BMI Method:Actual General Appearance: WD/WN, no apparent distress HEENT: PERRL/EOMI, normal ENT inspection Neck: normal inspection Respiratory: normal breath sounds, no respiratory distress, no accessory muscle use Cardiovascular: regular rate, rhythm, no murmur Gastrointestinal: non tender, soft Extremities: normal inspection, normal capillary refill Back: no CVA tenderness Neurologic/Psychiatric: no motor/sensory deficits, alert, oriented x 3 Skin: normal color, warm/dry (LEYDIROMEO Jayla DO) Focused Exam Lactate Level 11/30/21 04:00: Lactic Acid Level 0.86 (CHING STYLES MD) Lactic Acid Level Laboratory Tests Test 11/30/21 04:00 Lactic Acid Level 0.86 MMOL/L (0.50-2.00) (CHING STYLES MD) Progress/Results/Core Measures Results/Orders Lab Results Laboratory Tests Test 11/30/21 04:00 11/30/21 04:15 11/30/21 06:30 Range/Units White Blood Count 12.4 H 4.3-11.0 10^3/uL Red Blood Count 4.60 3.80-5.11 10^6/uL Hemoglobin 13.7 11.5-16.0 g/dL Hematocrit 41 35-52 % Mean Corpuscular Volume 89 80-99 fL Mean Corpuscular Hemoglobin 30 25-34 pg Mean Corpuscular Hemoglobin Concent 34 32-36 g/dL Red Cell Distribution Width 13.0 10.0-14.5 % Platelet Count 233 130-400 10^3/uL Mean Platelet Volume 12.3 H 9.0-12.2 fL Immature Granulocyte % (Auto) 0 % Neutrophils (%) (Auto) 85 H 42-75 % Lymphocytes (%) (Auto) 9 L 12-44 % Monocytes (%) (Auto) 4 0-12 % Eosinophils (%) (Auto) 1 0-10 % Basophils (%) (Auto) 1 0-10 % Neutrophils # (Auto) 10.5 H 1.8-7.8 10^3/uL Lymphocytes # (Auto) 1.1 1.0-4.0 10^3/uL Monocytes # (Auto) 0.5 0.0-1.0 10^3/uL Eosinophils # (Auto) 0.2 0.0-0.3 10^3/uL Basophils # (Auto) 0.1 0.0-0.1 10^3/uL Immature Granulocyte # (Auto) 0.0 0.0-0.1 10^3/uL Erythrocyte Sedimentation Rate 6 0-20 MM/HR Prothrombin Time 12.7 12.2-14.7 SEC INR Comment 0.9 0.8-1.4 Activated Partial Thromboplast Time 26 24-35 SEC Sodium Level 139 135-145 MMOL/L Potassium Level 3.3 L 3.6-5.0 MMOL/L Chloride Level 106 98-107 MMOL/L Carbon Dioxide Level 20 L 21-32 MMOL/L Anion Gap 13 5-14 MMOL/L Blood Urea Nitrogen 9 7-18 MG/DL Creatinine 0.82 0.60-1.30 MG/DL Estimat Glomerular Filtration Rate 76 BUN/Creatinine Ratio 11 Glucose Level 147 H 70-105 MG/DL Lactic Acid Level 0.86 0.50-2.00 MMOL/L Calcium Level 9.1 8.5-10.1 MG/DL Corrected Calcium 8.7 8.5-10.1 MG/DL Magnesium Level 1.4 L 1.6-2.4 MG/DL Total Bilirubin 0.5 0.1-1.0 MG/DL Aspartate Amino Transf (AST/SGOT) 21 5-34 U/L Alanine Aminotransferase (ALT/SGPT) 19 0-55 U/L Alkaline Phosphatase 83 40-136 U/L Lactate Dehydrogenase 139 125-220 U/L Total Creatine Kinase 39 29-168 U/L Creatine Kinase MB 0.4 <6.6 NG/ML Myoglobin 17.7 10.0-92.0 NG/ML C-Reactive Protein High Sensitivity 0.10 0.00-0.50 MG/DL Total Protein 7.2 6.4-8.2 GM/DL Albumin 4.5 3.2-4.5 GM/DL Procalcitonin 0.05 <0.10 NG/ML Serum Test, Qualitative NEGATIVE NEGATIVE Phenytoin (Dilantin) Level <1.8 L 10.0-20.0 ug/mL Serum Alcohol < 10 <10 MG/DL Coronavirus (COVID-19)(PCR) Negative Negative Influenza Type A Antigen NEGATIVE NEGATIVE Influenza Type B Antigen NEGATIVE NEGATIVE Urine Color YELLOW Urine Clarity SL CLOUDY Urine pH 5.5 5-9 Urine Specific [place] >=1.030 1.016-1.022 Urine Protein 2+ H NEGATIVE Urine Glucose (UA) NEGATIVE NEGATIVE Urine Ketones TRACE H NEGATIVE Urine Nitrite NEGATIVE NEGATIVE Urine Bilirubin NEGATIVE NEGATIVE Urine Urobilinogen 0.2 < = 1.0 MG/DL Urine Leukocyte Esterase NEGATIVE NEGATIVE Urine RBC (Auto) NEGATIVE NEGATIVE Urine RBC NONE /HPF Urine WBC 2-5 /HPF Urine Squamous Epithelial Cells 0-2 /HPF Urine Crystals NONE /LPF Urine Bacteria MODERATE H /HPF Urine Casts PRESENT /LPF Urine Hyaline Casts 2-5 H /LPF Urine Mucus SMALL H /LPF Urine Culture Indicated CULTURE PENDING Urine Opiates Screen NEGATIVE NEGATIVE Urine Oxycodone Screen NEGATIVE NEGATIVE Urine Methadone Screen NEGATIVE NEGATIVE Urine Propoxyphene Screen NEGATIVE NEGATIVE Urine Barbiturates Screen POSITIVE H NEGATIVE Ur Tricyclic Antidepressants Screen NEGATIVE NEGATIVE Urine Phencyclidine Screen NEGATIVE NEGATIVE Urine Amphetamines Screen POSITIVE H NEGATIVE Urine Methamphetamines Screen NEGATIVE NEGATIVE Urine Benzodiazepines Screen POSITIVE H NEGATIVE Urine Cocaine Screen NEGATIVE NEGATIVE Urine Cannabinoids Screen POSITIVE H NEGATIVE SARS-CoV-2 RNA (RT-PCR) Negative Negative (CHING STYLES MD) Micro Results Microbiology 11/30/21 Blood Culture - Final, Complete No growth 11/30/21 Urine Culture - Final, Complete Gram Pos Mixed Bacterial Kalina 11/30/21 Blood Culture - Final, Complete No growth (CHING STYLES MD) Medications Given in ED (CHING STYLES MD) Vital Signs/I&O (CHING STYLES MD) Progress Progress Note : Progress Note PLACED IN ISOLATION ROOM PPE WORN AT ALL TIMES COVID-19 TESTING DONE GIVEN IV FLUIDS, ZOFRAN, PHENERGAN, BENADRYL AND PROTONIX ALSO GIVEN TYLENOL AND MOTRIN GIVEN ROCEPHIN FOR UTI NO VOMITING DURING ER STAY 0600--CARE TURNED OVER TO DR. STYLES, TEST RESULTS PENDING. (ROMEO YAN DO) Progress Note : Time: 07:12 Progress Note 0712 Notified by nursing staff that the patient wanted to go ahead and be discharged from the ED. Her Covid test has not returned yet. She will be instructed to mask/self isolate/quarantine until she receives these results. Otherwise discharge instructions as per Dr. Yan (CHING STYLES MD) Initial ECG Impression Date: Nov 30, 2021 Initial ECG Impression Time: 04:05 Initial ECG Rate: 127 Initial ECG Rhythm: S.Tach (ROMEO YAN DO) Diagnostic Imaging Comments CXR--PER RADIOLOGIST REPORT AT 0532 FINDINGS: The lungs are clear without edema or pneumonia. No pleural effusion or pneumothorax. Heart size is normal. IMPRESSION: 1. Clear lungs. Reviewed: Reviewed by Me (ROMEO YAN DO) Departure Impression Primary Impression: Cannabinoid hyperemesis syndrome Additional Impressions: Substance abuse Person under investigation for COVID-19 Urinary tract infection Qualified Codes: N30.00 - Acute cystitis without hematuria Seizure-like activity Non-compliance Disposition: HOME, SELF-CARE Condition: Stable Departure-Patient Inst. Decision time for Depature: 07:12 (CHING STYLES MD) Referrals: SELFJOHANNE MD (PCP/Family) Primary Care Physician Patient Instructions: COVID-19 Tests, Cannabis Hyperemesis Syndrome, Drug Abuse and Drug Addiction (DC), Preventing the Spread of an Infectious Disease, Urinary Tract Infection, Adult (DC), Sotrovimab FDA Fact Sheet Add. Discharge Instructions: LOTS OF CLEAR LIQUIDS--WATER, BROTH, JELLO, GATORADE, POPSICLES--SIPS AT A TIME TYLENOL 1 GRAM PLUS MOTRIN 800 MG 4 TIMES A DAY FOR PAIN OR FEVER NO DRUGS EXCEPT WHAT IS PRESCRIBED TO YOU TAKE YOUR REGULAR MEDICATIONS EXACTLY PRESCRIBED QUARANTINE FOR THE NEXT 14 DAYS, AND YOU NEED TO FOLLOW UP WITH YOUR DR IN 2-3 DAYS FOR RECHECK All discharge instructions reviewed with patient and/or family. Voiced understanding. Scripts Metoclopramide HCl (Reglan) 10 Mg Tablet 10 MG PO QID, #20 TAB Prov: ROMEO YAN DO 11/30/21 Pantoprazole Sodium (Protonix) 40 Mg Tablet.dr 40 MG PO DAILY, #15 TAB Prov: ROMEO YAN DO 11/30/21 Promethazine HCl (Promethazine Suppository) 25 Mg Supp.rect 25 MG RC Q6 for Nausea/Vomiting, #15 SUPP.RECT Prov: ROMEO YAN DO 11/30/21 Ondansetron (Ondansetron Odt) 8 Mg Tab.rapdis 8 MG PO Q6H, #15 TAB Prov: ROMEO YAN DO 11/30/21 Cefdinir (Cefdinir) 300 Mg Capsule 300 MG PO BID, #20 CAP Prov: ROMEO YAN DO 11/30/21 ROMEO YAN DO Nov 30, 2021 04:08 CHING STYLES MD Nov 30, 2021 07:13
[2021-11-30 04:21] LABS: CLARITY,URINE SL CLOUDY; COLOR,URINE YELLOW; GLUCOSE, URINE (UA) NEGATIVE (NEGATIVE); KETONES,URINE TRACE (NEGATIVE); LEUKOCYTE ESTERASE ,URINE NEGATIVE (NEGATIVE); NITRITE,URINE NEGATIVE (NEGATIVE); PH,URINE 5.5 (5-9); PROTEIN,URINE 2+ (NEGATIVE)
[2021-11-30 04:26] LABS: BASOPHILS # (AUTO) 0.1 10^3/uL (0.0-0.1); BASOPHILS % (AUTO) 1 % (0-10); EOSINOPHILS # (AUTO) 0.2 10^3/uL (0.0-0.3); EOSINOPHILS % (AUTO) 1 % (0-10); HEMATOCRIT 41 % (35-52); HEMOGLOBIN 13.7 g/dL (11.5-16.0); LYMPHOCYTES # (AUTO) 1.1 10^3/uL (1.0-4.0); LYMPHOCYTES % (AUTO) 9 % (12-44); MEAN CORPUSCULAR HEMOGLOBIN 30 pg (25-34); MEAN CORPUSCULAR HGB CONC 34 g/dL (32-36); MEAN CORPUSCULAR VOLUME 89 fL (80-99); MEAN PLATELET VOLUME 12.3 fL (9.0-12.2); MONOCYTES # (AUTO) 0.5 10^3/uL (0.0-1.0); MONOCYTES % (AUTO) 4 % (0-12); NEUTROPHILS # (AUTO) 10.5 10^3/uL (1.8-7.8); NEUTROPHILS % (AUTO) 85 % (42-75); PLATELET COUNT 233 10^3/uL (130-400); WHITE BLOOD COUNT 12.4 10^3/uL (4.3-11.0)
[2021-11-30] MEDS ORDERED: IBUPROFEN 800 MG (MOTRIN) TAB PO ONE (04:30)
[2021-11-30] MEDS ORDERED: ACETAMINOPHEN 500 MG TAB (TYLENOL) PO ONE (04:30)
[2021-11-30 04:37] LABS: BACTERIA,URINE MODERATE /HPF; BILIRUBIN,URINE NEGATIVE (NEGATIVE); SQUAMOUS EPITHELIAL CELL,UR 0-2 /HPF
[2021-11-30 04:40] LABS: ALBUMIN 4.5 GM/DL (3.2-4.5); CHLORIDE 106 MMOL/L (98-107); POTASSIUM 3.3 MMOL/L (3.6-5.0); SODIUM 139 MMOL/L (135-145)
[2021-11-30 04:41] LABS: CALCIUM 9.1 MG/DL (8.5-10.1)
[2021-11-30 04:43] LABS: AMPHETAMINE SCREEN, URINE POSITIVE (NEGATIVE); BARBITURATE SCREEN URINE POSITIVE (NEGATIVE); BENZODIAZEPINES SCREEN URINE POSITIVE (NEGATIVE); CANNABINOID SCREEN, URINE POSITIVE (NEGATIVE); COCAINE SCREEN URINE NEGATIVE (NEGATIVE); METHADONE STAT NEGATIVE (NEGATIVE); METHAMPHETAMINE SCREEN URINE S NEGATIVE (NEGATIVE); OPIATE SCREEN URINE NEGATIVE (NEGATIVE); OXYCODONE STAT NEGATIVE (NEGATIVE); PROPOXYPHENE STAT NEGATIVE (NEGATIVE); TRICYCLIC ANTIDEPRESSANTS SCRE NEGATIVE (NEGATIVE)
[2021-11-30 04:43] LABS: GLUCOSE 147 MG/DL (70-105); TOTAL PROTEIN 7.2 GM/DL (6.4-8.2)
[2021-11-30 04:44] LABS: BILIRUBIN,TOTAL 0.5 MG/DL (0.1-1.0); CARBON DIOXIDE 20 MMOL/L (21-32)
[2021-11-30 04:46] LABS: ALKALINE PHOSPHATASE 83 U/L (40-136); CREATININE SERUM 0.82 MG/DL (0.60-1.30); GFR ESTIMATED 76
[2021-11-30 04:47] LABS: BUN/CREATININE RATIO 11
[2021-11-30 04:49] LABS: ALANINE AMINOTRANSFERASE 19 U/L (0-55); MAGNESIUM 1.4 MG/DL (1.6-2.4)
[2021-11-30 04:50] LABS: CREATINE KINASE 39 U/L (29-168)
[2021-11-30 04:58] LABS: CREATINE KINASE MB 0.4 NG/ML (<6.6)
--- NOTE | 2021-11-30 05:09 | Diagnostic Imaging Report ---
EXAMINATION: Chest 1 view HISTORY: Fever COMPARISON: 11/06/2021 FINDINGS: The lungs are clear without edema or pneumonia. No pleural effusion or pneumothorax. Heart size is normal. IMPRESSION: 1. Clear lungs. Dictated by: Dictated on workstation # [id number]
[2021-11-30 05:16] LABS: INR 0.9 (0.8-1.4); PROTHROMBIN TIME PATIENT 12.7 SEC (12.2-14.7)
[2021-11-30 05:17] LABS: ERYTHROCYTE SEDIMENTATION RATE 6 MM/HR (0-20)
[2021-11-30] MEDS ORDERED: cefTRIAXone 1 GM PRE-MIX 50 ML IV STA (05:40)
[2021-11-30] MEDS ORDERED: CEFD300C3 PO (06:13)
[2021-11-30] MEDS ORDERED: METO-310 PO (06:13)
[2021-11-30] MEDS ORDERED: ONDA8TAB13 PO (06:13)
[2021-11-30] MEDS ORDERED: PROM25SU44 RC (06:13)
[2021-11-30] MEDS ORDERED: PANT40TA2 PO (06:13)
[2021-11-30 07:25] VITALS: BP 112/80
== END 2021-11-30 07:25 | disposition home or self-care (01) ==
LOC: EDUNIT# 03:45 → ER 03:46
DX: R11.2 Nausea with vomiting, unspecified (principal); F19.10 Other psychoactive substance abuse, uncomplicated; N39.0 Urinary tract infection, site not specified; G40.909 Epilepsy, unspecified, not intractable, without status epilepticus; J45.909 Unspecified asthma, uncomplicated; F41.9 Anxiety disorder, unspecified; F31.9 Bipolar disorder, unspecified; Z91.19 Patient's noncompliance with other medical treatment and regimen; Z20.822 Contact with and (suspected) exposure to COVID-19; Z79.899 Other long term (current) drug therapy
CPT/HCPCS: 71045; 80053; 80185; 80306; 81000; 82550; 82553; 83605; 83615; 83735; 83874; 84145; 84703; 85025; 85610; 85652; 85730; 86141; 87040; 87088; 87635; 87636; 87804; 93005; 93041; 96374; 96375; 99284; G0480; 36415; 80320

== ENCOUNTER 2021-12-01 22:29 | Emergency (ER) | payer MEDICAID ==
[~2021-12-01] VITALS: Ht 150 cm; Wt 59.0 kg
[~2021-12-01 22:29] MED LIST changes: +CEFD300C3 PO; +METO-310 PO; +ONDA8TAB13 PO; +PANT40TA2 PO; +PROM25SU44 RC
--- NOTE | 2021-12-01 22:43 | ED Psychosocial ---
General Stated Complaint: SUICIDAL Source: patient Exam Limitations: no limitations History of Present Illness Date Seen by Provider: Dec 01, 2021 Time Seen by Provider: 22:33 Initial Comments Patient presents the ER with 2 significant other chief complaint that about 15 minutes prior to arrival 2214 patient took 6 tablets of tizanidine 4 mg each in an attempt to harm herself. She says she feels suicidal because things are crazy and her children are crazy and adults are crazy. She is rather sedated and her significant other states she was banging her head against theon the way over here but the significant other has to go home and take care of the kids. Patient denies previous suicidal attempts or suicidal thoughts prior to this morning. She says she started taking BuSpar a few months ago and Cymbalta a few weeks ago and thinks they may have contributed to her symptoms today. She is followed by Dr. Matamoros. She does not have a psychiatrist. She denies any pain nausea or vomiting. Allergies and Home Medications Allergies Coded Allergies: No Known Drug Allergies (Unverified , 03/20/12) Patient Home Medication List Home Medication List Reviewed: Yes Acetaminophen (Tylenol Extra Strength) 500 Mg Tablet, 1,000 MG PO Q8H PRN for PAIN-MILD (1-4), (Reported) Entered as Reported by: ALEXANDRE YOU on 11/06/21 1051 Ascorbic Acid (Vitamin C) 500 Mg Capsule, 500 MG PO DAILY, (Reported) Entered as Reported by: ALEXANDRE YOU on 11/06/21 1053 Bupropion HCl (Bupropion Xl) 300 Mg Tab.er.24h, 300 MG PO HS, (Reported) Entered as Reported by: SYED GIRALDO on 09/16/21 1508 Cefdinir (Cefdinir) 300 Mg Capsule, 300 MG PO BID Prescribed by: ROMEO HOLLEY on 11/30/21 0613 Diazepam (Diazepam) 10 Mg Tablet, 10 MG PO TID PRN for ANXIETY, (Reported) Entered as Reported by: SURESH BYRD on 02/09/21 1130 Docusate Sodium (Stool Softener) 100 Mg Capsule, 100 MG PO DAILY PRN for CONSTIPATION-1ST LINE, (Reported) Entered as Reported by: ALEXANDRE YOU on 11/06/21 1052 Estradiol (Estradiol Tablet) 0.5 Mg Tablet, 0.5 MG PO DAILY, (Reported) Entered as Reported by: SURESH BYRD on 02/09/21 1130 Fentanyl (Fentanyl Patch 50 MCG) 1 Each Patch.td72, 50 MCG TD Q72H, (Reported) Entered as Reported by: SYED GIRALDO on 09/16/21 1508 Gabapentin (Gabapentin) 800 Mg Tablet, 800 MG PO TID, (Reported) Entered as Reported by: SURESH BYRD on 02/09/21 1130 Metoclopramide HCl (Metoclopramide HCl) 5 Mg/1 Ml Vial, 10 MG PO ACHS Prescribed by: NICOLASA ECHAVARRIA on 11/08/21 0958 Metoclopramide HCl (Reglan) 10 Mg Tablet, 10 MG PO QID Prescribed by: ROMEO HOLLEY on 11/30/21 06 Multivitamin (Multi-Vitamin Daily) 1 Each Tablet, 1 EACH PO DAILY, (Reported) Entered as Reported by: ALEXANDRE YOU on 11/06/21 105 Omeprazole (Omeprazole) 40 Mg Capsule.dr, 40 MG PO DAILY, (Reported) Entered as Reported by: ALEXANDRE YOU on 11/06/21 1050 Ondansetron (Ondansetron Odt) 8 Mg Tab.rapdis, 8 MG PO Q6H Prescribed by: ROMEO HOLLEY on 11/30/21612 Ondansetron HCl (Ondansetron HCl) 4 Mg Tablet, 4 MG PO Q4H PRN for NAUSEA/VOMITING-1ST LINE, (Reported) Entered as Reported by: SYED GIRALDO on 09/16/21 150 Pantoprazole Sodium (Protonix) 40 Mg Tablet.dr, 40 MG PO DAILY Prescribed by: ROMEO HOLLEY on 11/30/21612 Phenytoin Sodium Extended (Phenytoin Sodium Extended) 100 Mg Capsule, 100 MG PO TID, (Reported) Entered as Reported by: SYED GIRALDO on 09/16/21 150 Promethazine HCl (Promethazine Suppository) 25 Mg Supp.rect, 25 MG RC Q6 Prescribed by: ROMEO HOLLEY on 11/30/21612 Quetiapine Fumarate (Quetiapine Fumarate) 25 Mg Tablet, 12.5 MG PO HS, (Reported) Entered as Reported by: SYED GIRALDO on 09/16/21 1508 Tizanidine HCl (Tizanidine HCl) 4 Mg Tablet, 8 MG PO Q6H PRN for MUSCLE SPASMS, (Reported) Entered as Reported by: SURESH BYRD on 02/09/21 1130 Review of Systems Constitutional: No chills, No diaphoresis EENTM: No ear discharge, No hearing loss Respiratory: No cough, No dyspnea on exertion Cardiovascular: No chest pain, No palpitations Gastrointestinal: No abdominal pain, No nausea, No vomiting Genitourinary: No discharge, No dysuria Musculoskeletal: No back pain, No joint pain Psychiatric/Neurological: See HPI All Other Systems Reviewed Negative Unless Noted: Yes Past Bluerqo-Jtotqs-Qvrejh Hx Patient Social History Tobacco Use?: No Substance use?: Yes Substance type: Methamphetamine, Marijuana Alcohol Use?: No Immunizations Up To Date Tetanus Booster (TDap): Unknown Seasonal Allergies Seasonal Allergies: No Past Medical History Surgery/Hospitalization HX: APPENDECTOMY, GB, HYSTERECTOMY, CERVICAL FUSION Surgeries: Yes (MULTIPLE D&C'S, LEFT CARPAL TUNNEL AND LEFT ULNAR NERVE TRANSPOSITION, BSO,) Appendectomy, Gallbladder, Hysterectomy, Oophorectomy, Orthopedic Respiratory: Yes Asthma Cardiac: Yes (TACHYCARDIA) Neurological: Yes (Carpel tunnel syndrome bilat;neuropathy && neurodysplasia of LUE;PSUEDOSZ ?) Seizure Disorder Reproductive Disorders: Yes (OVARIAN CYSTS, HYSTERECTOMY FOR CERVICAL DYSPLASIA) 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 Genitourinary: No Gastrointestinal: Yes ("CHRONIC ABDOMINAL PAIN" "CYCLIC VOMITING" / CHRONIC THC USE ) Gall Bladder Disease, Irritable Bowel Musculoskeletal: Yes Chronic Back Pain Endocrine: No HEENT: No Loss of Vision: Denies Hearing Impairment: Denies Cancer: Yes (CERVICAL DYSPLASIA) Cervical What Type of Treatment Did You: Surgical Intervention Psychosocial: Yes (EXTENSIVE PSYCH ISSUES; SUSPECTED PSEUDOSEIZURES) Anxiety, Suicide Attempts, Bipolar, Depression Integumentary: No Blood Disorders: No Adverse Reaction/Blood Tranf: No Family Medical History Cancer SOCIAL HISTORY: -SMOKING -ETOH- -DRUGS-REGULAR THC USE PAST SURGICAL HISTORY: -CHOLECYSTECTOMY -APPENDECTOMY -HYSTERECTOMY/BILATERAL SALPINGO-OOPHORECTOMY -CARPAL TUNNEL Physical Exam Vital Signs - First Documented 12/01/21 22:35 Temp 35.7 Pulse 49 Resp 12 B/P (MAP) 116/69 (85) Pulse Ox 99 O2 Delivery Room Air Capillary Refill : Height, Weight, BMI Height: 5'0" Weight: 132lbs. oz. 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 as tested, no motor/sensory deficits, alert, oriented x 3, other (Anxious affect; GCS 15) Appearance/Memory: appropriate appearance, no memory impairment Behavior/Eye Contact: cooperative, good eye contact Thoughts/Hallucinations: normal thought pattern, no apparent hallucination, other (States suicidal ideation on arrival) Skin: normal color, warm/dry Progress/Results/Core Measures Results/Orders Lab Results Laboratory Tests Test 12/01/21 22:42 12/01/21 22:47 12/01/21 23:19 Range/Units White Blood Count 5.4 4.3-11.0 10^3/uL Red Blood Count 4.01 3.80-5.11 10^6/uL Hemoglobin 12.1 11.5-16.0 g/dL Hematocrit 37 35-52 % Mean Corpuscular Volume 91 80-99 fL Mean Corpuscular Hemoglobin 30 25-34 pg Mean Corpuscular Hemoglobin Concent 33 32-36 g/dL Red Cell Distribution Width 12.9 10.0-14.5 % Platelet Count 200 130-400 10^3/uL Mean Platelet Volume 12.6 H 9.0-12.2 fL Immature Granulocyte % (Auto) 0 % Neutrophils (%) (Auto) 32 L 42-75 % Lymphocytes (%) (Auto) 55 H 12-44 % Monocytes (%) (Auto) 10 0-12 % Eosinophils (%) (Auto) 2 0-10 % Basophils (%) (Auto) 1 0-10 % Neutrophils # (Auto) 1.7 L 1.8-7.8 10^3/uL Lymphocytes # (Auto) 3.0 1.0-4.0 10^3/uL Monocytes # (Auto) 0.5 0.0-1.0 10^3/uL Eosinophils # (Auto) 0.1 0.0-0.3 10^3/uL Basophils # (Auto) 0.1 0.0-0.1 10^3/uL Immature Granulocyte # (Auto) 0.0 0.0-0.1 10^3/uL Sodium Level 137 135-145 MMOL/L Potassium Level 3.4 L 3.6-5.0 MMOL/L Chloride Level 105 98-107 MMOL/L Carbon Dioxide Level 19 L 21-32 MMOL/L Anion Gap 13 5-14 MMOL/L Blood Urea Nitrogen 7 7-18 MG/DL Creatinine 0.88 0.60-1.30 MG/DL Estimat Glomerular Filtration Rate 70 BUN/Creatinine Ratio 8 Glucose Level 144 H 70-105 MG/DL Calcium Level 9.0 8.5-10.1 MG/DL Corrected Calcium 9.0 8.5-10.1 MG/DL Total Bilirubin 0.1 0.1-1.0 MG/DL Aspartate Amino Transf (AST/SGOT) 23 5-34 U/L Alanine Aminotransferase (ALT/SGPT) 28 0-55 U/L Alkaline Phosphatase 73 40-136 U/L Total Protein 6.5 6.4-8.2 GM/DL Albumin 4.0 3.2-4.5 GM/DL Salicylates Level < 5.0 L 5.0-20.0 MG/DL Acetaminophen Level < 10 L 10-30 UG/ML Serum Alcohol < 10 <10 MG/DL Influenza Type A Antigen NEGATIVE NEGATIVE Influenza Type B Antigen NEGATIVE NEGATIVE SARS-CoV-2 RNA (RT-PCR) Negative Negative Urine Color YELLOW Urine Clarity CLEAR Urine pH 6.0 5-9 Urine Specific [place] 1.015 L 1.016-1.022 Urine Protein NEGATIVE NEGATIVE Urine Glucose (UA) NEGATIVE NEGATIVE Urine Ketones NEGATIVE NEGATIVE Urine Nitrite NEGATIVE NEGATIVE Urine Bilirubin NEGATIVE NEGATIVE Urine Urobilinogen 0.2 < = 1.0 MG/DL Urine Leukocyte Esterase NEGATIVE NEGATIVE Urine RBC (Auto) NEGATIVE NEGATIVE Urine RBC NONE /HPF Urine WBC 0-2 /HPF Urine Squamous Epithelial Cells 2-5 /HPF Urine Crystals NONE /LPF Urine Bacteria FEW H /HPF Urine Casts NONE /LPF Urine Mucus NEGATIVE /LPF Urine Culture Indicated NO Urine Opiates Screen NEGATIVE NEGATIVE Urine Oxycodone Screen NEGATIVE NEGATIVE Urine Methadone Screen NEGATIVE NEGATIVE Urine Propoxyphene Screen NEGATIVE NEGATIVE Urine Barbiturates Screen POSITIVE H NEGATIVE Ur Tricyclic Antidepressants Screen NEGATIVE NEGATIVE Urine Phencyclidine Screen NEGATIVE NEGATIVE Urine Amphetamines Screen NEGATIVE NEGATIVE Urine Methamphetamines Screen NEGATIVE NEGATIVE Urine Benzodiazepines Screen POSITIVE H NEGATIVE Urine Cocaine Screen NEGATIVE NEGATIVE Urine Cannabinoids Screen POSITIVE H NEGATIVE My Orders Orders - ANTHONY FARMER Ua Culture If Indicated (12/01/21 22:40) Cbc With Automated Diff (12/01/21 22:40) Comprehensive Metabolic Panel (12/01/21 22:40) Alcohol (12/01/21 22:40) Drug Screen Stat (Urine) (12/01/21 22:40) Acetaminophen (12/01/21 22:40) Salicylate (12/01/21 22:40) Ekg Tracing (12/01/21 22:40) Ed Iv/Invasive Line Start (12/01/21 22:40) Monitor-Rhythm Ecg Trace Only (12/01/21 22:40) Bh Status Checks/Observation Q15M (12/01/21 22:40) Ed Iv/Invasive Line Start (12/01/21 22:40) Lactated Ringers (Lr 1000 Ml Iv Solution (12/01/21 22:45) Urine Bedside (12/01/21 22:40) Atropine Inj 1 Mg Syringe (Atropine Inj (12/01/21 23:00) Covid 19 Inhouse Test (12/01/21 23:32) Influenza A & B Antigens (12/01/21 23:32) Coronavirus Sars-Cov-2 So 2018 (12/02/21 00:14) Lorazepam Tablet (Ativan Tablet) (12/02/21 00:57) Medications Given in ED Current Medications Medications Dose Ordered Sig/Rafael Route Start Time Stop Time Status Last Admin Dose Admin Lactated Ringer's 1,000 ml @ 0 mls/hr Q0M ONCE IV 12/01/21 22:45 12/01/21 22:46 DC 12/01/21 23:20 0 MLS/HR Vital Signs/I&O 12/01/21 12/02/21 22:35 03:42 Temp 35.7 Pulse 49 62 Resp 12 16 B/P (MAP) 116/69 (85) 108/68 Pulse Ox 99 99 O2 Delivery Room Air Room Air Progress Progress Note #1: Time: 22:40 Progress Note Discussed the case with poison control and they recommend atropine as necessary for bradycardia. For symptomatic bradycardia with hypotension they recommend dopamine or nor epi. We will give her a liter of fluids and some atropine and monitor her. She is rather sedated and if need be we will intubate. For now she is GCS 14. 2330: Found a fentanyl patch on her shoulder which we removed secondary to her sedation. Did not actually have to give atropine as her heart rate came up into the mid 50s to 60s and her blood pressure has stayed relatively okay 105/62 presently Progress Note #2: Time: 00:48 Progress Note Did not end up needing the atropine at this time. She has responded well to IV fluids. She states she has some anxiety and feels pain since we took away her fentanyl patch. She has been awake alert and answering questions appropriately. Maintaining good blood pressure and normal heart rate in the range of 505. Called poison control back to inquire about how long she needs to be observed before she is medically cleared for psychiatric management. After discussing the case with poison control since she is 3 hours and from ingestion and still alert oriented agitated and shows no signs of sedation or clinically significant bradycardia he would agree that since she is eager to move on that he would clear her medically and I agree and she is medically cleared. Tizanidine typically peaks at 2 to 2-1/2 hours. Patient has stated that she would like to go home. We encouraged her to speak with our mental health screener's and come up with a plan of attack. She is no longer endorsing suicidality. She says she was put on Ativan since being taken off Valium by Dr. Matamoros but she took more of it faster than she should have and ran out about a day and a half ago. She feels very shaky and like she is in withdrawal. We will give her a milligram of Ativan and see if this can help limit some of her wit hdrawal symptoms while she is talking to mental health screeners. Patient is okay with this plan. Progress Note #3: Time: 02:08 Progress Note Patient states that her back hurts and she wants to go home. We informed her that because she made suicidal statements she is not cleared from a mental health standpoint and would have to notify police if she decided to go AGAINST MEDICAL ADVICE without a mental health screening. As I speak with the patient mental health called and said they would try and do a mental health screening with her after they have reviewed her case. Patient is willing to do the mental health screening so we are setting up the telemedicine consult. Progress Note #4: Time: 02:44 Progress Note The patient has concluded her televisit with mental health screener. They have concluded with a safety plan and the patient is ready to go home as soon as she receives the paperwork faxed over. We will have her IV taken out and have her start working on a ride. At this time she denies any suicidal ideation and has been given return precautions. Initial ECG Impression Date: Dec 01, 2021 Initial ECG Impression Time: 22:33 Initial ECG Rate: 43 Initial ECG Rhythm: S.Beka Initial ECG Intervals: Normal Initial ECG Impression: Normal Initial ECG Comparisson: No Previous ECG Available Comment Normal sinus rhythm with bradycardia. Departure Impression Primary Impression: Suicide attempt by drug overdose Additional Impression: Muscle relaxant overdose Qualified Codes: T48.202A - Poisoning by unspecified drugs acting on muscles, intentional self-harm, initial encounter Disposition: 01 HOME, SELF-CARE Condition: Stable Departure-Patient Inst. Decision time for Depature: 02:45 Referrals: JOHANNE MATAMOROS MD (PCP/Family) Primary Care Physician Patient Instructions: Accidental Overdose (DC) Add. Discharge Instructions: Follow-up with mental health as per your safety plan. Return to the ER or call your doctor if you are having new or worsening symptoms. ANTHONY FARMER Dec 01, 2021 22:43
[2021-12-01] MEDS ORDERED: LACTATED RINGERS 1,000 ML IV ONE (22:45)
[2021-12-01 22:53] LABS: BASOPHILS # (AUTO) 0.1 10^3/uL (0.0-0.1); BASOPHILS % (AUTO) 1 % (0-10); EOSINOPHILS # (AUTO) 0.1 10^3/uL (0.0-0.3); EOSINOPHILS % (AUTO) 2 % (0-10); HEMATOCRIT 37 % (35-52); HEMOGLOBIN 12.1 g/dL (11.5-16.0); LYMPHOCYTES % (AUTO) 55 % (12-44); MEAN CORPUSCULAR HEMOGLOBIN 30 pg (25-34); MEAN CORPUSCULAR HGB CONC 33 g/dL (32-36); MEAN CORPUSCULAR VOLUME 91 fL (80-99); MEAN PLATELET VOLUME 12.6 fL (9.0-12.2); MONOCYTES # (AUTO) 0.5 10^3/uL (0.0-1.0); MONOCYTES % (AUTO) 10 % (0-12); NEUTROPHILS # (AUTO) 1.7 10^3/uL (1.8-7.8); NEUTROPHILS % (AUTO) 32 % (42-75); PLATELET COUNT 200 10^3/uL (130-400); WHITE BLOOD COUNT 5.4 10^3/uL (4.3-11.0)
[2021-12-01] MEDS ORDERED: ATROPINE INJECTION 1 MG/10 ML SYR (ABBOTT) IV ONE (23:00)
[2021-12-01 23:06] LABS: CHLORIDE 105 MMOL/L (98-107); POTASSIUM 3.4 MMOL/L (3.6-5.0); SODIUM 137 MMOL/L (135-145)
[2021-12-01 23:09] LABS: GLUCOSE 144 MG/DL (70-105); TOTAL PROTEIN 6.5 GM/DL (6.4-8.2)
[2021-12-01 23:10] LABS: CARBON DIOXIDE 19 MMOL/L (21-32)
[2021-12-01 23:11] LABS: BILIRUBIN,TOTAL 0.1 MG/DL (0.1-1.0)
[2021-12-01 23:13] LABS: ALKALINE PHOSPHATASE 73 U/L (40-136); CREATININE SERUM 0.88 MG/DL (0.60-1.30); GFR ESTIMATED 70
[2021-12-01 23:14] LABS: ACETAMINOPHEN < 10 UG/ML (10-30); BUN/CREATININE RATIO 8
[2021-12-01 23:15] LABS: SALICYLATE < 5.0 MG/DL (5.0-20.0)
[2021-12-01 23:16] LABS: ALANINE AMINOTRANSFERASE 28 U/L (0-55)
[2021-12-01 23:25] LABS: BILIRUBIN,URINE NEGATIVE (NEGATIVE); CLARITY,URINE CLEAR; COLOR,URINE YELLOW; GLUCOSE, URINE (UA) NEGATIVE (NEGATIVE); KETONES,URINE NEGATIVE (NEGATIVE); LEUKOCYTE ESTERASE ,URINE NEGATIVE (NEGATIVE); NITRITE,URINE NEGATIVE (NEGATIVE); PROTEIN,URINE NEGATIVE (NEGATIVE)
[2021-12-01 23:51] LABS: BACTERIA,URINE FEW /HPF; WBC,URINE 0-2 /HPF
[2021-12-02 00:04] LABS: AMPHETAMINE SCREEN, URINE NEGATIVE (NEGATIVE); BARBITURATE SCREEN URINE POSITIVE (NEGATIVE); BENZODIAZEPINES SCREEN URINE POSITIVE (NEGATIVE); CANNABINOID SCREEN, URINE POSITIVE (NEGATIVE); COCAINE SCREEN URINE NEGATIVE (NEGATIVE); METHADONE STAT NEGATIVE (NEGATIVE); METHAMPHETAMINE SCREEN URINE S NEGATIVE (NEGATIVE); OPIATE SCREEN URINE NEGATIVE (NEGATIVE); OXYCODONE STAT NEGATIVE (NEGATIVE); PROPOXYPHENE STAT NEGATIVE (NEGATIVE); TRICYCLIC ANTIDEPRESSANTS SCRE NEGATIVE (NEGATIVE)
[2021-12-02] MEDS ORDERED: LORazepam 0.5 MG (ATIVAN) TABLET PO STA (00:57)
[2021-12-02 03:42] VITALS: BP 108/68
== END 2021-12-02 03:44 | disposition home or self-care (01) ==
LOC: EDUNIT# 22:29 → ER 22:31
DX: T42.8X2A Poisoning by antiparkinsonism drugs and other central muscle-tone depressants, intentional self-harm, initial encounter (principal); T48.202A Poisoning by unspecified drugs acting on muscles, intentional self-harm, initial encounter; J45.909 Unspecified asthma, uncomplicated; G40.909 Epilepsy, unspecified, not intractable, without status epilepticus; F41.9 Anxiety disorder, unspecified; F31.9 Bipolar disorder, unspecified; Z20.822 Contact with and (suspected) exposure to COVID-19; Z79.899 Other long term (current) drug therapy; X83.8XXA Intentional self-harm by other specified means, initial encounter
CPT/HCPCS: 80053; 80306; 81000; 84703; 85025; 87635; 87636; 87804; 93005; 93041; 99284; G0480 ×3; 36415; 80320; 80329; 96360

== ENCOUNTER 2022-01-13 11:33 | Emergency (ER) | payer MEDICAID ==
[~2022-01-13] VITALS: Ht 149 cm; Wt 58.9 kg
[2022-01-13] MEDS ORDERED: PROMETHAZINE INJ 25 MG/ML (PHENERGAN) AMP IVP ONE (11:45)
[2022-01-13] MEDS ORDERED: D5 NS 1000 ML IV SOLUTION 1,000 ML IV ONE (11:45)
[2022-01-13 11:55] LABS: BASOPHILS % (AUTO) 1 % (0-10); EOSINOPHILS % (AUTO) 0 % (0-10); HEMATOCRIT 43 % (35-52); HEMOGLOBIN 14.5 g/dL (11.5-16.0); LYMPHOCYTES # (AUTO) 0.9 10^3/uL (1.0-4.0); LYMPHOCYTES % (AUTO) 17 % (12-44); MEAN CORPUSCULAR HEMOGLOBIN 30 pg (25-34); MEAN CORPUSCULAR HGB CONC 34 g/dL (32-36); MEAN CORPUSCULAR VOLUME 89 fL (80-99); MONOCYTES # (AUTO) 0.4 10^3/uL (0.0-1.0); MONOCYTES % (AUTO) 7 % (0-12); NEUTROPHILS % (AUTO) 76 % (42-75); PLATELET COUNT 264 10^3/uL (130-400); WHITE BLOOD COUNT 5.2 10^3/uL (4.3-11.0)
--- NOTE | 2022-01-13 12:01 | ED GI ---
General Chief Complaint: Abdominal/GI Problems Stated Complaint: N/V Nursing Triage Note: ARRIVED VIA EMS FROM HOME. STATES X2 DAYS AGO SHE RECIEVED HER 2N COVID VACCINATION AND HAS BEEN SICK SINCE Source of Information: Patient, EMS Exam Limitations: No Limitations History of Present Illness Date Seen by Provider: Jan 13, 2022 Time Seen by Provider: 11:35 Initial Comments 41-year-old female with past medical history of cyclical vomiting, marijuana use, chronic abdominal pain, seizures coming in via EMS from home due to vomiting, subjective fever, and body aches. She had her second Pfizer COVID vaccine on Tuesday and started feeling ill shortly afterwards. Vomiting started yesterday. She took Zofran at home which has not been helping. Has been unable to keep anything down including her seizure medicines this morning. Having abdominal cramping with the vomiting but no significant pain when she is not vomiting. Is otherwise denying any other acute complaints. Last BM was yesterday and is not having diarrhea. The vomiting is nonbloody nonbilious. Allergies and Home Medications Allergies Coded Allergies: No Known Drug Allergies (Unverified , 03/20/12) Patient Home Medication List Home Medication List Reviewed: Yes Acetaminophen (Tylenol Extra Strength) 500 Mg Tablet, 1,000 MG PO Q8H PRN for PAIN-MILD (1-4), (Reported) Entered as Reported by: ALEXANDRE YOU on 11/06/21 1051 Ascorbic Acid (Vitamin C) 500 Mg Capsule, 500 MG PO DAILY, (Reported) Entered as Reported by: ALEXANDRE YOU on 11/06/21 1053 Bupropion HCl (Bupropion Xl) 300 Mg Tab.er.24h, 300 MG PO HS, (Reported) Entered as Reported by: SYED GIRALDO on 09/16/21 1508 Cefdinir (Cefdinir) 300 Mg Capsule, 300 MG PO BID Prescribed by: ROMEO HOLLEY on 11/30/21 0613 Diazepam (Diazepam) 10 Mg Tablet, 10 MG PO TID PRN for ANXIETY, (Reported) Entered as Reported by: SURESH BYRD on 02/09/21 1130 Docusate Sodium (Stool Softener) 100 Mg Capsule, 100 MG PO DAILY PRN for CONSTIPATION-1ST LINE, (Reported) Entered as Reported by: ALEXANDRE YOU on 11/06/21 1052 Estradiol (Estradiol Tablet) 0.5 Mg Tablet, 0.5 MG PO DAILY, (Reported) Entered as Reported by: SURESH BYRD on 02/09/21 1130 Fentanyl (Fentanyl Patch 50 MCG) 1 Each Patch.td72, 50 MCG TD Q72H, (Reported) Entered as Reported by: SYED GIRALDO on 09/16/21 1508 Gabapentin (Gabapentin) 800 Mg Tablet, 800 MG PO TID, (Reported) Entered as Reported by: SURESH BYRD on 02/09/21 1130 Metoclopramide HCl (Metoclopramide HCl) 5 Mg/1 Ml Vial, 10 MG PO ACHS Prescribed by: NICOLASA ECHAVARRIA on 11/08/21 0958 Metoclopramide HCl (Reglan) 10 Mg Tablet, 10 MG PO QID Prescribed by: ROMEO HOLLEY on 11/30/21 06 Multivitamin (Multi-Vitamin Daily) 1 Each Tablet, 1 EACH PO DAILY, (Reported) Entered as Reported by: ALEXANDRE YOU on 11/06/21 1053 Omeprazole (Omeprazole) 40 Mg Capsule.dr, 40 MG PO DAILY, (Reported) Entered as Reported by: ALEXANDRE YOU on 11/06/21 1050 Ondansetron (Ondansetron Odt) 8 Mg Tab.rapdis, 8 MG PO Q6H Prescribed by: ROMEO HOLLEY on 11/30/21612 Ondansetron HCl (Ondansetron HCl) 4 Mg Tablet, 4 MG PO Q4H PRN for NAUSEA/VOMITING-1ST LINE, (Reported) Entered as Reported by: SYED GIRALDO on 09/16/21 150 Pantoprazole Sodium (Protonix) 40 Mg Tablet.dr, 40 MG PO DAILY Prescribed by: ROMEO HOLLEY on 11/30/21612 Phenytoin Sodium Extended (Phenytoin Sodium Extended) 100 Mg Capsule, 100 MG PO TID, (Reported) Entered as Reported by: SYED GIRALDO on 09/16/21 150 Promethazine HCl (Promethazine Suppository) 25 Mg Supp.rect, 25 MG RC Q6 Prescribed by: ROMEO HOLLEY on 11/30/21612 Promethazine HCl (Promethazine Suppository) 25 Mg Supp.rect, 25 MG RC Q8H PRN for NAUSEA/VOMITING-2ND LINE Prescribed by: DARIANA REDDY on 01/13/22 1418 Promethazine HCl (Promethazine Tablet) 25 Mg Tablet, 25 MG PO Q6H PRN for NAUSEA/VOMITING-1ST LINE Prescribed by: DARIANA REDDY on 01/13/22 1418 Quetiapine Fumarate (Quetiapine Fumarate) 25 Mg Tablet, 12.5 MG PO HS, (Reported) Entered as Reported by: SYED GIRALDO on 09/16/21 1508 Tizanidine HCl (Tizanidine HCl) 4 Mg Tablet, 8 MG PO Q6H PRN for MUSCLE SPASMS, (Reported) Entered as Reported by: SURESH BYRD on 02/09/21 1130 Review of Systems Review of Systems Constitutional: No chills; fever EENTM: No Blurred Vision Respiratory: Denies Cough, Denies Shortness of Air Cardiovascular: Denies Chest Pain Gastrointestinal: Abdominal Pain; Denies Diarrhea; Nausea, Vomiting Genitourinary: No Symptoms Reported Musculoskeletal: no symptoms reported Skin: no symptoms reported Psychiatric/Neurological: No Symptoms Reported Endocrine: No Symptoms Reported Hematologic/Lymphatic: No Symptoms Reported All Other Systems Reviewed Negative Unless Noted: Yes Past Gwcmknz-Pqzpwv-Cwrfwp Hx Patient Social History Substance use?: Yes Immunizations Up To Date Tetanus Booster (TDap): Unknown First/Initial COVID19 Vaccinat: N/A Seasonal Allergies Seasonal Allergies: No Past Medical History Surgery/Hospitalization HX: APPENDECTOMY, GB, HYSTERECTOMY, CERVICAL FUSION ANXIETY, DEPRESSION Surgeries: Yes (MULTIPLE D&C'S, LEFT CARPAL TUNNEL AND LEFT ULNAR NERVE TRANSPOSITION, BSO,) Appendectomy, Gallbladder, Hysterectomy, Oophorectomy, Orthopedic Respiratory: Yes Asthma Cardiac: Yes (TACHYCARDIA) Neurological: Yes (Carpel tunnel syndrome bilat;neuropathy && neurodysplasia of LUE;PSUEDOSZ ?) Seizure Disorder Reproductive Disorders: Yes (OVARIAN CYSTS, HYSTERECTOMY FOR CERVICAL DYSPLASIA) 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 Genitourinary: No Gastrointestinal: Yes ("CHRONIC ABDOMINAL PAIN" "CYCLIC VOMITING" / CHRONIC THC USE ) Gall Bladder Disease, Irritable Bowel Musculoskeletal: Yes Chronic Back Pain Endocrine: No HEENT: No Loss of Vision: Denies Hearing Impairment: Denies Cancer: Yes (CERVICAL DYSPLASIA) Cervical What Type of Treatment Did You: Surgical Intervention Psychosocial: Yes (EXTENSIVE PSYCH ISSUES; SUSPECTED PSEUDOSEIZURES) Anxiety, Suicide Attempts, Bipolar, Depression Integumentary: No Blood Disorders: No Adverse Reaction/Blood Tranf: No Family Medical History Cancer SOCIAL HISTORY: -SMOKING -ETOH- -DRUGS-REGULAR THC USE PAST SURGICAL HISTORY: -CHOLECYSTECTOMY -APPENDECTOMY -HYSTERECTOMY/BILATERAL SALPINGO-OOPHORECTOMY -CARPAL TUNNEL Physical Exam Vital Signs Vital Signs - First Documented 01/13/22 11:33 Temp 36.3 Pulse 89 Resp 16 B/P (MAP) 150/100 (117) Pulse Ox 99 O2 Delivery Room Air Capillary Refill : Less Than 3 Seconds Height/Weight/BMI Height: 5'0" Weight: 132lbs. oz. 59.256158hg; 26.00 BMI Method:Actual General Appearance: WD/WN, no apparent distress HEENT: PERRL/EOMI, normal ENT inspection, pharynx normal Neck: non-tender, full range of motion, supple, normal inspection Respiratory: chest non-tender, lungs clear, normal breath sounds, no respiratory distress, no accessory muscle use Cardiovascular: regular rate, rhythm, no edema, no murmur Gastrointestinal: normal bowel sounds, non tender, soft; No distended, No guarding, No rebound Extremities: normal range of motion, non-tender, normal inspection, no pedal edema, no calf tenderness, normal capillary refill Back: normal inspection, no CVA tenderness, no vertebral tenderness Neurologic/Psychiatric: no motor/sensory deficits, alert, normal mood/affect Skin: normal color, warm/dry Lymphatic: no adenopathy Progress/Results/Core Measures Results/Orders Lab Results Laboratory Tests Test 01/13/22 11:45 01/13/22 11:57 Range/Units White Blood Count 5.2 4.3-11.0 10^3/uL Red Blood Count 4.85 3.80-5.11 10^6/uL Hemoglobin 14.5 11.5-16.0 g/dL Hematocrit 43 35-52 % Mean Corpuscular Volume 89 80-99 fL Mean Corpuscular Hemoglobin 30 25-34 pg Mean Corpuscular Hemoglobin Concent 34 32-36 g/dL Red Cell Distribution Width 12.6 10.0-14.5 % Platelet Count 264 130-400 10^3/uL Mean Platelet Volume 12.0 9.0-12.2 fL Immature Granulocyte % (Auto) 0 % Neutrophils (%) (Auto) 76 H 42-75 % Lymphocytes (%) (Auto) 17 12-44 % Monocytes (%) (Auto) 7 0-12 % Eosinophils (%) (Auto) 0 0-10 % Basophils (%) (Auto) 1 0-10 % Neutrophils # (Auto) 4.0 1.8-7.8 10^3/uL Lymphocytes # (Auto) 0.9 L 1.0-4.0 10^3/uL Monocytes # (Auto) 0.4 0.0-1.0 10^3/uL Eosinophils # (Auto) 0.0 0.0-0.3 10^3/uL Basophils # (Auto) 0.0 0.0-0.1 10^3/uL Immature Granulocyte # (Auto) 0.0 0.0-0.1 10^3/uL Sodium Level 139 135-145 MMOL/L Potassium Level 3.8 3.6-5.0 MMOL/L Chloride Level 100 98-107 MMOL/L Carbon Dioxide Level 20 L 21-32 MMOL/L Anion Gap 19 H 5-14 MMOL/L Blood Urea Nitrogen 15 7-18 MG/DL Creatinine 1.07 0.60-1.30 MG/DL Estimat Glomerular Filtration Rate 67 BUN/Creatinine Ratio 14 Glucose Level 132 H 70-105 MG/DL Calcium Level 10.9 H 8.5-10.1 MG/DL Corrected Calcium 8.5-10.1 MG/DL Total Bilirubin 0.5 0.1-1.0 MG/DL Aspartate Amino Transf (AST/SGOT) 37 H 5-34 U/L Alanine Aminotransferase (ALT/SGPT) 36 0-55 U/L Alkaline Phosphatase 107 40-136 U/L Troponin I < 0.028 <0.028 NG/ML Total Protein 8.4 H 6.4-8.2 GM/DL Albumin 5.0 H 3.2-4.5 GM/DL Lipase 9 8-78 U/L Influenza Type A (RT-PCR) Not Detected Not Detecte Influenza Type B (RT-PCR) Not Detected Not Detecte SARS-CoV-2 RNA (RT-PCR) Not Detected Not Detecte My Orders Orders - DARIANA REDDY MD Cbc With Automated Diff (01/13/22 11:45) Comprehensive Metabolic Panel (01/13/22 11:45) Drug Screen Stat (Urine) (01/13/22 11:45) Lipase (01/13/22 11:45) Troponin I Ogle (01/13/22 11:45) Ua Culture If Indicated (01/13/22 11:45) Ekg Tracing (01/13/22 11:45) Influenza A And B By Pcr (01/13/22 11:45) Covid 19 Inhouse Test (01/13/22 11:45) Ed Iv/Invasive Line Start (01/13/22 11:45) D5 Ns 1000 Ml Iv Solution (Dextrose 5%/0 (01/13/22 11:45) Chest 1 View, Ap/Pa Only (01/13/22 11:45) Promethazine Injection (Phenergan Injec (01/13/22 11:45) Droperidol Inj (Ed Only) (Inapsine Inj ( (01/13/22 13:15) D5 Ns 1000 Ml Iv Solution (Dextrose 5%/0 (01/13/22 13:02) Medications Given in ED Current Medications Medications Dose Ordered Sig/Rafael Route Start Time Stop Time Status Last Admin Dose Admin Dextrose/Sodium Chloride 1,000 ml @ 0 mls/hr Q0M ONCE IV 01/13/22 11:45 01/13/22 11:48 DC 01/13/22 11:59 1,000 MLS/HR Droperidol 1.25 mg ONCE ONCE IV 01/13/22 13:15 01/13/22 13:16 DC 01/13/22 13:07 1.25 MG Promethazine HCl 25 mg ONCE ONCE IVP 01/13/22 11:45 01/13/22 11:48 DC 01/13/22 11:53 25 MG Vital Signs/I&O 01/13/22 11:33 Temp 36.3 Pulse 89 Resp 16 B/P (MAP) 150/100 (117) Pulse Ox 99 O2 Delivery Room Air Blood Pressure Mean: 117 Progress Progress Note : Progress Note 41-year-old female with above history coming in due to vomiting. ABCs were intact and vitals were stable on presentation. Physical exam reassuring with a soft and nontender abdomen. She previously has had a hysterectomy, appendectomy, and cholecystectomy. Given this, the likely pathologies are significantly less as possibilities. She does have a chronic history of cyclical vomiting which this seems consistent with that. Basic labs including LFTs ordered and are reassuring. Urinalysis and UDS pending at this time. The patient says she does not feel like she has any urine in her bladder. I did a [id number]-cb-[id number] ultrasound and she does not fact have quite a bit so I encouraged her to try to urinate again. She did get 2 L of D5 NS as well as IV Phenergan. She was complaining of some intermittent chest discomfort and EKG just shows sinus tachycardia without ischemic changes, troponin is negative. Chest x-ray without acute abnormalities. Given IV droperidol after assessing her QTC which was 464. Symptoms improved and no more vomiting after that. On reassessment the patient is still not wanting to attempt to urinate. She again confirms she is not having any dysuria or urinary frequency, so I believe it is very unlikely she has a UTI causing the symptoms. I would have ordered a UDS to check if there is cannabis in her system as this is likely a culprit, but given how consistent her previous visits in the ER have been, I do not think this is crucial. On reassessment she continues to have a soft and nontender abdomen which is benign. She has not vomited since getting the droperidol. I believe she is stable for discharge with outpatient follow-up. She was sent home with strict return precautions. Initial ECG Impression Date: Jan 13, 2022 Initial ECG Impression Time: 12:02 Initial ECG Rate: 111 Initial ECG Rhythm: S.Tach Comment Narrow QRS, normal axis, significant shiver artifact making it difficult to interpret, but accounting for this no significant ST changes or T wave abnormalities, QTC 464 Diagnostic Imaging Diagonstic Imaging: Xray (chest) Comments [facility] [place], [place] NAME: ALYSSA PHELPS [facility] REC#: [id number] PT STATUS: REG ER : 1980 PHYSICIAN: DARIANA REDDY MD ADMIT DATE: 01/13/22/ER Draft Date of Exam:01/13/22 CHEST 1 VIEW, AP/PA ONLY INDICATION: Chest pain. COMPARISON: 11/30/2021. FINDINGS: Single view of the chest demonstrates clear lungs bilaterally. The heart is normal. There is no pneumothorax. Osseous structures are normal. IMPRESSION: Negative chest. Dictated on workstation # [id number] Dict: 01/13/22 1327 Trans: 01/13/22 1330 [id number] Interpreted by: AMELIA ALCANTARA Electronically signed by: Departure Impression Primary Impression: Cyclical vomiting Disposition: 01 HOME, SELF-CARE Condition: Stable Departure-Patient Inst. Decision time for Depature: 14:34 Referrals: JOHANNE HERNANDES MD (PCP/Family) Primary Care Physician Patient Instructions: Nausea and Vomiting, Adult ED Add. Discharge Instructions: I sent nausea medicine that you can take oral as well as one that you can take rectal if you are vomiting too much. I recommend frequent small sips of fluids to help keep those down. If things worsen too much to where you cannot handle he can always come back to the ER. Scripts Promethazine HCl (Promethazine Tablet) 25 Mg Tablet 25 MG PO Q6H PRN for NAUSEA/VOMITING-1ST LINE for 5 Days, #20 TAB Prov: DARIANA REDDY MD 01/13/22 Promethazine HCl (Promethazine Suppository) 25 Mg Supp.rect 25 MG RC Q8H PRN for NAUSEA/VOMITING-2ND LINE for 3 Days, #9 SUPP.RECT If unable to take to oral form due to vomiting then take this, do not take both at the same time Prov: DARIANA REDDY MD 01/13/22 Work/School Note: Work Release Form Date Seen in the Emergency Department: Jan 13, 2022 Return to Work: Jan 15, 2022 Restrictions: Return-No Fever (24hrs), Return-No Vomiting(24hrs) DARIANA REDDY MD Jan 13, 2022 12:01
[2022-01-13 12:07] LABS: CHLORIDE 100 MMOL/L (98-107); POTASSIUM 3.8 MMOL/L (3.6-5.0); SODIUM 139 MMOL/L (135-145)
[2022-01-13 12:08] LABS: CALCIUM 10.9 MG/DL (8.5-10.1)
[2022-01-13 12:09] LABS: GLUCOSE 132 MG/DL (70-105)
[2022-01-13 12:10] LABS: TOTAL PROTEIN 8.4 GM/DL (6.4-8.2)
[2022-01-13 12:11] LABS: BILIRUBIN,TOTAL 0.5 MG/DL (0.1-1.0); CARBON DIOXIDE 20 MMOL/L (21-32)
[2022-01-13 12:13] LABS: ALKALINE PHOSPHATASE 107 U/L (40-136); CREATININE SERUM 1.07 MG/DL (0.60-1.30); GFR ESTIMATED 67
[2022-01-13 12:14] LABS: BUN/CREATININE RATIO 14
[2022-01-13 12:16] LABS: ALANINE AMINOTRANSFERASE 36 U/L (0-55)
[2022-01-13 12:17] LABS: LIPASE 9 U/L (8-78)
[2022-01-13] MEDS ORDERED: D5 NS 1000 ML IV SOLUTION 1,000 ML IV STA (13:02)
[2022-01-13] MEDS ORDERED: DROPERIDOL 5 MG/2 ML (INAPSINE) ED ONLY! IV ONE (13:15)
--- NOTE | 2022-01-13 13:30 | Diagnostic Imaging Report ---
INDICATION: Chest pain. COMPARISON: 11/30/2021. FINDINGS: Single view of the chest demonstrates clear lungs bilaterally. The heart is normal. There is no pneumothorax. Osseous structures are normal. IMPRESSION: Negative chest. Dictated by: Dictated on workstation # [id number]
[2022-01-13] MEDS ORDERED: PROM25TA14 PO (14:18)
[2022-01-13] MEDS ORDERED: PROM25SU44 RC (14:18)
[2022-01-13 14:36] VITALS: BP 150/87
== END 2022-01-13 14:36 | disposition home or self-care (01) ==
LOC: EDUNIT# 11:33 → ER 11:35
DX: R11.15 Cyclical vomiting syndrome unrelated to migraine (principal); J45.909 Unspecified asthma, uncomplicated; G40.909 Epilepsy, unspecified, not intractable, without status epilepticus; F41.9 Anxiety disorder, unspecified; F31.9 Bipolar disorder, unspecified; Z20.822 Contact with and (suspected) exposure to COVID-19; Z79.899 Other long term (current) drug therapy
CPT/HCPCS: 36415; 71045; 80053; 83690; 84484; 85025; 87636; 93005

== ENCOUNTER → 2022-04-29 | Outpatient (CLI) | payer OTHER ==
[~2022-04-29] MED LIST changes: +BUPR-105 PO; -BUPR150T14 PO; +PROM25TA14 PO
--- NOTE | 2022-04-29 17:43 | Diagnostic Imaging Report ---
EXAMINATION: Pelvis, single view. Left hip, 2 additional views. Right hip, 2 additional views. COMPARISON: CT abdomen and pelvis September 15, 2021. HISTORY: 41-year-old female, bilateral hip pain. FINDINGS: There is transitional lumbosacral anatomy. L5 is labeled as partially sacralized with an enlarged left lateral mass. If spinal intervention is to be performed in the future, recommend careful correlation with levels. Sacroiliac joints and pubic symphysis are unremarkable in appearance. The hips are not dislocated. There is no joint space loss of either hip, osteophyte formation, or subchondral cystic change. There is no identified acute fracture. There are sutures at the level of the right and left pelvis. There is no identified bone lesion. IMPRESSION: 1. Unremarkable appearance of both hips. 2. Transitional lumbosacral anatomy. If spinal intervention is to be performed in the future, recommend careful correlation with levels. Dictated by: Dictated on workstation # [id number]
== END ==
LOC: RAD 13:47
PROVIDERS: ATTEND Anesthesiology Pain Medicine
DX: Z02.71 Encounter for disability determination (principal); M25.551 Pain in right hip; M25.552 Pain in left hip
CPT/HCPCS: 73523

== ENCOUNTER 2022-06-20 17:13 | Emergency (ER) | payer MEDICAID, OTHER ==
[2022-06-20] MEDS ORDERED: fentaNYL INJ 100 MCG/2 ML AMP IVP ONE (17:30)
[2022-06-20] MEDS ORDERED: MIDAZOLAM 2 MG/2 ML (VERSED) VIAL IVP ONE (17:30)
[2022-06-20] MEDS ORDERED: LACTATED RINGERS 1,000 ML IV ONE (17:30)
[2022-06-20] MEDS ORDERED: ONDANSETRON 4 MG/2 ML (SDV) Z0FRAN IVP ONE (17:30)
[2022-06-20 17:42] LABS: BASOPHILS % (AUTO) 0 % (0-10); EOSINOPHILS % (AUTO) 0 % (0-10); HEMATOCRIT 40 % (35-52); HEMOGLOBIN 13.7 g/dL (11.5-16.0); LYMPHOCYTES # (AUTO) 1.1 10^3/uL (1.0-4.0); LYMPHOCYTES % (AUTO) 10 % (12-44); MEAN CORPUSCULAR HEMOGLOBIN 30 pg (25-34); MEAN CORPUSCULAR HGB CONC 34 g/dL (32-36); MEAN CORPUSCULAR VOLUME 88 fL (80-99); MEAN PLATELET VOLUME 11.8 fL (9.0-12.2); MONOCYTES # (AUTO) 0.4 10^3/uL (0.0-1.0); MONOCYTES % (AUTO) 4 % (0-12); NEUTROPHILS # (AUTO) 9.4 10^3/uL (1.8-7.8); NEUTROPHILS % (AUTO) 86 % (42-75); PLATELET COUNT 256 10^3/uL (130-400)
--- NOTE | 2022-06-20 17:53 | ED General ---
General Chief Complaint: Dizziness/Syncope Stated Complaint: DIZZY,N/V Nursing Triage Note: PT TO [facility] BY [facility] WITH C/O N/V AND DIZZINESS. PT GIVEN 4MG ZOFRAN BY EMS Source of Information: Patient Exam Limitations: No Limitations History of Present Illness Date Seen by Provider: Jun 20, 2022 Time Seen by Provider: 17:52 Initial Comments To ER by EMS with nausea vomiting abdominal pain and dizziness for 3 to 4 days. History of hyperemesis cannabinoid syndrome. She has been unable to take her Suboxone or diazepam due to the Timing/Duration: 2-3 Days Severity: Moderate Associated Systoms: Nausea/Vomiting Allergies and Home Medications Allergies Coded Allergies: No Known Drug Allergies (Unverified , 03/20/12) Patient Home Medication List Home Medication List Reviewed: Yes Acetaminophen (Tylenol Extra Strength) 500 Mg Tablet, 1,000 MG PO Q8H PRN for PAIN-MILD (1-4), (Reported) Entered as Reported by: ALEXANDRE YOU on 11/06/21 1051 Ascorbic Acid (Vitamin C) 500 Mg Capsule, 500 MG PO DAILY, (Reported) Entered as Reported by: ALEXANDRE YOU on 11/06/21 1053 Bupropion HCl (Bupropion Xl) 300 Mg Tab.er.24h, 300 MG PO HS, (Reported) Entered as Reported by: SYED GIRALDO on 09/16/21 1508 Cefdinir (Cefdinir) 300 Mg Capsule, 300 MG PO BID Prescribed by: ROMEO HOLLEY on 11/30/21 0613 Diazepam (Diazepam) 10 Mg Tablet, 10 MG PO TID PRN for ANXIETY, (Reported) Entered as Reported by: SURESH BYRD on 02/09/21 1130 Docusate Sodium (Stool Softener) 100 Mg Capsule, 100 MG PO DAILY PRN for CO NSTIPATION-1ST LINE, (Reported) Entered as Reported by: ALEXANDRE YOU on 11/06/21 1052 Estradiol (Estradiol Tablet) 0.5 Mg Tablet, 0.5 MG PO DAILY, (Reported) Entered as Reported by: SURESH BYRD on 02/09/21 1130 Fentanyl (Fentanyl Patch 50 MCG) 1 Each Patch.td72, 50 MCG TD Q72H, (Reported) Entered as Reported by: SYED GIRALDO on 09/16/21 1508 Gabapentin (Gabapentin) 800 Mg Tablet, 800 MG PO TID, (Reported) Entered as Reported by: SURESH BYRD on 02/09/21 1130 Metoclopramide HCl (Metoclopramide HCl) 5 Mg/1 Ml Vial, 10 MG PO ACHS Prescribed by: NICOLASA ECHAVARRIA on 11/08/21 0958 Metoclopramide HCl (Reglan) 10 Mg Tablet, 10 MG PO QID Prescribed by: ROMEO HOLLEY on 11/30/21 06 Multivitamin (Multi-Vitamin Daily) 1 Each Tablet, 1 EACH PO DAILY, (Reported) Entered as Reported by: ALEXANDRE YOU on 11/06/21 1053 Omeprazole (Omeprazole) 40 Mg Capsule.dr, 40 MG PO DAILY, (Reported) Entered as Reported by: ALEXANDRE YOU on 11/06/21 1050 Ondansetron (Ondansetron Odt) 8 Mg Tab.rapdis, 8 MG PO Q6H Prescribed by: ROMEO HOLLEY on 11/30/21612 Ondansetron HCl (Ondansetron HCl) 4 Mg Tablet, 4 MG PO Q4H PRN for NAUSEA/VOMITING-1ST LINE, (Reported) Entered as Reported by: SYED GIRALDO on 09/16/21 150 Pantoprazole Sodium (Protonix) 40 Mg Tablet.dr, 40 MG PO DAILY Prescribed by: ROMEO HOLLEY on 11/30/21612 Phenytoin Sodium Extended (Phenytoin Sodium Extended) 100 Mg Capsule, 100 MG PO TID, (Reported) Entered as Reported by: SYED GIRALDO on 09/16/21 1508 Promethazine HCl (Promethazine Suppository) 25 Mg Supp.rect, 25 MG RC Q6 Prescribed by: ROMEO HOLLEY on 11/30/21612 Promethazine HCl (Promethazine Suppository) 25 Mg Supp.rect, 25 MG RC Q8H PRN for NAUSEA/VOMITING-2ND LINE Prescribed by: DARIANA REDDY on 01/13/22 141 Promethazine HCl (Promethazine Tablet) 25 Mg Tablet, 25 MG PO Q6H PRN for NAUSEA/VOMITING-1ST LINE Prescribed by: DARIANA REDDY on 01/13/22 141 Quetiapine Fumarate (Quetiapine Fumarate) 25 Mg Tablet, 12.5 MG PO HS, (Reported) Entered as Reported by: SYED GIRALDO on 09/16/21 1508 Tizanidine HCl (Tizanidine HCl) 4 Mg Tablet, 8 MG PO Q6H PRN for MUSCLE SPASMS, (Reported) Entered as Reported by: SURESH BYRD on 02/09/21 1130 Review of Systems Review of Systems Constitutional: see HPI EENTM: see HPI Respiratory: no symptoms reported Cardiovascular: no symptoms reported Gastrointestinal: abdominal pain; No diarrhea; nausea, vomiting Genitourinary: no symptoms reported Musculoskeletal: no symptoms reported Skin: no symptoms reported Psychiatric/Neurological: No Symptoms Reported Hematologic/Lymphatic: No Symptoms Reported Past Vcaosno-Kjsrsb-Jcpmbk Hx Patient Social History Tobacco Use?: No Use of E-Cig and/or Vaping dev: Yes E-Cig or Vaping type used: Nicotine Substance use?: Yes Substance type: Marijuana Alcohol Use?: No Pt feels they are or have been: No Immunizations Up To Date Tetanus Booster (TDap): Unknown Influenza Vaccine Up-to-Date: Yes; Up-to-Date First/Initial COVID19 Vaccinat: 01/11/22 Second COVID19 Vaccination [place]: 02/04/22 Seasonal Allergies Seasonal Allergies: No Past Medical History Surgery/Hospitalization HX: APPENDECTOMY, GB, HYSTERECTOMY, CERVICAL FUSION ANXIETY, DEPRESSION Surgeries: Yes (MULTIPLE D&C'S, LEFT CARPAL TUNNEL AND LEFT ULNAR NERVE TRANSPOSITION, BSO,) Appendectomy, Gallbladder, Hysterectomy, Oophorectomy, Orthopedic Respiratory: Yes Asthma Cardiac: Yes (TACHYCARDIA) Neurological: Yes (Carpel tunnel syndrome bilat;neuropathy && neurodysplasia of LUE;PSUEDOSZ ?) Seizure Disorder Reproductive Disorders: Yes (OVARIAN CYSTS, HYSTERECTOMY FOR CERVICAL DYSPLASIA) TYPE CUTTER History: Hysterectomy Genitourinary: No Gastrointestinal: Yes ("CHRONIC ABDOMINAL PAIN" "CYCLIC VOMITING" / CHRONIC THC USE ) Gall Bladder Disease, Irritable Bowel Musculoskeletal: Yes Chronic Back Pain Endocrine: No HEENT: No Loss of Vision: Denies Hearing Impairment: Denies Cancer: Yes (CERVICAL DYSPLASIA) Cervical What Type of Treatment Did You: Surgical Intervention Psychosocial: Yes (EXTENSIVE PSYCH ISSUES; SUSPECTED PSEUDOSEIZURES) Anxiety, Suicide Attempts, Bipolar, Depression Integumentary: No Blood Disorders: No Adverse Reaction/Blood Tranf: No Family Medical History Cancer SOCIAL HISTORY: -SMOKING -ETOH- -DRUGS-REGULAR THC USE PAST SURGICAL HISTORY: -CHOLECYSTECTOMY -APPENDECTOMY -HYSTERECTOMY/BILATERAL SALPINGO-OOPHORECTOMY -CARPAL TUNNEL Physical Exam Vital Signs Vital Signs - First Documented 06/20/22 17:15 Temp 36.8 Pulse 81 Resp 18 B/P (MAP) 161/98 (119) Capillary Refill : Height, Weight, BMI Height: 5'0" Weight: 132lbs. oz. 59.280251fh; 26.00 BMI Method:Actual General Appearance: No Apparent Distress, WD/WN Eyes: Bilateral Eye Normal Inspection, Bilateral Eye PERRL, Bilateral Eye EOMI HEENT: PERRL/EOMI, TMs Normal Neck: Full Range of Motion, Normal Inspection Respiratory: No Accessory Muscle Use, No Respiratory Distress Cardiovascular: Regular Rate, Rhythm, Normal Peripheral Pulses Gastrointestinal: Non Tender, Soft Extremity: Normal Capillary Refill, Normal Inspection Neurologic/Psychiatric: Alert, Oriented x3 Skin: Normal Color, Warm/Dry Progress/Results/Core Measures Suspected Sepsis SIRS Temperature: Pulse: 81 Respiratory Rate: 18 Laboratory Tests 06/20/22 17:26: White Blood Count 11.0 Blood Pressure 161 /98 Mean: 119 Laboratory Tests 06/20/22 17:26: Creatinine 0.81, Platelet Count 256, Total Bilirubin 0.5 Results/Orders Lab Results Laboratory Tests Test 06/20/22 17:26 06/20/22 18:13 Range/Units White Blood Count 11.0 4.3-11.0 10^3/uL Red Blood Count 4.61 3.80-5.11 10^6/uL Hemoglobin 13.7 11.5-16.0 g/dL Hematocrit 40 35-52 % Mean Corpuscular Volume 88 80-99 fL Mean Corpuscular Hemoglobin 30 25-34 pg Mean Corpuscular Hemoglobin Concent 34 32-36 g/dL Red Cell Distribution Width 12.3 10.0-14.5 % Platelet Count 256 130-400 10^3/uL Mean Platelet Volume 11.8 9.0-12.2 fL Immature Granulocyte % (Auto) 0 % Neutrophils (%) (Auto) 86 H 42-75 % Lymphocytes (%) (Auto) 10 L 12-44 % Monocytes (%) (Auto) 4 0-12 % Eosinophils (%) (Auto) 0 0-10 % Basophils (%) (Auto) 0 0-10 % Neutrophils # (Auto) 9.4 H 1.8-7.8 10^3/uL Lymphocytes # (Auto) 1.1 1.0-4.0 10^3/uL Monocytes # (Auto) 0.4 0.0-1.0 10^3/uL Eosinophils # (Auto) 0.0 0.0-0.3 10^3/uL Basophils # (Auto) 0.0 0.0-0.1 10^3/uL Immature Granulocyte # (Auto) 0.0 0.0-0.1 10^3/uL Sodium Level 139 135-145 MMOL/L Potassium Level 4.0 3.6-5.0 MMOL/L Chloride Level 100 98-107 MMOL/L Carbon Dioxide Level 22 21-32 MMOL/L Anion Gap 17 H 5-14 MMOL/L Blood Urea Nitrogen 15 7-18 MG/DL Creatinine 0.81 0.60-1.30 MG/DL Estimat Glomerular Filtration Rate 93 BUN/Creatinine Ratio 19 Glucose Level 126 H 70-105 MG/DL Calcium Level 9.8 8.5-10.1 MG/DL Corrected Calcium 9.5 8.5-10.1 MG/DL Total Bilirubin 0.5 0.1-1.0 MG/DL Aspartate Amino Transf (AST/SGOT) 25 5-34 U/L Alanine Aminotransferase (ALT/SGPT) 16 0-55 U/L Alkaline Phosphatase 110 40-136 U/L Total Protein 7.3 6.4-8.2 GM/DL Albumin 4.4 3.2-4.5 GM/DL Lipase 4 L 8-78 U/L Urine Color YELLOW Urine Clarity CLEAR Urine pH >=9.0 5-9 Urine Specific [place] 1.015 L 1.016-1.022 Urine Protein 1+ H NEGATIVE Urine Glucose (UA) NEGATIVE NEGATIVE Urine Ketones 3+ H NEGATIVE Urine Nitrite NEGATIVE NEGATIVE Urine Bilirubin NEGATIVE NEGATIVE Urine Urobilinogen 1.0 < = 1.0 MG/DL Urine Leukocyte Esterase NEGATIVE NEGATIVE Urine RBC (Auto) NEGATIVE NEGATIVE Urine RBC NONE /HPF Urine WBC 2-5 /HPF Urine Squamous Epithelial Cells RARE /HPF Urine Crystals NONE /LPF Urine Bacteria TRACE /HPF Urine Casts NONE /LPF Urine Mucus SMALL H /LPF Urine Culture Indicated NO Urine Opiates Screen NEGATIVE NEGATIVE Urine Oxycodone Screen NEGATIVE NEGATIVE Urine Methadone Screen NEGATIVE NEGATIVE Urine Propoxyphene Screen NEGATIVE NEGATIVE Urine Barbiturates Screen NEGATIVE NEGATIVE Ur Tricyclic Antidepressants Screen NEGATIVE NEGATIVE Urine Phencyclidine Screen NEGATIVE NEGATIVE Urine Amphetamines Screen NEGATIVE NEGATIVE Urine Methamphetamines Screen NEGATIVE NEGATIVE Urine Benzodiazepines Screen POSITIVE H NEGATIVE Urine Cocaine Screen NEGATIVE NEGATIVE Urine Cannabinoids Screen POSITIVE H NEGATIVE My Orders Orders - YEMI BONILLA [employer] Cbc With Automated Diff (06/20/22 17:19) Drug Screen Stat (Urine) (06/20/22 17:19) Ua Culture If Indicated (06/20/22 17:19) Ed Iv/Invasive Line Start (06/20/22 17:19) Comprehensive Metabolic Panel (06/20/22 17:19) Lipase (06/20/22 17:19) Ekg Tracing (06/20/22 17:19) Prochlorperazine Injection (Compazine In (06/20/22 18:15) Ns Iv 1000 Ml (Sodium Chloride 0.9%) (06/20/22 18:15) Diazepam Injection (Valium Injection) (06/20/22 19:30) Medications Given in ED Current Medications Medications Dose Ordered Sig/Rafael Route Start Time Stop Time Status Last Admin Dose Admin Fentanyl Citrate 50 mcg ONCE ONCE IVP 06/20/22 17:30 06/20/22 17:31 DC 06/20/22 17:50 50 MCG Lactated Ringer's 1,000 ml @ 0 mls/hr Q0M ONCE IV 06/20/22 17:30 06/20/22 17:31 DC 06/20/22 17:27 1,000 MLS/HR Midazolam HCl 1 mg ONCE ONCE IVP 06/20/22 17:30 06/20/22 17:31 DC 06/20/22 17:27 1 MG Ondansetron HCl 4 mg ONCE ONCE IVP 06/20/22 17:30 06/20/22 17:31 DC 06/20/22 17:27 4 MG Prochlorperazine Edisylate 10 mg ONCE ONCE IV 06/20/22 18:15 06/20/22 18:16 DC 06/20/22 18:33 10 MG Vital Signs/I&O 06/20/22 17:15 Temp 36.8 Pulse 81 Resp 18 B/P (MAP) 161/98 (119) Capillary Refill : Blood Pressure Mean: 119 Departure Impression Primary Impression: Nausea & vomiting Disposition: 01 HOME, SELF-CARE Condition: Stable Departure-Patient Inst. Decision time for Depature: 19:16 Referrals: JOHANNE HERNANDES MD (PCP/Family) Primary Care Physician Patient Instructions: Nausea and Vomiting, Adult ED YEMI BONILLA [employer] Jun 20, 2022 17:53
[2022-06-20 17:59] LABS: ALBUMIN 4.4 GM/DL (3.2-4.5)
[2022-06-20 18:01] LABS: CALCIUM 9.8 MG/DL (8.5-10.1)
[2022-06-20 18:02] LABS: TOTAL PROTEIN 7.3 GM/DL (6.4-8.2)
[2022-06-20 18:04] LABS: BILIRUBIN,TOTAL 0.5 MG/DL (0.1-1.0)
[2022-06-20 18:05] LABS: CREATININE SERUM 0.81 MG/DL (0.60-1.30)
[2022-06-20] MEDS ORDERED: PROCHLORPERAZINE 10 MG/2ML INJ (COMPAZINE) IV ONE (18:15)
[2022-06-20] MEDS ORDERED: NS IV 1000 ML 1,000 ML IV SCH (18:15)
[2022-06-20 18:19] LABS: BILIRUBIN,URINE NEGATIVE (NEGATIVE); CLARITY,URINE CLEAR; COLOR,URINE YELLOW; GLUCOSE, URINE (UA) NEGATIVE (NEGATIVE); KETONES,URINE 3+ (NEGATIVE); LEUKOCYTE ESTERASE ,URINE NEGATIVE (NEGATIVE); NITRITE,URINE NEGATIVE (NEGATIVE); PH,URINE >=9.0 (5-9); PROTEIN,URINE 1+ (NEGATIVE)
[2022-06-20 18:27] LABS: BACTERIA,URINE TRACE /HPF; SQUAMOUS EPITHELIAL CELL,UR RARE /HPF
[2022-06-20 18:32] LABS: AMPHETAMINE SCREEN, URINE NEGATIVE (NEGATIVE); BENZODIAZEPINES SCREEN URINE POSITIVE (NEGATIVE); CANNABINOID SCREEN, URINE POSITIVE (NEGATIVE); COCAINE SCREEN URINE NEGATIVE (NEGATIVE)
[2022-06-20 18:33] LABS: BARBITURATE SCREEN URINE NEGATIVE (NEGATIVE); METHADONE STAT NEGATIVE (NEGATIVE); OPIATE SCREEN URINE NEGATIVE (NEGATIVE); OXYCODONE STAT NEGATIVE (NEGATIVE); PROPOXYPHENE STAT NEGATIVE (NEGATIVE); TRICYCLIC ANTIDEPRESSANTS SCRE NEGATIVE (NEGATIVE)
[2022-06-20] MEDS ORDERED: DIAZEPAM INJ 10 MG/2 ML (VALIUM) SYR IVP PRN (19:30)
[2022-06-20 19:42] VITALS: BP 156/97
== END 2022-06-20 19:48 | disposition home or self-care (01) ==
LOC: EDUNIT# 17:13 → ER 17:14
DX: R11.2 Nausea with vomiting, unspecified (principal); F17.290 Nicotine dependence, other tobacco product, uncomplicated
CPT/HCPCS: 36415; 80053; 80306; 81000; 83690; 85025; 93005

== ENCOUNTER 2022-07-31 01:35 | Emergency (ER) | payer MEDICAID ==
[~2022-07-31] VITALS: Ht 153 cm; Wt 59.0 kg
[~2022-07-31 01:35] MED LIST changes: +POTA-177 PO; -POTA10TA37 PO
[2022-07-31 01:58] LABS: BASOPHILS # (AUTO) 0.1 10^3/uL (0.0-0.1); BASOPHILS % (AUTO) 1 % (0-10); EOSINOPHILS # (AUTO) 0.1 10^3/uL (0.0-0.3); EOSINOPHILS % (AUTO) 1 % (0-10); HEMATOCRIT 44 % (35-52); HEMOGLOBIN 15.2 g/dL (11.5-16.0); LYMPHOCYTES # (AUTO) 3.4 10^3/uL (1.0-4.0); LYMPHOCYTES % (AUTO) 35 % (12-44); MEAN CORPUSCULAR HEMOGLOBIN 30 pg (25-34); MEAN CORPUSCULAR HGB CONC 35 g/dL (32-36); MEAN CORPUSCULAR VOLUME 85 fL (80-99); MEAN PLATELET VOLUME 12.5 fL (9.0-12.2); MONOCYTES % (AUTO) 11 % (0-12); NEUTROPHILS # (AUTO) 5.1 10^3/uL (1.8-7.8); NEUTROPHILS % (AUTO) 53 % (42-75); PLATELET COUNT 222 10^3/uL (130-400); WHITE BLOOD COUNT 9.6 10^3/uL (4.3-11.0)
--- NOTE | 2022-07-31 01:59 | ED General ---
General Chief Complaint: Trauma-Non Activation Stated Complaint: FALL Nursing Triage Note: BROUGHT IN BY [facility] FOR POSSIBLE FALL, LEFT LEG NUMBNESS/PAIN, AMS. Source of Information: Patient, EMS, Old Records History of Present Illness Date Seen by Provider: Jul 31, 2022 Time Seen by Provider: 01:42 Initial Comments PT ARRIVES VIA EMS FROM HOME POSSIBLE "FALL" SOMETIME YESTERDAY MORNING PT STATES "THAT'S WHAT MY SON SAID" --PT DOES NOT RECALL ANYTHING, STATES "I WOKE UP ON THE FLOOR" AND THE FURNITURE IN THE ROOM HAD BEEN MOVED. WAS NOT WITNESSED BY ANYONE. SON LATER CAME IN HER ROOM FROM ANOTHER PART OF THE HOUSE. PT C/O PAIN TO LEFT LEG, MOSTLY FROM HIP TO KNEE, BUT ALSO HAS PAIN TO LEFT LOWER LEG WELL--PAINFUL TO BEAR WEIGHT ON LEFT LEG STATES HER LEG FEELS A LITTLE NUMB NO MOTOR DEFICITS PT DENIES ANY PAIN TO HER HEAD HAS CHRONIC NECK PAIN AND HAS HAD PRIOR C-SPINE FUSION, STATES NECK IS NOT ANY MORE PAINFUL THAN NORMAL ALSO HAS CHRONIC LOW BACK PAIN WELL, STATES IT IS NOT ANY MORE PAINFUL THAN NORMAL FAMILY REPORTED TO EMS THAT SHE APPEARED A LITTLE CONFUSED AND WAS TALKING TO PEOPLE THAT WEREN'T THERE FAMILY ALSO REPORTED TO EMS THAT SHE HAD A SEIZURE YESTERDAY AROUND 1300. PT STATES SHE HAS NOT HAD A SEIZURE "IN 6 OR 12 MONTHS" PT HAS HISTORY OF SEIZURES/PSUEDOSEIZURES, AND HAS BEEN PRESCRIBED DILANTIN--PT STATES SHE "MIGHT HAVE MISSED A COUPLE OF DOSES" PT HISTORICALLY DOES NOT TAKE HER DILANTIN ON A REGULAR BASIS. STATES SHE HAS SEEN DR. PETERSON, NEUROLOGIST, BUT HAS NOT SEEN HIM IN OVER A YEAR ADDITIONALLY, PT HAS AN EXTENSIVE PSYCH HISTORY, INCLUDING DX OF SCHIZOPHRENIA AND BIPOLAR SHE ALSO HAS HISTORY OF POLYSUBSTANCE ABUSE, INCLUDING IV METH AND CHRONIC THC USE SHE STATES SHE HAS NOT HAD ANY VALIUM FOR 9 DAYS SHE HAS NOT HAD FENTANYL PATCH IN "A COUPLE OF MONTHS" SHE HAS NOT HAD ANY SUBOXONE "FOR A COUPLE OF WEEKS" STATES THESE WERE STOPPED BY DR. TAYLOR SOSA. STATES SHE HAS NOT HAD ANY NEW MEDICATIONS PRESCRIBED CLAIMS SHE HAS NOT MISSED ANY DOSES OF HER OTHER MEDICATIONS PER MED RECONCILIATION, PT HAS BEEN PRESCRIBED THE FOLLOWING: -DIAZEPAM #9 PILLS ( 9 DAY SUPPLY ) ON 07/07/22 -GABAPENTIN (30 DAY SUPPLY) ON 07/07/22 -TIZANIDINE (30 DAY SUPPLY) ON 06/28/22 -SUBOXONE ( 11 DAY SUPPLY ) ON 06/25/22 -QUETIAPINE ( 30 DAY SUPPLY ) ON 05/10/22 -BUPROPRION ( 30 DAY SUPPLY) ON 05/10/22 OF NOTE, FENTANYL PATCHES DO NOT SHOW UP ON EXTERNAL MED HISTORY ON MED RECONCILIATION NO FEVER OR RECENT ILLNESS PT HAS HAD COVID VACCINES X 2 PT IS NOT ON ANY ASPIRIN OR BLOOD THINNERS PT STATES SHE LIVES AT HOME WITH HER SON, HIS , HIS 2 KIDS ANOTHER SON WAS ALSO THERE TONIGHT. PCP: SANIA DEUTSCH ALSO SEES DR. TAYLOR SOSA AT [facility] Allergies and Home Medications Allergies Coded Allergies: No Known Drug Allergies (Unverified , 03/20/12) Patient Home Medication List Home Medication List Reviewed: Yes Acetaminophen (Tylenol Extra Strength) 500 Mg Tablet, 1,000 MG PO Q8H PRN for PAIN-MILD (1-4), (Reported) Entered as Reported by: ALEXANDRE YOU on 11/06/21 1051 Ascorbic Acid (Vitamin C) 500 Mg Capsule, 500 MG PO DAILY, (Reported) Entered as Reported by: ALEXANDRE YOU on 11/06/21 1053 Bupropion HCl (Bupropion Xl) 300 Mg Tab.er.24h, 300 MG PO HS, (Reported) Entered as Reported by: SYED GIRALDO on 09/16/21 1508 Cefdinir (Cefdinir) 300 Mg Capsule, 300 MG PO BID Prescribed by: ROMEO HOLLEY on 11/30/21 0613 Diazepam (Diazepam) 10 Mg Tablet, 10 MG PO TID PRN for ANXIETY, (Reported) Entered as Reported by: SURESH BYRD on 02/09/21 1130 Docusate Sodium (Stool Softener) 100 Mg Capsule, 100 MG PO DAILY PRN for CONSTIPATION-1ST LINE, (Reported) Entered as Reported by: ALEXANDRE YOU on 11/06/21 1052 Estradiol (Estradiol Tablet) 0.5 Mg Tablet, 0.5 MG PO DAILY, (Reported) Entered as Reported by: SURESH BYRD on 02/09/21 1130 Fentanyl (Fentanyl Patch 50 MCG) 1 Each Patch.td72, 50 MCG TD Q72H, (Reported) Entered as Reported by: SYED GIRALDO on 09/16/21 1508 Gabapentin (Gabapentin) 800 Mg Tablet, 800 MG PO TID, (Reported) Entered as Reported by: SURESH BYRD on 02/09/21 1130 Metoclopramide HCl (Metoclopramide HCl) 5 Mg/1 Ml Vial, 10 MG PO ACHS Prescribed by: NICOLASA ECHAVARRIA on 11/08/21 0958 Metoclopramide HCl (Reglan) 10 Mg Tablet, 10 MG PO QID Prescribed by: ROMEO HOLLEY on 11/30/21 06 Multivitamin (Multi-Vitamin Daily) 1 Each Tablet, 1 EACH PO DAILY, (Reported) Entered as Reported by: ALEXANDRE YOU on 11/06/21 1053 Omeprazole (Omeprazole) 40 Mg Capsule.dr, 40 MG PO DAILY, (Reported) Entered as Reported by: ALEXANDRE YOU on 11/06/21 1050 Ondansetron (Ondansetron Odt) 8 Mg Tab.rapdis, 8 MG PO Q6H Prescribed by: ROMEO HOLLEY on 11/30/21612 Ondansetron HCl (Ondansetron HCl) 4 Mg Tablet, 4 MG PO Q4H PRN for NAUSEA/VOM ITING-1ST LINE, (Reported) Entered as Reported by: SYED GIRALDO on 09/16/21 1508 Pantoprazole Sodium (Protonix) 40 Mg Tablet.dr, 40 MG PO DAILY Prescribed by: ROMEO HOLLEY on 11/30/21612 Phenytoin Sodium Extended (Phenytoin Sodium Extended) 100 Mg Capsule, 100 MG PO TID, (Reported) Entered as Reported by: SYED GIRALDO on 09/16/21 1508 Promethazine HCl (Promethazine Suppository) 25 Mg Supp.rect, 25 MG RC Q6 Prescribed by: ROMEO HOLLEY on 11/30/21 06 Promethazine HCl (Promethazine Suppository) 25 Mg Supp.rect, 25 MG RC Q8H PRN for NAUSEA/VOMITING-2ND LINE Prescribed by: DARIANA REDDY on 01/13/22 1418 Promethazine HCl (Promethazine Tablet) 25 Mg Tablet, 25 MG PO Q6H PRN for NAUSEA/VOMITING-1ST LINE Prescribed by: DARIANA REDDY on 01/13/22 1418 Quetiapine Fumarate (Quetiapine Fumarate) 25 Mg Tablet, 12.5 MG PO HS, (Reported) Entered as Reported by: SYED GIRALDO on 09/16/21 1508 Tizanidine HCl (Tizanidine HCl) 4 Mg Tablet, 8 MG PO Q6H PRN for MUSCLE SPASMS, (Reported) Entered as Reported by: SURESH BYRD on 02/09/21 1130 Review of Systems Review of Systems Constitutional: no symptoms reported EENTM: no symptoms reported Respiratory: no symptoms reported Cardiovascular: no symptoms reported Gastrointestinal: no symptoms reported Genitourinary: no symptoms reported Musculoskeletal: see HPI Skin: no symptoms reported Psychiatric/Neurological: See HPI Hematologic/Lymphatic: No Symptoms Reported Immunological/Allergic: no symptoms reported Past Vonqsbl-Bxbpmv-Wkxasf Hx Patient Social History Tobacco Use?: Yes Tobacco type used: Cigarettes Smoking Status: Current Everyday Smoker Use of E-Cig and/or Vaping dev: Yes E-Cig or Vaping type used: Nicotine Use of E-Cig and/or Vaping Ramez: Current Everyday User Substance use?: Yes Substance type: Methamphetamine, Marijuana Alcohol Use?: Yes Pt feels they are or have been: No Immunizations Up To Date Tetanus Booster (TDap): Unknown First/Initial COVID19 Vaccinat: 01/11/22 Second COVID19 Vaccination Tyrone: 02/04/22 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: RITU Seasonal Allergies Seasonal Allergies: No Past Medical History Surgery/Hospitalization HX: APPENDECTOMY, GB, HYSTERECTOMY, CERVICAL FUSION ANXIETY, DEPRESSION Surgeries: Yes (MULTIPLE D&C'S, LEFT CARPAL TUNNEL AND LEFT ULNAR NERVE TRANSPOSITION, BSO,) Appendectomy, Gallbladder, Hysterectomy, Oophorectomy, Orthopedic Respiratory: Yes Asthma Cardiac: Yes (TACHYCARDIA) Neurological: Yes (Carpel tunnel syndrome bilat;neuropathy && neurodysplasia of LUE;PSUEDOSZ ?) Seizure Disorder Reproductive Disorders: Yes (OVARIAN CYSTS, HYSTERECTOMY FOR CERVICAL DYSPLASIA) 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 Genitourinary: No Gastrointestinal: Yes ("CHRONIC ABDOMINAL PAIN" "CYCLIC VOMITING" / CHRONIC THC USE ) Gall Bladder Disease, Irritable Bowel Musculoskeletal: Yes (CHRONIC NECK PAIN-S/P C-SPINE SURGERY) Degenerate Disk Disease, Chronic Back Pain Endocrine: No HEENT: No Loss of Vision: Denies Hearing Impairment: Denies Cancer: Yes (CERVICAL DYSPLASIA) Cervical What Type of Treatment Did You: Surgical Intervention Psychosocial: Yes (EXTENSIVE PSYCH ISSUES; SUSPECTED PSEUDOSEIZURES;POLYSUBSTANCE ABUSE) Anxiety, Suicide Attempts, Bipolar, Depression Integumentary: No Blood Disorders: No Adverse Reaction/Blood Tranf: No Family Medical History Cancer SOCIAL HISTORY: -SMOKING-2 PPD -VAPES NICOTINE -ETOH-HX OF HEAVY USE, CLAIMS NONE X 1 YEAR ON 07/31/22 -DRUGS-REGULAR THC USE, HX OF IV METH USE PAST SURGICAL HISTORY: -C-SECTIONS -BOWEL SURGERY DUE TO ADHESIONS, PER PT -CHOLECYSTECTOMY -APPENDECTOMY -MULTIPLE D&C'S -HYSTERECTOMY/BILATERAL SALPINGO-OOPHORECTOMY -LEFT CARPAL TUNNEL AND LEFT ULNAR NERVE SURGERY -C-SPINE FUSION Physical Exam Vital Signs Vital Signs - First Documented 07/31/22 01:36 Temp 36.7 Pulse 98 Resp 16 B/P (MAP) 124/96 (105) Pulse Ox 96 O2 Delivery Room Air Capillary Refill : Less Than 3 Seconds Height, Weight, BMI Height: 5'0" Weight: 132lbs. oz. 59.579311dy; 25.00 BMI Method:Actual General Appearance: No Apparent Distress, WD/WN, Anxious, Other (TREMULOUS; SITTING UP IN BED, WITH KNEES BENT/HIPS FLEXED. MOVES LEGS WITHOUT DIFFICULTY. ) HEENT: PERRL/EOMI, TMs Normal, Normal ENT Inspection, Pharynx Normal, Moist Mucous Membranes, Other (NO EXTERNAL EVIDENCE OF TRAUMA TO HEAD AND NO TENDERNESS TO HEAD) Neck: Tender Midline, Other (MILD POSTERIOR NECK TENDERNESS--PT STATES IS NORMAL. FULL ROM) Respiratory: Chest Non Tender, Normal Breath Sounds, No Accessory Muscle Use, No Respiratory Distress Cardiovascular: Regular Rate, Rhythm, No Edema, No JVD, No Murmur, Normal Peripheral Pulses Gastrointestinal: Non Tender, Soft Back: Normal Inspection, No CVA Tenderness, No Vertebral Tenderness Extremity: Normal Capillary Refill, Normal Range of Motion, No Calf Tenderness, No Pedal Edema, Other (DIFFUSE TENDERNESS TO LEFT LEG FROM HIP TO ANKLE, MOST TENDER FROM HIP TO KNEE. FULL ROM. SENSORY/VASCULAR INTACT. DTR'S INTACT. NO EXTERNAL EVIDENCE OF TRAUMA) Neurologic/Psychiatric: Alert, Oriented x3, No Motor/Sensory Deficits, Normal Mood/Affect, pediatric clinical dietician II-XII Norm as Tested; No Abnormal Cerebellar Tests; Other (NO CONFUSION OR HALLUCINATIONS) Skin: Normal Color, Warm/Dry, Tattoos/Piercings, Other (NO EXTERNAL EVIDENCE OF TRAUMA ANYWHERE ON BODY) Progress/Results/Core Measures Suspected Sepsis SIRS Temperature: Pulse: 98 Respiratory Rate: 16 Laboratory Tests 07/31/22 01:39: White Blood Count 9.6 Blood Pressure 124 /96 Mean: 105 Laboratory Tests 07/31/22 01:39: Creatinine 0.89, Platelet Count 222, Total Bilirubin 1.3H Results/Orders Lab Results Laboratory Tests Test 07/31/22 01:39 07/31/22 02:25 Range/Units White Blood Count 9.6 4.3-11.0 10^3/uL Red Blood Count 5.13 H 3.80-5.11 10^6/uL Hemoglobin 15.2 11.5-16.0 g/dL Hematocrit 44 35-52 % Mean Corpuscular Volume 85 80-99 fL Mean Corpuscular Hemoglobin 30 25-34 pg Mean Corpuscular Hemoglobin Concent 35 32-36 g/dL Red Cell Distribution Width 12.1 10.0-14.5 % Platelet Count 222 130-400 10^3/uL Mean Platelet Volume 12.5 H 9.0-12.2 fL Immature Granulocyte % (Auto) 0 % Neutrophils (%) (Auto) 53 42-75 % Lymphocytes (%) (Auto) 35 12-44 % Monocytes (%) (Auto) 11 0-12 % Eosinophils (%) (Auto) 1 0-10 % Basophils (%) (Auto) 1 0-10 % Neutrophils # (Auto) 5.1 1.8-7.8 10^3/uL Lymphocytes # (Auto) 3.4 1.0-4.0 10^3/uL Monocytes # (Auto) 1.0 0.0-1.0 10^3/uL Eosinophils # (Auto) 0.1 0.0-0.3 10^3/uL Basophils # (Auto) 0.1 0.0-0.1 10^3/uL Immature Granulocyte # (Auto) 0.0 0.0-0.1 10^3/uL Sodium Level 139 135-145 MMOL/L Potassium Level 2.7 L 3.6-5.0 MMOL/L Chloride Level 97 L 98-107 MMOL/L Carbon Dioxide Level 24 21-32 MMOL/L Anion Gap 18 H 5-14 MMOL/L Blood Urea Nitrogen 20 H 7-18 MG/DL Creatinine 0.89 0.60-1.30 MG/DL Estimat Glomerular Filtration Rate 83 BUN/Creatinine Ratio 22 Glucose Level 117 H 70-105 MG/DL Calcium Level 9.9 8.5-10.1 MG/DL Corrected Calcium 8.5-10.1 MG/DL Magnesium Level 2.0 1.6-2.4 MG/DL Total Bilirubin 1.3 H 0.1-1.0 MG/DL Aspartate Amino Transf (AST/SGOT) 18 5-34 U/L Alanine Aminotransferase (ALT/SGPT) 12 0-55 U/L Alkaline Phosphatase 71 40-136 U/L Total Creatine Kinase 140 29-168 U/L Creatine Kinase MB 1.8 <6.6 NG/ML Myoglobin 166.8 H 10.0-92.0 NG/ML Total Protein 7.7 6.4-8.2 GM/DL Albumin 4.9 H 3.2-4.5 GM/DL Acetaminophen Level < 10 L 10-30 UG/ML Serum Alcohol < 10 <10 MG/DL Urine Color YELLOW Urine Clarity CLEAR Urine pH 6.0 5-9 Urine Specific [place] 1.020 1.016-1.022 Urine Protein NEGATIVE NEGATIVE Urine Glucose (UA) NEGATIVE NEGATIVE Urine Ketones 1+ H NEGATIVE Urine Nitrite NEGATIVE NEGATIVE Urine Bilirubin NEGATIVE NEGATIVE Urine Urobilinogen 0.2 < = 1.0 MG/DL Urine Leukocyte Esterase NEGATIVE NEGATIVE Urine RBC (Auto) NEGATIVE NEGATIVE Urine RBC NONE /HPF Urine WBC 0-2 /HPF Urine Squamous Epithelial Cells 2-5 /HPF Urine Crystals NONE /LPF Urine Bacteria TRACE /HPF Urine Casts NONE /LPF Urine Mucus MODERATE H /LPF Urine Culture Indicated NO Urine Opiates Screen NEGATIVE NEGATIVE Urine Oxycodone Screen NEGATIVE NEGATIVE Urine Methadone Screen NEGATIVE NEGATIVE Urine Propoxyphene Screen NEGATIVE NEGATIVE Urine Barbiturates Screen POSITIVE H NEGATIVE Ur Tricyclic Antidepressants Screen NEGATIVE NEGATIVE Urine Phencyclidine Screen NEGATIVE NEGATIVE Urine Amphetamines Screen NEGATIVE NEGATIVE Urine Methamphetamines Screen NEGATIVE NEGATIVE Urine Benzodiazepines Screen POSITIVE H NEGATIVE Urine Cocaine Screen NEGATIVE NEGATIVE Urine Cannabinoids Screen POSITIVE H NEGATIVE My Orders Orders - ROMEO HOLLEY DO Ed Iv/Invasive Line Start (07/31/22 01:48) Monitor-Rhythm Ecg Trace Only (07/31/22 01:48) Ct Head/Cervical Spine Wo (07/31/22 01:48) Femur, Left, 2 Views (07/31/22 01:48) Tibia/Fibula, Left, 2 Views (07/31/22 01:48) Pelvis 1 To 2 Views (07/31/22 01:48) Acetaminophen (07/31/22 01:48) Alcohol (07/31/22 01:48) Cbc With Automated Diff (07/31/22 01:48) Comprehensive Metabolic Panel (07/31/22 01:48) Creatine Kinase (07/31/22 01:48) Creatine Kinase Mb (07/31/22 01:48) Dilantin (Phenytoin) (07/31/22 01:48) Drug Screen Stat (Urine) (07/31/22 01:48) Magnesium (07/31/22 01:48) Ua Culture If Indicated (07/31/22 01:48) Myoglobin Serum (07/31/22 01:48) Ed Iv/Invasive Line Start (07/31/22 01:48) Lactated Ringers (Lr 1000 Ml Iv Solution (07/31/22 02:00) Ct Thoracic/Lumbar Spine Wo (07/31/22 01:59) Potassium Chloride (Tablet) (Klor Con Ta (07/31/22 03:15) Medications Given in ED Current Medications Medications Dose Ordered Sig/Rafael Route Start Time Stop Time Status Last Admin Dose Admin Lactated Ringer's 1,000 ml @ 0 mls/hr Q0M ONCE IV 07/31/22 02:00 07/31/22 02:01 DC 07/31/22 02:26 0 MLS/HR Potassium Chloride 40 meq ONCE ONCE PO 07/31/22 03:15 07/31/22 03:16 DC 07/31/22 03:09 40 MEQ Vital Signs/I&O 07/31/22 01:36 Temp 36.7 Pulse 98 Resp 16 B/P (MAP) 124/96 (105) Pulse Ox 96 O2 Delivery Room Air Capillary Refill : Less Than 3 Seconds 2 Blood Pressure Mean: 105 Progress Note : Progress Note UNEVENTFUL ER STAY PT DID NOT HAVE ANY SEIZURES OR ABNORMAL MOVEMENTS NO CONFUSION OR HALLUCINATIONS OR ABNORMAL BEHAVIOR PT HAD NO COMPLAINTS FOR REMAINDER OF ER STAY WALKS OUT OF ER ON HER OWN WITHOUT DIFFICULTY Diagnostic Imaging Comments XRAYS--ALL PENDING RADIOLOGIST REVIEW PELVIS--NO ACUTE PROCESS LEFT FEMUR--NO ACUTE PROCESS LEFT TIB-FIB--NO ACUTE PROCESS CT THORACIC/LUMBAR SPINE--NO ACUTE PROCESS, PER [facility] VIA FAX AT 1[address] CT HEAD/CERVICAL SPINE--NO ACUTE PROCESS, PER [facility] VIA FAX AT 3340 Reviewed: Reviewed by Me Departure Impression Primary Impression: UNWITNESSED FALL VS SEIZURE VS SYNCOPE Additional Impressions: Hx of seizure disorder Left leg pain Hypokalemia Disposition: HOME, SELF-CARE Condition: Stable Departure-Patient Inst. Decision time for Depature: 03:50 Referrals: JOHANNE HERNANDES MD (PCP/Family) Primary Care Physician Patient Instructions: General Trauma, Adult ED, Hypokalemia (DC), Seizures, Adult (DC) Add. Discharge Instructions: INCREASE YOUR FLUID INTAKE--ESPECIALLY WATER AND GATORADE TAKE ALL OF YOUR MEDICATIONS PRESCRIBED, DO NOT MISS ANY DOSES OF MEDICATIONS TYLENOL AND MOTRIN NEEDED FOR PAIN FOLLOW UP WITH DR. TAYLOR SOSA AND / OR DR. HERNANDES IN A FEW DAYS FOR FURTHER CARE All discharge instructions reviewed with patient and/or family. Voiced understanding. ROMEO HOLLEY DO Jul 31, 2022 01:59
[2022-07-31] MEDS ORDERED: LACTATED RINGERS 1,000 ML IV ONE (02:00)
[2022-07-31 02:02] LABS: ALBUMIN 4.9 GM/DL (3.2-4.5); CHLORIDE 97 MMOL/L (98-107); POTASSIUM 2.7 MMOL/L (3.6-5.0); SODIUM 139 MMOL/L (135-145)
[2022-07-31 02:03] LABS: CALCIUM 9.9 MG/DL (8.5-10.1)
[2022-07-31 02:04] LABS: GLUCOSE 117 MG/DL (70-105)
[2022-07-31 02:05] LABS: CARBON DIOXIDE 24 MMOL/L (21-32); TOTAL PROTEIN 7.7 GM/DL (6.4-8.2)
[2022-07-31 02:06] LABS: BILIRUBIN,TOTAL 1.3 MG/DL (0.1-1.0)
[2022-07-31 02:08] LABS: ALKALINE PHOSPHATASE 71 U/L (40-136); CREATININE SERUM 0.89 MG/DL (0.60-1.30); GFR ESTIMATED 83
[2022-07-31 02:09] LABS: BUN/CREATININE RATIO 22
[2022-07-31 02:11] LABS: ALANINE AMINOTRANSFERASE 12 U/L (0-55); CREATINE KINASE 140 U/L (29-168)
[2022-07-31 02:18] LABS: CREATINE KINASE MB 1.8 NG/ML (<6.6)
[2022-07-31 02:19] LABS: ACETAMINOPHEN < 10 UG/ML (10-30)
[2022-07-31 02:33] LABS: BILIRUBIN,URINE NEGATIVE (NEGATIVE); CLARITY,URINE CLEAR; COLOR,URINE YELLOW; GLUCOSE, URINE (UA) NEGATIVE (NEGATIVE); KETONES,URINE 1+ (NEGATIVE); LEUKOCYTE ESTERASE ,URINE NEGATIVE (NEGATIVE); NITRITE,URINE NEGATIVE (NEGATIVE); PROTEIN,URINE NEGATIVE (NEGATIVE)
[2022-07-31 02:45] LABS: BACTERIA,URINE TRACE /HPF; WBC,URINE 0-2 /HPF
[2022-07-31 02:53] LABS: AMPHETAMINE SCREEN, URINE NEGATIVE (NEGATIVE); BARBITURATE SCREEN URINE POSITIVE (NEGATIVE); BENZODIAZEPINES SCREEN URINE POSITIVE (NEGATIVE); CANNABINOID SCREEN, URINE POSITIVE (NEGATIVE); COCAINE SCREEN URINE NEGATIVE (NEGATIVE); METHADONE STAT NEGATIVE (NEGATIVE); OPIATE SCREEN URINE NEGATIVE (NEGATIVE); OXYCODONE STAT NEGATIVE (NEGATIVE); PROPOXYPHENE STAT NEGATIVE (NEGATIVE); TRICYCLIC ANTIDEPRESSANTS SCRE NEGATIVE (NEGATIVE)
[2022-07-31] MEDS ORDERED: KCL 10 MEQ TAB (MICRO K) PO ONE (03:15)
[2022-07-31 03:53] VITALS: BP 115/98
--- NOTE | 2022-07-31 06:57 | Diagnostic Imaging Report ---
EXAMINATION: CT head and CT cervical spine without contrast. TECHNIQUE: Multiple contiguous axial images were obtained through the brain and cervical spine without the use of intravenous contrast. Sagittal and coronal reformations through the cervical spine were then performed. All CT scans use one or more of the following dose optimizing techniques: automated exposure control, MA and/or KvP adjustment based on patient size and exam type or iterative reconstruction. HISTORY: Head and neck pain after injury COMPARISON: None available. FINDINGS: HEAD: The ventricles and sulci are normal. No abnormal attenuation of brain parenchyma is present. No acute intracranial hemorrhage or abnormal extra-axial fluid collections are present. No hyperdense vessel. The calvarium is intact. The mastoid air cells are clear. The visualized paranasal sinuses are clear. The orbits are normal. C-SPINE: Vertebral body height and alignment are preserved. No acute fracture, dislocation, or destructive osseous process. No significant facet hypertrophy. Surgical changes from fusion of C5-C7. Mild cervical spondylosis. The paraspinous soft tissues are normal. The visualized thyroid gland is normal. The visualized lung apices are normal. IMPRESSION: 1. No acute intracranial abnormality. 2. No cervical spine fracture. 3. Agree with preliminary interpretation. Dictated by: Dictated on workstation # [id number]
--- NOTE | 2022-07-31 07:24 | Diagnostic Imaging Report ---
EXAMINATION: CT thoracic and lumbar spine without contrast. TECHNIQUE: Multiple contiguous axial images were obtained through the thoracic and lumbar spine without the use of intravenous contrast. Sagittal and coronal reformations were then performed. All CT scans use one or more of the following dose optimizing techniques: automated exposure control, MA and/or KvP adjustment based on patient size and exam type or iterative reconstruction. HISTORY: Back pain after fall COMPARISON: 11/24/2021 FINDINGS: The alignment of the thoracic and lumbar spine is normal. Vertebral body heights are normal and no fracture is seen. Facet joints are normal. Disk heights are normal. Minimal thoracolumbar spondylosis. Limited views of the soft tissues show no abnormality. The aorta is normal. IMPRESSION: 1. No thoracic or lumbar spine fracture. 2. Agree with preliminary interpretation. Dictated by: Dictated on workstation # [id number]
--- NOTE | 2022-07-31 07:27 | Diagnostic Imaging Report ---
EXAMINATION: Left femur radiograph EXAM DATE: 07/31/2022 2:26 AM COMPARISON: None available. HISTORY: Leg pain TECHNIQUE: 4 views FINDINGS: There is no acute fracture, dislocation, or destructive osseous process. The joint spaces are normal. The soft tissues are normal. IMPRESSION: 1. No acute osseous abnormality. Dictated by: Dictated on workstation # [id number]
--- NOTE | 2022-07-31 07:28 | Diagnostic Imaging Report ---
EXAMINATION: Left tibia and fibula radiograph EXAM DATE: 07/31/2022 2:26 AM COMPARISON: None available. HISTORY: Leg pain TECHNIQUE: 3 views FINDINGS: There is no acute fracture, dislocation, or destructive osseous process. The joint spaces are normal. The soft tissues are normal. IMPRESSION: 1. No acute osseous abnormality. Dictated by: Dictated on workstation # [id number]
--- NOTE | 2022-07-31 07:28 | Diagnostic Imaging Report ---
EXAMINATION: Pelvis radiograph EXAM DATE: 07/31/2022 2:26 AM COMPARISON: 04/29/2022 HISTORY: Pelvic pain TECHNIQUE: 1 view FINDINGS: There is no acute fracture, dislocation, or destructive osseous process. The joint spaces are normal. The soft tissues are normal. IMPRESSION: 1. No acute osseous abnormality. Dictated by: Dictated on workstation # [id number]
== END 2022-07-31 03:57 | disposition home or self-care (01) ==
LOC: EDUNIT# 01:35 → ER 01:36
DX: M79.605 Pain in left leg (principal); E87.6 Hypokalemia; G89.29 Other chronic pain; M54.2 Cervicalgia; F17.210 Nicotine dependence, cigarettes, uncomplicated; F17.290 Nicotine dependence, other tobacco product, uncomplicated; Z98.1 Arthrodesis status; Z86.69 Personal history of other diseases of the nervous system and sense organs; W19.XXXA Unspecified fall, initial encounter; Y92.009 Unspecified place in unspecified non-institutional (private) residence as the place of occurrence of the external cause
CPT/HCPCS: 70450; 72125; 72128; 72131; 72170; 73552; 73590; 80053; 80185; 80306; 81000; 82550; 82553; 83735; 83874; 85025; 93041; 99284; G0480 ×2; 36415; 80320; 80329

== ENCOUNTER 2023-01-31 15:19 | Emergency (ER) | payer MEDICAID ==
[~2023-01-31] VITALS: Ht 149.8 cm; Wt 71.2 kg
[2023-01-31 15:34] VITALS: BP 115/75
== END 2023-01-31 15:55 | disposition left against medical advice (07) ==
LOC: EDUNIT# 15:19 → ER 15:20
DX: H92.03 Otalgia, bilateral (principal); H92.21 Otorrhagia, right ear
CPT/HCPCS: 99281